=== PATIENT | female | born 1985 | race Caucasian/White ===

== ENCOUNTER 2022-01-04 08:47 | Emergency (ER) | payer BC, SELFPAY ==
[2022-01-04] VITALS (22 sets, daily range): BP systolic 90–141; BP diastolic 63–97; PULSE 88–112; O2SAT 96–100; BMI 21.5
[2022-01-04 09:23] LABS: HCG Qualitative* Negative (Negative)
--- NOTE | 2022-01-04 09:26 | CRLHL7_ITS ---
For Patients: As a result of the Century Cures Act, medical imaging exams and procedure reports are released immediately into your electronic medical record. You may view this report before your referring provider. If you have questions, please contact your health care provider. INDICATION: Lower abdominal pain and flank pain. COMPARISON: May 21, 2021 TECHNIQUE: CT examination of the abdomen and pelvis was performed following the uneventful intravenous administration of 62 cc of Isovue 370. Thin section axial images were obtained from the lung bases through the pubic symphysis. Oral contrast was not administered. Please note that all CT scans at this facility use dose modulation, iterative reconstruction, and/or weight-based dosing when appropriate to reduce radiation dose to as low as reasonably achievable. FINDINGS: LUNG BASES: The lung bases as visualized appear normal.The heart size is normal at the lung bases. LIVER/BILIARY SYSTEM:The liver is normal in size and configuration. There is no focal mass and there is no intra- or extra hepatic biliary ductal dilatation.The gallbladder is surgically absent ADRENALS: Normal KIDNEYS, URETERS and BLADDER:Kidneys normal in size. 3 millimeter right midpole calculus. No evidence obstructive uropathy. The bladder appears normal. SPLEEN:Normal appearance. PANCREAS: Appears normal. RETROPERITONEUM and MESENTERY: There is no mass, adenopathy or aortic aneurysm. GASTROINTESTINAL SYSTEM: There is no evidence of diverticulitis, colitis, mechanical obstruction, or appendicitis. The small bowel as visualized appears normal. PELVIS: There is a small amount of free fluid in the pelvis. This is slightly above that generally seen physiologically and was not present on the prior study. However, the uterus and adnexa appear normal.. OSSEOUS STRUCTURES and ABDOMINAL WALL: There is an age-appropriate appearance of the osseous structures.No significant abdominal wall defect. OTHER: No free fluid or free air. IMPRESSION: There is a small amount of free fluid in the pelvis. This is slightly above that generally seen physiologically and was not present on the prior study. However, the uterus and adnexa appear normal by CT. Absent gallbladder. Right renal stone without evidence of obstructive uropathy. Please note that all CT scans at this facility use dose modulation, iterative reconstruction, and/or weight-based dosing when appropriate to reduce radiation dose to as low as reasonably achievable. Dictated by Deyvi Martinez MD @ 01/04/2022 10:36:15 AM ----- ADDENDUM ----- Addendum: The uterus is absent. Possible collapsing right ovarian cysts may be associated with the moderate pelvic free fluid. Pelvic ultrasound recommended. Discussed with Dr. Garcia 12:10 p.m. 01/12/2022. Dictated by Delta Bang MD @ Jan 12 2022 12:10PM Signed by:?Deyvi Martinez MD @01/04/2022 10:36:15 AM (Electronic Signature)
--- NOTE | 2022-01-04 09:28 | ED_ITS ---
HPI - Abdominal Pain General Chief Complaint: Abdominal Pain Stated Complaint: Abdominal pain Time Seen by Provider: 01/04/22 09:02 History of Present Illness HPI narrative: This 36-year-old female comes in reporting lower abdominal pain and bilateral flank pain. She states that she has had some flank pain over the past few months but in the past several days as her abdominal pain and flank pain is worsened significantly. She does report some increased urinary frequency and decreased output recently. She has not had any fevers. She does report nausea and some vomiting. She has lost some weight because of loss of appetite. She has had a hysterectomy and denies of course any chance for . She states that her pain is worse when standing up straight. Her abdominal pain is rather constant. She states that she did not sleep so well at night over these past few nights because of pain. Related Data Previous Rx's Medication Instructions Recorded dextroamphetamine-amphetamine ER 20 mg PO QDAY #30 caps 12/15/21 20 mg 24hr capsule,extend release ketorolac 10 mg tablet 10 mg PO Q8H 5 days #15 tabs 01/04/22 methylprednisolone 4 mg tablets in See Rx Instructions PO .COMPLEX 01/04/22 a dose pack (Medrol (Reji)) #21 ea ondansetron HCl 4 mg tablet 4 mg PO Q6H #20 tabs 01/04/22 Allergies Allergy/AdvReac Type Severity Reaction Status Date / Time banana Allergy Unknown Verified 01/04/22 09:53 cat dander Allergy Unknown Verified 01/04/22 09:53 latex Allergy Unknown Verified 01/04/22 09:53 Penicillins Allergy Unknown Verified 01/04/22 09:53 Review of Systems Status of ROS Reports: 10 or more systems reviewed and unremarkable except as noted in History and below Narrative Constitutional: No fevers, no weight gain or loss. Eyes: No discharge. No vision changes. HENT: No congestion, no sore throat, no ear pain. Cardiovascular: No chest pain, no palpitations. Respiratory: No shortness of breath, no wheezes, no cough. Gastrointestinal: Lower abdominal pain with bilateral flank pain as described above. No diarrhea. She has nausea with some vomiting. Genitourinary: No hematuria. Increased urinary frequency. Musculoskeletal: Normal range of motion. Skin: No rashes, no pruritis. Neurological: No dizziness, weakness, sensory change, speech change. Endo/Heme/Allergies: No bruising or bleeding. No polydipsia. Pysch: no suicidality, no anxiety, no insomnia. All other systems reviewed and are negative. PFSH PFSH Social History Smoking Status: Former smoker Do you use any of these nicotine containing products: None Second hand tobacco smoke exposure: No How often do you have a drink containing alcohol: 2-3 times a week How many standard drinks containing alcohol do you have on a typical day: 1 or 2 How often do you have six or more drinks on one occasion: Never AUDIT-C Alcohol total score: 3 Non-prescribed substance use: marijuana (any form) Exam Narrative: Exam Narrative: Constitutional: Well-developed, well-nourished, no acute distress. HEENT: Normocephalic, atraumatic. Neck: Normal range of motion. Nontender. Supple. Heart: Regular. No murmurs. Borderline tachycardia. Intact distal pulses. Lungs: Clear to auscultation. No chest discomfort. No wheezes, rhonchi, or rales. Abdomen: Decreased bowel sounds. Tenderness across the lower abdomen. Mild rebound tenderness. Genitalia: Deferred. Back: No midline tenderness. Normal range of motion. Extremities: Normal range of motion. No injury. Skin: Intact. No rash. Warm. No erythema or pallor. Neurologic: No altered sensation. No weakness. Alert and oriented. Psychiatric: No suicidality. No anxiety or depression. No insomnia. Nursing notes and vitals signs are reviewed. Const: Vital Signs, click to edit/add: Vital Signs - 24 hr 01/04/22 08:51 01/04/22 10:01 01/04/22 10:02 Pulse Rate 96 106 H Pulse Rate [Left P ulse Oximeter] 103 H Blood Pressure 94/63 Blood Pressure [Ri ght Upper Arm] 141/97 H Pulse Oximetry 100 100 100 Oxygen Delivery Me thod Room Air 01/04/22 10:31 01/04/22 10:33 01/04/22 11:02 Pulse Rate 94 90 99 Pulse Rate [Left P ulse Oximeter] Blood Pressure 90/65 Blood Pressure [Ri ght Upper Arm] Pulse Oximetry 100 100 100 Oxygen Delivery Me thod 01/04/22 11:03 01/04/22 11:33 01/04/22 11:34 Pulse Rate 97 95 98 Pulse Rate [Left P ulse Oximeter] Blood Pressure Blood Pressure [Ri ght Upper Arm] Pulse Oximetry 100 100 100 Oxygen Delivery Me thod 01/04/22 12:00 01/04/22 12:14 01/04/22 12:15 Pulse Rate 112 H 100 105 H Pulse Rate [Left P ulse Oximeter] Blood Pressure 116/79 Blood Pressure [Ri ght Upper Arm] Pulse Oximetry 98 97 98 Oxygen Delivery Me thod 01/04/22 12:30 01/04/22 12:31 01/04/22 12:32 Pulse Rate 88 94 98 Pulse Rate [Left P ulse Oximeter] Blood Pressure 125/94 H Blood Pressure [Ri ght Upper Arm] Pulse Oximetry 98 98 99 Oxygen Delivery Me thod 01/04/22 13:00 01/04/22 13:01 Pulse Rate 88 88 Pulse Rate [Left P ulse Oximeter] Blood Pressure 120/82 Blood Pressure [Ri ght Upper Arm] Pulse Oximetry 96 96 Oxygen Delivery Me thod Course Vital Signs Vital signs: Initial Vital Signs Temperature Source Temporal Artery Scan 01/04/22 08:51 Pulse Rate 103 H 01/04/22 08:51 Blood Pressure 141/97 H 01/04/22 08:51 Blood Pressure Mean 111 01/04/22 08:51 Blood Pressure Position Supine 01/04/22 08:51 Pulse Oximetry 100 01/04/22 08:51 Oxygen Delivery Method 01/04/22 08:51 Vital Signs Pulse Rate 103 H 01/04/22 08:51 Blood Pressure 141/97 H 01/04/22 08:51 Pulse Oximetry 100 01/04/22 08:51 Oxygen Delivery Method 01/04/22 08:51 Pulse Rate 88 01/04/22 13:01 Blood Pressure 120/82 01/04/22 13:01 Pulse Oximetry 96 01/04/22 13:01 Oxygen Delivery Method 01/04/22 08:51 MDM - Abdominal Pain MDM Narrative Medical decision making narrative: This patient comes in with flank and abdominal pain as described above. This pain is been present for the most part of the past 6 months or so but more intense recently. She has had blood work done in the past but has not had any imaging. CT scan of the abdomen and pelvis was performed today which shows reassuring findings and no obvious cause for her pain. There is a nonobstructive 3 mm stone in the right kidney and there is some physiologic free fluid in the pelvis which may be a bit more than what is expected. The patient has had her gallbladder removed and has had a hysterectomy. Lab results returned with all normal findings. This includes sed rate, lipase, white count, and TSH among others. She did receive an IV dose of Toradol which brought some temporary relief. Later a dose of Dilaudid 0.5 mg brought better pain relief. She also received 2 doses of Zofran intravenously. Before discharge she also received Solu-Medrol 125 mg intravenously. She is okay to be discharged home. I advised her to follow-up with her primary physician and did also discuss some possibilities for referral to a specialist for further evaluation and treatment. She did received prescriptions for Toradol, Medrol Dosepak, and Zofran. Lab Data Labs: Lab Results 01/04/22 01/04/22 01/04/22 Range/Units 09:15 09:26 09:26 WBC 3.93 L (4.50-11.00) K/uL RBC 4.25 (4.00-5.20) m/uL Hgb 13.6 (12.0-16.0) gm/dL Hct 39.3 (33.0-51.0) % MCV 93 (80-100) fL MCH 32 (26-34) pg MCHC 35 (32-36) gm/dL RDW Coeff of Guillermina 11.7 (11.5-15.5) % Plt Count 238 (140-440) K/uL Neut % (Auto) 56.7 (42.0-72.0) % Lymph % (Auto) 35.9 (20-44) % [place] % (Auto) 6.6 (0.0-11.0) % Eos % (Auto) 0.3 (0.0-7.0) % Baso % (Auto) 0.5 (0.0-3.0) % Neut # (Auto) 2.20 (1.7-7.0) K/uL Lymph # (Auto) 1.40 (0.90-2.90) K/uL [place] # (Auto) 0.30 (0.00-0.90) K/UL Eos # (Auto) 0.00 (0.00-0.50) K/uL Baso # (Auto) 0.00 (0.00-0.30) K/uL Abs Immat Gran (auto) 0.00 (0.00-0.30) K/uL ESR (2-20) mm/hr Sodium 141 (135-149) mmol/L Potassium 3.7 (3.6-5.1) mmol/L Chloride 106 (96-114) mmol/L Carbon Dioxide 24 (20-32) mmol/L BUN 8 (5-24) mg/dL Creatinine 0.6 (0.5-1.5) mg/dL Estimated Creat Clear 114.09 Estimated GFR 121 ml/min Glucose 86 (60-115) mg/dL Calcium 9.1 (8.4-10.6) mg/dL Lipase (23-300) U/L TSH (0.270-4.20) uIU/mL HCG, Qual Negative (Negative) Urine Color Yellow (Yellow) Urine Appearance Clear (Clear) Urine pH 7.0 (5.0-8.5) Ur Specific [place] 1.025 (1.000-1.030) Urine Protein Negative (Negative) Urine Glucose (UA) Negative (Negative) Urine Ketones Negative (Negative) Urine Blood Negative (Negative) Urine Nitrite Negative (Negative) Urine Bilirubin Negative (Negative) Urine Urobilinogen 0.2 (0.2-1.0) Ur Leukocyte Esterase Negative (Negative) 01/04/22 01/04/22 01/04/22 Range/Units 12:01 12:01 12:01 WBC (4.50-11.00) K/uL RBC (4.00-5.20) m/uL Hgb (12.0-16.0) gm/dL Hct (33.0-51.0) % MCV (80-100) fL MCH (26-34) pg MCHC (32-36) gm/dL RDW Coeff of Guillermina (11.5-15.5) % Plt Count (140-440) K/uL Neut % (Auto) (42.0-72.0) % Lymph % (Auto) (20-44) % [place] % (Auto) (0.0-11.0) % Eos % (Auto) (0.0-7.0) % Baso % (Auto) (0.0-3.0) % Neut # (Auto) (1.7-7.0) K/uL Lymph # (Auto) (0.90-2.90) K/uL [place] # (Auto) (0.00-0.90) K/UL Eos # (Auto) (0.00-0.50) K/uL Baso # (Auto) (0.00-0.30) K/uL Abs Immat Gran (auto) (0.00-0.30) K/uL ESR 5 (2-20) mm/hr Sodium (135-149) mmol/L Potassium (3.6-5.1) mmol/L Chloride (96-114) mmol/L Carbon Dioxide (20-32) mmol/L BUN (5-24) mg/dL Creatinine (0.5-1.5) mg/dL Estimated Creat Clear Estimated GFR ml/min Glucose (60-115) mg/dL Calcium (8.4-10.6) mg/dL Lipase 56 (23-300) U/L TSH 1.150 (0.270-4.20) uIU/mL HCG, Qual (Negative) Urine Color (Yellow) Urine Appearance (Clear) Urine pH (5.0-8.5) Ur Specific [place] (1.000-1.030) Urine Protein (Negative) Urine Glucose (UA) (Negative) Urine Ketones (Negative) Urine Blood (Negative) Urine Nitrite (Negative) Urine Bilirubin (Negative) Urine Urobilinogen (0.2-1.0) Ur Leukocyte Esterase (Negative) Discharge Plan Discharge Clinical Impression: Abdominal pain Patient Disposition: Home, Self-Care Condition: Stable Additional Instructions: Take medication as needed and indicated. Follow up with MD and or consider consulting a specialist for further evaluation and treatment. Return if worsening. Prescriptions: New ondansetron HCl 4 mg tablet 4 mg PO Q6H Qty: 20 0RF ketorolac 10 mg tablet 10 mg PO Q8H 5 Days Qty: 15 0RF methylprednisolone [Medrol (Reji)] 4 mg tablets,dose pack See Rx Instructions .ROUTE .COMPLEX Qty: 21 0RF Rx Instructions: orally per package directions No Action dextroamphetamine-amphetamine 20 mg capsule,extended release 24hr 20 mg PO QDAY Qty: 30 0RF Follow Up/Referrals: Tono Mccoy MD [Primary Care Provider] - Stand Alone Forms: [employer] Info Instructions
--- OUTSIDE RECORDS SUMMARY | 2022-01-04 09:42 | XMS_ITS | Encounter Summary ---
:1985 Author Organization [facility] Address [address] [place] [address] Care Team Providers Name Role Phone Elsewhere, Pcp Primary Care Provider Unavailable Reason for Referral Outpatient (Routine) - Closed Specialty Diagnoses / Procedures Referred By Contact Refer red To Contact Diagnoses Pain Breast Marilyn Acosta APRN, [place] [place] [facility] Procedures BI Breast Diagnostic Bilateral with Tomosynthesis BI Breast Diagnostic Right with Tomosynthesis [facility] [address] [place] [address] Referral ID Status Reason Start Date Expiration Date Visits Requ ested Visits Authorized [id number] Closed 11/25/2021 11/25/2022 1 1 Reason for Visit Outpatient (Routine) - Closed Specialty Diagnoses / Procedures Referred By Contact Refer red To Contact Diagnoses Pain Breast Marilyn Acosta APRN, [facility] [place] [facility] Procedures BI Breast Diagnostic Bilateral with Tomosynthesis BI Breast Diagnostic Right with Tomosynthesis [facility] [address] [place] [address] Referral ID Status Reason Start Date Expiration Date Visits Requ ested Visits Authorized [id number] Closed 11/25/2021 11/25/2022 1 1 Encounter Details Date Type Department Care Team Description 12/16/2021 Hospital Encounter Department of Radiology Marilyn Acosta APRN, [facility] [place] [facility] [address] [place] [id number] [address] [place] [phone] (Wo rk) Social History Tobacco Use Types Packs/Day Years Used Date Smoking Tobacco: Never Smokeless Tobacco: Never Alcohol Habits Answer Date Recorded How often do you have a drink containing alcohol? 2-4 times a month 11/23/2021 How many drinks containing alcohol do you have on a 1 or 2 11/23/2021 typical day when you are drinking? How often do you have six or more drinks on one Never 11/23/2021 occasion? Comment: Not asked Social Isolation Answer Date Recorded In a typical week, how many times do you More than three evens es a week 11/23/2021 talk on the phone with family, friends, or neighbors? How often do you get together with friends Twice a week 11/23/2021 or relatives? How often do you attend latter-day or More than 4 times per year 11/23/2021 religion services? Do you belong to any clubs or Not asked organizations such as latter-day groups, unions, fraternal or athletic groups, or school groups? How often do you attend meetings of the More than 4 times pe r year 11/23/2021 clubs or organizations you belong to? Are you now , , , 11/23/2021 , never or living with a partner? Physical Activity Answer Date Recorded On average, how many days per week do you engage in moderate to 2 days 11/23/2021 strenuous exercise (like walking fast, running, jogging, dancing, swimming, biking, or other activities that cause a light or heavy sweat)? On average, how many minutes do you engage in exercise at th is 20 min 11/23/2021 level? Stress Answer Date Recorded Do you feel stress - tense, restless, nervous, or anxious, R ather much 11/23/2021 or unable to sleep at night because your mind is troubled all the time - these days? Financial Resource Strain Answer Date Recorded How hard is it for you to pay for the very basics like Not h gilberto at all 11/23/2021 food, housing, medical care, and heating? Intimate Partner Violence Answer Date Recorded Within the last year, have you been afraid of your partner o r No 11/23/2021 ex-partner? Within the last year, have you been humiliated or emotionall y No 11/23/2021 abused in other ways by your partner or ex-partner? Within the last year, have you been kicked, hit, slapped, or No 11/23/2021 otherwise physically hurt by your partner or ex-partner? Within the last year, have you been raped or forced to have any No 11/23/2021 kind of sexual activity by your partner or ex-partner? Food Insecurity Answer Date Recorded Within the past 12 months, you worried that your food would Never true 11/23/2021 run out before you got money to buy more. Within the past 12 months, the food you bought just didn't N ever true 11/23/2021 last and you didn't have money to get more. Transportation Needs Answer Date Recorded In the past 12 months, has lack of transportation kept you f rom No 11/23/2021 medical appointments or from getting medications? In the past 12 months, has lack of transportation kept you f rom No 11/23/2021 meetings, work, or getting things needed for daily living? Housing Stability Answer Date Recorded In the last 12 months, was there a time when you were not ab le Yes 11/23/2021 to pay the mortgage or rent on time? In the last 12 months, how many places have you lived? 1 11/23/2021 In the last 12 months, was there a time when you did not hav e a No 11/23/[address] sleep or slept in a usp (including now)? Education Answer Date Recorded What is the highest level of school Bachelor's degree (e.g., BA, AB, 11/23/2021 you have completed or the highest BS) degree you have received? Sex Assigned at Date Recorded Female 11/21/2021 11:33 PM CDT documented as of this encounter Medications at Time of Discharge Medication Sig Dispensed Refills Start Date End Date amphetamine-dextroamphetam Take by mouth daily. 0 11/15/2021 ine (ADDERALL XR) 20 mg 24 hr capsule diazePAM (VALIUM) 10 mg Take 10 mg by mouth 0 tablet every 6 (six) hours as needed for anxiety. documented as of this encounter Plan of Treatment Not on filedocumented as of this encounter Procedures Procedure Name Priority Date/Time Associated Comments Diagnosis BI BREAST DIAGNOSTIC RAD - Routine 12/16/2021 9:59 Pain Breast Res ults for BILATERAL WITH (most inpatients AM CDT this proc edure TOMOSYNTHESIS and all are in the outpatients) results section. documented in this encounter Results BI Breast Diagnostic Bilateral with Tomosynthesis (12/16/2021 9:59 AM CDT) Anatomical Region Laterality Modality Breast, Breast Imaging RST LOS, Breast Imaging ARZ LOS, [facility] [facility] Bilateral Mammography Imaging FLA LOS Specimen (Source) Anatomical Collection Method Collection Time Re ceived Time Location / / Volume Laterality 12/16/2021 10:23 AM CDT Impressions 12/16/2021 10:36 AM CDT 1. ??No mammographic or sonographic findings of malignancy. 2. ??Right periareolar breast pain corre sponds with benign dense fibroglandular tissue. RECOMMENDATION: ??Individualized Recomme ndation Recommend management be based on clinica l grounds. ASSESSMENT: ??BI-RADS: 2: Benign. Narrative 12/16/2021 10:36 AM CDT EXAM: ??BI BREAST DIAGNOSTIC BILATERAL WITH TOMOSYNTHESIS, BI ULTRASOUND BREAST FOCUSED RIGHT INDICATION: ??Right Breast pain COMPARISON: ??None. This is baseline. DENSITY: ??c. The breast(s) are heteroge neously dense, which may obscure small masses. FINDINGS: ??Bilateral mammograms are neg ative. Right breast ultrasound at site of pain in the periareolar regions is negative for seymour d or cystic suspicious mass. There is benign abundant dense fibroglandular tissue in the right peria reolar regions that corresponds with the pain. Negative for malignancy. No suspicious right axillary lymph nodes. I discussed findings with patient. We talked about strategies to address the breast p ain. She was satisfied. Procedure Note Delta Keyes M.D. - 12/16/2021 EXAM: BI BREAST DIAGNOSTIC BILATERAL WIT H TOMOSYNTHESIS, BI ULTRASOUND BREAST FOCUSED RIGHT INDICATION: Right Breast pain COMPARISON: None. This is baseline. DENSITY: c. The breast(s) are heterogene ously dense, which may obscure small masses. FINDINGS: Bilateral mammograms are negat vladimir. Right breast ultrasound at site of pain in the periareolar regions is negative for seymour d or cystic suspicious mass. There is benign abundant dense fibroglandular tissue in the right peria reolar regions that corresponds with the pain. Negative for malignancy. No suspicious right axillary lymph nodes. I discussed findings with patient. We talked about strategies to address the breast p ain. She was satisfied. IMPRESSION: 1. No mammographic or sonographic findin gs of malignancy. 2. Right periareolar breast pain corresp onds with benign dense fibroglandular tissue. RECOMMENDATION: Individualized Recommend ation Recommend management be based on clinica l grounds. ASSESSMENT: BI-RADS: 2: Benign. Efraín Pichardo APRNNPasquale IMG BI PROCEDURES documented in this encounter Visit Diagnoses Diagnosis Pain Breast documented in this encounter Care Teams Multiple Sclerosis Nurse Relationship Specialty Start Date End Date Elsewhere, Pcp PCP - General Internal Medicine 11/25/21 documented as of this encounter
--- OUTSIDE RECORDS SUMMARY | 2022-01-04 09:42 | XMS_ITS | Encounter Summary ---
:1985 Author Organization [facility] Address [address] [place] [address] Care Team Providers Name Role Phone Elsewhere, Pcp Primary Care Provider Unavailable Reason for Referral Outpatient (Routine) - Closed Specialty Diagnoses / Procedures Referred By Contact Refer red To Contact Diagnoses Pain Breast Marilyn Acosta APRN, [facility] [place] [facility] Procedures BI Breast Diagnostic Bilateral with Tomosynthesis BI Breast Diagnostic Right with Tomosynthesis C.N.P. [address] [place] [address] Referral ID Status Reason Start Date Expiration Date Visits Requ ested Visits Authorized [id number] Closed 11/25/2021 11/25/2022 1 1 Outpatient (Routine) - Closed Specialty Diagnoses / Procedures Referred By Contact Refer red To Contact Diagnoses Pain Breast Marilyn Acosta APRN, [facility]. [facility] [place] [facility] Procedures BI Ultrasound Breast Focused Right [address] [place] [address] Referral ID Status Reason Start Date Expiration Date Visits Requ ested Visits Authorized [id number] Closed 11/25/2021 11/25/2022 1 1 Reason for Visit Reason Comments Other Lump in breast with pain. [facility] in May 2021. Painful when children try to hug her. Has pain more in the evenings and mornings. Appointment Request (Routine) - Closed Specialty Diagnoses / Procedures Referred By Contact Refer red To Contact Family Medicine Referral ID Status Reason Start Date Expiration Date Visits Requ ested Visits Authorized [id number] Closed 11/18/2021 11/18/2022 1 1 Encounter Details Date Type Department Care Team Description 11/25/2021 Office Visit Department of Family Marilyn Acosta Pain B reast (Primary Medicine, [place] [facility], C.N.P. Dx) Clinic, in [address] [address] [place], [place] [phone] [id number] (Work) [phone] Social History Tobacco Use Types Packs/Day Years Used Date Smoking Tobacco: Never Smokeless Tobacco: Never Tobacco Cessation: Counseling Given: Not Answered Alcohol Habits Answer Date Recorded How often [...] or relatives? How often do you attend bahai or More than 4 times per year 11/23/2021 buddhism services? Do you belong to any clubs or Not asked organizations such as bahai groups, unions, fraternal or athletic groups, or [...] minutes do you engage in exercise at is 20 min 11/23/2021 level? Stress Answer [...] place to sleep or slept in a fpc (including now)? Education Answer Date Recorded What is the highest level of school Bachelor's degree (e.g., BA, AB, 11/23/2021 you have completed or the highest BS) degree you have received? Sex Assigned at Date Recorded Female 11/21/2021 11:33 PM CDT documented as of this encounter Last Filed Vital Signs Vital Sign Reading Time Taken Comments Blood Pressure 115/76 11/25/2021 7:55 AM Average of 3 CDT Pulse 80 11/25/2021 7:55 AM CDT Temperature 35.8 ??C (96.4 ??F) 11/25/2021 7:55 AM CDT Respiratory Rate 16 11/25/2021 7:55 AM CDT Oxygen Saturation - - Inhaled Oxygen Concentration - - Weight 58 kg (127 lb 15.6 oz) 11/25/2021 7:55 AM CDT Height 165.5 cm (5' 5.16) 11/25/2021 7:55 AM CDT Body Mass Index 21.19 11/25/2021 7:55 AM CDT documented in this encounter Patient Instructions Patient InstructionsMarilyn Acosta APRN, C.N.P. - 11/25/2021 8:00 AM CDT Supportive therapy may include: Elimination of potential triggers (eg, caffeine, nicotine, excess salt) Supportive bra (with bra fitting to ensure correct size; avoid underwire bras; consider wearing a soft bra at night) Cool or warm compresses NSAIDs documented in this encounter Progress Notes Marilyn Acosta APRN, C.N.P. - 11/25/2021 8:00 AM CDT SUBJECTIVE CHIEF COMPLAINT/REASON FOR VISIT Chief Complaint Patient presents with Other Lump in breast with pain. Started in May 2021. Painful when children try to hug her. Has pain more in the evenings and mornings. HISTORY OF PRESENT ILLNESS Arlen Valladares is a 36 y.o. female who presents to the clinic today for evaluation of breast pain and breast lump. Patient states she first noticed a subareolar mass seven months ago. She describesthe pain under the right nipple and reports it feels like a pressure. The pain is worst with any pressure to the chest. The patient denies a personal or family history of breast or gynecologic cancer. Arlen receives her primary care at [facility]. In talking with her, she states she had a mammogram at the onset of symptoms showing fibroglandular tissue, no other significant finding. She continues to have pain and is seeking a second opinion today. Patient denies nipple discharge, skin changes on the breast, fever, unintentional weight loss, lymphadenopathy. Patient states she had a partial hysterectomy and thus is unable to tell if the pain worsens with hormone fluctuations. The patient states she has requested medical records but has not received these yet. Past medical history significant for anxiety, depression, ADHD, IBS with diarrhea, and anal fissure s/p Botox. CURRENT MEDICATIONS I have reviewed the current medications list. ALLERGIES/CONTRAINDICATIONS Allergies Allergen Reactions Latex Rash Meperidine Other (see comments) Family history Oxycodone-Acetaminophen Itching Penicillins Hives REVIEW OF SYSTEMS Skin: Positive for breast lump. The following systems were negative: Constitutional, Cardiovascular OBJECTIVE VITAL SIGNS BP 115/76 (BP Location: Left arm, Patient Position: Sitting, Cuff Size: Regular) Comment: Average of3 Pulse 80 Temp (!) 35.8 ??C (Temporal) Resp 16 Ht 165.5 cm Wt 58 kg BMI 21.19 kg/m?? PHYSICAL EXAMINATION General: Alert 36-year-old female in no acute distress, nontoxic in appearance, well dressed, normalhygiene. HEENT: Head normocephalic, atraumatic, pupils equal round react to light, EOM intact. Neck: Supple. No lymphadenopathy. Cardiovascular: Regular rate, rhythm, S1, S2. No murmur. No edema. Respiratory: Lungs clear to auscultation in the anterior and posterior chest, easy Respirations. Nonlabored breathing. Breast: Breasts appear symmetric. No overlying skin changes. There are areas of fibroglandular tissue located throughout both breasts. 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 GI: Abdomen is rounded and soft. Active bowel sounds in all four quadrants. No pain to light or deeppalpation. No organomegaly. Neurologic: Alert, oriented, steady gait. Extremities: Warm, pink, dry. DIAGNOSTICS: No results found for this or any previous visit (from the past 24 hour(s)). ASSESSMENT / PLAN #1 Pain Breast Patient presents to the clinic today for evaluation of seven months of subareolar right breast pain.We will proceed with a diagnostic mammogram and ultrasound given the patient does not have her medical records and her symptoms persist. She is agreeable to this. We will follow-up on the results accordingly. Symptomatic care reviewed with the patient. - BI Ultrasound Breast Focused Right; Future; Expected date: 11/25/2021 - BI Breast Diagnostic Right with Tomosynthesis; Future; Expected date: 11/25/2021 Patient states she would like to establish primary care at [facility]. Recommend patient gather hermedical records and return to the clinic for an annual physical and to discuss other health concerns. All questions were answered. Patient verbalizing understanding and is in agreement with the above outlined plan. documented in this encounter Plan of Treatment Not on filedocumented as of this encounter Results BI Ultrasound Breast Focused Right (12/16/2021 10:38 AM CDT) Anatomical Region Laterality Modality Breast, Breast Imaging RST LOS, Breast Imaging [facility], [address] Right Ultrasound Imaging [facility] Specimen (Source) Anatomical Collection Method Collection Time [...] clinica l grounds. ASSESSMENT: BI-RADS: 2: Benign. Marilyn Acosta APRN, C.N.P. IMG BI PROCEDURES BI Breast Diagnostic Bilateral with Tomosynthesis (12/16/2021 9:59 AM CDT) Anatomical Region Laterality Modality Breast, Breast Imaging RST LOS, Breast Imaging [facility] LOS, [address] Bilateral Mammography Imaging [facility] LOS Specimen [...] clinica l grounds. ASSESSMENT: BI-RADS: 2: Benign. Marilyn Acosta APRN, C.N.P. IMG BI PROCEDURES documented in this encounter Visit Diagnoses Diagnosis Pain Breast - Primary Pain Breast Pain Breast documented in this encounter Care Teams Lead Rider Relationship Specialty Start Date End Date Elsewhere, Pcp PCP - General Internal Medicine 11/25/21 documented as of this encounter
--- OUTSIDE RECORDS SUMMARY | 2022-01-04 09:42 | XMS_ITS | Clinical Summary ---
:1985 Author Organization [facility] Address [address] [place] [address] Care Team Providers Name Role Phone Elsewhere, Pcp Primary Care Provider Unavailable Source Comments Patient records contain information from all sites at [facility]. For routine questions regarding patient records, call [phone] during business hours, M-F 8:00 AM - 5:00 PM Central Time. Record requests for emergency care only can be directed to [phone] at any time.[facility] Allergies Active Allergy Reactions Severity Noted Date Comments Latex Rash 03/09/2006 Meperidine Other (see comments) 12/17/2015 Family history Oxycodone-Acetaminophen Itching 12/17/2015 Penicillins Hives 03/24/2014 Medications Medication Sig Dispensed Refills Start Date End Date Status amphetamine-dextroamph Take by mouth 0 11/15/2021 Active etamine (ADDERALL XR) daily. 20 mg 24 hr capsule diazePAM (VALIUM) 10 Take 10 mg by 0 Active mg tablet mouth every 6 (six) hours as needed for anxiety. Active Problems No known active problems Encounters Date Type Specialty Care Team Description 12/16/2021 Hospital Encounter Radiology Marilyn Acosta, Pain Sumi ast MACHINIST HELPER, C.N.P. 12/16/2021 Hospital Encounter Radiology Mairlyn Acosta Pain Sumi ast MACHINIST HELPER, C.N.P. 11/25/2021 Office Visit Family Medicine Marilyn Acosta, Pain Breast (Primary MACHINIST HELPER, C.N.P. Dx) from Last 3 Months Immunizations Name Administration Dates Next Due Influenza (IM) Preservative Free 02/05/2014, 01/30/2013, 02/2012 Influenza, Injectable, Quadrivalent 04/07/2019 Influenza, Seasonal, Injectable 01/29/2010 Tdap 02/03/2016, 02/05/2014, 01/30/2013 influenza vaccine quad 01/17/2018, 01/28/2017, 01/20/2016, (FLUZONE/FLUARIX) (6 months and 01/21/2015 older)(PF) Social History Tobacco Use Types Packs/Day Years [...] or relatives? How often do you attend pentecostal or More than 4 times per year 11/23/2021 latter day services? Do you belong to any clubs or Not asked organizations such as pentecostal groups, unions, fraternal or athletic groups, or [...] place to sleep or slept in a skilled nursing (including now)? Education Answer Date Recorded What is the highest level of school Bachelor's degree (e.g., BA, AB, 11/23/2021 you have completed or the highest BS) degree you have received? Sex Assigned at Date Recorded Female 11/21/2021 11:33 PM CDT Last Filed Vital Signs Vital Sign Reading [...] Mass Index 21.19 11/25/2021 7:55 AM CDT Plan of Treatment Health Maintenance Due Date Last Done Comments HIV Screening 1985 Hepatitis B Vaccines (1 of 1985 3 - 3-dose series) Hepatitis C Screening 1985 COVID-19 Vaccine (2 - 01/14/2021 12/24/2020 Pfizer series) Influenza Vaccine (#1) 2022 04/07/2019, 01/17/2018, 01/28/2017, Additional history exists DTaP,Tdap,and Td Vaccines 02/02/2026 02/03/2016, 02/05/2014 , (4 - Td or Tdap) 01/30/2013 Depression Screening Completed 11/25/2021 (Annual PHQ-2) Pneumococcal vaccine (0-64 Aged Out No lo nger eligible years) based on patient 's age to complete this topic Procedures Procedure Name Priority Date/Time Associated Comments Diagnosis BI ULTRASOUND BREAST RAD - Routine 12/16/2021 10:38 Pain Breast Re sults for FOCUSED RIGHT (most inpatients AM CDT this proce dure and all are in the outpatients) results section. BI BREAST DIAGNOSTIC RAD - Routine 12/16/2021 9:59 Pain Breast Res ults for BILATERAL WITH (most inpatients AM CDT this proc edure TOMOSYNTHESIS and all are in the outpatients) results section. from Last 3 Months Results BI Ultrasound Breast Focused Right (12/16/2021 10:38 AM CDT) Anatomical Region Laterality Modality Breast, Breast Imaging RST LOS, Breast Imaging [facility] LOS, [address] Right Ultrasound Imaging [facility] LOS Specimen (Source) Anatomical Collection [...] grounds. ASSESSMENT: BI-RADS: 2: Benign. Efraín Pichardo APRNNKenP. IMG BI PROCEDURES from Last 3 Months Insurance Payer Benefit Plan / Subscriber ID Effective Dates Phone Addre ss Type Group [employer] [place] [id number] 2021-Presen [phone] [address] [facility] [address] [place] [id number] Care Teams [employer] Electrical Systems Designer Relationship Specialty Start Date End Date Elsewhere, Pcp PCP - General Internal Medicine 11/25/21
--- OUTSIDE RECORDS SUMMARY | 2022-01-04 09:42 | XMS_ITS | Encounter Summary ---
:1985 Author Organization [facility] Address [address] [place] [address] Care Team Providers Name Role Phone Unavailable Primary Care Provider Unavailable Encounter Details Date Type Department Care Team Description 03/24/2014 Hospital Encounter HX [facility] Floyd Chaudhry [facility], M.D. Social History Tobacco Use Types Packs/Day Years Used Date Smoking Tobacco: Never Assessed Alcohol Habits Answer Date Recorded How often [...] or relatives? How often do you attend congregation or More than 4 times per year 11/23/2021 nondenominational services? Do you belong to any clubs or Not asked organizations such as congregation groups, unions, fraternal or athletic groups, or [...] place to sleep or slept in a snf (including now)? Sex Assigned at Date Recorded Female 11/21/2021 11:33 PM CDT documented as of this encounter Last Filed Vital Signs Vital Sign Reading Time Taken Comments Blood Pressure 125/87 03/24/2014 6:33 PM HAND CANDY DIPPER Pulse 103 03/24/2014 2:55 PM HAND CANDY DIPPER Temperature - - Respiratory Rate 18 03/24/2014 5:47 PM HAND CANDY DIPPER Oxygen Saturation - - Inhaled Oxygen Concentration - - Weight - - Height - - Body Mass Index - - documented in this encounter Discharge Summaries Conversion, Historical Provider Ser - 03/24/2014 6:52 PM CST ED Discharge Instructions [address] [address] Name: ARLEN VALLADARES Date of : 1985 12:00 AM Visit Date: 03/24/2014 2:52 PM [facility] Number: [id number] Address: [address] [place] [phone] Primary Care Provider: PCP, ELSEWHERE IMPORTANT: [facility] in [place] would like to thank you for allowing us to assist you with your healthcare needs. The following includes patient education materials and information regarding your injury/illness. Diagnosis: Hemorrhage (Pp) Delayed Follow-Up Instructions: With: Address: When: Follow up with primary care provider Within As Needed Comments: You are having post bleeding. take the medication as prescribed. you might have more bleedingas your body empties your uterus. rest and take it easy, follow up with your OB doctor tomorrow. if you have any concerns, return for a recheck. With: Address: When: ELSEWHERE PCP Within As Needed Comments: Your Upcoming Appointments: Date Time Location Provider No Appointments found Patient Education Materials: ED Tests and Procedures: Order Status Automated Diff-5 Part Completed Blood Bank Hold Completed CBC (includes Auto Differential) Completed Comprehensive Metabolic Panel Completed US Pelvic And Endovaginal Completed Discharge Prescriptions & Home Medications: Medication/Strength Dose Route Frequency Indications/Special Instructions/Comments/Notes methylergonovine (Methergine 0.2 mg oral tablet) 0.2 mg Oral every 8 hours Comment: Attention: If you have any medications at home not on this list, DO NOT take them until you contact your provider for clarification. Give a copy of your medication list to your primary care provider. Update your medication list any time medications or doses are changed and carry your medication list at all times in case of emergency. Medication Reconciliation: Reconciliation is a process of identifying the most accurate list of all medications a patient is taking - including name, dosage, frequency, and route - and using this list to provide to the patient information about how to take those medications. ARLEN VALLADARES or piper has reviewed the home med ications you have listed with us. Review the following instructions: You have NOT received any prescriptions and you have told us you are not currently taking any home medications You have NOT received any prescriptions. You have been provided a discharge medications list and you may CONTINUE taking your medications as previously prescribed by your regular providers. You have received the listed prescriptions and BEGIN all listed prescriptions as directed. Since you have listed no home medications, please check with your family doctor if you are taking any other medications. You have received the listed prescriptions and BEGIN all listed prescriptions as directed. Youhave been provided a discharge medications list and you may CONTINUE all home medications as previously prescribed by your regular providers. You have received the listed prescriptions and BEGIN all listed prescriptions as directed. Youhave been provided a discharge medications list. The following CHANGES have been made to your medication list; Otherwise, CONTINUE all home medications as previously prescribed by your regular provider. IMPORTANT: We examined and treated you today on an emergency basis only. This was not a substitute for, or an effort to provide, complete medical care. In most cases, you must let your doctor check youagain. Tell your doctor about any new or lasting problems. We cannot recognize and treat all injuries or illnesses in one Emergency Department visit. If you had special tests, such as EKG's or X- rays, we will review them again within 24 hours. We will call you if there are any new suggestions. Please follow the instructions above carefully. If you are being transferred to another facility your followup plan of care will be determined by the receiving facility. If you are a patient that is being discharged from the Emergency Department after receiving narcotics or other medications that may impair your judgment you may be a risk to yourself or others if you operate a motor vehicle. We recommend that you arrange a ride home with a responsible green party. I, ARLEN VALLADARES , or responsible green party have received this information and my questions have been answered. I have discussed any challenges I see with this plan with the nurse or physician. Patient Signature or Responsible Constitution Party/Relationship Date Time Provider Signature Date Time Medication Reconciliation: Reconciliation is a process of identifying the most accurate list of all medications a patient is taking - including name, dosage, frequency, and route - and using this list to provide to the patient information about how to take those medications. ARLEN VALLADARES or designee has reviewed the home med ications you have listed with us. Review the following instructions: You have NOT received any prescriptions and you have told us you are not currently taking any home medications You have NOT received any prescriptions. You have been provided a discharge medications list and you may CONTINUE taking your medications as previously prescribed by your regular providers. You have received the listed prescriptions and BEGIN all listed prescriptions as directed. Since you have listed no home medications, please check with your family doctor if you are taking any other medications. You have received the listed prescriptions and BEGIN all listed prescriptions as directed. Youhave been provided a discharge medications list and you may CONTINUE all home medications as previously prescribed by your regular providers. You have received the listed prescriptions and BEGIN all listed prescriptions as directed. Youhave been provided a discharge medications list. The following CHANGES have been made to your medication list; Otherwise, CONTINUE all home medications as previously prescribed by your regular provider. IMPORTANT: We examined and treated you today on an emergency basis only. This was not a substitute for, or an effort to provide, complete medical care. In most cases, you must let your doctor check youagain. Tell your doctor about any new or lasting problems. We cannot recognize and treat all injuries or illnesses in one Emergency Department visit. If you had special tests, such as EKG's or X- rays, we will review them again within 24 hours. We will call you if there are any new suggestions. Please follow the instructions above carefully. If you are being transferred to another facility your followup plan of care will be determined by the receiving facility. If you are a patient that is being discharged from the Emergency Department after receiving narcotics or other medications that may impair your judgment you may be a risk to yourself or others if you operate a motor vehicle. We recommend that you arrange a ride home with a responsible green party. I, ARLEN VALLADARES , or responsible green party have received this information and my questions have been answered. I have discussed any challenges I see with this plan with the nurse or physician. Patient Signature or Responsible Constitution Party/Relationship Date Time Provider Signature Date Time Source: [facility] POWERCHART Document Id: [id number] CANDY DIPPER Conversion, Historical Provider Ser - 03/24/2014 6:52 PM CST ED Depart Summary [facility] Emergency Department Clinical Discharge Summary PERSON INFORMATION Name ARLEN VALLADARES Age 29 Years 1985 12:00 AM Sex Female Language Citizen Of [place] PCP PCP, ELSEWHERE Marital Status Visit Id Visit Reason Vaginal bleeding; Vaginal Bleeding Specialty Enc Type Emergency Med Service Emergency Medicine Referred by [facility] ED Discharge 03/24/2014 6:52 PM Tracking Id [id number] Checkout 03/24/2014 6:52 PM Checkin 03/24/2014 2:52 PM Acuity 2 -Emergent Dispo Type * Discharged to Home or Self Care Arrival 03/24/2014 2:52 PM Reg Status Complete LOS 000 04:00 Address: [address] [place] [phone] Comment: PROVIDER INFORMATION Provider Role Provider Contact Time LISSETT BETANCOURT DISK RECORDIST Nurse 03/24/14 15:02 CRISTEL BRASHER DISK RECORDIST Nurse 03/24/14 15:13 FLOYD REYES MD ED Provider 03/24/14 15:14 ANDREWS TUCKER ED Honing Machine Set Up Operator Tool 03/24/14 15:26 DIAGNOSIS Hemorrhage (Pp) Delayed Comment: PATIENT EDUCATION INFORMATION Instructions: Follow up: With: Address: When: Follow up with primary care provider Within As Needed Comments: You are having post bleeding. take the medication as prescribed. you might have more bleedingas your body empties your uterus. rest and take it easy, follow up with your OB doctor tomorrow. if you have any concerns, return for a recheck. With: Address: When: ELSEWHERE PCP Within As Needed Comments: Source: [facility] Document Id: [id number] documented in this encounter ED Notes Conversion, Historical Provider Ser - 03/24/2014 6:51 PM CST ED Education ED Education Entered On: 03/24/2014 18:51 HAND CANDY DIPPER Performed On: 03/24/2014 18:51 HAND CANDY DIPPER by CRISTEL BRASHER RN Education ED Education Grid Topics : Other: dc instructions Individuals Taught : Patient Barriers to Learning : None evident Teaching Method : Explanation, Printed materials Teaching Evaluation : Verbalizes understanding CRISTEL BRASHER RN - 03/24/2014 18:51 HAND CANDY DIPPER [facility] Id: [id number] HAND CANDY DIPPER!9 Conversion, Historical Provider Ser - 03/24/2014 6:51 PM CST ED Pain Assessment ED Pain Assessment Entered On: 03/24/2014 18:51 HAND CANDY DIPPER Performed On: 03/24/2014 18:51 HAND CANDY DIPPER by CRISTEL BRASHER RN Pain Assessment Pain Symptoms : No CRISTEL BRASHER RN - 03/24/2014 18:51 HAND CANDY DIPPER Source: [facility] [employer] Document Id: [id number] HAND CANDY DIPPER!3 Conversion, Historical Provider Ser - 03/24/2014 6:50 PM CST ED Nurse Reassess ED Nurse Reassess Entered On: 03/24/2014 18:50 HAND CANDY DIPPER Performed On: 03/24/2014 18:50 HAND CANDY DIPPER by CRISTEL BRASHER RN Pain Assessment Pain Symptoms : No CRISTEL BRASHER RN - 03/24/2014 18:50 HAND CANDY DIPPER /OB Reassess /OB Note : Pt ready for discharge. Pt to follow up with her OB Dr Reza in [place] tomorrow. Release of information filled out by patient so records can be faxed to her provider. CRISTEL BRASHER RN - 03/24/2014 18:50 HAND CANDY DIPPER Source: [facility] [employer] Document Id: [id number] HAND CANDY DIPPER!5 Conversion, Historical Provider Ser - 03/24/2014 6:50 PM CST ED Disposition Summary ED Disposition Summary Entered On: 03/24/2014 18:51 HAND CANDY DIPPER Performed On: 03/24/2014 18:50 HAND CANDY DIPPER by CRISTEL BRASHER RN ED Disposition Summary Accompanied By : Spouse Mode of Discharge : Ambulatory Transportation : Private vehicle Discharge From ED With : Home Med List Printed Discharge Instructions Given to Patient : Yes Patient Status at Discharge from ED : Improved CRISTEL BRASHER RN - 03/24/2014 18:50 HAND CANDY DIPPER Source: [facility] [employer] Document Id: [id number] HAND CANDY DIPPER!8 Conversion, Historical Provider Ser - 03/24/2014 5:44 PM CST ED Nurse Reassess ED Nurse Reassess Entered On: 03/24/2014 17:47 HAND CANDY DIPPER Performed On: 03/24/2014 17:44 HAND CANDY DIPPER by CRISTEL BRASHER RN Pain Assessment Pain Symptoms : No CRISTEL BRASHER RN - 03/24/2014 17:44 HAND CANDY DIPPER /OB Reassess /OB Note : Pt given first dose of methergine here. Pt to d/c home and follow up with OB in [place] tomorrow. Pt updated on plan of care. Pt getting ready for discharge. CRISTEL BRASHER RN - 03/24/2014 17:44 HAND CANDY DIPPER Source: [facility] Document Id: [id number] HAND CANDY DIPPER!5 Marcella Soria RCésar - 03/24/2014 4:31 PM CST ED Nurse Reassess ED Nurse Reassess Entered On: 03/24/2014 16:33 HAND CANDY DIPPER Performed On: 03/24/2014 16:31 HAND CANDY DIPPER by MARCELLA MARIE RN Pain Assessment Pain Symptoms : No MARCELLA MARIE RN - 03/24/2014 16:31 HAND CANDY DIPPER Resp Reassess Respiratory Patient Stated Symptoms : None Distress : None Airway : Patent Respiratory Pattern : Regular Respirations : Unlabored MARCELLA MARIE RN - 03/24/2014 16:31 HAND CANDY DIPPER CV Reassess CV Patient Stated Symptoms : None Skin Color : Normal for ethnicity Skin Description : Dry Skin Temperature : Warm Nail Bed Color : Loda Capillary Refill : Less than 2 seconds Heart Rhythm : Regular MARCELLA MARIE RN - 03/24/2014 16:31 HAND CANDY DIPPER Neuro Reassess Last Well Time Known : Not applicable Orientation : Oriented x 3 Characteristics of Speech : Appropriate for age Level of Consciousness : Alert MARCELLA MARIE RN - 03/24/2014 16:31 HAND CANDY DIPPER [place] Coma Eye Opening Response [place] : Spontaneously Best Verbal Response Albin : Oriented Best Motor Response Albin : Obeys simple commands Albin Coma Score : 15 MARCELLA MARIE RN - 03/24/2014 16:31 HAND CANDY DIPPER GI Reassess GI Patient Stated Symptoms : None CYRUSMICHAEL MARCELLA Flaherty RN - 03/24/2014 16:31 HAND CANDY DIPPER /OB Reassess /OB Note : no acute changes. Ultrasound at bedside. JOSRSIRENA MARCELLA Flaherty RN - 03/24/2014 16:31 HAND CANDY DIPPER Source: [facility] POWERCHART Document Id: [id number] HAND CANDY DIPPER!31 CANDY DIPPER Conversion, Historical Provider Ser - 03/24/2014 3:22 PM CST ED Primary Assessment Document Has Been Updated ED Primary Assessment Entered On: 03/24/2014 15:28 HAND CANDY DIPPER Performed On: 03/24/2014 15:22 HAND CANDY DIPPER by CRISTEL BRASHER RN Reason For Visit (As Of: 03/24/2014 15:42:33 HAND CANDY DIPPER) Diagnoses(Active) Vaginal bleeding Date: 03/24/2014 ; Diagnosis Type: Reason For Visit ; Confirmation: Complaint of ; Clinical Dx: Vaginal bleeding ; Classification: Medical ; Clinical Service: Emergency medicine ; Code: PNED ; Probability: 0 ; Diagnosis Code: [id number] Triage Mode of Arrival ED : Private vehicle Track : Medical Languages : Citizen Of [place] Treatments Prior to Arrival : None Are you ? : Yes Is Patient Female and 13-50 no hysterectomy : Yes Status : Patient denies CRISTEL BRASHER RN - 03/24/2014 15:22 HAND CANDY DIPPER Pain Assessment Pain Symptoms : No CRISTEL BRASHER RN - 03/24/2014 15:22 HAND CANDY DIPPER ID Screen Drug Resistant Organism : No Travel Within Last 21 Days : No CRISTEL BRASHER RN - 03/24/2014 15:22 HAND CANDY DIPPER Respiratory Airway : Patent Respirations : Unlabored Respiratory Pattern : Regular Oxygen Therapy : Room air CRISTEL BRASHER RN - 03/24/2014 15:22 HAND CANDY DIPPER Cardiovascular Heart Rhythm : Regular Skin Color : Normal for ethnicity Skin Description : Dry Skin Temperature : Warm CRISTEL BRASHER RN - 03/24/2014 15:22 HAND CANDY DIPPER Neurological Last Well Time Known : Not applicable Level of Consciousness : Alert Orientation : Oriented x 3 Characteristics of Speech : Appropriate for age CRISTEL BRASHER RN - 03/24/2014 15:22 HAND CANDY DIPPER ED Psychosocial Affect/Behavior : Calm, Cooperative Domestic Abuse Concerns : None CRISTEL BRASHER RN - 03/24/2014 15:22 HAND CANDY DIPPER Gastrointestinal Nutrition ED : Adequate CRISTEL BRASHER RN - 03/24/2014 15:22 HAND CANDY DIPPER /OB Assessment Para : 3 CRISTEL BRASHER RN - 03/24/2014 15:22 HAND CANDY DIPPER Note : Pt delivered 3rd baby 2 weeks ago. Pt bleeding was minimal until yesterday. Pt states she has passed several quarter size blood clots yesterday which has been abnormal for her since delivery. Today while out shopping she passed an egg size clot (Comment: followed by continous bright red vaginal bleeding. Pt has saturated 2 XL pads since 1414. Pt passed another egg size clot while being roomed and changing into a gown. Pt c/o feeling dizzy andhaving slight lower abdominal cramping. Pt currenlty breast feeding. Pt had a vaginal delivery. Delivered a 10lb baby. Pt broke her tailbone during delivery. [CRISTEL BRASHER RN - 03/24/2014 15:41CST] ) CRISTEL BRASHER RN - 03/24/2014 15:41 HAND CANDY DIPPER Musculoskeletal Fall Prevention Education Provided : Yes CRISTEL BRASHER RN - 03/24/2014 15:22 HAND CANDY DIPPER Social Habits Tobacco Use/Currently Using : No Smoking Status : Never smoker CRISTEL BRASHER RN - 03/24/2014 15:22 HAND CANDY DIPPER Source: [facility] POWERCHART Document Id: [id number] HAND CANDY DIPPER!3 Floyd Reyes M.D. - 03/24/2014 3:19 PM CST Vaginal bleeding Patient: ARLEN VALLADARES Age: 29 years Sex: Female : 1985 Author: FLOYD REYES MD Attachments: None Associated Diagnosis: Hemorrhage (Pp) Delayed Basic Information Time seen: Date & time 03/24/2014 15:20:00. History source: Patient. Arrival mode: Private vehicle. History limitation: None. Additional information: Chief Complaint from Nursing Triage Note : Chief Complaint Description 03/24/2014 14:55 HAND CANDY DIPPER Chief Complaint Description Pt. had normal vaginal delivery 2 weeks ago, pt. with vaginal bleeding at 1410, passing big clot. Pt. feeling dizzy in ED. Denies trauma. . History of Present Illness The patient presents with vaginal bleeding. The onset was 2 weeks ago and gradual. The course/duration of symptoms is episodic: with multiple episodes. Radiating pain: abdomen. The degree of symptoms is moderate, heavy bleeding, passing clots. Prior episodes: rare. Associated symptoms: nausea, abdominal pain, dizziness, denies fever and denies vomiting. Additional history: pt is a 29 year old female presenting to ED with vaginal bleeding 2 weeks after giving to 3rd child. pt states yesterdayshe was passing quarter sized clots and soaking through pads into her clothes. pt notes at 1400 [address] pt had egg sized clots pass with active bleeding. . There was Location: negative. Review of Systems Constitutional symptoms: No fever, no chills or no sweats. Skin symptoms: No rash. Eye symptoms: Vision unchanged. ENMT symptoms: No sore throat or no nasal congestion. Respiratory symptoms: No shortness of breath or no cough. Cardiovascular symptoms: No chest pain. Gastrointestinal symptoms: Abdominal pain, cramping and nausea, but no vomiting, no diarrhea or no constipation. Genitourinary symptoms: Vaginal bleeding, but no dysuria or no hematuria. Musculoskeletal symptoms: No back pain. Neurologic symptoms: Dizziness, but no headache. Additional review of systems information: All other systems reviewed and otherwise negative. Health Status Allergies: Allergic Reactions (All) Severity Not Documented Demerol HCl- No reactions were documented. Latex- No reactions were documented. Penicillins- No reactions were documented. Percocet 7.5/325- No reactions were documented.. Past Medical/ Family/ Social History Medical history: Reviewed as documented in chart. Surgical history: Reviewed as documented in chart. Family history: Reviewed as documented in chart. Physical Examination Vital Signs: Vital Signs 03/24/2014 14:55 HAND CANDY DIPPER Temperature Core 37.0 DegC Peripheral Pulse Rate 103 /min HI Respiratory Rate 20 /min SpO2 97 % Systolic Blood Pressure 137 mmHg Diastolic Blood Pressure 92 mmHg >HHI Mean Arterial Pressure 107 mmHg BP Location Left upper . General: Alert, appropriate for age and no acute distress. Skin: Warm, dry, intact and no rash. Head: Normocephalic and atraumatic. Neck: Supple and no tenderness. Eye: Pupils are equal, round and reactive to light, extraocular movements are intact and normal conjunctiva. Ears, nose, mouth and throat: Oral mucosa moist and normal external ears. Cardiovascular: Regular rate and rhythm, No murmur and Normal peripheral perfusion. Respiratory: Lungs are clear to auscultation, respirations are non-labored and breath sounds are equal. Gastrointestinal: Soft, Nontender, Non distended and Normal bowel sounds. Genitourinary: External genitalia: Normal and Speculum exam: small amount of blood in vault. no lacerations. no active bleeding.. Musculoskeletal: Normal ROM. no tenderness. Neurological: Alert and oriented to person, place, time, and situation, No focal neurological deficit observed and CN II-XII intact. Psychiatric: Cooperative and appropriate mood & affect. Medical Decision Making Differential Diagnosis:Vaginal bleeding, uterine prolapse, anemia, bleeding, retain products. Rationale:29 year old female presents with bleeding. appears well. abd benign. s/p vaginal delivery 2 weeks ago. vitally acceptable. no hypotension, not tachycardia. pelvic exam shows blood but no active bleeding and no exsanguination. no anemia. u/s reviewed and shows some clots in uterus. discussed with Dr Gonzalez from [employer] [facility]. reviewed u/s at length with him. does appear well. will give methergine and discharge with follow up tomorrow. return if any other concerns.. Documents reviewed:Emergency department nurses' notes. Results review:Lab results : Lab View 03/24/2014 15:34 HAND CANDY DIPPER Hgb 13.5 g/dL Hct 39.8 % WBC 5.1 x10(9)/L RBC 4.25 x10(12)/L MCV 93.6 fL RDW 12.3 % Platelet 293 x10(9)/L Neutro Absolute 2.76 10(9)/L Lymph Absolute 1.85 x10(9)/L [facility] Absolute 0.40 x10(9)/L Eos Absolute 0.02 x10(9)/L LOW Baso Absolute 0.03 x10(9)/L Sodium Lvl 141 mmol/L Potassium Lvl 4.3 mmol/L Chloride 104 mmol/L CO2 25 mmol/L AGAP 12 mmol/L Alkaline Phosphatase 144 U/L HI Glucose Lvl 112 mg/dL Creatinine 0.7 mg/dL EGFR (MDRD) >60 mL/min/SA EGFR (MDRD) >60 mL/min/SA BUN 15 mg/dL Calcium Lvl 9.2 mg/dL Protein Total 6.8 g/dL Albumin Lvl 4.2 g/dL AST 21 U/L ALT 21 U/L Bili Total 0.3 mg/dL . Radiology results:Radiologist's interpretation: : Radiology 03/24/2014 16:50 HAND CANDY DIPPER US Pelvic And Endovaginal RADUSPELVICTV , IMPRESSION: 1. Thickened heterogeneous hypervascular endometrium with some associated blood or clot most consistent with retained products of conception in this clinical setting. 2. Enlarged uterus consistent with status. Signature Line Final . Impression and Plan Diagnosis Hemorrhage (Pp) Delayed (Discharge, Medical) Plan Condition: Improved, Stable. Disposition: Medically cleared, Discharged. Follow up with: ELSEWHERE PCP Within As Needed; Follow up with primary care provider Within As Needed You are having post bleeding. take the medication as prescribed. you might have more bleeding as your body empties your uterus. rest and take it easy, follow up with your OB doctor tomorrow. ifyou have any concerns, return for a recheck.. Counseled: Patient, Regarding diagnosis, Regarding diagnostic results, Regarding treatment plan, Regarding prescription, Patient indicated understanding of instructions. Orders: Launch Orders Patient Care: Discharge ED Patient (Order Processing): 03/24/2014 18:36 HAND CANDY DIPPER, Once. Notes: Charted by Yvonne Mercado for Dr Reyes. Electronically Signed By: FLOYD REYES MD On: 03/24/2014 06:52 PM Modified by and Electronically Signed by: YVONNE MERCADO On: 03/24/2014 03:39 PM Source: [facility] POWERCHART Document Id: {[id number]} CANDY DIPPER Deb Blanco R.N. - 03/24/2014 2:55 PM CST ED Triage Assessment Document Has Been Updated ED Triage Assessment Entered On: 03/24/2014 15:01 HAND CANDY DIPPER Performed On: 03/24/2014 14:55 HAND CANDY DIPPER by DEB BLANCO RN Reason For Visit (As Of: 03/24/2014 15:01:54 HAND CANDY DIPPER) Diagnoses(Active) Vaginal bleeding Date: 03/24/2014 ; Diagnosis Type: Reason For Visit ; Confirmation: Complaint of ; Clinical Dx: Vaginal bleeding ; Classification: Medical ; Clinical Service: Emergency medicine ; Code: PNED ; Probability: 0 ; Diagnosis Code: [id number] Triage Chief Complaint Description : Pt. had normal vaginal delivery 2 weeks ago, pt. with vaginal bleedingat 1410, passing big clot. Pt. feeling dizzy in ED. Denies trauma. Information Given By : Patient Accompanied By : Spouse Mode of Arrival ED : Private vehicle Track : Medical Languages : Citizen Of [place] Vital Signs Assessed : Yes GCS Assessed : Yes Treatments Prior to Arrival : None Are you ? : Yes Is Patient Female and 13-50 no hysterectomy : Yes Status : Patient denies DEB BLANCO RN - 03/24/2014 14:55 HAND CANDY DIPPER Vital Signs Temperature Core : 37.0 DegC(Converted to: 98.6 DegF) Peripheral Pulse Rate : 103 /min (HI) Respiratory Rate : 20 /min Systolic Blood Pressure : 137 mmHg Diastolic Blood Pressure : 92 mmHg (>HHI) NIBP Mean : 107 mmHg BP Location : Left upper extremity SpO2 : 97 % Oxygen Therapy : Room air DEB BLANCO RN - 03/24/2014 14:55 HAND CANDY DIPPER [place]bin Coma Eye Opening Response [place] : Spontaneously Best Verbal Response [place] : Oriented Best Motor Response Albin : Obeys simple commands [place] Coma Score : 15 DEB BLANCO RN - 03/24/2014 14:55 HAND CANDY DIPPER Pain Assessment Pain Symptoms : No DEB BLANCO RN - 03/24/2014 14:55 HAND CANDY DIPPER Comfort Measures Comfort Measures Grid Positive Self-Talk : Yes DEB BLANCO RN - 03/24/2014 14:55 HAND CANDY DIPPER JAYLEN JAYLEN Level 1 : No JAYLEN Level 2 : No JAYLEN Level 3 : Many DEB BLANCO RN - 03/24/2014 14:55 HAND CANDY DIPPER DCP GENERIC CODE Tracking Acuity : 2 -Emergent Tracking Group : DUSTY DEB JAMA RN - 03/24/2014 14:55 HAND CANDY DIPPER Allergy (As Of: 03/24/2014 15:01:55 HAND CANDY DIPPER) Allergies (Active) Demerol HCl Estimated Onset Date: Unspecified ; Created By: DEB BLANCO RN; Reaction Status: Active ; Category: Drug ; Substance: Demerol HCl ; Type: Allergy ; Updated By: DEB BLANCO RN; Reviewed Date: 03/24/2014 15:00 HAND CANDY DIPPER Latex Estimated Onset Date: Unspecified ; Created By: DEB BLANCO RN; Reaction Status: Active ; Category: Other ; Substance: Latex ; Type: Allergy ; Updated By: DEB BLANCO RN; Reviewed Date: 03/24/2014 15:00 HAND CANDY DIPPER penicillins Estimated Onset Date: Unspecified ; Created By: DEB BLANCO RN; Reaction Status: Active ; Category: Drug ; Substance: penicillins ; Type: Allergy ; Updated By: DEB BLANCO RN; Reviewed Date: 03/24/2014 15:00 HAND CANDY DIPPER Percocet 7.5/325 Estimated Onset Date: Unspecified ; Created By: DEB BLANCO RN; Reaction Status: Active ; Category: Drug ; Substance: Percocet 7.5/325 ; Type: Allergy ; Updated By: DEB BLANCO RN; Reviewed Date: 03/24/2014 15:00 HAND CANDY DIPPER ID Screen Drug Resistant Organism : No Travel Within Last 21 Days : No DEB BLANCO RN - 03/24/2014 14:55 HAND CANDY DIPPER [facility] Document Id: [id number] HAND CANDY DIPPER!44 CANDY DIPPER documented in this encounter Miscellaneous Notes Miscellaneous - Conversion, Historical Provider Ser - 03/24/2014 6:51 PM HAND CANDY DIPPER Valuables/Belongings Valuables/Belongings Entered On: 03/24/2014 18:52 HAND CANDY DIPPER Performed On: 03/24/2014 18:51 HAND CANDY DIPPER by CRISTEL BRASHER RN Valuables/Belongings Comment : All belongings sent with Pt at discharge. CRISTEL BRASHER RN - 03/24/2014 18:51 HAND CANDY DIPPER Source: [facility] POWERCHART Document Id: [id number] HAND CANDY DIPPER!3 Miscellaneous - Conversion, Historical Provider Ser - 03/24/2014 2:52 PM HAND CANDY DIPPER Facility Charge Ticket 2.0 11.0 DX Facility Charge Ticket 2.0 11.0 DX Entered On: 03/24/2014 18:52 HAND CANDY DIPPER Performed On: 03/24/2014 14:52 HAND CANDY DIPPER by CRISTEL BRASHER RN Facility Charge Ticket 2.0 11.0 DX ED Other Charges : Standard ED Encounter TVL Level Translated RTF : Vaginal bleeding TVL:4 TVL Level for Facility Charge Ticket : Level 4 Arrival Mode Calc : 1 Mode of Arrival ED : Private vehicle [facility] Mode of Arrival Interpreted : Standard [facility] Process Management : None Order Management RTF : Laboratory CBC (includes Auto Differential),03/24/14 15:32,FLOYD REYES MD Completed Comprehensive Metabolic Panel,03/24/14 15:32,FLOYD REYES MD Completed Automated Diff-5 Part,03/24/14 15:44,FLOYD REYES MD Completed Blood Bank Hold,03/24/14 18:28,FLOYD REYES MD Completed CT / MRI / Ultrasound US Pelvic And Endovaginal,03/24/14 15:58,FLOYD REYES MD Completed [facility] Order Management : CT/MRI/Ultrasound, Lab tests 30 Minutes Critical Care : No Nursing Notes RTF : Triage Forms ED Triage Assessment,03/24/14 14:55,DEB BLANCO RN Nursing Notes ED Primary Assessment,03/24/14 15:22,CRISTEL BRASHER DISK RECORDIST Nurse Reassess,03/24/14 18:50,CRISTEL BRASHER DISK RECORDIST Nurse Reassess,03/24/14 17:44,CRISTEL BRASHER DISK RECORDIST Nurse Reassess,03/24/14 16:31,MARCELLA MARIE RN ED Pain Assessment,03/24/14 18:51,CRISTEL BRASHER RN [facility] Nursing Assessment : Triage and 3-5 nursing assessments [facility] Disposition : Discharge Disposition RTF : discharge [facility] Total Points with Diagnosis Control : 11 [facility] Visit Level : 66900 Level 4 Treatments Prior to Arrival : None CRISTEL BRASHER RN - 03/24/2014 18:52 HAND CANDY DIPPER Source: [facility] POWERCHART Document Id: [id number] HAND CANDY DIPPER!19 documented in this encounter Plan of Treatment Not on filedocumented as of this encounter Procedures Procedure Name Priority Date/Time Associated Comments Diagnosis US PELVIS TRANSVAGINAL Routine 03/24/2014 3:58 PM Results for this AND TRANSABDOMINAL HAND CANDY DIPPER procedure are in the results section. AUTOMATED DIFFERENTIAL, Routine 03/24/2014 3:34 PM Results for this B HAND CANDY DIPPER procedure are i n the results section. CBC WITH DIFFERENTIAL, Routine 03/24/2014 3:34 PM Results for this B HAND CANDY DIPPER procedure are i n the results section. COMPREHENSIVE METABOLIC Routine 03/24/2014 3:34 PM Results for this PANEL, S/P HAND CANDY DIPPER procedure are i n the results section. documented in this encounter Results US Pelvis Transvaginal and Transabdominal (03/24/2014 3:58 PM HAND CANDY DIPPER) Anatomical Region Laterality Modality Pelvis N/A Ultrasound Specimen (Source) Anatomical Collection Method Collection Time Re ceived Time Location / / Volume Laterality 03/24/2014 3:58 PM HAND CANDY DIPPER Impressions 03/24/2014 5:21 PM HAND CANDY DIPPER 1. Thickened heterogeneous hypervascular endometrium with some associated blood or clot most consistent with retained products of conception in this clinical setting. 2. Enlarged uterus consistent with postp artum status. Narrative 03/24/2014 5:21 PM HAND CANDY DIPPER EXAM: US Pelvic And Endovaginal INDICATION: Vaginal bleeding in postpart um patient. COMPARISON: None. FINDINGS: Both transabdominal and transv aginal exams are performed. The uterus is large measuring 10.7 x 7.4 x 7.3 cm consistent with status. The endometrium is ma rkedly thickened and heterogeneous and hypervascular with amanda e apparent blood or clot consistent with retained products of con ception within the uterine cavity. The ovaries are visualized bilat erally and appear to be normal in size and appearance. No suspic ious adnexal mass or free fluid in the pelvic cul-de-sac is identi fied. Procedure Note Simon Andrews Jr., M.D. / Kavon Gamboa M.D. - 08/28/2016 EXAM: US Pelvic And Endovaginal INDICATION: Vaginal bleeding in postpart um patient. COMPARISON: None. FINDINGS: Both transabdominal and transv aginal exams are performed. The uterus is large measuring 10.7 x 7.4 x 7.3 cm consistent with status. The endometrium is ma rkedly thickened and heterogeneous and hypervascular with amanda e apparent blood or clot consistent with retained products of con ception within the uterine cavity. The ovaries are visualized bilat erally and appear to be normal in size and appearance. No suspic ious adnexal mass or free fluid in the pelvic cul-de-sac is identi fied. IMPRESSION: 1. Thickened heterogeneous hypervascular endometrium with some associated blood or clot most consistent with retained products of conception in this clinical setting. 2. Enlarged uterus consistent with postp artum status. Historical Provider IMG US PROCEDURES (ABNORMAL) Automated Differential (03/24/2014 3:34 PM HAND CANDY DIPPER[facility] Signature Absolute 2.76 1.70 - POWERCHART Neutrophils 7.00 109L Lymphocytes 1.85 0.90 - POWERCHART 2.90 X109L Monocytes 0.40 0.30 - POWERCHART 0.90 X109L Eosinophils 0.02 (L) 0.05 - POWERCHART 0.50 X109L Absolute 0.03 0.00 - POWERCHART Basophil 0.30 X109L Specimen Anatomical Collection Method Collection Time Receive d Time (Source) Location / / Volume Laterality Blood 03/24/2014 3:34 PM 4 3:34 HAND CANDY DIPPER PM HAND CANDY DIPPER Floyd Reyes M.D. LAB BLOOD ADD-ON Performing Organization Address City/State/ZIP Code Phon e Number POWERCHART CBC with Differential (03/24/2014 3:34 PM HAND CANDY DIPPER) athologist Signature Leukocytes 5.1 3.5 - 10.5 POWERCHART X109L Erythrocytes 4.25 3.90 - 5.03 POWERCHART N7195P Hemoglobin 13.5 12.0 - 15.5 POWERCHART GDL Hematocrit 39.8 34.9 - 44.5 POWERCHART MCV 93.6 81.6 - 98.3 POWERCHART FL HX RDW 12.3 11.9 - 15.5 POWERCHART Platelet Count 293 150 - 450 POWERCHART X109L Specimen (Source) Anatomical Collection Method Collection Time Re ceived Time Location / / Volume Laterality Blood 03/24/2014 3:34 PM HAND CANDY DIPPER Floyd Reyes M.D. LAB BLOOD ADD-ON Performing Organization Address City/State/ZIP Code Phon e Number POWERCHART (ABNORMAL) CMP (Comprehensive Metabolic Panel) (03/24/2014 3:34 PM HAND CANDY DIPPER) [facility] gist Method Time Signature Total Protein, S 6.8 6.3 - 7.9 POWERCHART GDL Albumin, S 4.2 3.5 - 5.2 POWERCHART GDL Sodium, S 141 135 - 145 POWERCHART MMOLL Potassium, S 4.3 3.5 - 5.1 POWERCHART MMOLL Chloride, S 104 98 - 107 POWERCHART MMOLL CO2 Total 25 22 - 29 POWERCHART MMOLL Glucose 112 70 - 140 POWERCHART MGDL BUN (Blood Urea 15 6 - 24 POWERCHART Nitrogen), S MGDL Creatinine 0.7 0.6 - 1.1 POWERCHART MGDL Calcium, Total, S 9.2 8.6 - 10.3 POWERCHART MGDL Alkaline 144 (H) 35 - 105 POWERCHART Phosphatase, S UL Aspartate 21 8 - 43 UL POWERCHART Aminotransferase (AST), S Alanine 21 7 - 45 UL POWERCHART Amniotransferase, LD Bilirubin, Total, S 0.3 <=1.2 MGDL POWERCHAR T Anion Gap 12 7 - 15 POWERCHART MMOLL HXeGFR (MDRD) >60 >=60 POWERCHART MLMINSA Comment: Results are in mL/min/1.73m squared CKD Stage I: ? GFR > 90 CKD Stage II: ?GFR 60 to 89 CKD Stage III: ? GFR 30 to 59 CKD Stage IV: ? GFR 15 to 29 CKD Stage V: ?GFR < 15 or Dialysi s eGFR Black/ >60 >=60 MLMINSA POWERCHART Specimen (Source) Anatomical Collection Method Collection Time Re ceived Time Location / / Volume Laterality Blood 03/24/2014 3:34 PM HAND CANDY DIPPER Floyd Reyes M.D. LAB BLOOD ADD-ON Performing Organization Address City/State/ZIP Code Phon e Number POWERCHART documented in this encounter Visit Diagnoses Not on filedocumented in this encounter
--- OUTSIDE RECORDS SUMMARY | 2022-01-04 09:42 | XMS_ITS | Encounter Summary ---
:1985 Author Organization [facility] Address [address] [place] [address] Care Team Providers Name Role Phone Elsewhere, Pcp Primary Care Provider Unavailable Reason for Referral Outpatient (Routine) - Closed Specialty Diagnoses / Procedures Referred By Contact Refer red To Contact Diagnoses Pain Breast Marilyn Acosta APRN, [facility] [place] [facility] Procedures BI Ultrasound Breast Focused Right [address] [place] [address] Referral ID Status Reason Start Date Expiration Date Visits Requ ested Visits Authorized [id number] Closed 11/25/2021 11/25/2022 1 1 Reason for Visit Outpatient (Routine) - Closed Specialty Diagnoses / Procedures Referred By Contact Refer red To Contact Diagnoses Pain Breast Marilyn Acosta APRN, [facility]P. [facility] [place] [facility] Procedures BI Ultrasound Breast Focused Right [address] [place] [address] Referral ID Status Reason Start Date Expiration Date Visits Requ ested Visits Authorized [id number] Closed 11/25/2021 11/25/2022 1 1 Encounter Details Date Type Department Care Team Description 12/16/2021 Hospital Encounter Department of Radiology Marilyn Acosta APRN, Pain Breast in [facility] C.N.P. [address] [facility] [address] [facility] COURTNEY ORDONEZ [phone] (Wo rk) Social History Tobacco Use Types [...] or relatives? How often do you attend hoahaoism or More than 4 times per year 11/23/2021 mu-ism services? Do you belong to any clubs or Not asked organizations such as hoahaoism groups, unions, fraternal or athletic groups, or [...] place to sleep or slept in a residential (including now)? Education Answer Date Recorded What [...] Priority Date/Time Associated Comments Diagnosis BI ULTRASOUND RAD - Routine 12/16/2021 10:38 Pain Breast Results f or this BREAST FOCUSED (most inpatients AM CDT procedure are in RIGHT and all the results outpatients) section. documented in this encounter Results BI Ultrasound Breast Focused Right (12/16/2021 10:38 AM CDT) Anatomical Region Laterality Modality Breast, Breast Imaging RST LOS, Breast Imaging ARZ LOS, [place] st Right Ultrasound Imaging FLA LOS Specimen [...] Breast documented in this encounter Care Teams Airplane Rental Clerk Relationship Specialty Start Date End Date Elsewhere, Pcp PCP - General Internal Medicine 11/25/21 documented as of this encounter
--- OUTSIDE RECORDS SUMMARY | 2022-01-04 09:43 | XMS_ITS | Clinical Summary ---
:1985 Author Organization [facility] [place] [address] Care Team Providers Name Role Phone Jet Garcia MD Primary Care Provider Jet Garcia MD Unavailable Allergies Active Allergy Reactions Severity Noted Date Comments Meperidine *Unknown 12/17/2015 Family history Latex Rash 03/09/2006 Penicillins Hives 12/17/2015 Oxycodone-Acetaminophen Itching 12/17/2015 Medications Medication Sig Dispensed Refills Start Date End Date Status sertraline (ZOLOFT) Take 1 Tablet (100 0 07/16/2020 Active 100 mg tablet mg) by mouth once daily. Active Problems Not on file Social History Tobacco Use Types Packs/Day Years Used Date Former Smoker Cigarettes Smokeless Tobacco: Never Used Tobacco Cessation: Counseling Given: Yes Alcohol Use Standard Drinks/Week Comments No 0 (1 standard drink = 0.6 oz pure alcoho l) Sex Assigned at Date Recorded Not on file Obstetrics History Last Filed Vital Signs Vital Sign Reading Time Taken Comments Blood Pressure 133/80 07/16/2020 4:13 PM CDT Pulse 84 07/16/2020 4:13 PM CDT Temperature 37 ??C (98.6 ??F) 12/17/2015 4:16 PM CDT Respiratory Rate 16 03/24/2006 9:08 PM MANAGER IMPLEMENTATION Oxygen Saturation 98% 07/16/2020 4:13 PM CDT Inhaled Oxygen Concentration - - Weight 67 kg (147 lb 12.8 oz) 07/16/2020 4:13 PM CDT Height 162.6 cm (5' 4) 03/20/2006 5:12 PM MANAGER IMPLEMENTATION Body Mass Index - - Plan of Treatment Health Maintenance Due Date Last Done Comments COVID-19 vaccine series (#1) 1987 Tdap 1998 BMI (ht and wt on same day) for 2005 age 18+ Hepatitis C screening for age 1103/15/2005 18-79 Tetanus booster 2007 Depression screening for age 12+ 08/29/2020 08/30/2019 Pap test for age 21-65 12/14/2021 12/14/2018, 12/14/2018, 06/05/2015, Additional history exists Influenza for age 9-49 12/17/2021 Results Not on filefrom Last 3 Months Insurance Payer Benefit Plan / Subscriber ID Effective Dates Phone Addre ss Type Group BLUE CROSS BLUE CROSS OF [id number] 2019-Present [address] [address] [place] [address] Care Teams Patron Attendant Relationship Specialty Start Date End Date Jet Garcia MD PCP - General Family Practice 12/16/15 Jet Garcia MD Family Practice 12/16/15
[2022-01-04] MEDS: KETOROLAC 30 MG/ML inj IVP (09:48)
[2022-01-04 09:49] LABS: Basophils Percent Auto 0.5 % (0.0-3.0); Eosinophils Percent Auto 0.3 % (0.0-7.0); Hematocrit 39.3 % (33.0-51.0); Hemoglobin* 13.6 gm/dL (12.0-16.0); Lymphocytes Percent Auto 35.9 % (20-44); Mean Corpuscular HGB Conc 35 gm/dL (32-36); Mean Corpuscular Hemoglobin 32 pg (26-34); Mean Corpuscular Volume 93 fL (80-100); Monocytes Percent Auto 6.6 % (0.0-11.0); Neutrophils Percent Auto 56.7 % (42.0-72.0); Platelet Count* 238 K/uL (140-440); RDW Coefficient of Variation % 11.7 % (11.5-15.5); Red Blood Count 4.25 m/uL (4.00-5.20); White Blood Count* 3.93 K/uL (4.50-11.00)
[2022-01-04] MEDS: ONDANSETRON 2 MG/ML inj 4 MG IVP (09:49)
[2022-01-04 10:11] LABS: Chloride* 106 mmol/L (96-114); Potassium* 3.7 mmol/L (3.6-5.1); Sodium* 141 mmol/L (135-149)
[2022-01-04 10:12] LABS: Slide Review Reflex No
[2022-01-04 10:14] LABS: Blood Urea Nitrogen* 8 mg/dL (5-24); Calcium* 9.1 mg/dL (8.4-10.6); Carbon Dioxide* 24 mmol/L (20-32); Creatinine* 0.6 mg/dL (0.5-1.5); Est. Creatinine Clearance* 114.09; Estimated Glomerular Filt Rate 121 ml/min; Glucose* 86 mg/dL (60-115)
[2022-01-04 10:50] LABS: Appearance Urine Clear (Clear); Bilirubin Urine Negative (Negative); Blood Urine Negative (Negative); Color Urine Yellow (Yellow); Glucose Urine Negative (Negative); Ketones Urine Negative (Negative); Nitrite Urine Negative (Negative); Protein Urine Negative (Negative); Specific Gravity Urine 1.025 (1.000-1.030); Urobilinogen Urine 0.2 (0.2-1.0)
[2022-01-04 10:51] LABS: Leukocyte Esterase Urine Negative (Negative)
--- NOTE | 2022-01-04 11:11 | ED.NURSE ---
Pt reporting worsening pain, no improvement after toradol administration. MD notified, MD in RM to speak with pt.
[2022-01-04] MEDS: HYDROmorphone 0.5 mg/0.5 ml inj IVP (12:00)
[2022-01-04] MEDS: METHYLPREDNISOLONE SOD SUCC 62.5 MG/ML (125) 125 MG IVP (12:07)
[2022-01-04 12:30] LABS: Lipase* 56 U/L (23-300)
[2022-01-04 12:44] LABS: Erythrocyte SedimentationRate* 5 mm/hr (2-20)
== END 2022-01-04 14:12 | disposition home or self-care (01) ==
PROVIDERS: Emergency Provider Emergency Medicine Emergency Medical Services; PCP Family Medicine
DX: R10.9 Unspecified abdominal pain (principal)
CPT/HCPCS: 36415; 74177; 80048; 81003; 83690; 84443; 84703; 85025; 85651; 96374; 96375; 99284; J1170; J1885; J2405; J2930; Q9967

== ENCOUNTER 2022-01-13 12:55 | Outpatient (CLI) | payer BC, SELFPAY ==
--- OUTSIDE RECORDS SUMMARY | 2022-01-13 12:57 | XMS_ITS | Encounter Summary ---
:1985 Author Organization [facility] Address [address] [place] [address] Care Team Providers Name Role Phone Elsewhere, Pcp Primary Care Provider Unavailable Reason for Referral Outpatient (Routine) - Closed Specialty Diagnoses / Procedures Referred By Contact Refer red To Contact Diagnoses Pain Breast Marilyn Acosta APRN, [facility] [place] [facility] Procedures BI Breast Diagnostic Bilateral with Tomosynthesis BI Breast Diagnostic Right with Tomosynthesis C.N.P. [address] [place] [address] Referral ID Status Reason Start Date Expiration Date Visits Requ ested Visits Authorized [id number] Closed 11/25/2021 11/25/2022 1 1 Reason for Visit Outpatient (Routine) - Closed Specialty Diagnoses / Procedures Referred By Contact Refer red To Contact Diagnoses Pain Breast Marilyn Acosta APRN, [facility] [place] [facility] Procedures BI Breast Diagnostic Bilateral with Tomosynthesis BI Breast Diagnostic Right with Tomosynthesis C.N.P. [address] [place] [address] Referral ID Status Reason Start Date Expiration Date Visits Requ ested Visits Authorized [id number] Closed 11/25/2021 11/25/2022 1 1 Encounter Details Date Type Department Care Team Description 12/16/2021 Hospital Encounter Department of Radiology Marilyn Acosta APRN, Pain Breast in [facility] C.N.P. [address] [place] [address] [address] ORDONEZ [phone] (Wo rk) Social History Tobacco Use [...] or relatives? How often do you attend christianity or More than 4 times per year 11/23/2021 pentecostal services? Do you belong to any clubs or Not asked organizations such as christianity groups, unions, fraternal or athletic groups, or [...] Imaging RST LOS, Breast Imaging ARZ LOS, [place] st Bilateral Mammography Imaging FLA LOS Specimen [...] Breast documented in this encounter Care Teams Gin Operator Relationship Specialty Start Date End Date Elsewhere, Pcp PCP - General Internal Medicine 11/25/21 documented as of this encounter
--- OUTSIDE RECORDS SUMMARY | 2022-01-13 12:57 | XMS_ITS | Encounter Summary ---
:1985 Author Organization [facility] Address [address] [place] [address] Care Team Providers Name Role Phone Elsewhere, Pcp Primary Care Provider Unavailable Reason for Referral Outpatient (Routine) - Closed Specialty Diagnoses / Procedures Referred By Contact Refer red To Contact Diagnoses Pain Breast Marilyn Acosta APRN, [facility] [place] [facility] Procedures BI Ultrasound Breast Focused Right [address] [place] [address] Referral ID Status Reason Start Date Expiration Date Visits Requ ested Visits Authorized [id number] Closed 11/25/2021 11/25/2022 1 1 Reason for Visit Outpatient (Routine) - Closed Specialty Diagnoses / Procedures Referred By Contact Refer red To Contact Diagnoses Pain Breast Marilyn Acosta APRN, [facility]P. [facility] [place] [facility] Procedures BI Ultrasound Breast Focused Right [address] [place] [address] Referral ID Status Reason Start Date Expiration Date Visits Requ ested Visits Authorized [id number] Closed 11/25/2021 11/25/2022 1 1 Encounter Details Date Type Department Care Team Description 12/16/2021 Hospital Encounter Department of Radiology Marilyn Acosta APRN, Pain Breast in [facility] C.N.P. [address] [facility] [address] [facility] COURTNEY ORDONEZ [phone] (Wo rk) Social History Tobacco Use Types [...] or relatives? How often do you attend yazdanism or More than 4 times per year 11/23/2021 adventism services? Do you belong to any clubs or Not asked organizations such as yazdanism groups, unions, fraternal or athletic groups, or [...] Imaging RST LOS, Breast Imaging ARZ LOS, [place] st Right Ultrasound Imaging FLA LOS Specimen [...] Breast documented in this encounter Care Teams Sausage Linker Relationship Specialty Start Date End Date Elsewhere, Pcp PCP - General Internal Medicine 11/25/21 documented as of this encounter
--- OUTSIDE RECORDS SUMMARY | 2022-01-13 12:57 | XMS_ITS | Clinical Summary ---
:1985 Author Organization [facility] Address [address] [place] [address] Care Team Providers Name Role Phone Elsewhere, Pcp Primary Care Provider Unavailable Source Comments Patient records contain information from all sites at [facility]. For routine questions regarding patient records, call [phone] during business hours, M-F 8:00 AM - 5:00 PM Central Time. Record requests for emergency care only can be directed to [phone] at any time.[facility] Allergies Active Allergy Reactions Severity Noted Date [...] Encounter Radiology Marilyn Acosta, Pain Sumi ast PATIENT AMBASSADOR, C.N.P. 12/16/2021 Hospital Encounter Radiology Marilyn Acosta Pain Sumi ast PATIENT AMBASSADOR, C.N.P. 11/25/2021 Office Visit Family Medicine Marilyn Acosta, Pain Breast (Primary PATIENT AMBASSADOR, C.N.P. Dx) from Last 3 Months Immunizations [...] or relatives? How often do you attend adventist or More than 4 times per year 11/23/2021 buddhism services? Do you belong to any clubs or Not asked organizations such as adventist groups, unions, fraternal or athletic groups, or [...] or slept in a snf (including now)? Education Answer Date Recorded What [...] ain. She was satisfied. Procedure Note Delta Keyse M.D. - 12/16/2021 EXAM: BI BREAST DIAGNOSTIC [...] Addre ss Type Group [place] [id number] 2021-Presen [phone] [address] O [facility]UE [facility] [address] [place] [address] Care Teams Credit Reference Clerk Relationship Specialty Start Date End Date Elsewhere, Pcp PCP - General Internal Medicine 11/25/21
--- OUTSIDE RECORDS SUMMARY | 2022-01-13 12:57 | XMS_ITS | Encounter Summary ---
:1985 Author Organization [facility] Address [address] [place] [address] Care Team Providers Name Role Phone Unavailable [...] or relatives? How often do you attend baptism or More than 4 times per year 11/23/2021 yazidi services? Do you belong to any clubs or Not asked organizations such as baptism groups, unions, fraternal or athletic groups, or [...] slept in a skilled nursing (including now)? Sex Assigned at Date Recorded Female 11/21/2021 11:33 PM CDT documented as of this encounter Last Filed Vital Signs Vital Sign Reading Time Taken Comments Blood Pressure 125/87 03/24/2014 6:33 PM SHANK PAPERER Pulse 103 03/24/2014 2:55 PM SHANK PAPERER Temperature - - Respiratory Rate 18 03/24/2014 5:47 PM SHANK PAPERER Oxygen Saturation - - Inhaled Oxygen Concentration - - Weight - - Height - - Body Mass Index - - documented in this encounter Discharge Summaries Conversion, Historical Provider Ser - 03/24/2014 6:52 PM CST ED Discharge Instructions [address] [address] Name: ARLEN VALLADARES Date of : 1985 12:00 AM Visit Date: 03/24/2014 2:52 PM [facility] Number: [id number] Address: [address] [place] [phone] Primary Care Provider: PCP, ELSEWHERE IMPORTANT: [facility] in [place] would like to thank you for allowing [...] arrange a ride home with a responsible alliance party. I, ARLEN VALLADARES , or responsible alliance party have received this information and my [...] arrange a ride home with a responsible alliance party. I, ARLEN VALLADARES , or responsible alliance party have received this information and my questions have been answered. I have discussed any challenges I see with this plan with the nurse or physician. Patient Signature or Responsible Constitution Party/Relationship Date Time Provider Signature Date Time Source: [facility] POWERCHART Document Id: [id number] K PAPERER Conversion, Historical Provider Ser - 03/24/2014 6:52 PM CST ED Depart Summary [facility] Emergency Department Clinical Discharge Summary PERSON INFORMATION Name ARLEN VALLADARES Age 29 Years 1985 12:00 AM Sex Female Language Emirati PCP PCP, ELSEWHERE Marital Status Visit Id Visit Reason Vaginal bleeding; Vaginal Bleeding Specialty Enc Type Emergency Med Service Emergency Medicine Referred by [facility] ED Discharge 03/24/2014 6:52 PM Tracking Id [id number] Checkout 03/24/2014 6:52 PM Checkin 03/24/2014 2:52 PM Acuity 2 -Emergent Dispo Type * Discharged to Home or Self Care Arrival 03/24/2014 2:52 PM Reg Status Complete LOS 000 04:00 Address: [address] [place] [phone] Comment: PROVIDER INFORMATION Provider Role Provider Contact Time LISSETT BETANCOURT PHP WORDPRESS DEVELOPER Nurse 03/24/14 15:02 CRISTEL BRASHER PHP WORDPRESS DEVELOPER Nurse 03/24/14 15:13 FLOYD REYES MD ED Provider 03/24/14 15:14 ANDREWS TUCKER ED Micro Computer Specialist 03/24/14 15:26 DIAGNOSIS Hemorrhage (Pp) Delayed Comment: [...] ELSEWHERE PCP Within As Needed Comments: Source: [employer] Document Id: [id number] documented in this encounter ED Notes Conversion, Historical Provider Ser - 03/24/2014 6:51 PM CST ED Education ED Education Entered On: 03/24/2014 18:51 SHANK PAPERER Performed On: 03/24/2014 18:51 SHANK PAPERER by CRISTEL BRASHER RN Education ED Education Grid Topics : Other: dc instructions Individuals Taught : Patient Barriers to Learning : None evident Teaching Method : Explanation, Printed materials Teaching Evaluation : Verbalizes understanding CRISTEL BRASHER RN - 03/24/2014 18:51 SHANK PAPERER [facility]: [id number] SHANK PAPERER!9 Conversion, Historical Provider Ser - 03/24/2014 6:51 PM CST ED Pain Assessment ED Pain Assessment Entered On: 03/24/2014 18:51 SHANK PAPERER Performed On: 03/24/2014 18:51 SHANK PAPERER by CRISTEL BRASHER RN Pain Assessment Pain Symptoms : No CRISTEL BRASHER RN - 03/24/2014 18:51 SHANK PAPERER Source: [employer] Document Id: [id number] SHANK PAPERER!3 Conversion, Historical Provider Ser - 03/24/2014 6:50 PM CST ED Nurse Reassess ED Nurse Reassess Entered On: 03/24/2014 18:50 SHANK PAPERER Performed On: 03/24/2014 18:50 SHANK PAPERER by CRISTEL BRASHER RN Pain Assessment Pain Symptoms : No CRISTEL BRASHER RN - 03/24/2014 18:50 SHANK PAPERER /OB Reassess /OB Note : Pt ready for discharge. Pt to follow up with her OB Dr Reza in [place] tomorrow. Release of information filled out by patient so records can be faxed to her provider. CRISTEL BRASHER RN - 03/24/2014 18:50 SHANK PAPERER Source: [employer] Document Id: [id number] SHANK PAPERER!5 Conversion, Historical Provider Ser - 03/24/2014 6:50 PM CST ED Disposition Summary ED Disposition Summary Entered On: 03/24/2014 18:51 SHANK PAPERER Performed On: 03/24/2014 18:50 SHANK PAPERER by CRISTEL BRASHER RN ED Disposition Summary Accompanied By : Spouse Mode of Discharge : Ambulatory Transportation : Private vehicle Discharge From ED With : Home Med List Printed Discharge Instructions Given to Patient : Yes Patient Status at Discharge from ED : Improved CRISTEL BRASHER RN - 03/24/2014 18:50 SHANK PAPERER Source: [employer] Document Id: [id number] SHANK PAPERER!8 Conversion, Historical Provider Ser - 03/24/2014 5:44 PM CST ED Nurse Reassess ED Nurse Reassess Entered On: 03/24/2014 17:47 SHANK PAPERER Performed On: 03/24/2014 17:44 SHANK PAPERER by CRISTEL BRASHER RN Pain Assessment Pain Symptoms : No CRISTEL BRASHER RN - 03/24/2014 17:44 SHANK PAPERER /OB Reassess /OB Note : Pt given first dose of methergine here. Pt to d/c home and follow up with OB in [place] tomorrow. Pt updated on plan of care. Pt getting ready for discharge. CRISTEL BRASHER RN - 03/24/2014 17:44 SHANK PAPERER Source: [employer] Document Id: [id number] SHANK PAPERER!5 Marcella Soria RCésar - 03/24/2014 4:31 PM CST ED Nurse Reassess ED Nurse Reassess Entered On: 03/24/2014 16:33 SHANK PAPERER Performed On: 03/24/2014 16:31 SHANK PAPERER by MARCELLA MARIE RN Pain Assessment Pain Symptoms : No MARCELLA MARIE RN - 03/24/2014 16:31 SHANK PAPERER Resp Reassess Respiratory Patient Stated Symptoms : None Distress : None Airway : Patent Respiratory Pattern : Regular Respirations : Unlabored MARCELLA MARIE RN - 03/24/2014 16:31 SHANK PAPERER CV Reassess CV Patient Stated Symptoms : None Skin Color : Normal for ethnicity Skin Description : Dry Skin Temperature : Warm Nail Bed Color : Ringsted Capillary Refill : Less than 2 seconds Heart Rhythm : Regular MARCELLA MARIE RN - 03/24/2014 16:31 SHANK PAPERER Neuro Reassess Last Well Time Known : Not applicable Orientation : Oriented x 3 Characteristics of Speech : Appropriate for age Level of Consciousness : Alert MARCELLA MARIE RN - 03/24/2014 16:31 SHANK PAPERER [place] Coma Eye Opening Response [place] : Spontaneously Best Verbal Response Albin : Oriented Best Motor Response Albin : Obeys simple commands Albin Coma Score : 15 MARCELLA MARIE RN - 03/24/2014 16:31 SHANK PAPERER GI Reassess GI Patient Stated Symptoms : None CYRUSMICHAEL MARCELLA Flaherty RN - 03/24/2014 16:31 SHANK PAPERER /OB Reassess /OB Note : no acute changes. Ultrasound at bedside. JOSRSIRENA MARCELLA Flaherty RN - 03/24/2014 16:31 SHANK PAPERER Source: [facility] POWERCHART Document Id: [id number] SHANK PAPERER!31 K PAPERER Conversion, Historical Provider Ser - 03/24/2014 3:22 PM CST ED Primary Assessment Document Has Been Updated ED Primary Assessment Entered On: 03/24/2014 15:28 SHANK PAPERER Performed On: 03/24/2014 15:22 SHANK PAPERER by CRISTEL BRASHER RN Reason For Visit (As Of: 03/24/2014 15:42:33 SHANK PAPERER) Diagnoses(Active) Vaginal bleeding Date: 03/24/2014 ; Diagnosis Type: Reason For Visit ; Confirmation: Complaint of ; Clinical Dx: Vaginal bleeding ; Classification: Medical ; Clinical Service: Emergency medicine ; Code: PNED ; Probability: 0 ; Diagnosis Code: [id number] Triage Mode of Arrival ED : Private vehicle Track : Medical Languages : Emirati Treatments Prior to Arrival : None Are you ? : Yes Is Patient Female and 13-50 no hysterectomy : Yes Status : Patient denies CRISTEL BRASHER RN - 03/24/2014 15:22 SHANK PAPERER Pain Assessment Pain Symptoms : No CRISTEL BRASHER RN - 03/24/2014 15:22 SHANK PAPERER ID Screen Drug Resistant Organism : No Travel Within Last 21 Days : No CRISTEL BRASHER RN - 03/24/2014 15:22 SHANK PAPERER Respiratory Airway : Patent Respirations : Unlabored Respiratory Pattern : Regular Oxygen Therapy : Room air CRISTEL BRASHER RN - 03/24/2014 15:22 SHANK PAPERER Cardiovascular Heart Rhythm : Regular Skin Color : Normal for ethnicity Skin Description : Dry Skin Temperature : Warm CRISTEL BRASHER RN - 03/24/2014 15:22 SHANK PAPERER Neurological Last Well Time Known : Not applicable Level of Consciousness : Alert Orientation : Oriented x 3 Characteristics of Speech : Appropriate for age CRISTEL BRASHER RN - 03/24/2014 15:22 SHANK PAPERER ED Psychosocial Affect/Behavior : Calm, Cooperative Domestic Abuse Concerns : None CRISTEL BRASHER RN - 03/24/2014 15:22 SHANK PAPERER Gastrointestinal Nutrition ED : Adequate CRISTEL BRASHER RN - 03/24/2014 15:22 SHANK PAPERER /OB Assessment Para : 3 CRISTEL BRASHER RN - 03/24/2014 15:22 SHANK PAPERER Note : Pt delivered 3rd baby 2 [...] ) CRISTEL BRASHER RN - 03/24/2014 15:41 SHANK PAPERER Musculoskeletal Fall Prevention Education Provided : Yes CRISTEL BRASHER RN - 03/24/2014 15:22 SHANK PAPERER Social Habits Tobacco Use/Currently Using : No Smoking Status : Never smoker CRISTEL BRASHER RN - 03/24/2014 15:22 SHANK PAPERER Source: [facility] POWERCHART Document Id: [id number] SHANK PAPERER!3 Floyd Reyes M.D. - 03/24/2014 3:19 PM [...] Note : Chief Complaint Description 03/24/2014 14:55 SHANK PAPERER Chief Complaint Description Pt. had normal vaginal [...] Examination Vital Signs: Vital Signs 03/24/2014 14:55 SHANK PAPERER Temperature Core 37.0 DegC Peripheral Pulse Rate [...] in uterus. discussed with Dr Gonzalez from [employer]. reviewed u/s at length with him. does appear well. will give methergine and discharge with follow up tomorrow. return if any other concerns.. Documents reviewed:Emergency department nurses' notes. Results review:Lab results : Lab View 03/24/2014 15:34 SHANK PAPERER Hgb 13.5 g/dL Hct 39.8 % WBC 5.1 x10(9)/L RBC 4.25 x10(12)/L MCV 93.6 fL RDW 12.3 % Platelet 293 x10(9)/L Neutro Absolute 2.76 10(9)/L Lymph Absolute 1.85 x10(9)/L Heard Absolute 0.40 x10(9)/L Eos Absolute 0.02 x10(9)/L [...] Radiology results:Radiologist's interpretation: : Radiology 03/24/2014 16:50 SHANK PAPERER US Pelvic And Endovaginal RADUSPELVICTV , IMPRESSION: [...] Discharge ED Patient (Order Processing): 03/24/2014 18:36 SHANK PAPERER, Once. Notes: Charted by Yvonne Mercado for Dr Reyes. Electronically Signed By: FLOYD REYES MD On: 03/24/2014 06:52 PM Modified by and Electronically Signed by: YVONNE MERCADO On: 03/24/2014 03:39 PM Source: [facility] POWERCHART Document Id: [id number]} K PAPERER Deb Blanco R.N. - 03/24/2014 2:55 PM CST ED Triage Assessment Document Has Been Updated ED Triage Assessment Entered On: 03/24/2014 15:01 SHANK PAPERER Performed On: 03/24/2014 14:55 SHANK PAPERER by DEB BLANCO RN Reason For Visit (As Of: 03/24/2014 15:01:54 SHANK PAPERER) Diagnoses(Active) Vaginal bleeding Date: 03/24/2014 ; Diagnosis Type: Reason For Visit ; Confirmation: Complaint of ; Clinical Dx: Vaginal bleeding ; Classification: Medical ; Clinical Service: Emergency medicine ; Code: PNED ; Probability: 0 ; Diagnosis Code: [id number] Triage Chief Complaint Description : Pt. had normal vaginal delivery 2 weeks ago, pt. with vaginal bleedingat 1410, passing big clot. Pt. feeling dizzy in ED. Denies trauma. Information Given By : Patient Accompanied By : Spouse Mode of Arrival ED : Private vehicle Track : Medical Languages : Emirati Vital Signs Assessed : Yes GCS Assessed : Yes Treatments Prior to Arrival : None Are you ? : Yes Is Patient Female and 13-50 no hysterectomy : Yes Status : Patient denies DEB BLANCO RN - 03/24/2014 14:55 SHANK PAPERER Vital Signs Temperature Core : 37.0 DegC(Converted to: 98.6 DegF) Peripheral Pulse Rate : 103 /min (HI) Respiratory Rate : 20 /min Systolic Blood Pressure : 137 mmHg Diastolic Blood Pressure : 92 mmHg (>HHI) NIBP Mean : 107 mmHg BP Location : Left upper extremity SpO2 : 97 % Oxygen Therapy : Room air DEB BLANCO RN - 03/24/2014 14:55 SHANK PAPERER Albin Coma Eye Opening Response [place] : Spontaneously Best Verbal Response [place] : Oriented Best Motor Response Albin : Obeys simple commands [place] Coma Score : 15 DEB BLANCO RN - 03/24/2014 14:55 SHANK PAPERER Pain Assessment Pain Symptoms : No DEB BLANCO RN - 03/24/2014 14:55 SHANK PAPERER Comfort Measures Comfort Measures Grid Positive Self-Talk : Yes DEB BLANCO RN - 03/24/2014 14:55 SHANK PAPERER JAYLEN JAYLEN Level 1 : No JAYLEN Level 2 : No JAYLEN Level 3 : Many DEB BLANCO RN - 03/24/2014 14:55 SHANK PAPERER DCP GENERIC CODE Tracking Acuity : 2 -Emergent Tracking Group : [facility] DEB JAMA RN - 03/24/2014 14:55 SHANK PAPERER Allergy (As Of: 03/24/2014 15:01:55 SHANK PAPERER) Allergies (Active) Demerol HCl Estimated Onset Date: Unspecified ; Created By: DEB BLANCO RN; Reaction Status: Active ; Category: Drug ; Substance: Demerol HCl ; Type: Allergy ; Updated By: DEB BLANCO RN; Reviewed Date: 03/24/2014 15:00 SHANK PAPERER Latex Estimated Onset Date: Unspecified ; Created By: DEB BLANCO RN; Reaction Status: Active ; Category: Other ; Substance: Latex ; Type: Allergy ; Updated By: DEB BLANCO RN; Reviewed Date: 03/24/2014 15:00 SHANK PAPERER penicillins Estimated Onset Date: Unspecified ; Created By: DEB BLANCO RN; Reaction Status: Active ; Category: Drug ; Substance: penicillins ; Type: Allergy ; Updated By: DEB BLANCO RN; Reviewed Date: 03/24/2014 15:00 SHANK PAPERER Percocet 7.5/325 Estimated Onset Date: Unspecified ; Created By: DEB BLANCO RN; Reaction Status: Active ; Category: Drug ; Substance: Percocet 7.5/325 ; Type: Allergy ; Updated By: DEB BLANCO RN; Reviewed Date: 03/24/2014 15:00 SHANK PAPERER ID Screen Drug Resistant Organism : No Travel Within Last 21 Days : No DEB BLANCO RN - 03/24/2014 14:55 SHANK PAPERER [facility] Document Id: [id number] SHANK PAPERER!44 K PAPERER documented in this encounter Miscellaneous Notes Miscellaneous - Conversion, Historical Provider Ser - 03/24/2014 6:51 PM SHANK PAPERER Valuables/Belongings Valuables/Belongings Entered On: 03/24/2014 18:52 SHANK PAPERER Performed On: 03/24/2014 18:51 SHANK PAPERER by CRITSEL BRASHER RN Valuables/Belongings Comment : All belongings sent with Pt at discharge. CRISTEL BRASHER RN - 03/24/2014 18:51 SHANK PAPERER Source: [facility] POWERCHART Document Id: [id number] SHANK PAPERER!3 Miscellaneous - Conversion, Historical Provider Ser - 03/24/2014 2:52 PM SHANK PAPERER Facility Charge Ticket 2.0 11.0 DX Facility Charge Ticket 2.0 11.0 DX Entered On: 03/24/2014 18:52 SHANK PAPERER Performed On: 03/24/2014 14:52 SHANK PAPERER by CRISTEL BRASHER RN Facility Charge Ticket [...] Nursing Notes ED Primary Assessment,03/24/14 15:22,CRISTEL BRASHER PHP WORDPRESS DEVELOPER Nurse Reassess,03/24/14 18:50,CRISTEL BRASHER PHP WORDPRESS DEVELOPER Nurse Reassess,03/24/14 17:44,CRISTEL BRASHER PHP WORDPRESS DEVELOPER Nurse Reassess,03/24/14 16:31,MARCELLA MARIE RN ED Pain Assessment,03/24/14 18:51,CRISTEL BRASHER RN Lynx Nursing Assessment : Triage and 3-5 nursing assessments Lynx Disposition : Discharge Disposition RTF : discharge Lynx Total Points with Diagnosis Control : 11 Lynx Visit Level : 29493 Level 4 Treatments Prior to Arrival : None CRISTEL BRASHER RN - 03/24/2014 18:52 SHANK PAPERER Source: [facility] POWERCHART Document Id: [id number] SHANK PAPERER!19 documented in this encounter Plan of Treatment Not on filedocumented as of this encounter Procedures Procedure Name Priority Date/Time Associated Comments Diagnosis US PELVIS TRANSVAGINAL Routine 03/24/2014 3:58 PM Results for this AND TRANSABDOMINAL SHANK PAPERER procedure are in the results section. AUTOMATED DIFFERENTIAL, Routine 03/24/2014 3:34 PM Results for this B SHANK PAPERER procedure are i n the results section. CBC WITH DIFFERENTIAL, Routine 03/24/2014 3:34 PM Results for this B SHANK PAPERER procedure are i n the results section. COMPREHENSIVE METABOLIC Routine 03/24/2014 3:34 PM Results for this PANEL, S/P SHANK PAPERER procedure are i n the results section. documented in this encounter Results US Pelvis Transvaginal and Transabdominal (03/24/2014 3:58 PM SHANK PAPERER) Anatomical Region Laterality Modality Pelvis N/A Ultrasound Specimen (Source) Anatomical Collection Method Collection Time Re ceived Time Location / / Volume Laterality 03/24/2014 3:58 PM SHANK PAPERER Impressions 03/24/2014 5:21 PM SHANK PAPERER 1. Thickened heterogeneous hypervascular endometrium with some associated blood or clot most consistent with retained products of conception in this clinical setting. 2. Enlarged uterus consistent with postp artum status. Narrative 03/24/2014 5:21 PM SHANK PAPERER EXAM: US Pelvic And Endovaginal INDICATION: Vaginal [...] PROCEDURES (ABNORMAL) Automated Differential (03/24/2014 3:34 PM SHANK PAPERER) [facility] Method Time Signature Absolute 2.76 1.70 - POWERCHART Neutrophils 7.00 109L Lymphocytes 1.85 0.90 - POWERCHART 2.90 X109L Monocytes 0.40 0.30 - POWERCHART 0.90 X109L Eosinophils 0.02 (L) 0.05 - POWERCHART 0.50 X109L Absolute 0.03 0.00 - POWERCHART Basophil 0.30 X109L Specimen Anatomical Collection Method Collection Time Receive d Time (Source) Location / / Volume Laterality Blood 03/24/2014 3:34 PM 4 3:34 SHANK PAPERER PM SHANK PAPERER Floyd Reyes M.D. LAB BLOOD ADD-ON Performing Organization Address City/State/ZIP Code Phon e Number POWERCHART CBC with Differential (03/24/2014 3:34 PM SHANK PAPERER) athologist Signature Leukocytes 5.1 3.5 - 10.5 POWERCHART X109L Erythrocytes 4.25 3.90 - 5.03 POWERCHART G7706P Hemoglobin 13.5 12.0 - 15.5 POWERCHART GDL Hematocrit 39.8 34.9 - 44.5 POWERCHART MCV 93.6 81.6 - 98.3 POWERCHART FL HX RDW 12.3 11.9 - 15.5 POWERCHART Platelet Count 293 150 - 450 POWERCHART X109L Specimen (Source) Anatomical Collection Method Collection Time Re ceived Time Location / / Volume Laterality Blood 03/24/2014 3:34 PM SHANK PAPERER Floyd Reyes M.D. LAB BLOOD ADD-ON Performing Organization Address City/State/ZIP Code Phon e Number POWERCHART (ABNORMAL) CMP (Comprehensive Metabolic Panel) (03/24/2014 3:34 PM SHANK PAPERER) [facility] gist Method Time Signature Total Protein, S [...] / Volume Laterality Blood 03/24/2014 3:34 PM SHANK PAPERER Floyd Reyes M.D. LAB BLOOD ADD-ON Performing Organization Address City/State/ZIP Code Phon e Number POWERCHART documented in this encounter Visit Diagnoses Not on filedocumented in this encounter
--- OUTSIDE RECORDS SUMMARY | 2022-01-13 12:57 | XMS_ITS | Encounter Summary ---
:1985 Author Organization [facility] Address [address] [place] [address] Care Team Providers Name Role Phone Elsewhere, Pcp Primary Care Provider Unavailable Reason for Referral Outpatient (Routine) - Closed Specialty Diagnoses / Procedures Referred By Contact Refer red To Contact Diagnoses Pain Breast Marilyn Acosta APRN, [facility] [place] [facility] Procedures BI Breast Diagnostic Bilateral with Tomosynthesis BI Breast Diagnostic Right with Tomosynthesis C.N.P. [address] [place] [address] Referral ID Status Reason Start Date Expiration Date Visits Requ ested Visits Authorized [id number] Closed 11/25/2021 11/25/2022 1 1 Outpatient (Routine) - Closed Specialty Diagnoses / Procedures Referred By Contact Refer red To Contact Diagnoses Pain Breast Marilyn Acosta APRN, [facility] [place] [facility] Procedures BI Ultrasound Breast Focused Right [address] [place] [address] Referral ID Status Reason Start Date Expiration Date Visits Requ ested Visits Authorized [id number] Closed 11/25/2021 11/25/2022 1 1 Reason for [...] Expiration Date Visits Requ ested Visits Authorized [id number] Closed 11/18/2021 11/18/2022 1 1 Encounter Details Date Type Department Care Team Description 11/25/2021 Office Visit Department of Family Marilyn Acosta Pain B reast (Primary Medicine, [facility] [facility] Dx) Clinic, in [address] [address] [place], [place] [phone] (Work) [phone] Social History Tobacco Use Types Packs/Day Years [...] or relatives? How often do you attend [employer] or More than 4 times per year 11/23/2021 gnosticism services? Do you belong to any clubs or Not asked organizations such as presybeterian groups, unions, fraternal or athletic groups, or [...] place to sleep or slept in a prison (including now)? Education Answer Date Recorded What [...] cancer. Arlen receives her primary care at [facility]. In talking with her, she [...] fibroglandular tissue located throughout both breasts. Deana, case managers, served as the dental treatment coordinator. GI: Abdomen is rounded and soft. Active [...] would like to establish primary care at [facility]. Recommend patient gather hermedical records and return [...] Breast Imaging RST LOS, Breast Imaging [facility], [address] Right Ultrasound Imaging [facility] Specimen (Source) Anatomical Collection Method Collection [...] p ain. She was satisfied. Procedure Note Detla Keyes M.D. - 12/16/2021 EXAM: BI BREAST [...] Breast documented in this encounter Care Teams Jewel Waxer Relationship Specialty Start Date End Date Elsewhere, Pcp PCP - General Internal Medicine 11/25/21 documented as of this encounter
--- OUTSIDE RECORDS SUMMARY | 2022-01-13 12:58 | XMS_ITS | Clinical Summary ---
:1985 Author Organization [facility] [place] [address] Care Team Providers Name Role Phone Jet [...] CDT Respiratory Rate 16 03/24/2006 9:08 PM OIL DISPATCHER Oxygen Saturation 98% 07/16/2020 4:13 PM CDT Inhaled Oxygen Concentration - - Weight 67 kg (147 lb 12.8 oz) 07/16/2020 4:13 PM CDT Height 162.6 cm (5' 4) 03/20/2006 5:12 PM OIL DISPATCHER Body Mass Index - - Plan of [...] Type Group BLUE CROSS BLUE CROSS OF [id number] 2019-Present [address] [address] [place] [address] Care Teams Motor Overhauler Relationship Specialty Start Date End Date Jet Garcia MD PCP - General Family Practice 12/16/15 Jet Garcia MD Family Practice 12/16/15
--- NOTE | 2022-01-13 13:00 | CRLHL7_ITS ---
For Patients: As a result of the Century Cures Act, medical imaging exams and procedure reports are released immediately into your electronic medical record. You may view this report before your referring provider. If you have questions, please contact your health care provider. INDICATION: Pelvic pain, free fluid COMPARISON: CT 01/04/2022 TECHNIQUE: 2D martinez scale and color Doppler images were acquired of the pelvis using a transabdominal and transvaginal approach. Power Doppler evaluation of both ovaries also performed. FINDINGS: Uterus surgically absent. The right ovary measures 3.2 x 1.6 x 2.0 cm in size and the left ovary measures 3.1 x 2.2 x 2.1 cm. The ovaries demonstrate normal arterial and venous blood flow on color Doppler analysis. Normal spectral Doppler evaluation of both ovaries without torsion. There are no suspicious fluid collections within the cul-de-sac. IMPRESSION: Resolution of previously noted fluid in the pelvis. Normal ovaries. The findings on the recent CT are likely related to ruptured right ovarian cysts. No evidence of ovarian mass. Dictated by Delta Bang MD @ 01/13/2022 1:36:35 PM (Electronically Signed)
== END 2022-01-13 12:56 | disposition home or self-care (01) ==
PROVIDERS: PCP Family Medicine; Visit Provider Family Medicine
DX: R10.2 Pelvic and perineal pain (principal)
CPT/HCPCS: 76830; 76856; 93976

== ENCOUNTER 2022-01-15 13:55 | Outpatient (CLI) | payer BC, SELFPAY ==
--- OUTSIDE RECORDS SUMMARY | 2022-01-15 10:16 | XMS_ITS | Encounter Summary ---
:1985 Author Organization [facility] Address [address] [place] [address] Care Team Providers Name Role Phone Elsewhere, Pcp Primary Care Provider Unavailable Reason for Referral Outpatient (Routine) - Closed Specialty Diagnoses / Procedures Referred By Contact Refer red To Contact Diagnoses Pain Breast Marilyn Acosta APRN, C.N.P. [facility] [place] [facility] Procedures BI Ultrasound Breast Focused Right Referral ID Status Reason Start Date Expiration Date Visits Requ ested Visits Authorized [id number] Closed 11/25/2021 11/25/2022 1 1 Reason for Visit Outpatient (Routine) - Closed Specialty Diagnoses / Procedures Referred By Contact Refer red To Contact Diagnoses Pain Breast Marilyn Acosta APRN, C.N.P. [facility] [place] [facility] Procedures BI Ultrasound Breast Focused Right Referral ID Status Reason Start Date Expiration Date Visits Requ ested Visits Authorized [id number] Closed 11/25/2021 11/25/2022 1 1 Encounter Details Date Type Department Care Team Description 12/16/2021 Hospital Encounter Department of Radiology Marilyn Acosta, Pain Breast in [facility], C.N.P. [address] [place] [address] [facility] [phone] Social History Tobacco Use Types Packs/Day Years [...] or relatives? How often do you attend jew or More than 4 times per year 11/23/2021 evangelical services? Do you belong to any clubs or Not asked organizations such as jew groups, unions, [employer] or athletic groups, or school groups? How [...] place to sleep or slept in a senior living (including now)? Education Answer Date Recorded What [...] Breast documented in this encounter Care Teams Dermatology Teacher Relationship Specialty Start Date End Date Elsewhere, Pcp PCP - General Internal Medicine 11/25/21 documented as of this encounter
--- OUTSIDE RECORDS SUMMARY | 2022-01-15 10:16 | XMS_ITS | Clinical Summary ---
:1985 Author Organization [facility] Address [place] [address] Care Team Providers Name Role Phone Jet [...] CDT Respiratory Rate 16 03/24/2006 9:08 PM SEPTIC TANK CLEANER Oxygen Saturation 98% 07/16/2020 4:13 PM CDT Inhaled Oxygen Concentration - - Weight 67 kg (147 lb 12.8 oz) 07/16/2020 4:13 PM CDT Height 162.6 cm (5' 4) 03/20/2006 5:12 PM SEPTIC TANK CLEANER Body Mass Index - - Plan of [...] Type Group BLUE CROSS BLUE CROSS OF [id number] 2019-Present [address] [address] [place] [address] Care Teams Hide And Skin Fleshing Machine Operator Relationship Specialty Start Date End Date Jet Garcia MD PCP - General Family Practice 12/16/15 Jet Garcia MD Family Practice 12/16/15
--- OUTSIDE RECORDS SUMMARY | 2022-01-15 10:16 | XMS_ITS | Encounter Summary ---
:1985 Author Organization [facility] Address [address] [place] [address] Care Team Providers Name Role Phone Elsewhere, Pcp Primary Care Provider Unavailable Reason for Referral Outpatient (Routine) - Closed Specialty Diagnoses / Procedures Referred By Contact Refer red To Contact Diagnoses Pain Breast Marilyn Acosta APRN, [facility] [place] [facility] Procedures BI Breast Diagnostic Bilateral with Tomosynthesis BI Breast Diagnostic Right with Tomosynthesis C.N.P. Referral ID Status Reason Start Date Expiration Date Visits Requ ested Visits Authorized [id number] Closed 11/25/2021 11/25/2022 1 1 Outpatient (Routine) - Closed Specialty Diagnoses / Procedures Referred By Contact Refer red To Contact Diagnoses Pain Breast Marilyn Acosta APRN, C.N.P. [facility] [place] [facility] Procedures BI Ultrasound Breast Focused Right Referral ID Status Reason Start Date Expiration Date Visits Requ ested Visits Authorized [id number] Closed 11/25/2021 11/25/2022 1 1 Reason for Visit Reason Comments Other Lump in breast with pain. St arted in May 2021. Painful when children try to hug her. Has pain more in the evenings and mornings. Appointment Request (Routine) - Closed Specialty Diagnoses / Procedures Referred By Contact Refer red To Contact Family Medicine Referral ID Status Reason Start Date Expiration Date Visits Requ ested Visits Authorized [id number] Closed 11/18/2021 11/18/2022 1 1 Encounter Details Date Type Department Care Team Description 11/25/2021 Office Visit Department of Family Marilyn Acosta Pain B reast (Primary Medicine, [facility] C.[facility], in [place], [place] [address] [place] [address] Social History Tobacco Use Types Packs/Day Years [...] or relatives? How often do you attend yazidism or More than 4 times per year 11/23/2021 holiness services? Do you belong to any clubs or Not asked organizations such as yazidism groups, unions, fraternal or athletic groups, or [...] cancer. Arlen receives her primary care at [facility]. In talking with her, she [...] of fibroglandular tissue located throughout both breasts. Deana rip and groove machine operator, served as the physician ophthalmologist. GI: Abdomen is rounded and soft. Active [...] would like to establish primary care at [facility]. Recommend patient gather hermedical records and [...] Imaging RST LOS, Breast Imaging ARZ LOS, [address] Right Ultrasound Imaging FLA LOS Specimen [...] Imaging RST LOS, Breast Imaging ARZ LOS, [address] Bilateral Mammography Imaging FLA [facility] Specimen (Source) Anatomical Collection Method Collection Time [...] Breast documented in this encounter Care Teams Auto Battery Builder Relationship Specialty Start Date End Date Elsewhere, Pcp PCP - General Internal Medicine 11/25/21 documented as of this encounter
--- OUTSIDE RECORDS SUMMARY | 2022-01-15 10:16 | XMS_ITS | Encounter Summary ---
:1985 Author Organization [facility] Address [address] [place] [address] Care Team Providers Name Role Phone Elsewhere, [...] Expiration Date Visits Requ ested Visits Authorized [id number] Closed 11/25/2021 11/25/2022 1 1 Reason for Visit Outpatient (Routine) - Closed Specialty Diagnoses / Procedures Referred By Contact Refer red To Contact Diagnoses Pain Breast Marilyn Acosta APRN, [facility] [place] [facility] Procedures BI Breast Diagnostic Bilateral with Tomosynthesis BI Breast Diagnostic Right with Tomosynthesis C.N.P. Referral ID Status Reason Start Date Expiration Date Visits Requ ested Visits Authorized [id number] Closed 11/25/2021 11/25/2022 1 1 Encounter Details Date Type Department Care Team Description 12/16/2021 Hospital Encounter Department of Radiology Marilyn Acosta, Pain Breast in [facility], C.N.P. [address] [place] [address] Social History Tobacco Use Types Packs/Day Years [...] or relatives? How often do you attend mandaeism or More than 4 times per year 11/23/2021 rastafarian services? Do you belong to any clubs or Not asked organizations such as mandaeism groups, unions, [email or web address] or athletic groups, or school groups? How [...] place to sleep or slept in a group home (including now)? Education Answer Date Recorded What [...] Imaging RST LOS, Breast Imaging AR[facility] LOS, [address] [address] Bilateral Mammography Imaging FLA LOS Specimen [...] grounds. ASSESSMENT: BI-RADS: 2: Benign. Marilyn Acosta APRN C.N.P. IMG BI PROCEDURES documented in this encounter Visit Diagnoses Diagnosis Pain Breast documented in this encounter Care Teams Rental Manager Relationship Specialty Start Date End Date Elsewhere, Pcp PCP - General Internal Medicine 11/25/21 documented as of this encounter
--- OUTSIDE RECORDS SUMMARY | 2022-01-15 10:16 | XMS_ITS | Clinical Summary ---
:1985 Author Organization [facility] Address [address] [place] [address] Care Team Providers Name Role Phone Elsewhere, Pcp Primary Care Provider Unavailable Source Comments Patient records contain information from all sites at [facility]. For routine questions regarding patient records, call [phone] during business hours, M-F 8:00 AM - 5:00 PM Central Time. Record requests for emergency care only can be directed to [phone] at any time.[facility] Allergies Active Allergy Reactions Severity Noted Date [...] Encounter Radiology Marilyn Acosta, Pain Sumi ast MANAGER OF CASE MANAGEMENT, C.N.P. 12/16/2021 Hospital Encounter Radiology Marilyn Acosta Pain Sumi ast MANAGER OF CASE MANAGEMENT, C.N.P. 11/25/2021 Office Visit Family Medicine Marilyn Acosta, Pain Breast (Primary MANAGER OF CASE MANAGEMENT, C.N.P. Dx) from Last 3 Months Immunizations [...] More than 4 times per year 11/23/2021 jainism services? Do you belong to any clubs [...] place to sleep or slept in a half-way (including now)? Education Answer Date Recorded What [...] Addre ss Type Group [employer] [place] [id number] 2021-Presen [phone] [address] [facility] [address] [place] [address] Care Teams Manager Fleet Relationship Specialty Start Date End Date Elsewhere, Pcp PCP - General Internal Medicine 11/25/21
--- OUTSIDE RECORDS SUMMARY | 2022-01-15 10:16 | XMS_ITS | Encounter Summary ---
:1985 Author Organization [facility] Address [address] [place] [address] Care Team Providers Name Role Phone Unavailable [...] or relatives? How often do you attend denominational or More than 4 times per year 11/23/2021 faith services? Do you belong to any clubs or Not asked organizations such as denominational groups, unions, fraternal or athletic groups, or [...] place to sleep or slept in a chcf (including now)? Sex Assigned at Date Recorded Female 11/21/2021 11:33 PM CDT documented as of this encounter Last Filed Vital Signs Vital Sign Reading Time Taken Comments Blood Pressure 125/87 03/24/2014 6:33 PM CARPENTER MOLD Pulse 103 03/24/2014 2:55 PM CARPENTER MOLD Temperature - - Respiratory Rate 18 03/24/2014 5:47 PM CARPENTER MOLD Oxygen Saturation - - Inhaled Oxygen Concentration - - Weight - - Height - - Body Mass Index - - documented in this encounter Discharge Summaries Conversion, Historical Provider Ser - 03/24/2014 6:52 PM CST ED Discharge Instructions [address] [address] Name: ARLEN VALLADARES Date of : 1985 12:00 AM Visit Date: 03/24/2014 2:52 PM [facility] Number: [id number] Address: [address] [place] [phone] Primary Care Provider: PCP, ELSEWHERE IMPORTANT: [facility] in [place] would like to thank you for allowing [...] arrange a ride home with a responsible constitution party. I, ARLEN VALLADARES , or responsible constitution party have received this information and my questions have been answered. I have discussed any challenges I see with this plan with the nurse or physician. Patient Signature or Responsible Republican/Relationship Date Time Provider Signature Date Time Medication Reconciliation: Reconciliation is a process of identifying the most accurate list of all medications a patient is taking - including name, dosage, frequency, and route - and using this list to provide to the patient information about how to take those medications. ALREN VALLADARES or designee has reviewed the home [...] arrange a ride home with a responsible constitution party. I, ARLEN VALLADARES , or responsible constitution party have received this information and my questions have been answered. I have discussed any challenges I see with this plan with the nurse or physician. Patient Signature or Responsible Republican/Relationship Date Time Provider Signature Date Time Source: [facility] POWERCHART Document Id: [id number] ENTER MOLD Conversion, Historical Provider Ser - 03/24/2014 6:52 PM CST ED Depart Summary [facility] Emergency Department Clinical Discharge Summary PERSON INFORMATION Name ARLEN VALLADARES Age 29 Years 1985 12:00 AM Sex Female Language Puerto Rican PCP PCP, ELSEWHERE Marital Status Visit Id Visit Reason Vaginal bleeding; Vaginal Bleeding Specialty Enc Type Emergency Med Service Emergency Medicine Referred by [facility] ED Discharge 03/24/2014 6:52 PM Tracking Id [id number] Checkout 03/24/2014 6:52 PM Checkin 03/24/2014 2:52 PM Acuity 2 -Emergent Dispo Type * Discharged to Home or Self Care Arrival 03/24/2014 2:52 PM Reg Status Complete LOS 000 04:00 Address: [address] [place] [phone] Comment: PROVIDER INFORMATION Provider Role Provider Contact Time LISSETT BETANCOURT CHANGEOVER OPERATOR Nurse 03/24/14 15:02 CRISTEL BRASHER CHANGEOVER OPERATOR Nurse 03/24/14 15:13 FLOYD REYES MD ED Provider 03/24/14 15:14 ANDREWS TUCKER ED Computer Teacher 03/24/14 15:26 DIAGNOSIS Hemorrhage (Pp) Delayed Comment: [...] ELSEWHERE PCP Within As Needed Comments: Source: [facility] Document Id: [id number] documented in this encounter ED Notes Conversion, Historical Provider Ser - 03/24/2014 6:51 PM CST ED Education ED Education Entered On: 03/24/2014 18:51 CARPENTER MOLD Performed On: 03/24/2014 18:51 CARPENTER MOLD by CRISTEL BRASHER RN Education ED Education Grid Topics : Other: dc instructions Individuals Taught : Patient Barriers to Learning : None evident Teaching Method : Explanation, Printed materials Teaching Evaluation : Verbalizes understanding CRISTEL BRASHER RN - 03/24/2014 18:51 CARPENTER MOLD [facility] Document Id: [id number] CARPENTER MOLD!9 Conversion, Historical Provider Ser - 03/24/2014 6:51 PM CST ED Pain Assessment ED Pain Assessment Entered On: 03/24/2014 18:51 CARPENTER MOLD Performed On: 03/24/2014 18:51 CARPENTER MOLD by CRISTEL BRASHER RN Pain Assessment Pain Symptoms : No CRISTEL BRASHER RN - 03/24/2014 18:51 CARPENTER MOLD Source: [facility] Document Id: [id number] CARPENTER MOLD!3 Conversion, Historical Provider Ser - 03/24/2014 6:50 PM CST ED Nurse Reassess ED Nurse Reassess Entered On: 03/24/2014 18:50 CARPENTER MOLD Performed On: 03/24/2014 18:50 CARPENTER MOLD by CRISTEL BRASHER RN Pain Assessment Pain Symptoms : No CRISTEL BRASHER RN - 03/24/2014 18:50 CARPENTER MOLD /OB Reassess /OB Note : Pt ready for discharge. Pt to follow up with her OB Dr Reza in [place] tomorrow. Release of information filled out by patient so records can be faxed to her provider. CRISTEL BRASHER RN - 03/24/2014 18:50 CARPENTER MOLD Source: [facility] Document Id: [id number] CARPENTER MOLD!5 Conversion, Historical Provider Ser - 03/24/2014 6:50 PM CST ED Disposition Summary ED Disposition Summary Entered On: 03/24/2014 18:51 CARPENTER MOLD Performed On: 03/24/2014 18:50 CARPENTER MOLD by CRISTEL BRASHER RN ED Disposition Summary Accompanied By : Spouse Mode of Discharge : Ambulatory Transportation : Private vehicle Discharge From ED With : Home Med List Printed Discharge Instructions Given to Patient : Yes Patient Status at Discharge from ED : Improved CRISTEL BRASHER RN - 03/24/2014 18:50 CARPENTER MOLD Source: [facility] Document Id: [id number] CARPENTER MOLD!8 Conversion, Historical Provider Ser - 03/24/2014 5:44 PM CST ED Nurse Reassess ED Nurse Reassess Entered On: 03/24/2014 17:47 CARPENTER MOLD Performed On: 03/24/2014 17:44 CARPENTER MOLD by CRISTEL BRASHER RN Pain Assessment Pain Symptoms : No CRISTEL BRASHER RN - 03/24/2014 17:44 CARPENTER MOLD /OB Reassess /OB Note : Pt given first dose of methergine here. Pt to d/c home and follow up with OB in [place] tomorrow. Pt updated on plan of care. Pt getting ready for discharge. CRISTEL BRASHER RN - 03/24/2014 17:44 CARPENTER MOLD Source: [facility] Document Id: [id number] CARPENTER MOLD!5 Marcella Soria RCésar - 03/24/2014 4:31 PM CST ED Nurse Reassess ED Nurse Reassess Entered On: 03/24/2014 16:33 CARPENTER MOLD Performed On: 03/24/2014 16:31 CARPENTER MOLD by MARCELLA MARIE RN Pain Assessment Pain Symptoms : No MARCELLA MARIE RN - 03/24/2014 16:31 CARPENTER MOLD Resp Reassess Respiratory Patient Stated Symptoms : None Distress : None Airway : Patent Respiratory Pattern : Regular Respirations : Unlabored MARCELLA MARIE RN - 03/24/2014 16:31 CARPENTER MOLD CV Reassess CV Patient Stated Symptoms : None Skin Color : Normal for ethnicity Skin Description : Dry Skin Temperature : Warm Nail Bed Color : [place] Capillary Refill : Less than 2 seconds Heart Rhythm : Regular MARCELLA MARIE RN - 03/24/2014 16:31 CARPENTER MOLD Neuro Reassess Last Well Time Known : Not applicable Orientation : Oriented x 3 Characteristics of Speech : Appropriate for age Level of Consciousness : Alert MARCELLA MARIE RN - 03/24/2014 16:31 CARPENTER MOLD [place] Coma Eye Opening Response [place] : Spontaneously Best Verbal Response Albin : Oriented Best Motor Response Albin : Obeys simple commands Albin Coma Score : 15 MARCELLA MARIE RN - 03/24/2014 16:31 CARPENTER MOLD GI Reassess GI Patient Stated Symptoms : None CYRUSMICHAEL MARCELLA Flaherty RN - 03/24/2014 16:31 CARPENTER MOLD /OB Reassess /OB Note : no acute changes. Ultrasound at bedside. JOSRSIRENA MARCELLA Flaherty RN - 03/24/2014 16:31 CARPENTER MOLD Source: [facility] POWERCHART Document Id: [id number] CARPENTER MOLD!31 ENTER MOLD Conversion, Historical Provider Ser - 03/24/2014 3:22 PM CST ED Primary Assessment Document Has Been Updated ED Primary Assessment Entered On: 03/24/2014 15:28 CARPENTER MOLD Performed On: 03/24/2014 15:22 CARPENTER MOLD by CRISTEL BRASHER RN Reason For Visit (As Of: 03/24/2014 15:42:33 CARPENTER MOLD) Diagnoses(Active) Vaginal bleeding Date: 03/24/2014 ; Diagnosis Type: Reason For Visit ; Confirmation: Complaint of ; Clinical Dx: Vaginal bleeding ; Classification: Medical ; Clinical Service: Emergency medicine ; Code: PNED ; Probability: 0 ; Diagnosis Code: [id number] Triage Mode of Arrival ED : Private vehicle Track : Medical Languages : Puerto Rican Treatments Prior to Arrival : None Are you ? : Yes Is Patient Female and 13-50 no hysterectomy : Yes Status : Patient denies CRISTEL BRASHER RN - 03/24/2014 15:22 [facility] MOLD Pain Assessment Pain Symptoms : No CRISTEL BRASHER RN - 03/24/2014 15:22 CARPENTER MOLD ID Screen Drug Resistant Organism : No Travel Within Last 21 Days : No CRISTEL BRASHER RN - 03/24/2014 15:22 CARPENTER MOLD Respiratory Airway : Patent Respirations : Unlabored Respiratory Pattern : Regular Oxygen Therapy : Room air CRISTEL BRASHER RN - 03/24/2014 15:22 CARP[facility] MOLD Cardiovascular Heart Rhythm : Regular Skin Color : Normal for ethnicity Skin Description : Dry Skin Temperature : Warm CRISTEL BRASHER RN - 03/24/2014 15:22 CARP[facility] MOLD Neurological Last Well Time Known : Not applicable Level of Consciousness : Alert Orientation : Oriented x 3 Characteristics of Speech : Appropriate for age CRISTEL BRASHER RN - 03/24/2014 15:22 [facility] MOLD ED Psychosocial Affect/Behavior : Calm, Cooperative Domestic Abuse Concerns : None CRISTEL BRASHER RN - 03/24/2014 15:22 CARPENTER MOLD Gastrointestinal Nutrition ED : Adequate CRISTEL BRASHER RN - 03/24/2014 15:22 CARPENTER MOLD /OB Assessment Para : 3 CRISTEL BRASHER RN - 03/24/2014 15:22 CARPENTER MOLD Note : Pt delivered 3rd baby 2 [...] ) CRISTEL BRASHER RN - 03/24/2014 15:41 [facility] MOLD Musculoskeletal Fall Prevention Education Provided : Yes CRISTEL BRASHER RN - 03/24/2014 15:22 CARPENTER MOLD Social Habits Tobacco Use/Currently Using : No Smoking Status : Never smoker CRISTEL BRASEHR RN - 03/24/2014 15:22 CARPENTER MOLD Source: [facility] POWERCHART Document Id: [id number] CARPENTER MOLD!3 Floyd Reyes M.D. - 03/24/2014 3:19 PM [...] Note : Chief Complaint Description 03/24/2014 14:55 [facility]OLD Chief Complaint Description Pt. had normal vaginal [...] Examination Vital Signs: Vital Signs 03/24/2014 14:55 [facility]OLD Temperature Core 37.0 DegC Peripheral Pulse Rate [...] in uterus. discussed with Dr Gonzalez from [facility]. reviewed u/s at length with him. does appear well. will give methergine and discharge with follow up tomorrow. return if any other concerns.. Documents reviewed:Emergency department nurses' notes. Results review:Lab results : Lab View 03/24/2014 15:34 CARPENTER MOLD Hgb 13.5 g/dL Hct 39.8 % WBC 5.1 x10(9)/L RBC 4.25 x10(12)/L MCV 93.6 fL RDW 12.3 % Platelet 293 x10(9)/L Neutro Absolute 2.76 10(9)/L Lymph Absolute 1.85 x10(9)/L [place] Absolute 0.40 x10(9)/L Eos Absolute 0.02 x10(9)/L [...] Radiology results:Radiologist's interpretation: : Radiology 03/24/2014 16:50 CARPENTER MOLD US Pelvic And Endovaginal RADUSPELVICTV , IMPRESSION: [...] Discharge ED Patient (Order Processing): 03/24/2014 18:36 CARPENTER MOLD, Once. Notes: Charted by Yvonne Mercado for Dr Reyes. Electronically Signed By: FLOYD REYES MD On: 03/24/2014 06:52 PM Modified by and Electronically Signed by: YVONNE MERCADO On: 03/24/2014 03:39 PM Source: [facility] POWERCHART Document Id: [id number]} ENTER MOLD Deb Blanco R.N. - 03/24/2014 2:55 PM CST ED Triage Assessment Document Has Been Updated ED Triage Assessment Entered On: 03/24/2014 15:01 CARPENTER MOLD Performed On: 03/24/2014 14:55 CARPENTER MOLD by DEB BLANCO RN Reason For Visit (As Of: 03/24/2014 15:01:54 CARPENTER MOLD) Diagnoses(Active) Vaginal bleeding Date: 03/24/2014 ; Diagnosis Type: Reason For Visit ; Confirmation: Complaint of ; Clinical Dx: Vaginal bleeding ; Classification: Medical ; Clinical Service: Emergency medicine ; Code: PNED ; Probability: 0 ; Diagnosis Code: [id number] Triage Chief Complaint Description : Pt. had normal vaginal delivery 2 weeks ago, pt. with vaginal bleedingat 1410, passing big clot. Pt. feeling dizzy in ED. Denies trauma. Information Given By : Patient Accompanied By : Spouse Mode of Arrival ED : Private vehicle Track : Medical Languages : [place]ican Vital Signs Assessed : Yes GCS Assessed : Yes Treatments Prior to Arrival : None Are you ? : Yes Is Patient Female and 13-50 no hysterectomy : Yes Status : Patient denies DEB BLANCO RN - 03/24/2014 14:55 [facility] MOLD Vital Signs Temperature Core : 37.0 DegC(Converted to: 98.6 DegF) Peripheral Pulse Rate : 103 /min (HI) Respiratory Rate : 20 /min Systolic Blood Pressure : 137 mmHg Diastolic Blood Pressure : 92 mmHg (>HHI) NIBP Mean : 107 mmHg BP Location : Left upper extremity SpO2 : 97 % Oxygen Therapy : Room air DEB BLANCO RN - 03/24/2014 14:55 CARPENTER MOLD Albin Coma Eye Opening Response [place] : Spontaneously Best Verbal Response [place] : Oriented Best Motor Response Albin : Obeys simple commands [place] Coma Score : 15 DEB BLANCO RN - 03/24/2014 14:55 CARP[facility] MOLD Pain Assessment Pain Symptoms : No DEB BLANCO RN - 03/24/2014 14:55 [facility] MOLD Comfort Measures Comfort Measures Grid Positive Self-Talk : Yes DEB BLANCO RN - 03/24/2014 14:55 [facility] MOLD JAYLEN JAYLEN Level 1 : No JAYLEN Level 2 : No JAYLEN Level 3 : Many DEB BLANCO RN - 03/24/2014 14:55 CARPENTER MOLD DCP GENERIC CODE Tracking Acuity : 2 -Emergent Tracking Group : [facility] DEB JAMA RN - 03/24/2014 14:55 CARP[facility] MOLD Allergy (As Of: 03/24/2014 15:01:55 CARPENTER MOLD) Allergies (Active) Demerol HCl Estimated Onset Date: Unspecified ; Created By: DEB BLANCO RN; Reaction Status: Active ; Category: Drug ; Substance: Demerol HCl ; Type: Allergy ; Updated By: DEB BLANCO RN; Reviewed Date: 03/24/2014 15:00 CARPENTER MOLD Latex Estimated Onset Date: Unspecified ; Created By: DEB BLANCO RN; Reaction Status: Active ; Category: Other ; Substance: Latex ; Type: Allergy ; Updated By: DEB BLANCO RN; Reviewed Date: 03/24/2014 15:00 [facility] MOLD penicillins Estimated Onset Date: Unspecified ; Created By: DEB BLANCO RN; Reaction Status: Active ; Category: Drug ; Substance: penicillins ; Type: Allergy ; Updated By: DEB BLANCO RN; Reviewed Date: 03/24/2014 15:00 CARPENTER MOLD Percocet 7.5/325 Estimated Onset Date: Unspecified ; Created By: DEB BLANCO RN; Reaction Status: Active ; Category: Drug ; Substance: Percocet 7.5/325 ; Type: Allergy ; Updated By: DEB BLANCO RN; Reviewed Date: 03/24/2014 15:00 CARPENTER MOLD ID Screen Drug Resistant Organism : No Travel Within Last 21 Days : No DEB BLANCO RN - 03/24/2014 14:55 CARPENTER MOLD [facility] Document Id: [id number] CARPENTER MOLD!44 ENTER MOLD documented in this encounter Miscellaneous Notes Miscellaneous - Conversion, Historical Provider Ser - 03/24/2014 6:51 PM CARP[facility] MOLD Valuables/Belongings Valuables/Belongings Entered On: 03/24/2014 18:52 CARPENTER MOLD Performed On: 03/24/2014 18:51 CARPENTER MOLD by CRISTEL BRASHER RN Valuables/Belongings Comment : All belongings sent with Pt at discharge. CRISTEL BRASHER RN - 03/24/2014 18:51 CARPENTER MOLD Source: [facility] POWERCHART Document Id: [id number] CARPENTER MOLD!3 Miscellaneous - Conversion, Historical Provider Ser - 03/24/2014 2:52 PM CARPENTER MOLD Facility Charge Ticket 2.0 11.0 DX Facility Charge Ticket 2.0 11.0 DX Entered On: 03/24/2014 18:52 CARPENTER MOLD Performed On: 03/24/2014 14:52 CARPENTER MOLD by CRISTEL BRASHER RN Facility Charge Ticket [...] Nursing Notes ED Primary Assessment,03/24/14 15:22,CRISTEL BRASHER CHANGEOVER OPERATOR Nurse Reassess,03/24/14 18:50,CRISTEL BRASHER CHANGEOVER OPERATOR Nurse Reassess,03/24/14 17:44,CRISTEL BRASHER CHANGEOVER OPERATOR Nurse Reassess,03/24/14 16:31,MARCELLA MARIE RN ED Pain Assessment,03/24/14 18:51,CRISTEL BRASHER RN [place] Nursing Assessment : Triage and 3-5 nursing assessments [place] Disposition : Discharge Disposition RTF : discharge [place] Total Points with Diagnosis Control : 11 [place]x Visit Level : 83777 Level 4 Treatments Prior to Arrival : None CRISTEL BRASHER RN - 03/24/2014 18:52 CARPENTER MOLD Source: [facility] POWERCHART Document Id: [id number] CARPENTER MOLD!19 documented in this encounter Plan of Treatment Not on filedocumented as of this encounter Procedures Procedure Name Priority Date/Time Associated Comments Diagnosis US PELVIS TRANSVAGINAL Routine 03/24/2014 3:58 PM Results for this AND TRANSABDOMINAL [facility]PENTER MOLD procedure are in the results section. AUTOMATED DIFFERENTIAL, Routine 03/24/2014 3:34 PM Results for this B [facility] MOLD procedure are i n the results section. CBC WITH DIFFERENTIAL, Routine 03/24/2014 3:34 PM Results for this B [facility] MOLD procedure are i n the results section. COMPREHENSIVE METABOLIC Routine 03/24/2014 3:34 PM Results for this PANEL, S/P [facility] MOLD procedure are i n the results section. documented in this encounter Results US Pelvis Transvaginal and Transabdominal (03/24/2014 3:58 PM CARPENTER MOLD) Anatomical Region Laterality Modality Pelvis N/A Ultrasound Specimen (Source) Anatomical Collection Method Collection Time Re ceived Time Location / / Volume Laterality 03/24/2014 3:58 PM CARPENTER MOLD Impressions 03/24/2014 5:21 PM CARP[facility] MOLD 1. Thickened heterogeneous hypervascular endometrium with some associated blood or clot most consistent with retained products of conception in this clinical setting. 2. Enlarged uterus consistent with postp artum status. Narrative 03/24/2014 5:21 PM CARPENTER MOLD EXAM: US Pelvic And Endovaginal INDICATION: Vaginal [...] PROCEDURES (ABNORMAL) Automated Differential (03/24/2014 3:34 PM [facility] MOLD) [facility] Method Time Signature Absolute 2.76 1.70 - POWERCHART Neutrophils 7.00 109L Lymphocytes 1.85 0.90 - POWERCHART 2.90 X109L Monocytes 0.40 0.30 - POWERCHART 0.90 X109L Eosinophils 0.02 (L) 0.05 - POWERCHART 0.50 X109L Absolute 0.03 0.00 - POWERCHART Basophil 0.30 X109L Specimen Anatomical Collection Method Collection Time Receive d Time (Source) Location / / Volume Laterality Blood 03/24/2014 3:34 PM 4 3:34 CARP[facility] MOLD PM [facility]OLD Floyd Reyes M.D. LAB BLOOD ADD-ON Performing Organization Address City/State/ZIP Code Phon e Number POWERCHART CBC with Differential (03/24/2014 3:34 PM CARPENTER MOLD) athologist Signature Leukocytes 5.1 3.5 - 10.5 POWERCHART X109L Erythrocytes 4.25 3.90 - 5.03 POWERCHART [id number] Hemoglobin 13.5 12.0 - 15.5 POWERCHART GDL Hematocrit 39.8 34.9 - 44.5 POWERCHART MCV 93.6 81.6 - 98.3 POWERCHART FL HX RDW 12.3 11.9 - 15.5 POWERCHART Platelet Count 293 150 - 450 POWERCHART X109L Specimen (Source) Anatomical Collection Method Collection Time Re ceived Time Location / / Volume Laterality Blood 03/24/2014 3:34 PM CARP[facility] MOLD Floyd Reyes M.D. LAB BLOOD ADD-ON Performing Organization Address City/State/ZIP Code Phon e Number POWERCHART (ABNORMAL) CMP (Comprehensive Metabolic Panel) (03/24/2014 3:34 PM CARPENTER MOLD) [facility] gist Method Time Signature Total Protein, [...] / Volume Laterality Blood 03/24/2014 3:34 PM CARPENTER MOLD Floyd Reyes M.D. LAB BLOOD ADD-ON Performing Organization Address City/State/ZIP Code Phon e Number POWERCHART documented in this encounter Visit Diagnoses Not on filedocumented in this encounter
[2022-01-15 15:57] LABS: C Reactive Protein* 1.5 mg/dL (0.5-1.0)
[2022-01-17 17:06] LABS: Cancer Antigen 125 7 U/mL (<=38)
[2022-01-18 00:28] LABS: Anti-Nuclear Ab(ANA)IgG ELISA None Detected (None Detected)
== END 2022-01-15 13:56 | disposition home or self-care (01) ==
PROVIDERS: PCP Family Medicine; Visit Provider Family Medicine
DX: R10.2 Pelvic and perineal pain (principal); R10.9 Unspecified abdominal pain
CPT/HCPCS: 36415; 86039; 86140; 86304

== ENCOUNTER 2022-01-28 15:53 | Emergency (ER) | payer BC, SELFPAY ==
[2022-01-28] VITALS (11 sets, daily range): BP systolic 112–146; BP diastolic 82–106; PULSE 86–129; TEMP 36.9; O2SAT 97–100; BMI 20.6
--- NOTE | 2022-01-28 16:17 | CRLHL7_ITS ---
For Patients: As a result of the Cures Act, medical imaging exams and procedure reports are released immediately into your electronic medical record. You may view this report before your referring provider. If you have questions, please contact your health care provider. HISTORY: Left facial numbness COMPARISON: Available TECHNIQUE: MR examination of the brain was performed without contrast enhancement using a standard protocol. FINDINGS: The brain is normal in appearance for the patient`s age on today`s study with no sign of mass effect, mass lesion, hemorrhage or edema. There is no sign of any white matter signal abnormality to suggest demyelination. There is no sign of any abnormality along the course of the left 7th nerve to suggest a cause for the patient`s facial numbness. The ventricles and sulci are normal in appearance for the patient`s age. There is no sign of diffusion abnormality to suggest an acute infarct. The pituitary gland is normal in appearance. The visualized portions of the orbits are normal in appearance. The visualized paranasal sinuses and mastoids are clear. IMPRESSION: Normal MR examination of the brain for the patient`s age. Nothing seen to correlate with the history of left facial numbness. No sign of demyelination. No sign of any abnormality along the course of the left facial nerve. Dictated by Montez Haines MD @ 01/28/2022 5:27:27 PM (Electronically Signed)
--- NOTE | 2022-01-28 16:19 | ED.GENADULT ---
HPI - General Adult General Time Seen by Provider: 16:20 Date Seen: 01/28/22 Chief complaint: Altered Mental Status Stated complaint: LEFT SIDE OF FACE NUMB Time Seen by Provider: 01/28/22 15:59 Source: patient, RN notes reviewed and other (Phone call received from [facility]) Mode of arrival: ambulatory Limitations: no limitations History of Present Illness HPI narrative: Patient is a 36-year-old female referred to us from [facility] with complaint of left facial numbness starting around 4:00 a.m. yesterday afternoon. She noticed it when she was just walking around [employer]. Today 10 opening other drawers, just doing things that did not make sense, she reported a difficult time signing her name at urgent care. She had a systolic blood pressure 149, pulse of 105 and was 99% on room air Urgent Care. She had recently been on some steroids for some ?inflammation?. She states her health has been somewhat poor recently. She has been having flank pain and has had workup for this. She has had urinary issues. I have reviewed her ED note where she had a CT abdomen and pelvis that did show a stone within the kidney but otherwise no acute pathology. She did follow up with her primary care provider in [place]. Reviewed his most recent note. No fevers chills, no visual changes. Arms and legs are working fine, no acute neurologic deficits there. Her speech is fine. She can swallow fine. No hearing changes. Related Data Home Medications Medication Instructions Recorded Confirmed multivitamin 1 tab PO QDAY 01/11/22 01/11/22 prednisone 50 mg tablet mg 01/28/22 Previous Rx's Medication Instructions Recorded amitriptyline 10 mg tablet 10 mg PO QDAY #30 tabs 01/11/22 ondansetron 4 mg disintegrating 4 mg PO Q8H PRN nausea and 01/11/22 tablet vomiting #20 tabs tolterodine 2 mg capsule,extended 2 mg PO Q24H #30 caps 01/11/22 release 24 hr dextroamphetamine-amphetamine ER 20 mg PO QDAY #30 caps 01/19/22 20 mg 24hr capsule,extend release Allergies Allergy/AdvReac Type Severity Reaction Status Date / Time banana Allergy Unknown Verified 01/11/22 11:08 cat dander Allergy Unknown Verified 01/11/22 11:08 latex Allergy Unknown Verified 01/11/22 11:08 Penicillins Allergy Unknown Verified 01/11/22 11:08 Review of Systems Status of ROS: Reports: 10 or more systems reviewed and unremarkable except as noted in History and below PFSH [facility] Surgical History S/P anal fissurectomy S/P hemorrhoidectomy S/P hysterectomy Social History Smoking Status: Never smoker Do you use any of these nicotine containing products: None Second hand tobacco smoke exposure: No How often do you have a drink containing alcohol: 2-3 times a week How many standard drinks containing alcohol do you have on a typical day: 1 or 2 How often do you have six or more drinks on one occasion: Never AUDIT-C Alcohol total score: 3 Non-prescribed substance use: marijuana (any form) Exam Const: Vital Signs, click to edit/add: Vital Signs - 24 hr 01/28/22 15:56 01/28/22 16:06 01/28/22 16:07 Temperature 98.4 F Pulse Rate 94 100 Pulse Rate [Left P ulse Oximeter] 120 H Blood Pressure 134/95 H Blood Pressure [Ri ght Upper Arm] 146/106 H Pulse Oximetry 100 99 99 Oxygen Delivery Me thod Room Air 01/28/22 16:30 01/28/22 16:35 01/28/22 17:25 Temperature Pulse Rate 113 H 88 Pulse Rate [Left P ulse Oximeter] Blood Pressure 128/93 H 120/86 Blood Pressure [Ri ght Upper Arm] Pulse Oximetry 100 98 Oxygen Delivery Me thod 01/28/22 17:26 Temperature Pulse Rate 86 Pulse Rate [Left P ulse Oximeter] Blood Pressure Blood Pressure [Ri ght Upper Arm] Pulse Oximetry 99 Oxygen Delivery Me thod Documenting provider has reviewed patient's vital signs: yes Common normals: no apparent distress (A little tearful near the end but overall is a very pleasant patient), average body habitus, oriented x3, no limitations, healthy appearing, alert and well nourished General appearance: cooperative, comfortable and well kempt HENMT: Common normals: normocephalic, head/scalp atraumatic, hearing grossly normal bilaterally, external ears normal, EAC's normal, TM's normal bilaterally, external nose normal, nasal mucous membranes and turbinates normal, moist oral mucous membranes, oropharynx normal, dentition normal and gingiva normal Head and scalp: normocephalic and atraumatic Nose: external nose normal and nasal mucous membranes and turbinates normal External ear: external ears normal External auditory canal: EAC's normal Tympanic membrane: TM's normal bilaterally Mouth: oral and palatal mucosa normal and tongue normal Throat: posterior oropharynx normal and uvula midline Other: Speech is normal. States she feels normal light touch sensation on her forehead on the left but below the eye level states it feels numb on the left face but normal on the right. Eye: Common normals: PERRL, EOMs intact bilaterally, conjunctivae normal and no scleral icterus Conjunctiva: conjunctiva(e) normal Pupil: PERRL Neck & C-Spine: Common normals: full ROM, no lymphadenopathy, supple, no meningeal signs, no JVD and thyroid normal Thyroid: thyroid normal Resp: Common normals: normal respiratory effort, no retractions, no use of accessory muscles and clear to auscultation bilaterally Auscultation: clear to auscultation bilaterally Cardio: Common normals: no JVD, regular rate, regular rhythm, S1 normal heart sound, S2 normal heart sound, no gallops, no clicks and no murmurs Rate: regular rate Rhythm: regular rhythm Heart sounds: S1 normal and S2 normal Neuro: Common normals: oriented x3, CN's II-XII intact bilaterally, moves all extremities, no focal motor deficits and gait normal Sensorium/orientation: alert Meningeal signs: no meningeal signs Speech: speech normal Psych: Appearance: well kempt Course Course Hospital Course: Will check baseline labs on this patient and proceed with an MRI brain. This is not likely to be cerebrovascular disease in this patient but certainly could be multiple sclerosis. If her MRI is normal, have reviewed with her that she can proceed with further outpatient evaluation to her primary care provider and possibly referral to Neurology if ongoing left facial numbness in the setting of a normal head MRI. Reevaluation(s) Reevaluation #1: Reviewed with patient and the gentleman I presume is her that her MRI is normal, did give them a copy of this. This is extremely reassuring and rules out some rather concerning disease processes like multiple sclerosis. Patient is reassured about this. She at this time is going to be discharged to home. Time: 17:55 Vital Signs Vital signs: Initial Vital Signs Temperature 98.4 F 01/28/22 15:56 Temperature Source Oral 01/28/22 15:56 Pulse Rate 120 H 01/28/22 15:56 Blood Pressure 146/106 H 01/28/22 15:56 Blood Pressure Mean 119 01/28/22 15:56 Blood Pressure Position Sitting 01/28/22 15:56 Pulse Oximetry 100 01/28/22 15:56 Oxygen Delivery Method 01/28/22 15:56 Vital Signs Temperature 98.4 F 01/28/22 15:56 Pulse Rate 120 H 01/28/22 15:56 Blood Pressure 146/106 H 01/28/22 15:56 Pulse Oximetry 100 01/28/22 15:56 Oxygen Delivery Method 01/28/22 15:56 Temperature 98.4 F 01/28/22 15:56 Pulse Rate 86 01/28/22 17:26 Blood Pressure 120/86 01/28/22 17:25 Pulse Oximetry 99 01/28/22 17:26 Oxygen Delivery Method 01/28/22 15:56 Medical Decision Making Lab Data Lab results reviewed: Yes I reviewed the patient's lab results Labs: Lab Results 01/28/22 Range/Units 16:30 Sodium 137 (135-149) mmol/L Potassium 4.4 (3.6-5.1) mmol/L Chloride 106 (96-114) mmol/L Carbon Dioxide 20 (20-32) mmol/L BUN 16 (5-24) mg/dL Creatinine 0.5 (0.5-1.5) mg/dL Estimated Creat Clear 136.23 Estimated GFR 126 ml/min Glucose 132 H (60-115) mg/dL Calcium 10.0 (8.4-10.6) mg/dL Total Bilirubin 0.6 (0.1-1.5) mg/dL AST 23 (12-35) U/L ALT 24 (4-35) U/L Alkaline Phosphatase 52 (40-150) U/L C-Reactive Protein < 0.5 L (0.5-1.0) mg/dL Total Protein 7.9 (6.0-8.3) g/dL Albumin 5.1 H (3.3-5.0) g/dL Imaging Data MRI - head: Attestation: I have reviewed the pertinent imaging results. Radiologist's impression: Patient: DOMINGO LOPEZ Facility:?[facility] Patient ID:?[id number] Site Patient ID:?[id number]. Site :?[id number] Study:?MRI Head W/O-01/28/2022 5:05:54 PM Ordering Physician:Celia Gill Final Report: HISTORY: Left facial numbness COMPARISON: Available TECHNIQUE: MR examination of the brain was performed without contrast enhancement using a standard protocol. FINDINGS: The brain is normal in appearance for the patient`s age on today`s study with no sign of mass effect, mass lesion, hemorrhage or edema. There is no sign of any white matter signal abnormality to suggest demyelination. There is no sign of any abnormality along the course of the left 7th nerve to suggest a cause for the patient`s facial numbness. The ventricles and sulci are normal in appearance for the patient`s age. There is no sign of diffusion abnormality to suggest an acute infarct. The pituitary gland is normal in appearance. The visualized portions of the orbits are normal in appearance. The visualized paranasal sinuses and mastoids are clear. IMPRESSION: Normal MR examination of the brain for the patient`s age. Nothing seen to correlate with the history of left facial numbness. No sign of demyelination. No sign of any abnormality along the course of the left facial nerve. Dictated by Montez Haines MD @ 01/28/2022 5:27:27 PM (Electronic Signature) Discharge Plan Discharge Clinical Impression: Left facial numbness Patient Disposition: Home, Self-Care Condition: Stable Additional Instructions: The brain MRI in the course of the facial nerve are thankfully normal. This certainly rules out some concerning pathology like multiple sclerosis. You should follow up in clinic with your primary care provider within the next week. Other blood work for paresthesias could be considered if it has not been done recently. Activity Level: No Restrictions Discharge Diet: Regular Prescriptions: No Action multivitamin Tablet 1 tab PO QDAY amitriptyline 10 mg tablet 10 mg PO QDAY Qty: 30 3RF ondansetron 4 mg tablet,disintegrating 4 mg PO Q8H PRN (Reason: nausea and vomiting) Qty: 20 3RF tolterodine 2 mg capsule,extended release 24hr 2 mg PO Q24H Qty: 30 11RF prednisone 50 mg tablet dextroamphetamine-amphetamine 20 mg capsule,extended release 24hr 20 mg PO QDAY Qty: 30 0RF Follow Up/Referrals: Tono Mccoy MD [Staff Physician] - Stand Alone Forms: [employer] Info Instructions
[2022-01-28 17:10] LABS: Albumin* 5.1 g/dL (3.3-5.0); Chloride* 106 mmol/L (96-114); Sodium* 137 mmol/L (135-149)
[2022-01-28 17:11] LABS: Potassium* 4.4 mmol/L (3.6-5.1)
[2022-01-28 17:13] LABS: Carbon Dioxide* 20 mmol/L (20-32); Creatinine* 0.5 mg/dL (0.5-1.5); Est. Creatinine Clearance* 136.23; Estimated Glomerular Filt Rate 126 ml/min
--- OUTSIDE RECORDS SUMMARY | 2022-01-28 17:13 | XMS_ITS | Encounter Summary ---
:1985 Author Organization [facility] Address [address] [place] [address] Care Team Providers Name Role Phone None Reported, Pcp Primary Care Provider Unavailable Reason for Visit Reason Comments Abdominal Pain Encounter Details Date Type Department Care Team Description 01/24/2022 - Emergency [employer] [place], Abdomin al Pain (Primary Dx); 01/25/2022 Emergency Department Leonel Guaman M.D. Post COVID-19 Condition [address] [facility] [address] [place] [id number] [phone] (Wo rk) Social History Tobacco Use Types [...] or relatives? How often do you attend pentecostalism or More than 4 times per year 11/23/2021 scientologist services? Do you belong to any clubs or Not asked organizations such as pentecostalism groups, unions, fraternal or athletic groups, or [...] or slept in a chcf (including now)? Education Answer Date Recorded What is the highest level of school Bachelor's degree (e.g., BA, AB, 11/23/2021 you have completed or the highest BS) degree you have received? Sex Assigned at Date Recorded Female 11/21/2021 11:33 PM CDT documented as of this encounter Last Filed Vital Signs Vital Sign Reading Time Taken Comments Blood Pressure 135/98 01/25/2022 12:00 AM CDT Pulse 77 01/25/2022 1:00 AM CDT Temperature 36.9 ??C (98.4 ??F) 01/24/2022 6:13 PM CDT Respiratory Rate 18 01/24/2022 10:18 PM CDT Oxygen Saturation 97% 01/25/2022 1:00 AM CDT Inhaled Oxygen Concentration - - Weight 56.5 kg (124 lb 9 oz) 01/24/2022 6:08 PM CDT Height - - Body Mass Index 20.63 11/25/2021 7:55 AM CDT documented in this encounter Discharge Instructions AttachmentsThe following attachments cannot be sent through Care Everywhere. Abdominal Pain Adult ([place] Citizen)Weakness [id number] ([place] Citizen)documented in this encounter Medications at Time of Discharge Medication Sig Dispensed Refills Start Date End Date amitriptyline (ELAVIL) 10 Take 10 mg by mouth 0 0 01/11/2022 mg tablet daily. amphetamine-dextroamphetam Take by mouth 0 2021 ine (ADDERALL XR) 20 mg 24 daily. hr capsule tolterodine (DETROL LA) 2 TAKE 1 CAPSULE BY 0 mg 24 hr capsule MOUTH EVERY 24 HOURS diazePAM (VALIUM) 10 mg Take 10 mg by mouth 0 tablet every 6 (six) hours as needed for anxiety. predniSONE (DELTASONE) 50 Take 1 tablet (50 5 tablet 0 01/202201/30/2022 mg tablet mg total) by mouth daily for 5 days. documented as of this encounter ED Notes Leonel Felipe M.D. - 01/25/2022 1:35 AM CDT I have personally seen and examined this patient. I have fully participated in the care of this patient. I have reviewed all clinical information including history, physical exam, orders, and plan. I agree with the note of the resident. 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 It is very debilitating to her. She would had some difficulty attending to her family engagements and needs asresult of this. We talked about how thankfully there is no emergency condition that we can treat right now but that [facility] would partner with her to try and help find an answer. We can not promisethat we will find 1 but we have access to more than essentially any other healthcare facility in [facility] and would do our best. If we can not find a solution or find a condition we will be honest an upfront about that with her. Even though I can not figure out what I am treating, we are going to do a trial of steroids to see if that improves her symptoms. Leonel Felipe M.D. 01/25/22135 Shanel Wynne M.D. - 01/24/2022 11:48 PM CDT SUBJECTIVE CHIEF COMPLAINT/REASON FOR VISIT Abdominal Pain HISTORY OF PRESENT ILLNESS This is a 36-year-old female with a medical history significant for chronic abdominal pain since about April after having COVID-19. She has had large outpatient workup done that has been unrevealing and is presenting to the emergency department today for 2nd opinion. She reports that the abdominal pain is located suprapubically and spans from iliac crest iliac crest with radiation down her bilateral thighs. She is also struggled with constipation and difficulties with urination during this time. She reports the pain feels like a knife is slicing her open. She reports that it is sometimes in her flank region as well. She is also been noting increasing abdominal distention. She has also had a lackof energy with all this. She is worried that she may have an autoimmune disorder. She has had a hysterectomy and a cholecystectomy in the past. She denies any fevers, chills, shortness breath, chest pain. She denies any possibility of sexually transmitted infection. No history of sexually transmitted infections. REVIEW OF SYSTEMS Constitutional: Negative for chills and fever. HENT: Negative for congestion and rhinorrhea. Eyes: Negative for discharge and itching. Respiratory: Negative for cough and shortness of breath. Cardiovascular: Negative for chest pain and palpitations. Gastrointestinal: Positive for abdominal pain and constipation. Negative for nausea and vomiting. Endocrine: Negative for cold intolerance and heat intolerance. Genitourinary: Positive for pelvic pain. Negative for dysuria, frequency and urgency. Musculoskeletal: Negative for neck pain and neck stiffness. Skin: Negative for pallor, rash and wound. Allergic/Immunologic: Negative for environmental allergies and food allergies. Neurological: Negative for dizziness and headaches. Psychiatric/Behavioral: Negative for agitation and behavioral problems. OBJECTIVE Initial Vitals [01/24/221812] Temperature Pulse Rate Heart Rate Resp Rate Blood Pressure SpO2 36.9 ??C 108 -- 15 (!) 120/94 100 % Pain Score 5 - Moderate pain PHYSICAL EXAMINATION Constitutional: Nursing note and vitals reviewed. She appears not lethargic. No distress. HENT: Head: Atraumatic. No signs of injury. Nose: Nose normal. No nasal discharge. Mouth/Throat: Oropharynx is clear and moist. Mucous membranes are moist. Eyes: Conjunctivae are normal. Right eye exhibits no discharge. Left eye exhibits no discharge. Neck: No JVD present. No tracheal deviation present. Cardiovascular: Normal rate and regular rhythm. Exam reveals no gallop and no friction rub. No murmur heard.Capillary refill: takes less than 3 seconds Pulmonary/Chest: Effort normal and breath sounds normal. No tachypnea. No respiratory distress. She has no wheezes. She has no rhonchi. She has no rales. Abdominal: Soft. exhibits no distension. There is no abdominal tenderness. There is no guarding. Musculoskeletal: General: No tenderness, deformity or edema. Normal range of motion. Cervical back: Normal range of motion. Neurological: Alert and oriented to person, place, and time. She exhibits normal muscle tone. Skin: Skin is warm. No rash noted. She is not diaphoretic. No jaundice. Psychiatric: She has a normal mood and affect. Behavior is normal. Judgment and thought content normal. ASSESSMENT/PLAN In summary this is a 36-year-old female who has had chronic abdominal pain for a series of months coming to the emergency department today for similar pain. Differential diagnosis includes but is not limited to endometriosis, cystitis, urinary tract infection, pyelonephritis, gastroenteritis, colitis. On exam, the patient appears to be well. Her vital signs are within normal limits. She has no increasing pain with palpation but the pain just remains there at all times. She has no flank pain that is tender to palpation. CT scan of the abdomen and pelvis is within normal limits. She states that her prior CT did have signs of free fluid in her abdomen however this is not present at this time. Her laboratory findings areall within normal limits as well. Urine shows no signs for infection. I am concerned that she could have endometriosis versus other broad causes that she needs to follow-up in the outpatient setting for this. We gave the patient the phone number to call to set up appointments outpatient with [facility]. We gave her Toradol for pain however this did not significantly improve her pain. I instructed her to continue using NSAIDs and heat as needed for her pain as long as it works. Ultimately lab work and imaging have been reassuring however because this pain consistently interferes with her daily life for the past several months it is very important that she seeks an outpatient workup. She remained hemodynamically stable in the emergency department today and she was discharged home with proper return precautions and follow-up instructions. 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 Resident 01/25/221644 Jennifer Martino RCésar - 01/24/2022 6:14 PM CDT Pt is a 36 yo female who presents to the ED with abdominal pain. Pt states on 12/28 she was unable tosleep due to increasing abdominal pain. Pt took miralax for 3 days to alleviate what she thought maybe constipation. Pt had a CT scan on 01/04 which she reports is showing fluid in the abdomen. Pt alsosaw PCP who did blood work. Pt states they reported no abnormalities. Pt reports increased urinary frequency during the night and states her bowels have fluctuated from constipation to diarrhea. Pt is essentially here fr a second opinion, due to not getting answers for her symptoms. Jennifer Martino, R.N. 01/24/221816 Jennifer Martino R.N. 01/24/221817 documented in this encounter Plan of Treatment Upcoming Encounters Date Type Specialty Care Team Description 02/01/2022 Office Visit Family Medicine Suri Bedolla, P.A.-[facility] [address], [place] [phone] (Wo rk) documented as of this encounter Procedures Procedure Name Priority Date/Time Associated Comments Diagnosis HC URINALYSIS AUTO Routine 01/25/2022 12:36 Resul ts for this WO MICRO AM CDT procedure are i n the results section. DIPSTICK, U STAT 01/25/2022 12:34 Results for this AM CDT procedure are i n the results section. MICROSCOPIC STAT 01/25/2022 12:34 Results for this AUTOMATED AM CDT procedure are i n the results section. BACTERIAL CULTURE, STAT 01/25/2022 12:34 Resul ts for this AEROBIC + SUSC, AM CDT procedure ar e in URINE the results section. PH, U STAT 01/25/2022 12:34 Results for this AM CDT procedure are i n the results section. OSMOLALITY, U STAT 01/25/2022 12:34 Results fo r this AM CDT procedure are i n the results section. URINALYSIS WITH STAT 01/25/2022 12:34 Results for this MICROSCOPIC AM CDT procedure are i n the results section. CT ABDOMEN PELVIS RAD - Semiurgent 01/24/2022 7:44 Res ults for this WITH IV CONTRAST (Fast; most ED PM CDT procedure are in patients; some the results inpatients) section. HEPATIC FUNCTION STAT 01/24/2022 6:35 Results for this PANEL, S PM CDT procedure are i n the results section. CBC WITH STAT 01/24/2022 6:35 Results for this DIFFERENTIAL, B PM CDT procedure ar e in the results section. HUMAN CHORIONIC STAT 01/24/2022 6:35 Results f or this GONADOTROPIN (HCG), PM CDT procedur e are in TEA, the results section. LIPASE, S/P STAT 01/24/2022 6:35 Results for this PM CDT procedure are i n the results section. LACTATE, B/P STAT 01/24/2022 6:35 Results for this PM CDT procedure are i n the results section. BASIC METABOLIC STAT 01/24/2022 6:35 Results f or this PANEL, S/P PM CDT procedure are i n the results section. documented in this encounter Results Dipstick, POCT, Urine (01/25/2022 12:36 AM CDT) [facility] gist Method Time Signature Glucose, POCT, Negative Negative 01/25/2022 [facility] U mg/dL 12:37 AM CDT Ketone, POCT, Negative Negative 01/25/2022 [facility] U mg/dL 12:37 AM CDT Specific 1.010 1.005 - 01/25/2022 [facility] [place], POCT, 1.030 12:37 AM CDT U Blood, POCT, U Negative Negative 01/25/2022 [facility] 12:37 AM CDT pH, POCT, 5.5 5.0 - 8.0 01/25/2022 [facility] Urine 12:37 AM CDT Protein, POCT, Negative Negative 01/25/2022 [facility] U mg/dL 12:37 AM CDT Nitrites, Negative Negative 01/25/2022 [facility] POCT, U 12:37 AM CDT Leukocytes, Negative Negative 01/25/2022 [facility] POCT, U 12:37 AM CDT Specimen Anatomical Collection Method Collection Time Receive d Time (Source) Location / / Volume Laterality Urine 01/25/2022 12:36 01/25/2022 AM CDT 12:37 AM CDT Unknown Provider LAB POCT ORDERABLES - DEVICE Performing Organization Address City/State/ZIP Code Phon e Number POC RST [facility] [address] [place] [address] [place] [address] [facility] [address] Dipstick, Urine (01/25/2022 12:34 AM CDT) Patholo gist Method Time Signature Hemoglobin, Negative Negative 01/25/2022 DTL QL, U 1:34 AM CDT Leukocyte Negative Negative 01/25/2022 DTL Esterase, U 1:34 AM CDT Nitrite, U Negative Negative 01/25/2022 DTL 1:34 AM CDT Ketone, U Negative Negative 01/25/2022 DTL mg/dL 1:34 AM CDT Glucose, U Negative Negative 01/25/2022 DTL mg/dL 1:34 AM CDT Specimen Anatomical Collection Method Collection Time Receive d Time (Source) Location / / Volume Laterality Urine 01/25/2022 12:34 01/25/2022 1:12 AM CDT AM CDT Antonio Medina M.D. LAB URINE ORDERABLES Performing Organization Address City/State/ZIP Code Phon e Number [facility] - [address] [place], [place] [address] [facility] [place] [address] [facility] [address] Osmolality, Urine (01/25/2022 12:34 AM CDT) P athologist Signature Osmolality, U 823 150 - 1150 01/25/2022 DTL mOsm/kg 1:34 AM CDT Specimen Anatomical Collection Method Collection Time Receive d Time (Source) Location / / Volume Laterality Urine 01/25/2022 12:34 01/25/2022 1:12 AM CDT AM CDT Antonio Medina M.D. LAB URINE ORDERABLES Performing Organization Address City/State/ZIP Code Phon e Number [facility] - [address] [place], [place] [address] [facility] [place] [address] [facility] [address] pH, Urine (01/25/2022 12:34 AM CDT) athologist Signature pH, U 5.1 4.5 - 8.0 01/25/2022 1:34 DTL AM CDT Specimen Anatomical Collection Method Collection Time Receive d Time (Source) Location / / Volume Laterality Urine 01/25/2022 12:34 01/25/2022 1:12 AM CDT AM CDT Antonio Medina M.D. LAB URINE ORDERABLES Performing Organization Address City/[facility]/ZIP [facility] Phon e Number [facility] - [address] [place], [place] [address] [place] [address] Microscopic Automated (01/25/2022 12:34 AM CDT) athologist Signature Microscopy Normal 01/25/2022 DTL 1:34 AM CDT Squamous 1-3 /hpf 01/25/2022 DTL Epithelial 1:34 AM CDT Cells, U Specimen Anatomical Collection Method Collection Time Receive d Time (Source) Location / / Volume Laterality Urine 01/25/2022 12:34 01/25/2022 1:12 AM CDT AM CDT Antonio Medina M.D. LAB URINE ORDERABLES Performing Organization Address City/[facility] Code Phon e Number [facility] - [address] [place], [place] [address] [place] [id number] [place] [address] Bacterial Culture, Aerobic + Susc, Urine (01/25/2022 12:34 AM CDT) Component Value Ref Test Analysis Performed At [facility] gist Range Method Time Signature Urine Urogenital microbiota, susceptibilities not 01/26/2022 DT Culture performed per laboratory criteria. 8:15 AM CDT Specimen Anatomical Collection Method Collection Time Receive d Time (Source) Location / / Volume Laterality Urine (Urine, 01/25/2022 12:34 01/25/2022 5:28 Midstream) AM CDT AM CDT Comment: Specimen Source Site: Urine Leonel Felipe M.D. LAB MICROBIOLOGY - GENERA L ORDERABLES Performing Organization Address City/[facility]/ZIP Code Phon e Number [facility] - [address] [place], [place] [address] [facility] [place] [address] Laboratories-[address] Urinalysis with Microscopic: Urine, Midstream (01/25/2022 12:34 AM CDT) [facility] gist Method Time Signature Source Urine, Urine, 01/25/2022 DTL Midstream 1:11 AM CDT Color, U Yellow 01/25/2022 DTL 1:12 AM CDT Clarity, U Clear 01/25/2022 DTL 1:12 AM CDT Protein, U 6 <26 mg/dL 01/25/2022 DTL 1:42 AM CDT Protein/Osmol 0.07 <0.42 01/25/2022 DTL ality ratio 1:42 AM CDT Predicted 24 62 mg/24 h 01/25/2022 DTL Hr Protein 1:42 AM CDT Predicted 15-251 mg/24 h 01/25/2022 DTL Range 1:42 AM CDT Specimen Anatomical Collection Method Collection Time Receive d Time (Source) Location / / Volume Laterality Urine (Urine, 01/25/2022 12:34 01/25/2022 1:11 Midstream) AM CDT AM CDT Leonel Felipe M.D. LAB URINE ORDERABLES Performing Organization Address City/State/ZIP Code Phon e Number [facility] - [address] [place], [place] [address] [facility] [place] [address] Laboratories[address] Abdomen Pelvis with IV Contrast (01/24/2022 7:44 PM CDT) Anatomical Region Laterality Modality Abdomen, Pelvis, Abdominal RST LOS, N/A Comp uted Tomography, Computed Abdominal ARZ LOS, Abdominal FLA LOS Joseph ography Specimen (Source) Anatomical Collection Method Collection Time Re ceived Time Location / / Volume Laterality 01/24/2022 7:43 PM CDT Impressions 01/24/2022 7:47 PM CDT No acute findings in the abdomen or pelvis to correlate with the patient's abdominal pain. Narrative 01/24/2022 7:47 PM CDT EXAM: ??CT ABDOMEN PELVIS WITH IV CONTRAST COMPARISON: ??None FINDINGS: ??Cholecystectomy. Normal live r, spleen, pancreas, kidneys and adrenal glands. No urinary calculi. Nonobstructed small and large b owel. Appendectomy. Hysterectomy. Corpus luteum right ovary. Remainder of the abdomen pelvis are with in normal limits. Procedure Note Deyvi Dick M.D. - 01/24/2022Format ting of this note might be different from the original. EXAM: CT ABDOMEN PELVIS WITH IV CONTRAST COMPARISON: None FINDINGS: Cholecystectomy. Normal liver, spleen, pancreas, kidneys and adrenal glands. No urinary calculi. Nonobstructed small and large b owel. Appendectomy. Hysterectomy. Corpus luteum right ovary. Remainder of the abdomen pelvis are with in normal limits. IMPRESSION: No acute findings in the abdomen or pelv is to correlate with the patient's abdominal pain. Alexia Guy M.D. IMG CT PROCEDURES hCG (Human Chorionic Gonadotropin), Quantitative, (01/24/2022 6:35 PM CDT) athologist Signature HCG, 0.5 <5 IU/L 01/24/2022 ST[facility] Quantitative, 7:11 PM CDT , P Specimen Anatomical Collection Method Collection Time Receive d Time (Source) Location / / Volume Laterality Blood (Blood, 01/24/2022 6:35 PM 01/25/20 6:41 Venous) CDT PM CDT Leonel Felipe M.D. LAB BLOOD ADD-ON Performing Organization Address City/State/ZIP Code Phon e Number [facility] - [address] [place] [address] [facility] [place] [address] Laboratories-[facility] [address] Lactate (01/24/2022 6:35 PM CDT) athologist Signature Lactate, P 0.9 0.5 - 2.2 01/24/2022 ST[facility] mmol/L 6:55 PM CDT Specimen Anatomical Collection Method Collection Time Receive d Time (Source) Location / / Volume Laterality Blood (Blood, 01/24/2022 6:35 PM 01/25/20 22 6:41 Venous) CDT PM CDT Leonel Felipe M.D. LAB BLOOD NON ADD-ON Performing Organization Address City/State/ZIP Code Phon e Number [facility] - [address] [place], [place] [address] [facility] [place] [address] Laboratories-[facility] [address] [facility] (ABNORMAL) CBC with Differential, Blood (01/24/2022 6:35 PM CDT) [facility] Method Time Signature Hemoglobin 12.6 11.6 - 01/24/2022 [facility] 15.0 g/dL 6:46 PM CDT Hematocrit 36.7 35.5 - 01/24/2022 [facility] 44.9 % 6:46 PM CDT Erythrocytes 3.95 3.92 - 01/24/2022 [facility] 5.13 6:46 PM CDT x10(12)/L MCV 92.9 78.2 - 01/24/2022 [facility] 97.9 fL 6:46 PM CDT RBC Distrib Width 11.2 (L) 12.2 - 01/24/2022 [facility] 16.1 % 6:46 PM CDT Platelet Count 256 157 - 371 01/24/2022 [facility] x10(9)/L 6:46 PM CDT Leukocytes 4.6 3.4 - 9.6 01/24/2022 [facility] x10(9)/L 6:46 PM CDT Neutrophils 2.11 1.56 - 01/24/2022 [facility] 6.45 8:16 PM CDT x10(9)/L Comment: Rechecked Lymphocytes 1.98 0.95 - 3.07 x10(9)/L 01/24/2022 8:16 P M CDT DHPM Monocytes 0.33 0.26 - 0.81 x10(9)/L 01/24/2022 8:16 PM CDT DHPM Eosinophils <0.03 0.03 - 0.48 x10(9)/L 01/24/2022 8:16 P M CDT DHPM Basophils <0.03 0.01 - 0.08 x10(9)/L 01/24/2022 8:16 PM CDT DHPM Specimen Anatomical Collection Method Collection Time Receive d Time (Source) Location / / Volume Laterality Blood (Blood, 01/24/2022 6:35 PM 01/25/20 6:41 Venous) CDT PM CDT Leonel Felipe M.D. LAB BLOOD ADD-ON Performing Organization Address City/[facility] Phon e Number [facility] - [address] [place], [place] [address] [facility] [place] [address] [place] [address] Laboratories-[address] Lipase (01/24/2022 6:35 PM CDT) P athologist Signature Lipase, S 31 13 - 60 U/L 01/24/2022 7:25 DTL PM CDT Specimen Anatomical Collection Method Collection Time Receive d Time (Source) Location / / Volume Laterality Blood (Blood, 01/24/2022 6:35 PM 01/25/20 7:01 Venous) CDT PM CDT Leonel Felipe M.D. LAB BLOOD ADD-ON Performing Organization Address City/State/ZIP Code Phon e Number [facility] - [address] [place], [place] [address] [place] [address] Hepatic Function Panel (01/24/2022 6:35 PM CDT) Patholo gist Method Time Signature Bilirubin, Total, S 0.3 <=1.2 01/24/2022 DTL mg/dL 7:25 PM CDT Bilirubin, Direct, S <0.2 0.0 - 0.3 01/24/2022 DTL mg/dL 7:25 PM CDT Aspartate 16 8 - 43 01/24/2022 DTL Aminotransferase U/L 7:25 PM CDT (AST), S Alanine 16 7 - 45 01/24/2022 DTL Aminotransferase U/L 7:25 PM CDT (ALT), S Alkaline 53 35 - 104 01/24/2022 DTL Phosphatase, S U/L 7:25 PM CDT Albumin, S 4.5 3.5 - 5.0 01/24/2022 DTL g/dL 7:25 PM CDT Protein, Total, S 6.6 6.3 - 7.9 01/24/2022 DTL g/dL 7:25 PM CDT Specimen Anatomical Collection Method Collection Time Receive d Time (Source) Location / / Volume Laterality Blood (Blood, 01/24/2022 6:35 PM 01/25/20 7:01 Venous) CDT PM CDT Leonel Felipe M.D. LAB BLOOD ADD-ON Performing Organization Address City/State/[facility] Code Phon e Number [facility] - [address] [place] [address] [facility] [place] [address] Laboratories-[facility] [address] [facility] Basic Metabolic Panel (01/24/2022 6:35 PM CDT) P athologist Signature Potassium, P 4.0 3.6 - 5.2 01/24/2022 [facility] mmol/L 6:59 PM CDT Sodium, P 140 135 - 145 01/24/2022 [facility] mmol/L 6:59 PM CDT Chloride, P 104 98 - 107 01/24/2022 [facility] mmol/L 6:59 PM CDT Bicarbonate, P 26 22 - 29 01/24/2022 [facility] mmol/L 6:59 PM CDT Anion Gap, P 10 7 - 15 01/24/2022 [facility] 6:59 PM CDT BUN (Blood Urea 15 6 - 21 01/24/2022 [facility] Nitrogen), P mg/dL 6:59 PM CDT Creatinine 0.84 0.59 - 01/24/2022 [facility] 1.04 mg/dL 6:59 PM CDT Estimated GFR >90 >=60 01/24/2022 [facility] (eGFR) mL/min/BSA 6:59 PM CDT Comment: Estimated GFR calculated using the 2020 CKD_EPI creatinine equation. Calcium, Total, P 9.1 8.6 - 10.0 mg/dL 01/24/2022 6:59 PM CDT STMA Glucose, P 100 70 - 140 mg/dL 01/24/2022 6:59 PM CDT S TMA Specimen Anatomical Collection Method Collection Time Receive d Time (Source) Location / / Volume Laterality Blood (Blood, 01/24/2022 6:35 PM 01/25/20 6:41 Venous) CDT PM CDT Leonel Felipe M.D. LAB BLOOD ADD-ON Performing Organization Address City/State/ZIP Code Phon e Number [facility] - [address] [place], [place] [address] [facility] [place] [address] Laboratories-[facility] [address] documented in this encounter Visit Diagnoses Diagnosis Abdominal Pain - Primary Post COVID-19 Condition documented in this encounter Administered Medications Inactive Administered Medications - up to 3 most recent administrations Medication Order MAR Action Action Date Dose Rate Site iohexoL 350 mg iodine/mL solution Given 01/24/2022 7:40 PM CDT 1 00 mL 1-200 mL (OMNIPAQUE) 1-200 mL, intravenous, Once in imaging, contrast, Starting on 01/24/22 at 1937, For 1 dose, Imaging Protocol Orders, Dose per Radiant Medication Guidelines ketorolac injection 15 mg (TORADOL) Given 01/25/2022 12:14 AM CDT 15 mg 15 mg, intravenous, Once, On 01/25/22 at 0005, For 1 dose, Adult IV push rate: Over 15 seconds. Peds IV push rate: Over 1 minute. 60 mg dose only for IM, not recommended for IV. sodium chloride (PF) 0.9 % injection 1-1 00 mL Given 01/24/2022 7:40 PM CDT 50 mL 1-100 mL, intravenous, Once, On 01/24/22 at 1938, For 1 dose, Imaging Protocol Orders sodium chloride 0.9 % injection 10 mL 10 mL, intravenous, As needed, line care, Starting on 01/24/22 at 1819, Peripheral Intravenous Catheter and Rapid Infusion Cat heter, prior to blood sampling, post blood transfusion or post blood samplin g sodium chloride 0.9 % injection 3 mL 3 mL, intravenous, As needed, line care, Starting on 01/24/22 at 1819, Prior to and following infusion and between multi ple consecutive infusions: sodium chloride 0.9 % injection sodium chloride 0.9 % injection 3 mL Given 01/25/2022 12:26 AM CDT 3 mL 3 mL, intravenous, Every 12 hours scheduled, First dose on 01/24/22 at 2100, Peripheral Intravenous Catheter and Rapid Infusion Catheter, when no infusion to maintain patency documented in this encounter Active and Recently Administered Medications Times are shown in CDT. Scheduled Medication Order 01/23/2022 01/24/2022 01/25/2022 ketorolac injection 15 mg (TORADOL) (COMPLETED) 0014 (Given - Provider: Herve Foote R.N., [facility]) 15 mg, intravenous, Once, On Tue 2 at 0005, For 1 dose, Adult IV push rate: Over 15 seconds. Peds IV push rate: Over 1 minute. 60 mg dose only for IM, not recommended for IV. sodium chloride (PF) 0.9 % injection 1-100 mL (COMPLETED) 1939 (Given - Provider: Jimmie Villafuerte R.N.) 1-100 mL, intravenous, Once, On Sun 01/24 at 1938, For 1 dose, Imaging Protocol Orders sodium chloride 0.9 % injection 3 mL 25 (Given - Provider: Herve Foote R.N., [facility]) 3 mL, intravenous, Every 12 hours schedu led, First dose on 01/24/22 at 2100, Peripheral Intravenous Catheter and Rapid Infusion Catheter, when no infusion to maintain patency PRN Medication Order 01/23/2022 01/24/2022 01/25/2022 iohexoL 350 mg iodine/mL solution 1-200 mL (OMNIPAQUE) (COMP LETED) 1939 (Given - Provider: Jimmie Villafuerte R.N. - Comment: [id number]) 1-200 mL, intravenous, Once in imaging, contrast, Starting on 01/24/22 at 1937, For 1 dose, Imaging Protocol Orders, Dose per Radiant Medication Guidelines sodium chloride 0.9 % injection 10 mL 10 mL, intravenous, As needed, line care , Starting on 01/24/22 at 1819, Peripheral Intravenous Catheter and Rapid Infusion Catheter, prior to blood sampling, post blood transfusion or post blood sampling sodium chloride 0.9 % injection 3 mL 3 mL, intravenous, As needed, line care, Starting on 01/24/22 at 1819, Prior to and following infusion and between multiple consecutive infusions: sodium chloride 0.9 % injection documented in this encounter Care Teams Console Assembler Relationship Specialty Start Date End Date None Reported, Pcp PCP - General Family Medicine 01/25/22 documented as of this encounter
--- OUTSIDE RECORDS SUMMARY | 2022-01-28 17:13 | XMS_ITS | Clinical Summary ---
:1985 Author Organization [facility] Address [address] [place] [address] Care Team Providers Name Role Phone None Reported, Pcp Primary Care Provider Unavailable Source Comments Patient records contain information from all sites at [facility]. For routine questions regarding patient records, call [phone] during business hours, M-F 8:00 AM - 5:00 PM Central Time. Record requests for emergency care only can be directed to [phone] at any time.[facility] Allergies Active Allergy Reactions Severity Noted Date Comments Banana Hives 01/11/2022 Cat Dander Hives 01/11/2022 Latex Rash 03/09/2006 Meperidine Other (see comments) 12/17/2015 Family history Oxycodone-Acetaminophen Itching 12/17/2015 Penicillins Hives 03/24/2014 Medications Medication Sig Dispensed Refills Start Date End Date Status amphetamine-dextroamph Take by mouth 0 11/15/2021 Active etamine (ADDERALL XR) daily. 20 mg 24 hr capsule diazePAM (VALIUM) 10 Take 10 mg by 0 Active mg tablet mouth every 6 (six) hours as needed for anxiety. amitriptyline (ELAVIL) Take 10 mg by 0 01/11/2022 Active 10 mg tablet mouth daily. tolterodine (DETROL TAKE 1 CAPSULE 0 01/11/2022 Active LA) 2 mg 24 hr capsule BY MOUTH EVERY 24 HOURS predniSONE (DELTASONE) Take 1 tablet 5 tablet 0 01/25/2022 Active 50 mg tablet (50 mg total) by mouth daily for 5 days. Active Problems Problem Noted Date Abdominal Pain 01/24/2022 Anxiety 01/24/2022 Migraine Headache 01/24/2022 Other Specified Disorders Of Bladder 01/24/2022 Sickness Motion Initial 01/24/2022 Encounters Date Type Specialty Care Team Description 01/24/2022 - Emergency Emergency Medicine Courtneyamzulmanda, Abdominal Pain (Primary Dx); 01/25/2022 Leonel Guaman M.D. 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 12/16/2021 Hospital Encounter Radiology Marilyn Acosta, Pain Usmi ast JUDGE'S CLERK, C.N.P. 11/25/2021 Office Visit Family Medicine Marilyn Acosta, Pain Breast JUDGE'S CLERK, C.N.P. (Primary Dx) from Last 3 Months Immunizations Name [...] or relatives? How often do you attend roman catholic or More than 4 times per year 11/23/2021 cheondoism services? Do you belong to any clubs or Not asked organizations such as roman catholic groups, unions, fraternal or athletic groups, or [...] place to sleep or slept in a [place] [facility] [place] (including now)? Education Answer Date Recorded What [...] 9 oz) 01/24/2022 6:08 PM CDT Height 165.5 cm (5' 5.16) 11/25/2021 7:55 AM CDT Body Mass Index 20.63 11/25/2021 7:55 AM CDT Plan of Treatment Upcoming Encounters Date Type Specialty Care Team Description 02/01/2022 Office Visit Family Medicine Suri Bedolla, NabeelAClarissa [address], [place] [phone] (Wo rk) Health Maintenance Due Date Last Done Comments [...] AUTO Routine 01/25/2022 12:36 Resul ts for WO MICRO AM CDT this procedure are in the results section. DIPSTICK, U STAT 01/25/2022 12:34 Results for AM CDT this procedure are in the results section. OSMOLALITY, U STAT 01/25/2022 12:34 Results fo r AM CDT this procedure are in the results section. PH, U STAT 01/25/2022 12:34 Results for AM CDT this procedure are in the results section. MICROSCOPIC STAT 01/25/2022 12:34 Results for AUTOMATED AM CDT this procedure are in the results section. URINALYSIS WITH STAT 01/25/2022 12:34 Results for MICROSCOPIC AM CDT this procedure are in the results section. BACTERIAL CULTURE, STAT 01/25/2022 12:34 Resul ts for AEROBIC + SUSC, AM CDT this procedu re URINE are in the results section. CT ABDOMEN PELVIS RAD - Semiurgent 01/24/2022 7:44 Res ults for WITH IV CONTRAST (Fast; most ED PM CDT this proc edure patients; some are in the inpatients) results section. HUMAN CHORIONIC STAT 01/24/2022 6:35 Results f or GONADOTROPIN (HCG), PM CDT this pro cedure TEA, are in the results section. LACTATE, B/P STAT 01/24/2022 6:35 Results for PM CDT this procedure are in the results section. CBC WITH STAT 01/24/2022 6:35 Results for DIFFERENTIAL, B PM CDT this procedu re are in the results section. LIPASE, S/P STAT 01/24/2022 6:35 Results for PM CDT this procedure are in the results section. HEPATIC FUNCTION STAT 01/24/2022 6:35 Results for PANEL, S PM CDT this procedure are in the results section. BASIC METABOLIC STAT 01/24/2022 6:35 Results f or PANEL, S/P PM CDT this procedure are in the results section. BI ULTRASOUND BREAST RAD - Routine 12/16/2021 [...] results section. from Last 3 Months Results Dipstick, POCT, Urine (01/25/2022 12:36 AM CDT) [facility] gist Method Time Signature Glucose, POCT, Negative Negative 01/25/2022 PCED U mg/dL 12:37 AM CDT Ketone, POCT, Negative Negative 01/25/2022 PCED U mg/dL 12:37 AM CDT Specific 1.010 1.005 - 01/25/2022 PCED [place], POCT, 1.030 12:37 AM CDT U Blood, [...] City/State/ZIP Code Phon e Number POC RST [facility] [address] [place] [address] OUTPATIENT LABS PCED [facility] [place] [address] [facility] [address] Dipstick, Urine (01/25/2022 12:34 AM CDT) [facility] Method Time Signature Hemoglobin, Negative Negative 01/25/2022 [...] M.D. LAB URINE ORDERABLES Performing Organization Address City/[facility] [place] [address] Microscopic Automated (01/25/2022 12:34 AM CDT) P athologist Signature Microscopy Normal 01/25/2022 DTL 1:34 AM CDT Squamous 1-3 /hpf 01/25/2022 DTL Epithelial 1:34 AM CDT Cells, U Specimen Anatomical Collection Method Collection Time Receive d Time (Source) Location / / Volume Laterality Urine 01/25/2022 12:34 01/25/2022 1:12 AM CDT AM CDT Antonio Medina M.D. LAB URINE ORDERABLES Performing Organization Address City/[facility] Phon e Number [facility] [address] [place] [address] Bacterial Culture, Aerobic + Susc, Urine (01/25/2022 12:34 AM CDT) Component Value Ref Test Analysis Performed At [facility] Method Time Signature Urine Urogenital microbiota, susceptibilities not 01/26/2022 DTL Culture performed per laboratory criteria. 8:15 AM CDT Specimen Anatomical Collection Method Collection Time Receive d Time (Source) Location / / Volume Laterality Urine (Urine, 01/25/2022 12:34 01/25/2022 5:28 Midstream) AM CDT AM CDT Comment: Specimen Source Site: Urine Leonel Felipe M.D. LAB MICROBIOLOGY - GENERA L ORDERABLES Performing Organization Address City/[facility]/ZIP Code Phon e Number [facility] - [address] pH, Urine (01/25/2022 12:34 AM CDT) P athologist Signature pH, U 5.1 4.5 - 8.0 01/25/2022 1:34 DTL AM CDT Specimen Anatomical Collection Method Collection Time Receive d Time (Source) Location / / Volume Laterality Urine 01/25/2022 12:34 01/25/2022 1:12 AM CDT AM CDT Antonio Medina M.D. LAB URINE ORDERABLES Performing Organization Address City/[facility] Phon e Number [facility] - [address] Osmolality, Urine (01/25/2022 12:34 AM CDT) P athologist Signature Osmolality, U 823 150 - 1150 01/25/2022 DT mOsm/kg 1:34 AM CDT Specimen Anatomical Collection Method Collection Time Receive d Time (Source) Location / / Volume Laterality Urine 01/25/2022 12:34 01/25/2022 1:12 AM CDT AM CDT Antonio Medina M.D. LAB URINE ORDERABLES Performing Organization Address City/[facility] Phon e Number [facility] - [address] Urinalysis with Microscopic: Urine, Midstream (01/25/2022 12:34 AM CDT) Patholo gist Method Time Signature Source Urine, Urine, [...] Organization Address City/State/ZIP Code Phon e Number [facility] - [address] [place] [phone] [facility] [place] [address] [facility] [address] Abdomen Pelvis with IV Contrast [...] pain. Alexia Guy M.D. IMG CT PROCEDURES Hepatic Function Panel (01/24/2022 6:35 PM CDT) [facility] Method Time Signature Bilirubin, Total, S 0.3 [...] Blood (Blood, 01/24/2022 6:35 PM 01/25/20 22 7:01 Venous) CDT PM CDT Leonel Felipe M.D. LAB BLOOD ADD-ON Performing Organization Address City/State/ZIP Code Phon e Number [facility] - [address] [place], [place] [address] [facility] [place] [address] [facility] [address] (ABNORMAL) CBC with Differential, Blood (01/24/2022 6:35 PM CDT) [facility] Method Time Signature Hemoglobin 12.6 11.6 - [...] Organization Address City/State/ZIP Code Phon e Number [facility] - [address] [place], [place] [address] [facility] [place] [address] [facility] [address] [place] [address] [facility] [address] hCG (Human Chorionic Gonadotropin), Quantitative, (01/24/2022 6:35 [...] Organization Address City/State/ZIP Code Phon e Number [facility] - [address] [place], [place] [address] [place] [address] [facility] [address] [facility] Lipase (01/24/2022 6:35 PM CDT) athologist Signature Lipase, S 31 13 - 60 U/L 01/24/2022 7:25 DTL PM CDT Specimen Anatomical Collection Method Collection Time Receive d Time (Source) Location / / Volume Laterality Blood (Blood, 01/24/2022 6:35 PM 01/25/20 22 7:01 Venous) CDT PM CDT Leonel Felipe M.D. LAB BLOOD ADD-ON Performing Organization Address City/State/ZIP Code Phon e Number [facility] - [address] [place], [place] [address] [facility] [place] [address] [place] [address] [facility] Lactate (01/24/2022 6:35 PM CDT) athologist Signature Lactate, P 0.9 0.5 - 2.2 01/24/2022 STMA mmol/L 6:55 PM CDT Specimen Anatomical Collection Method Collection Time Receive d Time (Source) Location / / Volume Laterality Blood (Blood, 01/24/2022 6:35 PM 01/25/20 22 6:41 Venous) CDT PM CDT Leonel Felipe M.D. LAB BLOOD NON ADD-ON Performing Organization Address City/State/ZIP Code Phon e Number [facility] - [address] [place], [place] [address] [facility] [address] Basic Metabolic Panel (01/24/2022 6:35 PM CDT) [...] Organization Address City/State/ZIP Code Phon e Number [facility] - [address] [place] [phone] [place] [address] BI Ultrasound Breast Focused Right (12/16/2021 10:38 [...] clinica l grounds. ASSESSMENT: BI-RADS: 2: Benign. Sean Pichardo APRN BI PROCEDURES BI Breast Diagnostic Bilateral with Tomosynthesis (12/16/2021 9:59 AM CDT) Anatomical Region Laterality Modality Breast, Breast Imaging RST LOS, Breast Imaging ARZ LOS, [address] Bilateral Mammography Imaging FLA LOS Specimen [...] Marilyn Acosta APRN, C.N.P. IMG BI PROCEDURES from Last 3 Months Insurance Payer Benefit Plan / Subscriber ID Effective Dates Phone Addre ss Type Group [employer] [place] [id number] 2021-Presen [phone] [address] PPO BLUE [facility] [address] [place] [address] Care Teams Electric Relay Tester Relationship Specialty Start Date End Date None Reported, Pcp PCP - General Family Medicine 01/25/22
[2022-01-28 17:14] LABS: Alanine Aminotransferase* 24 U/L (4-35); Alkaline Phosphatase* 52 U/L (40-150); Aspartate Amino Transferase* 23 U/L (12-35); Bilirubin Total* 0.6 mg/dL (0.1-1.5); Blood Urea Nitrogen* 16 mg/dL (5-24); Glucose* 132 mg/dL (60-115); Total Protein* 7.9 g/dL (6.0-8.3)
--- OUTSIDE RECORDS SUMMARY | 2022-01-28 17:14 | XMS_ITS | Encounter Summary ---
:1985 Author Organization [facility] Address [address] [place] [address] Care Team Providers Name Role Phone Unavailable [...] or relatives? How often do you attend yarsanism or More than 4 times per year 11/23/2021 buddhist services? Do you belong to any clubs or Not asked organizations such as yarsanism groups, unions, fraternal or athletic groups, or [...] place to sleep or slept in a penitentiary (including now)? Sex Assigned at Date Recorded Female 11/21/2021 11:33 PM CDT documented as of this encounter Last Filed Vital Signs Vital Sign Reading Time Taken Comments Blood Pressure 125/87 03/24/2014 6:33 PM [employer]IE[employer] Pulse 103 03/24/2014 2:55 PM [employer] CHIEF Temperature - - Respiratory Rate 18 03/24/2014 5:47 PM [employer] CHIEF Oxygen Saturation - - Inhaled Oxygen Concentration - - Weight - - Height - - Body Mass Index - - documented in this encounter Discharge Summaries Conversion, Historical Provider Ser - 03/24/2014 6:52 PM CST ED Discharge Instructions [address] [address] Name: ARLEN VALLADARES Date of : 1985 12:00 AM Visit Date: 03/24/2014 2:52 PM [facility] Number: [id number] Address: [address] [place] [phone] Primary Care Provider: PCP, ELSEWHERE IMPORTANT: [facility] in [place] would like to thank you for allowing [...] nurse or physician. Patient Signature or Responsible Alliance Party/Relationship Date Time Provider Signature Date Time [...] nurse or physician. Patient Signature or Responsible Alliance Party/Relationship Date Time Provider Signature Date Time Source: [facility] POWERCHART Document Id: [id number] [employer]IEF Conversion, Historical Provider Ser - 03/24/2014 6:52 PM CST ED Depart Summary [facility] Emergency Department Clinical Discharge Summary PERSON INFORMATION Name ARLEN VALLADARES Age 29 Years 1985 12:00 AM Sex Female Language Spanish PCP PCP, ELSEWHERE Marital Status Visit Id Visit Reason Vaginal bleeding; Vaginal Bleeding Specialty Enc Type Emergency Med Service Emergency Medicine Referred by [facility] ED Discharge 03/24/2014 6:52 PM Tracking Id [id number] Checkout 03/24/2014 6:52 PM Checkin 03/24/2014 2:52 PM Acuity 2 -Emergent Dispo Type * Discharged to Home or Self Care Arrival 03/24/2014 2:52 PM Reg Status Complete LOS 000 04:00 Address: [address] [place] [phone] Comment: PROVIDER INFORMATION Provider Role Provider Contact Time LISSETT BETANCOURT PHYSICAL SECURITY MANAGER Nurse 03/24/14 15:02 CRISTEL BRASHER PHYSICAL SECURITY MANAGER Nurse 03/24/14 15:13 FLOYD REYES MD ED Provider 03/24/14 15:14 ANDREWS TUCKER ED Hat Braider 03/24/14 15:26 DIAGNOSIS Hemorrhage (Pp) Delayed Comment: [...] ELSEWHERE PCP Within As Needed Comments: Source: [facility] Document Id: [id number] documented in this encounter ED Notes Conversion, Historical Provider Ser - 03/24/2014 6:51 PM CST ED Education ED Education Entered On: 03/24/2014 18:51 [employer]IEF Performed On: 03/24/2014 18:51 [employer] CHIEF by CRISTEL BRASHER RN Education ED Education Grid Topics : Other: dc instructions Individuals Taught : Patient Barriers to Learning : None evident Teaching Method : Explanation, Printed materials Teaching Evaluation : Verbalizes understanding CRISTEL BRASHER RN - 03/24/2014 18:51 [employer] CHIEF [facility] Document Id: [id number] [employer] CHIEF!9 Conversion, Historical Provider Ser - 03/24/2014 6:51 PM CST ED Pain Assessment ED Pain Assessment Entered On: 03/24/2014 18:51 [employer] CHIEF Performed On: 03/24/2014 18:51 [employer] CHIEF by CRISTEL BRASHER RN Pain Assessment Pain Symptoms : No CRISTEL BRASHER RN - 03/24/2014 18:51 [employer] CHIEF Source: [facility] Document Id: [id number] [employer] W[employer] CHIEF!3 Conversion, Historical Provider Ser - 03/24/2014 6:50 PM CST ED Nurse Reassess ED Nurse Reassess Entered On: 03/24/2014 18:50 [employer] CHIEF Performed On: 03/24/2014 18:50 [employer] WIRE CHIEF by CRISTEL BRASHER RN Pain Assessment Pain Symptoms : No CRISTEL BRASHER RN - 03/24/2014 18:50 [employer]ISION [employer]LL WIRE CHIEF /OB Reassess /OB Note : Pt ready for discharge. Pt to follow up with her OB Dr Reza in [place] tomorrow. Release of information filled out by patient so records can be faxed to her provider. CRISTEL BRASHER RN - 03/24/2014 18:50 [employer] CHIEF Source: [employer] Document Id: [id number] DIV[employer]LL W[employer] CHIEF!5 Conversion, Historical Provider Ser - 03/24/2014 6:50 PM CST ED Disposition Summary ED Disposition Summary Entered On: 03/24/2014 18:51 [employer] CHIEF Performed On: 03/24/2014 18:50 [employer] CHIEF by CRISTEL BRASHER RN ED Disposition Summary Accompanied By : Spouse Mode of Discharge : Ambulatory Transportation : Private vehicle Discharge From ED With : Home Med List Printed Discharge Instructions Given to Patient : Yes Patient Status at Discharge from ED : Improved CRISTEL BRASHER RN - 03/24/2014 18:50 [employer] CHIEF Source: [employer] Document Id: [id number] DIV[employer]LL WIRE CHIEF!8 Conversion, Historical Provider Ser - 03/24/2014 5:44 PM CST ED Nurse Reassess ED Nurse Reassess Entered On: 03/24/2014 17:47 [employer] CHIEF Performed On: 03/24/2014 17:44 [employer] WIRE CHIEF by CRISTEL BRASHER RN Pain Assessment Pain Symptoms : No CRISTEL BRASHER RN - 03/24/2014 17:44 DIVISION TOLL WIRE CHIEF /OB Reassess /OB Note : Pt given first dose of methergine here. Pt to d/c home and follow up with OB in [place] tomorrow. Pt updated on plan of care. Pt getting ready for discharge. CRISTEL BRASHER RN - 03/24/2014 17:44 [employer] W[employer] CHIEF Source: [employer] Document Id: [id number] DIV[employer] CHIEF!5 Marcella Soria RCésar - 03/24/2014 4:31 PM CST ED Nurse Reassess ED Nurse Reassess Entered On: 03/24/2014 16:33 [employer] WIRE CHIEF Performed On: 03/24/2014 16:31 DIVISION [employer] WIRE CHIEF by MARCELLA MARIE RN Pain Assessment Pain Symptoms : No MARCELLA MARIE RN - 03/24/2014 16:31 [employer] CHIEF Resp Reassess Respiratory Patient Stated Symptoms : None Distress : None Airway : Patent Respiratory Pattern : Regular Respirations : Unlabored MARCELLA MARIE RN - 03/24/2014 16:31 [employer] W[employer] CHIEF CV Reassess CV Patient Stated Symptoms : None Skin Color : Normal for ethnicity Skin Description : Dry Skin Temperature : Warm Nail Bed Color : Parkline Capillary Refill : Less than 2 seconds Heart Rhythm : Regular MARCELLA MARIE RN - 03/24/2014 16:31 [employer] CHIEF Neuro Reassess Last Well Time Known : Not applicable Orientation : Oriented x 3 Characteristics of Speech : Appropriate for age Level of Consciousness : Alert MARCELLA MARIE RN - 03/24/2014 16:31 [employer] W[employer] CHIEF Trezevant Coma Eye Opening Response Trezevant : Spontaneously Best Verbal Response Albin : Oriented Best Motor Response Albin : Obeys simple commands Albin Coma Score : 15 MARCELLA MARIE RN - 03/24/2014 16:31 [employer] CHIEF GI Reassess GI Patient Stated Symptoms : None CYRUSMICHAEL MARCELLA Flaherty RN - 03/24/2014 16:31 [employer] CHIEF /OB Reassess /OB Note : no acute changes. Ultrasound at bedside. JOSRSIRENA MARCELLA Flaherty RN - 03/24/2014 16:31 [employer] WIRE CHIEF Source: [facility] POWERCHART Document Id: [id number] DIV[employer]LL WIRE CHIEF!31 [employer] CHIEF Conversion, Historical Provider Ser - 03/24/2014 3:22 PM CST ED Primary Assessment Document Has Been Updated ED Primary Assessment Entered On: 03/24/2014 15:28 [employer] CHIEF Performed On: 03/24/2014 15:22 [employer] CHIEF by CRISTEL BRASHER RN Reason For Visit (As Of: 03/24/2014 15:42:33 [employer] CHIEF) Diagnoses(Active) Vaginal bleeding Date: 03/24/2014 ; Diagnosis Type: Reason For Visit ; Confirmation: Complaint of ; Clinical Dx: Vaginal bleeding ; Classification: Medical ; Clinical Service: Emergency medicine ; Code: PNED ; Probability: 0 ; Diagnosis Code: [id number] Triage Mode of Arrival ED : Private vehicle Track : Medical Languages : Spanish Treatments Prior to Arrival : None Are you ? : Yes Is Patient Female and 13-50 no hysterectomy : Yes Status : Patient denies CRISTEL BRASHER RN - 03/24/2014 15:22 [employer] CHIEF Pain Assessment Pain Symptoms : No CRISTEL BRASHER RN - 03/24/2014 15:22 [employer] W[employer] CHIEF ID Screen Drug Resistant Organism : No Travel Within Last 21 Days : No CRISTEL BRASHER RN - 03/24/2014 15:22 [employer] W[employer] CHIEF Respiratory Airway : Patent Respirations : Unlabored Respiratory Pattern : Regular Oxygen Therapy : Room air CRISTEL BRASHER RN - 03/24/2014 15:22 [employer] WIRE CHIEF Cardiovascular Heart Rhythm : Regular Skin Color : Normal for ethnicity Skin Description : Dry Skin Temperature : Warm CRISTEL BRASHER RN - 03/24/2014 15:22 DIVISION [employer]LL WIRE CHIEF Neurological Last Well Time Known : Not applicable Level of Consciousness : Alert Orientation : Oriented x 3 Characteristics of Speech : Appropriate for age CRISTEL BRASHER RN - 03/24/2014 15:22 [employer] W[employer] CHIEF ED Psychosocial Affect/Behavior : Calm, Cooperative Domestic Abuse Concerns : None CRISTEL BRASHER RN - 03/24/2014 15:22 [employer] CHIEF Gastrointestinal Nutrition ED : Adequate CRISTEL BRASHER RN - 03/24/2014 15:22 DIVISION [employer]LL WIRE CHIEF /OB Assessment Para : 3 CRISTEL BRASHER RN - 03/24/2014 15:22 DIVISION TOLL WIRE CHIEF Note : Pt delivered 3rd baby 2 [...] ) CRISTEL BRASHER RN - 03/24/2014 15:41 [employer] W[employer] CHIEF Musculoskeletal Fall Prevention Education Provided : Yes CRISTEL BRASHER RN - 03/24/2014 15:22 DIV[employer] W[employer] CHIEF Social Habits Tobacco Use/Currently Using : No Smoking Status : Never smoker CRISTEL BRASHER RN - 03/24/2014 15:22 DIVISION [employer]LL WIRE CHIEF Source: [facility] POWERCHART Document Id: [id number] [employer] WIRE CHIEF!3 Floyd Reyes M.D. - 03/24/2014 3:19 PM [...] Note : Chief Complaint Description 03/24/2014 14:55 [employer] CHIEF Chief Complaint Description Pt. had normal vaginal [...] Examination Vital Signs: Vital Signs 03/24/2014 14:55 [employer] W[employer] CHIEF Temperature Core 37.0 DegC Peripheral Pulse Rate [...] in uterus. discussed with Dr Gonzalez from [facility]. reviewed u/s at length with him. does appear well. will give methergine and discharge with follow up tomorrow. return if any other concerns.. Documents reviewed:Emergency department nurses' notes. Results review:Lab results : Lab View 03/24/2014 15:34 [employer] WIRE CHIEF Hgb 13.5 g/dL Hct 39.8 % WBC 5.1 x10(9)/L RBC 4.25 x10(12)/L MCV 93.6 fL RDW 12.3 % Platelet 293 x10(9)/L Neutro Absolute 2.76 10(9)/L Lymph Absolute 1.85 x10(9)/L [place] Absolute 0.40 x10(9)/L Eos Absolute 0.02 x10(9)/L [...] Radiology results:Radiologist's interpretation: : Radiology 03/24/2014 16:50 [employer] CHIEF US Pelvic And Endovaginal RADUSPELVICTV , IMPRESSION: [...] Discharge ED Patient (Order Processing): 03/24/2014 18:36 DIVISION [employer]LL WIRE CHIEF, Once. Notes: Charted by Yvonne Mercado for Dr Reyes. Electronically Signed By: FLOYD REYES MD On: 03/24/2014 06:52 PM Modified by and Electronically Signed by: YVONNE MERCADO On: 03/24/2014 03:39 PM Source: [facility] POWERCHART Document Id: [id number] [employer] CHIEF Deb Blanco R.N. - 03/24/2014 2:55 PM CST ED Triage Assessment Document Has Been Updated ED Triage Assessment Entered On: 03/24/2014 15:01 DIV[employer] WIRE CHIEF Performed On: 03/24/2014 14:55 DIVISION [employer]LL WIRE CHIEF by DEB BLANCO RN Reason For Visit (As Of: 03/24/2014 15:01:54 DIVISION [employer]LL WIRE CHIEF) Diagnoses(Active) Vaginal bleeding Date: 03/24/2014 ; Diagnosis Type: Reason For Visit ; Confirmation: Complaint of ; Clinical Dx: Vaginal bleeding ; Classification: Medical ; Clinical Service: Emergency medicine ; Code: PNED ; Probability: 0 ; Diagnosis Code: [id number] Triage Chief Complaint Description : Pt. had normal vaginal delivery 2 weeks ago, pt. with vaginal bleedingat 1410, passing big clot. Pt. feeling dizzy in ED. Denies trauma. Information Given By : Patient Accompanied By : Spouse Mode of Arrival ED : Private vehicle Track : Medical Languages : Spanish Vital Signs Assessed : Yes GCS Assessed : Yes Treatments Prior to Arrival : None Are you ? : Yes Is Patient Female and 13-50 no hysterectomy : Yes Status : Patient denies DEB BLANCO RN - 03/24/2014 14:55 [employer] WIRE CHIEF Vital Signs Temperature Core : 37.0 DegC(Converted to: 98.6 DegF) Peripheral Pulse Rate : 103 /min (HI) Respiratory Rate : 20 /min Systolic Blood Pressure : 137 mmHg Diastolic Blood Pressure : 92 mmHg (>HHI) NIBP Mean : 107 mmHg BP Location : Left upper extremity SpO2 : 97 % Oxygen Therapy : Room air DEB BLANCO RN - 03/24/2014 14:55 DIVISION TOLL WIRE CHIEF Albin Coma Eye Opening Response Trezevant : Spontaneously Best Verbal Response Trezevant : Oriented Best Motor Response Albin : Obeys simple commands Trezevant Coma Score : 15 DEB BLANCO RN - 03/24/2014 14:55 DIVISION [employer]LL WIRE CHIEF Pain Assessment Pain Symptoms : No DEB BLANCO RN - 03/24/2014 14:55 DIVISION [employer]LL WIRE CHIEF Comfort Measures Comfort Measures Grid Positive Self-Talk : Yes DEB BLANCO RN - 03/24/2014 14:55 DIV[employer]LL WIRE CHIEF JAYLEN JAYLEN Level 1 : No JAYLEN Level 2 : No JAYLEN Level 3 : Many DEB BLANCO RN - 03/24/2014 14:55 DIVISION TOLL WIRE CHIEF DCP GENERIC CODE Tracking Acuity : 2 -Emergent Tracking Group : [facility] DEB JAMA RN - 03/24/2014 14:55 DIVISION [employer] WIRE CHIEF Allergy (As Of: 03/24/2014 15:01:55 DIVISION TOLL WIRE CHIEF) Allergies (Active) Demerol HCl Estimated Onset Date: Unspecified ; Created By: DEB BLANCO RN; Reaction Status: Active ; Category: Drug ; Substance: Demerol HCl ; Type: Allergy ; Updated By: DEB BLANCO RN; Reviewed Date: 03/24/2014 15:00 [employer] CHIEF Latex Estimated Onset Date: Unspecified ; Created By: DEB BLANCO RN; Reaction Status: Active ; Category: Other ; Substance: Latex ; Type: Allergy ; Updated By: DEB BLANCO RN; Reviewed Date: 03/24/2014 15:00 DIV[employer] WIRE CHIEF penicillins Estimated Onset Date: Unspecified ; Created By: DEB BLANCO RN; Reaction Status: Active ; Category: Drug ; Substance: penicillins ; Type: Allergy ; Updated By: DEB BLANCO RN; Reviewed Date: 03/24/2014 15:00 DIVISION TOLL WIRE CHIEF Percocet 7.5/325 Estimated Onset Date: Unspecified ; Created By: DEB BLANCO RN; Reaction Status: Active ; Category: Drug ; Substance: Percocet 7.5/325 ; Type: Allergy ; Updated By: DEB BLANCO RN; Reviewed Date: 03/24/2014 15:00 DIVISION TOLL WIRE CHIEF ID Screen Drug Resistant Organism : No Travel Within Last 21 Days : No DEB BLANCO RN - 03/24/2014 14:55 [employer]ISION TOLL WIRE CHIEF [facility] Document Id: [id number] DIVISION TOLL WIRE CHIEF!44 [employer] CHIEF documented in this encounter Miscellaneous Notes Miscellaneous - Conversion, Historical Provider Ser - 03/24/2014 6:51 PM DIVISION TOLL WIRE CHIEF Valuables/Belongings Valuables/Belongings Entered On: 03/24/2014 18:52 DIVISION TOLL WIRE CHIEF Performed On: 03/24/2014 18:51 DIVISION TOLL WIRE CHIEF by CRISTEL BRASHER RN Valuables/Belongings Comment : All belongings sent with Pt at discharge. CRISTEL BRASHER RN - 03/24/2014 18:51 DIVISION TOLL WIRE CHIEF Source: [facility] POWERCHART Document Id: [id number] DIVISION TOLL WIRE CHIEF!3 Miscellaneous - Conversion, Historical Provider Ser - 03/24/2014 2:52 PM DIVISION TOLL WIRE CHIEF Facility Charge Ticket 2.0 11.0 DX Facility Charge Ticket 2.0 11.0 DX Entered On: 03/24/2014 18:52 DIVISION TOLL WIRE CHIEF Performed On: 03/24/2014 14:52 DIVISION TOLL WIRE CHIEF by CRISTEL BRASHER RN Facility Charge Ticket [...] Nursing Notes ED Primary Assessment,03/24/14 15:22,CRISTEL BRASHER PHYSICAL SECURITY MANAGER Nurse Reassess,03/24/14 18:50,CRISTEL BRASHER PHYSICAL SECURITY MANAGER Nurse Reassess,03/24/14 17:44,CRISTEL BRASHER PHYSICAL SECURITY MANAGER Nurse Reassess,03/24/14 16:31,MARCELLA MARIE RN ED Pain Assessment,03/24/14 18:51,CRISTEL BRASHER RN Lynx Nursing Assessment : Triage and 3-5 nursing assessments Lynx Disposition : Discharge Disposition RTF : discharge Lynx Total Points with Diagnosis Control : 11 Lynx Visit Level : 07325 Level 4 Treatments Prior to Arrival : None CRISTEL BRASHER RN - 03/24/2014 18:52 DIVISION TOLL WIRE CHIEF Source: [facility] POWERCHART Document Id: [id number] DIVISION TOLL WIRE CHIEF!19 documented in this encounter Plan of Treatment Upcoming Encounters Date Type Specialty Care Team Description 02/01/2022 Office Visit Family Medicine Suri Bedolla P.A.-C. [address] [place], [place] [phone] (Wo rk) documented as of this encounter Procedures Procedure Name Priority Date/Time Associated Comments Diagnosis US PELVIS TRANSVAGINAL Routine 03/24/2014 3:58 PM Results for this AND TRANSABDOMINAL [employer] CHIEF procedure are in the results section. AUTOMATED DIFFERENTIAL, Routine 03/24/2014 3:34 PM Results for this B [employer] CHIEF procedure are i n the results section. CBC WITH DIFFERENTIAL, Routine 03/24/2014 3:34 PM Results for this B [employer]IRE CHIEF procedure are i n the results section. COMPREHENSIVE METABOLIC Routine 03/24/2014 3:34 PM Results for this PANEL, S/P [employer] CHIEF procedure are i n the results section. documented in this encounter Results US Pelvis Transvaginal and Transabdominal (03/24/2014 3:58 PM DIVISION TOLL WIRE CHIEF) Anatomical Region Laterality Modality Pelvis N/A Ultrasound Specimen (Source) Anatomical Collection Method Collection Time Re ceived Time Location / / Volume Laterality 03/24/2014 3:58 PM DIV[employer]LL [employer]IRE CHIEF Impressions 03/24/2014 5:21 PM DIVISION [employer]LL WIRE CHIEF 1. Thickened heterogeneous hypervascular endometrium with some associated blood or clot most consistent with retained products of conception in this clinical setting. 2. Enlarged uterus consistent with postp artum status. Narrative 03/24/2014 5:21 PM DIVISION TOLL WIRE CHIEF EXAM: US Pelvic And Endovaginal INDICATION: Vaginal [...] PROCEDURES (ABNORMAL) Automated Differential (03/24/2014 3:34 PM DIVISION TOLL WIRE CHIEF) [facility] Method Time Signature Absolute 2.76 1.70 - POWERCHART Neutrophils 7.00 109L Lymphocytes 1.85 0.90 - POWERCHART 2.90 X109L Monocytes 0.40 0.30 - POWERCHART 0.90 X109L Eosinophils 0.02 (L) 0.05 - POWERCHART 0.50 X109L Absolute 0.03 0.00 - POWERCHART Basophil 0.30 X109L Specimen Anatomical Collection Method Collection Time Receive d Time (Source) Location / / Volume Laterality Blood 03/24/2014 3:34 PM 4 3:34 DIVISION [employer]LL WIRE CHIEF PM [employer] CHIEF Floyd Reyes M.D. LAB BLOOD ADD-ON Performing Organization Address City/State/ZIP Code Phon e Number POWERCHART CBC with Differential (03/24/2014 3:34 PM DIVISION TOLL WIRE CHIEF) P athologist Signature Leukocytes 5.1 3.5 - 10.5 POWERCHART X109L Erythrocytes 4.25 3.90 - 5.03 POWERCHART H2400N Hemoglobin 13.5 12.0 - 15.5 POWERCHART GDL Hematocrit 39.8 34.9 - 44.5 POWERCHART MCV 93.6 81.6 - 98.3 POWERCHART FL HX RDW 12.3 11.9 - 15.5 POWERCHART Platelet Count 293 150 - 450 POWERCHART X109L Specimen (Source) Anatomical Collection Method Collection Time Re ceived Time Location / / Volume Laterality Blood 03/24/2014 3:34 PM DIVISION TOLL WIRE CHIEF Floyd Reyes M.D. LAB BLOOD ADD-ON Performing Organization Address City/State/ZIP Code Phon e Number POWERCHART (ABNORMAL) CMP (Comprehensive Metabolic Panel) (03/24/2014 3:34 PM DIVISION TOLL WIRE CHIEF) Patholo gist Method Time Signature Total Protein, S [...] / Volume Laterality Blood 03/24/2014 3:34 PM DIV[employer] TOLL WIRE CHIEF Floyd Reyes M.D. LAB BLOOD ADD-ON Performing Organization Address City/State/ZIP Code Phon e Number POWERCHART documented in this encounter Visit Diagnoses Not on filedocumented in this encounter
--- OUTSIDE RECORDS SUMMARY | 2022-01-28 17:14 | XMS_ITS | Encounter Summary ---
:1985 Author Organization [facility] Address [address] [place] [address] Care Team Providers Name Role Phone Elsewhere, Pcp Primary Care Provider Unavailable Reason for Referral Outpatient (Routine) - Closed Specialty Diagnoses / Procedures Referred By Contact Refer red To Contact Diagnoses Pain Breast Marilyn Acosta APRN[facility] [place] [facility] Procedures BI Ultrasound Breast Focused Right Referral ID Status Reason Start Date Expiration Date Visits Requ ested Visits Authorized [id number] Closed 11/25/2021 11/25/2022 1 1 Reason for Visit Outpatient (Routine) - Closed Specialty Diagnoses / Procedures Referred By Contact Refer red To Contact Diagnoses Pain Breast Marilyn Acosta APRN, C.N.P. [facility] [place] Procedures BI Ultrasound Breast Focused Right Referral ID Status Reason Start Date Expiration Date Visits Requ ested Visits Authorized [id number] Closed 11/25/2021 11/25/2022 1 1 Encounter Details Date Type Department Care Team Description 12/16/2021 Hospital Encounter Department of Radiology Marilyn Acosta, Pain Breast in [facility], C.N.P. [address] [place] [address] [facility] [phone] Social History Tobacco Use Types Packs/Day Years [...] or relatives? How often do you attend uatsdin or More than 4 times per year 11/23/2021 spiritism services? Do you belong to any clubs or Not asked organizations such as uatsdin groups, unions, fraPrêt d'Union or athletic groups, or school groups? How [...] as of this encounter Plan of Treatment Upcoming Encounters Date Type Specialty Care Team Description 02/01/2022 Office Visit Family Medicine Suri Bedolla, PKenATachoC. [address], [place] [phone] (Wo rk) documented as [...] Imaging RST LOS, Breast Imaging ARZ LOS, [place] [address] Right Ultrasound Imaging FLA LOS Specimen [...] Breast documented in this encounter Care Teams Gourmet Coffee Attendant Relationship Specialty Start Date End Date Elsewhere, Pcp PCP - General Internal Medicine 11/25/21 01/24/22 documented as of this encounter
--- OUTSIDE RECORDS SUMMARY | 2022-01-28 17:14 | XMS_ITS | Clinical Summary ---
:1985 Author Organization [facility] [place] [address] Care Team Providers Name Role Phone Jet [...] Respiratory Rate 16 03/24/2006 9:08 PM MANAGER EMPLOYMENT Oxygen Saturation 98% 07/16/2020 4:13 PM CDT Inhaled Oxygen Concentration - - Weight 67 kg (147 lb 12.8 oz) 07/16/2020 4:13 PM CDT Height 162.6 cm (5' 4) 03/20/2006 5:12 PM MANAGER EMPLOYMENT Body Mass Index - - Plan of [...] Type Group BLUE CROSS BLUE [employer] OF [id number] 2019-Present [address] [address] [place] [address] Care Teams Port Surveyor Relationship Specialty Start Date End Date Jet Garcia MD PCP - General Family Practice 12/16/15 Jet Garcia MD Family Practice 12/16/15
--- OUTSIDE RECORDS SUMMARY | 2022-01-28 17:14 | XMS_ITS | Encounter Summary ---
:1985 Author Organization [facility] Address [address] [place] [address] Care Team Providers Name Role Phone Elsewhere, Pcp Primary Care Provider Unavailable Reason for Referral Outpatient (Routine) - Closed Specialty Diagnoses / Procedures Referred By Contact Refer red To Contact Diagnoses Pain Breast Marilyn Acosta APRN, [facility] [place] [facility] Procedures BI Breast Diagnostic Bilateral with Tomosynthesis BI Breast Diagnostic Right with Tomosynthesis C.N.P. Referral ID Status Reason Start Date Expiration Date Visits Requ ested Visits Authorized [id number] Closed 11/25/2021 11/25/2022 1 1 Outpatient (Routine) - Closed Specialty Diagnoses / Procedures Referred By Contact Refer red To Contact Diagnoses Pain Breast Marilyn Acosta APRN, [facility]. [facility] [place] [facility] Procedures BI Ultrasound Breast Focused Right Referral ID Status Reason Start Date Expiration Date Visits Requ ested Visits Authorized [id number] Closed 11/25/2021 11/25/2022 1 1 Reason for [...] Expiration Date Visits Requ ested Visits Authorized [id number] Closed 11/18/2021 11/18/2022 1 1 Encounter Details Date Type Department Care Team Description 11/25/2021 Office Visit Department of Family Marilyn Acosta Pain B reast (Primary Medicine, [facility], in [place], [place] [address] [place] [address] Social History Tobacco Use Types Packs/Day Years [...] or relatives? How often do you attend moravian or More than 4 times per year 11/23/2021 moravian services? Do you belong to any clubs or Not asked organizations such as moravian groups, unions, fraternal or athletic groups, or [...] cancer. Arlen receives her primary care at [facility]. In talking with her, she [...] fibroglandular tissue located throughout both breasts. 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 GI: Abdomen is rounded and soft. Active [...] to establish primary care at [facility]. Recommend patient gather hermedical records and return to the clinic for an annual physical and to discuss other health concerns. All questions were answered. Patient verbalizing understanding and is in agreement with the above outlined plan. documented in this encounter Plan of Treatment Upcoming Encounters Date Type Specialty Care Team Description 02/01/2022 Office Visit Family Medicine Suri Bedolla P.A.-C. [address] [phone] (Wo rk) documented as of this encounter Results BI Ultrasound Breast Focused Right (12/16/2021 10:38 AM CDT) Anatomical Region Laterality Modality Breast, Breast Imaging RST LOS, Breast Imaging ARZ LOS, [address] Right Ultrasound Imaging FLA LOS Specimen [...] Imaging RST LOS, Breast Imaging ARZ LOS, [address] Bilateral Mammography Imaging FLA [facility] Specimen (Source) Anatomical Collection Method Collection [...] Breast documented in this encounter Care Teams Technology Consultant Relationship Specialty Start Date End Date Elsewhere, Pcp PCP - General Internal Medicine 11/25/21 01/24/22 documented as of this encounter
--- OUTSIDE RECORDS SUMMARY | 2022-01-28 17:14 | XMS_ITS | Encounter Summary ---
:1985 Author Organization [facility] Address [address] [place] [address] Care Team Providers Name Role Phone Elsewhere, [...] Expiration Date Visits Requ ested Visits Authorized [id number] Closed 11/25/2021 11/25/2022 1 1 Reason for Visit Outpatient (Routine) - Closed Specialty Diagnoses / Procedures Referred By Contact Refer red To Contact Diagnoses Pain Breast Marilyn Acosta APRN, [facility] [place] Procedures BI Breast Diagnostic Bilateral with Tomosynthesis BI Breast Diagnostic Right with Tomosynthesis C.N.P. Referral ID Status Reason Start Date Expiration Date Visits Requ ested Visits Authorized [id number] Closed 11/25/2021 11/25/2022 1 1 Encounter Details Date Type Department Care Team Description 12/16/2021 Hospital Encounter Department of Radiology Marilyn Acosta, Pain Breast in [facility], C.N.P. [address] [place] [address] Social History Tobacco Use Types Packs/Day [...] or relatives? How often do you attend lutheran or More than 4 times per year 11/23/2021 taoism services? Do you belong to any clubs or Not asked organizations such as lutheran groups, unions, fraiJukebox or athletic groups, or school groups? How [...] place to sleep or slept in a fdc (including now)? Education Answer Date Recorded What [...] 02/01/2022 Office Visit Family Medicine Suri Bedolla P.AClarissa [address] [place] [phone] (Wo rk) documented as of [...] Imaging RST LOS, Breast Imaging ARZ LOS, [place] [address] Bilateral Mammography Imaging FLA LOS Specimen [...] Breast documented in this encounter Care Teams Playground Equipment Erector Relationship Specialty Start Date End Date Elsewhere, Pcp PCP - General Internal Medicine 11/25/21 01/24/22 documented as of this encounter
[2022-01-28 17:20] LABS: C Reactive Protein* < 0.5 mg/dL (0.5-1.0)
[2022-01-28 17:55] LABS: Hematocrit 38.7 % (33.0-51.0); Hemoglobin* 13.4 gm/dL (12.0-16.0); Lymphocytes Percent Auto 13.9 % (20-44); Mean Corpuscular HGB Conc 35 gm/dL (32-36); Mean Corpuscular Hemoglobin 32 pg (26-34); Mean Corpuscular Volume 92 fL (80-100); Monocytes Percent Auto 1.7 % (0.0-11.0); Neutrophils Percent Auto 84.4 % (42.0-72.0); Platelet Count* 318 K/uL (140-440); RDW Coefficient of Variation % 11.8 % (11.5-15.5); Red Blood Count 4.19 m/uL (4.00-5.20); White Blood Count* 4.04 K/uL (4.50-11.00)
[2022-01-28 17:58] LABS: Slide Review Reflex No
[2022-01-28 18:35] LABS: Erythrocyte SedimentationRate* 5 mm/hr (2-20)
== END 2022-01-28 18:05 | disposition home or self-care (01) ==
PROVIDERS: Emergency Provider Family Medicine; PCP Family Medicine
DX: R20.0 Anesthesia of skin (principal)
CPT/HCPCS: 36415; 70551; 80053; 85025; 85651; 86140; 99284

== ENCOUNTER 2022-05-31 12:58 | Outpatient (CLI) | payer OTHER, SELFPAY ==
--- NOTE | 2022-05-31 13:00 | MR_ITS ---
[facility] [address] [facility] [address] Phone:?[phone] Fax:?[phone] Referring Physician Information: Tono Mccoy M.D. [address] [facility] [address] Phone:?[phone] Fax:?[phone] Patient:?Arlen Valladares D.O.B:?1985 Sex:?Female Phone:?[phone] [facility] MRN:?[id number] Exam Date:?05/31/2022 ? EXAM:?MR LUMBAR SPINE WITHOUT CONTRAST CLINICAL INFORMATION: Low back and right leg pain for one year. COMPARISON: None.?SEDATION:?None. TECHNICAL INFORMATION: Imaging was performed at [facility]. Sagittal and axial T1/ FSE T2, sagittal STIR and coronal T1 images were obtained through the lumbar spine. INTERPRETATION: L5-S1:?Moderate degeneration, a large 12 mm AP right sided disc extrusion markedly compresses the right S1 root. This also flattens the dural sac with mild central canal narrowing. Foramina appear patent and facet joints are unremarkable. L4-5: Mild degeneration, a central broad-based disc extrusion measures 3 mm AP and extrudes caudally for 3 mm. This indents the dural sac without L5 root compression or displacement. No central or foraminal stenosis, and unremarkable facet joints. B41-R3-D7-6: No bulge, herniation or spinal stenosis and unremarkable facet joints. Osseous Structures: Fat suppressed images are negative for acute or subacute fractures. Paraspinous Soft Tissues: No mass lesions. Conus, Cord and Cauda Equina: Normal position conus and no evidence of intradural mass or arachnoiditis. CONCLUSION: 1. A large 12 mm AP extruded right posterolateral L5-S1 disc herniation markedly compresses the right S1 root. 2. Central broad-based L4-5 disc extrusion abuts dural sac without stenosis. Electronically signed on 06/01/2022 10:27:00 AM by Blaine Hinton M.D.
== END 2022-05-31 12:59 | disposition home or self-care (01) ==
PROVIDERS: PCP Family Medicine; Visit Provider Family Medicine
DX: M54.50 Low back pain, unspecified (principal)
CPT/HCPCS: 72148

== ENCOUNTER 2022-06-15 09:00 | Outpatient (RCR) | payer OTHER, SELFPAY | END 2022-09-30 09:47 | disposition home or self-care (01) | PROVIDERS: PCP Family Medicine; Visit Provider Family Medicine | DX: M54.50 Low back pain, unspecified (principal); Z51.89 Encounter for other specified aftercare | CPT/HCPCS: 97110; 97162 ==

== ENCOUNTER 2022-07-08 22:05 | Emergency (ER) | payer OTHER, SELFPAY ==
[2022-07-08 22:15] VITALS: BP 111/71; PULSE 82; RESP 18; TEMP 36.3; O2SAT 99
--- NOTE | 2022-07-08 22:23 | ED_ITS ---
HPI - Female Genitourinary General Time Seen by Provider: 22:23 Date Seen: 07/08/22 Chief complaint: Urogenital Problems, Female Stated complaint: Cannot urinate, surgery done today. Time Seen by Provider: 07/08/22 22:23 Source: patient and RN notes reviewed Mode of arrival: ambulatory Limitations: no limitations History of Present Illness HPI Narrative: Patient had lumbar microdiskectomy done at [place] [facility] earlier today. After surgery, she could not urinate despite really having the urge. They did an in and out catheter. This was I believe around 2:00 a.m.. She then went home. She has not been able to urinate since then. She really has to go now. She just had the surgery today. Her back is sore. She did take a [place] a little earlier but urinary symptoms started before then. She states she was having problems with nausea and she got a lot of medicines for that. Related Data Home Medications Medication Instructions Recorded Confirmed multivitamin 1 tab PO QDAY 01/11/22 06/28/22 lorazepam 1 mg tablet 1 mg PO BID PRN 04/28/22 06/28/22 gabapentin 300 mg capsule 300 mg PO TID 06/28/22 06/28/22 Previous Rx's Medication Instructions Recorded ondansetron 4 mg disintegrating 4 mg PO Q8H PRN nausea and 01/11/22 tablet vomiting #20 tabs dextroamphetamine-amphetamine 10 10 mg PO BID PRN concentration #60 06/28/22 mg tablet tabs tramadol 50 mg tablet 50 mg PO TID PRN pain #20 tabs 06/28/22 Allergies Allergy/AdvReac Type Severity Reaction Status Date / Time oxycodone Allergy Intermediate Blurry Verified 06/28/22 09:19 Vision penicillin V Allergy Mild Hives Verified 06/28/22 09:19 banana Allergy Unknown Verified 06/28/22 09:19 cat dander Allergy Unknown Verified 06/28/22 09:19 latex Allergy Unknown Verified 06/28/22 09:19 meperidine Allergy Unknown Unknown Verified 06/28/22 09:19 Penicillins Allergy Unknown Verified 06/28/22 09:19 Review of Systems Narrative: As per HPI PFSH PFS Medical History (Updated 07/08/22 @ 22:35 by Bridget Luque MD) Cervical radiculopathy ?M54.12 - Radiculopathy, cervical region (ICD-10) Chronic constipation ?K59.09 - Other constipation (ICD-10) Chronic diarrhea ?K52.9 - Noninfective gastroenteritis and colitis, unspecified (ICD-10) Constipation ?K59.00 - Constipation, unspecified (ICD-10) Dehydration ?E86.0 - Dehydration (ICD-10) Dizziness ?R42 - Dizziness and giddiness (ICD-10) Encounter for care of lactating mother ?Z39.1 - Encounter for care and examination of lactating mother (ICD-10) Encounter for surveillance of contraceptives ?Z30.40 - Encounter for surveillance of contraceptives, unspecified (ICD-10) Hemorrhoids ?K64.9 - Unspecified hemorrhoids (ICD-10) Left flank pain ?R10.9 - Unspecified abdominal pain (ICD-10) care following vaginal delivery ?Z39.2 - Encounter for routine follow-up (ICD-10) Recurrent headache ?R51.9 - Headache, unspecified (ICD-10) Surgical History (Updated 06/25/22 @ 12:02 by Ariella Jeong ~ PSR) History of cholecystectomy (04/07/10) ?Z90.49 - Acquired absence of other specified parts of digestive tract (ICD- 10) S/P anal fissurectomy ?Z98.890 - Other specified postprocedural states (ICD-10) ?Z87.19 - Personal history of other diseases of the digestive system (ICD-10) S/P hemorrhoidectomy ?Z98.890 - Other specified postprocedural states (ICD-10) ?Z87.19 - Personal history of other diseases of the digestive system (ICD-10) S/P hysterectomy ?Z90.710 - Acquired absence of both cervix and uterus (ICD-10) Family History (Updated 06/25/22 @ 12:04 by Ariella Jeong ~ PSR) Mother Depression Maternal Grandfather Depression Brother Depression Social History Smoking Status: Never smoker Do you use any of these nicotine containing products: None Second hand tobacco smoke exposure: No How often do you have a drink containing alcohol: 2-3 times a week How many standard drinks containing alcohol do you have on a typical day: 1 or 2 How often do you have six or more drinks on one occasion: Never AUDIT-C Alcohol total score: 3 Non-prescribed substance use: marijuana (any form) Exam Const: Vital Signs, click to edit/add: Vital Signs - 24 hr 07/08/22 22:15 Temperature 97.3 F L Pulse Rate [Right Pulse Oximeter] 82 Respiratory Rate 18 Blood Pressure [Ri ght Upper Arm] 111/71 Pulse Oximetry 99 Oxygen Delivery Me thod Room Air 37-year-old female slowly ambulatory int o the ED of her own accord. Her dressing on her back shows 1 little dry blood spot that had been there from earlier and has not changed. She is alert interactive very pleasant. CV regular rate and rhythm no murmur. Abdomen has some lower suprapubic distension and she is quite uncomfortable with any palpation. She is requesting that we moved to put a Moreno catheter in quickly as she really feels like she has to pee. Documenting provider has reviewed patient's vital signs: yes Course Course Hospital Course: Nursing staff came in immediately after ours done and are going to place Moreno catheter. Patient stands that she is going to need to leave it in. Will need to do a follow-up in clinic next week with a can do a trial of voiding. Today is late night, I do not think realistically attempting to follow up in clinic tomorrow which is Tuesday will be enough time to help this resolve. Vital Signs Vital signs: Initial Vital Signs Temperature 97.3 F L 07/08/22 22:15 Temperature Source Temporal Artery Scan 07/08/22 22:15 Pulse Rate 82 07/08/22 22:15 Pulse Rhythm Regular 07/08/22 22:15 Respiratory Rate 18 07/08/22 22:15 Blood Pressure 111/71 07/08/22 22:15 Blood Pressure Mean 84 07/08/22 22:15 Pulse Oximetry 99 07/08/22 22:15 Oxygen Delivery Method Room Air 07/08/22 22:15 Vital Signs Temperature 97.3 F L 07/08/22 22:15 Pulse Rate 82 07/08/22 22:15 Respiratory Rate 18 07/08/22 22:15 Blood Pressure 111/71 07/08/22 22:15 Pulse Oximetry 99 07/08/22 22:15 Oxygen Delivery Method Room Air 07/08/22 22:15 Temperature 97.3 F L 07/08/22 22:15 Pulse Rate 82 07/08/22 22:15 Respiratory Rate 18 07/08/22 22:15 Blood Pressure 111/71 07/08/22 22:15 Pulse Oximetry 99 07/08/22 22:15 Oxygen Delivery Method Room Air 07/08/22 22:15 MDM - Female Genitourinary Lab Data Attestation: I reviewed the patient's lab results. Labs: Lab Results 07/08/22 Range/Units 22:55 Urine Color Yellow (Yellow) Urine Appearance Clear (Clear) Urine pH 7.0 (5.0-8.5) Ur Specific Coleman 1.015 (1.000-1.030) Urine Protein Negative (Negative) Urine Glucose (UA) Negative (Negative) Urine Ketones Negative (Negative) Urine Blood Negative (Negative) Urine Nitrite Negative (Negative) Urine Bilirubin Negative (Negative) Urine Urobilinogen 0.2 (0.2-1.0) Ur Leukocyte Esterase Negative (Negative) Urine RBC 0-2 (0-2) Urine WBC 0-2 (0-5) Ur Squamous Epith Cells None (None-Few) Urine Bacteria None (None) Critical Care Time Critical Care Time Critical Care Time: No Discharge Plan Discharge Clinical Impression: Acute urinary retention Patient Disposition: Home, Self-Care Condition: Stable Instructions: Moreno Catheter Placement and Care (ED), Acute Urinary Retention in Women (ED) Additional Instructions: Need to schedule a clinic follow-up early next week, preferably Tuesday. They can attempt to remove the Moreno catheter and then see if you can void after removal. Review handout for routine care. Prescriptions: No Action multivitamin Tablet 1 tab PO QDAY ondansetron 4 mg tablet,disintegrating 4 mg PO Q8H PRN (Reason: nausea and vomiting) Qty: 20 3RF lorazepam 1 mg tablet 1 mg PO BID PRN Patient Comments: TAKE 1/2 TO 1 TABLET BY MOUTH TWICE DAILY NEEDED FOR SEVERE ANXIETY gabapentin 300 mg capsule 300 mg PO TID dextroamphetamine-amphetamine 10 mg tablet 10 mg PO BID PRN (Reason: concentration) Qty: 60 0RF Rx Instructions: administer doses at least 4-6 hours apart tramadol 50 mg tablet 50 mg PO TID PRN (Reason: pain) Qty: 20 0RF Follow Up/Referrals: Tono Mccoy MD [Primary Care Provider] - Stand Alone Forms: [employer] Info Instructions
--- NOTE | 2022-07-08 22:48 | ED.NURSE ---
16Fr perrin catheter placed with immediate draining of 900ml clear, alejandra urine.
[2022-07-08 23:08] LABS: Appearance Urine Clear (Clear); Bilirubin Urine Negative (Negative); Blood Urine Negative (Negative); Color Urine Yellow (Yellow); Glucose Urine Negative (Negative); Ketones Urine Negative (Negative); Leukocyte Esterase Urine Negative (Negative); Nitrite Urine Negative (Negative); Protein Urine Negative (Negative); Specific Gravity Urine 1.015 (1.000-1.030); Urobilinogen Urine 0.2 (0.2-1.0)
[2022-07-08 23:14] LABS: RBC Urine 0-2 (0-2); WBC Urine 0-2 (0-5)
== END 2022-07-08 23:36 | disposition home or self-care (01) ==
LOC: ED 22:57
PROVIDERS: Emergency Provider Family Medicine; PCP Family Medicine
DX: R33.9 Retention of urine, unspecified (principal)
CPT/HCPCS: 51702; 81001; 99283

== ENCOUNTER 2022-08-06 09:40 | Outpatient (CLI) | payer OTHER, SELFPAY ==
[2022-08-06 15:21] LABS: Basophils Percent Auto 0.3 % (0.0-3.0); Hematocrit 41.8 % (33.0-51.0); Hemoglobin* 14.3 gm/dL (12.0-16.0); Lymphocytes Percent Auto 43.8 % (20-44); Mean Corpuscular HGB Conc 34 gm/dL (32-36); Mean Corpuscular Hemoglobin 32 pg (26-34); Mean Corpuscular Volume 94 fL (80-100); Monocytes Percent Auto 6.9 % (0.0-11.0); Platelet Count* 265 K/uL (140-440); RDW Coefficient of Variation % 11.5 % (11.5-15.5); Red Blood Count 4.44 m/uL (4.00-5.20)
[2022-08-06 15:30] LABS: Chloride* 103 mmol/L (96-114)
[2022-08-06 15:31] LABS: Potassium* 4.2 mmol/L (3.6-5.1); Sodium* 138 mmol/L (135-149)
[2022-08-06 15:33] LABS: Creatinine* 0.6 mg/dL (0.5-1.5); Estimated Glomerular Filt Rate 120 ml/min
[2022-08-06 15:34] LABS: Blood Urea Nitrogen* 13 mg/dL (5-24); Calcium* 9.8 mg/dL (8.4-10.6); Carbon Dioxide* 27 mmol/L (20-32); Glucose* 97 mg/dL (60-115)
[2022-08-06 15:37] LABS: C Reactive Protein* 0.5 mg/dL (0.5-1.0); Slide Review Reflex No
[2022-08-06 16:22] LABS: Vitamin B12* 943 pg/mL (243-894)
[2022-08-06 16:42] LABS: Erythrocyte SedimentationRate* 4 mm/hr (2-20)
[2022-08-08 10:40] LABS: Rheumatoid Factor <10 IU/mL (0-14)
[2022-08-08 16:52] LABS: Immunoglobulin A 148 mg/dL (68-408)
[2022-08-09 11:09] LABS: Tissue Transglutaminase IgA <2 U/mL (0-3)
[2022-08-09 11:14] LABS: Anti-Nuclear Ab(ANA)IgG ELISA None Detected (None Detected)
[2022-08-09 11:24] LABS: Vitamin B1, Whole Blood 137 nmol/L (70-180)
== END 2022-08-06 09:41 | disposition home or self-care (01) ==
PROVIDERS: PCP Family Medicine; Visit Provider Nurse Practitioner Family
DX: R20.2 Paresthesia of skin (principal); R14.0 Abdominal distension (gaseous); M89.8X9 Other specified disorders of bone, unspecified site
CPT/HCPCS: 80048; 82607; 82784; 84425; 84443; 85025; 85651; 86039; 86140; 86364; 86431; 86664

== ENCOUNTER 2022-08-10 12:42 | Outpatient (CLI) | payer OTHER, SELFPAY | END 2022-08-10 12:43 | disposition home or self-care (01) | PROVIDERS: PCP Family Medicine; Visit Provider Nurse Practitioner Family | DX: M89.8X9 Other specified disorders of bone, unspecified site (principal); R20.2 Paresthesia of skin | CPT/HCPCS: 36415 ==

== ENCOUNTER 2022-08-12 10:16 | Outpatient (CLI) | payer OTHER, SELFPAY ==
[2022-08-12 14:16] LABS: Basophils Percent Auto 0.5 % (0.0-3.0); Hematocrit 39.9 % (33.0-51.0); Hemoglobin* 13.6 gm/dL (12.0-16.0); Immature Reticulocyte Fraction 4.5 % (3.0-15.9); Lymphocytes Percent Auto 34.2 % (20-44); Mean Corpuscular HGB Conc 34 gm/dL (32-36); Mean Corpuscular Hemoglobin 32 pg (26-34); Mean Corpuscular Volume 94 fL (80-100); Monocytes Percent Auto 6.7 % (0.0-11.0); Neutrophils Percent Auto 58.6 % (42.0-72.0); Platelet Count* 242 K/uL (140-440); RDW Coefficient of Variation % 11.6 % (11.5-15.5); Red Blood Count 4.23 m/uL (4.00-5.20); Reticulocyte Hemoglobin Equivi 32.9 pg (29.0-35.0); Reticulocyte Percent 1.3 % (0.5-2.0); Reticulocytes Absolute 0.06 # (0.03-0.08); White Blood Count* 4.33 K/uL (4.50-11.00)
[2022-08-12 14:17] LABS: Slide Review Reflex No
== END 2022-08-12 10:17 | disposition home or self-care (01) ==
PROVIDERS: PCP Family Medicine; Visit Provider Nurse Practitioner Family
DX: D72.819 Decreased white blood cell count, unspecified (principal)
CPT/HCPCS: 85025; 85045

== ENCOUNTER 2023-01-21 07:51 | Outpatient (CLI) | payer OTHER, SELFPAY ==
--- NOTE | 2023-01-21 08:00 | CRLHL7_ITS ---
For Patients: As a result of the Century Cures Act, medical imaging exams and procedure reports are released immediately into your electronic medical record. You may view this report before your referring provider. If you have questions, please contact your health care provider. Indication: CHRONIC SINUSITIS, HEADACHES Technique: Performed without IV contrast Comparison: 07/27/19 Findings: Frontal sinuses: Clear. Ethmoid sinuses: Clear. Maxillary sinuses: Clear. The maxillary sinus drainage pathways are patent on both sides. Sphenoid sinuses: Clear, including both sphenoethmoidal recesses. Nasal Cavity: Leftward curvature of the nasal septum with a left-sided nasal septal spur. No TMJ abnormalities identified. The visualized portions of the orbits, intracranial contents and upper soft tissue neck are grossly negative. Impression: 1. Clear sinuses. 2. Leftward curvature nasal septum. Please note that all CT scans at this facility use dose modulation, iterative reconstruction, and/or weight-based dosing when appropriate to reduce radiation dose to as low as reasonably achievable. Dictated by Delta Bang MD @ 01/21/2023 11:39:22 AM (Electronically Signed)
== END 2023-01-21 07:52 | disposition home or self-care (01) ==
LOC: CT 07:52
PROVIDERS: PCP Family Medicine; Visit Provider Otolaryngology
DX: J32.9 Chronic sinusitis, unspecified (principal); J34.2 Deviated nasal septum; R51.9 Headache, unspecified
CPT/HCPCS: 70486

== ENCOUNTER 2023-02-22 19:29 | Outpatient (CLI) | payer OTHER, SELFPAY ==
--- NOTE | 2023-03-01 13:05 | W.PM.SLEEP ---
Sleep Study Details Details Interpreting Provider: Ana Paula Date of Sleep Study: 02/22/23 Sleep Study Details: STUDY TYPE:? Home unattended ? BMI:? 24.4 ORDERING PROVIDER:Shane Goss INDICATION:? Concerns about sleep apnea ? SLEEP SUMMARY:? 494 minutes monitored RESPIRATORY SUMMARY:? AHI 0.2, low oxygen 90, snoring 0 PERIODIC LIMB MOVEMENTS OF SLEEP:? Not CARDIAC:? recorded during home study range 56-113, mean 76.8 IMPRESSION:? This study does not demonstrate clinically significant obstructive sleep apnea. If sleep disorder is strongly suspected recommend an in-lab study with MSLT to follow RECOMMENDATION: See impression
== END 2023-02-22 19:30 | disposition home or self-care (01) ==
LOC: SLEEP 19:30
PROVIDERS: PCP Family Medicine; Visit Provider Otolaryngology
DX: G47.19 Other hypersomnia (principal); G25.81 Restless legs syndrome
CPT/HCPCS: 95806

== ENCOUNTER 2023-04-20 17:19 | Outpatient (REF) | payer OTHER, SELFPAY ==
[2023-04-20 18:06] LABS: C Reactive Protein* < 0.5 mg/dL (0.5-1.0)
== END 2023-04-20 17:20 | disposition home or self-care (01) ==
LOC: NPINS 17:19
PROVIDERS: PCP Family Medicine; Visit Provider Physician Assistant
DX: M51.36 Other intervertebral disc degeneration, lumbar region (principal); M54.50 Low back pain, unspecified
CPT/HCPCS: 86140

== ENCOUNTER 2023-04-26 15:06 | Outpatient (CLI) | payer OTHER, SELFPAY ==
--- OUTSIDE RECORDS SUMMARY | 2023-04-26 15:20 | XMS_ITS | Clinical Summary ---
Author Name Unknown Organization [facility] Address [place], [place] [address] Care Team Providers Care Management Intern Name Role Phone Jet Garcia MD Unavailable [phone] Tono Mccoy MD Primary Care Provider [phone] Allergies Active Allergy Reactions Criticality Noted Date Comments Banana Hives 01/11/2022 Cat Dander Hives 01/11/2022 Meperidine *Unknown 12/17/2015 Family history Latex Rash 03/09/2006 Penicillins Hives 12/17/2015 Oxycodone-Acetaminophen Itching,Other - Describe In Comment Field 12/17/2015 Blurry vision Medications Medication Sig Dispensed Refills Start Date End Date Status HYDROcodone-acetamin ophen (NORCO) 5-325 mg per tabletIndications:He rniated nucleus pulposus, L5-S1 Take 1-2 Tablets by mouth every 4 hours if needed for Pain. Max acetaminophen dose: 4000 mg in 24 hrs. 15 Tablet 0 07/08/2022 Active dextroamphetamine-am phetamine (ADDERALL) 10 mg tablet TAKE 1 TABLET BY MOUTH TWICE DAILY AT LEAST 4 TO 6 HOURS APART NEEDED FOR CONCENTRATION 0 04/28/2022 Active traMADoL (ULTRAM) 50 mg tablet TAKE 1 TABLET BY MOUTH THREE TIMES DAILY NEEDED FOR PAIN 0 05/20/2022 Active ondansetron (ZOFRAN ODT) 4 mg disintegrating tablet DISSOLVE 1 TABLET ON THE TONGUE EVERY 8 HOURS NEEDED FOR NAUSEA OR VOMITING 0 05/20/2022 Active gabapentin (NEURONTIN) 300 mg capsule Take 300 mg by mouth three times daily. 0 Active LORazepam (ATIVAN) 1 mg tablet Take 1 mg by mouth 2 times daily if needed. 0 Active MULTIVITAMIN ORAL Take 1 tablet. by mouth once daily. 0 Active acetaminophen (TYLENOL) 325 mg tabletIndications:He rniated nucleus pulposus, L5-S1 Take 1-2 Tablets (325-650 mg) by mouth every 6 hours if needed for Pain (For mild pain.). Max acetaminophen dose: 4000mg in 24 hrs. 30 Tablet 0 07/08/2022 Active polyethylene glycol-electrolyte (GOLYTELY) 236-22.74-6.74 -5.86 gram suspensionIndication s:Encounter for screening colonoscopy Drink 2 liters the day before the procedure and 2 liters 6 hours prior to procedure. 4000 mL 0 11/30/2022 Active Active Problems No known active problems Encounters Date Type Department Care Team Description 04/19/2023 Transcribe Orders [facility] [place] [address] [facility] [address] [place] [address] Tono Lanier PA 04/19/2023 Orders Only [facility] [address] [place] [address] Tono Lanier PA <No scans attached> from Last 3 Months Social History Tobacco Use Types Packs/Day Years Used Date Smoking Tobacco: Never Smokeless Tobacco: Never Tobacco Cessation:Counseling Given: No Alcohol Use Standard Drinks/Week Comments Not Currently 0 (1 standard drink = 0.6 oz pur e alcohol) rare PHQ-2 Answer Date Recorded PHQ-2 TOTAL SCORE 1 08/31/2019 Social Connections Answer Date Recorded Frequency of Communication with Friends and Fami ly Not on file 11/17/2022 Financial Resource Strain Answer Date R ecorded Difficulty of Paying Living Expenses Not on file 04/18/2021 Difficulty of Paying Living Expenses Not on file 04/18/2021 Sex and Gender Information Value Date Recorded Sex Assigned at Not on file Gender Identity Not on file Sexual Orientation Not on file Obstetrics History Last Filed Vital Signs Vital Sign Reading Time Taken Comments Blood Pressure 118/78 11/17/2022 3:34 PM CDT Pulse 94 11/17/2022 3:34 PM CDT Temperature 36.4 ??C (97.6 ??F) 07/08/2022 2:10 PM CD T Respiratory Rate 14 07/08/2022 2:29 PM CDT Oxygen Saturation 98% 11/17/2022 3:34 PM CDT Inhaled Oxygen Concentration - - Weight 64.3 kg (141 lb 12.8 oz) 11/17/2022 3:34 PM CDT Height 162.6 cm (5' 4) 07/08/2022 10:0 6 AM CDT Body Mass Index 24.34 07/08/2022 10:06 AM CDT Plan of Treatment Upcoming Encounters Date Type Department Care Team (Late st Contact Info) Description 05/02/2023 9:15 AM LINK TRAINER 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 Procedure Only [facility] [address] [place] [address] Eric Higgins MD [address] [place] [address] 05/05/2023 7:00 AM LINK TRAINER MAINTENANCE WORKER Appointment [facility] [address] [place] [address] Grace Calderón, PT [address] [place] [address] Health Maintenance Due Date Last Done Comments Tdap 1998 HIV for age 15-65 2002 BMI (ht and wt on same day) for age 18+ 2005 Hepatitis C screening for age 18-79 2005 Tetanus booster 2007 Depression screening for age 12+ 08/29/2020 08/30/2019 Pap test for age 21-65 12/14/2021 9, 12/14/2018, 06/05/2015, Additional history exists COVID-19 vaccine series ( season) 2022 12/24/2020 Influenza for age 9-49 12/17/2022 Pneumococcal series for age 6-64 Aged Out No longer eligible based on patient's age to complete this topic Advance Directives Latest Code Status on File Code Status Date Activated Date Inactivated Comments Full Code 07/08/2022 12:24 PM 07/08/2022 5:48 PM Question Answer Comments Code Status Discussion: Per Existing Order Care Teams Management Intern Relationship Specialty Start Date End Date Tono Mccoy MD [address] [place] [address] PCP - General Family Practice 06/29/22 Jet Garcia MD Family Practice 12/16/15
--- OUTSIDE RECORDS SUMMARY | 2023-04-26 15:21 | XMS_ITS | Clinical Summary ---
Author Name Unknown Organization [facility] Address [address] [place] [address] Care Team Providers Care Cable Puller Name Role Phone None Reported, Pcp Primary Care Provider Unavail able Source Comments Patient records contain information from all sites at [facility]. For routine questions regarding patient records, call [phone] during business hours, M-F 8:00 AM - 5:00 PM Central Time. Record requests for emergency care only can be directed to [phone] at any time.[facility] Allergies Active Allergy Reactions Criticality Noted Date Comments Banana Hives (Reselect Reaction) 01/11/2022 Cat Dander Hives (Reselect Reaction) 01/11/2022 Latex Rash 03/09/2006 Meperidine Other (see comments) 12/17/2015 Family history Oxycodone-Acetaminophen Itching 12/17/2015 Penicillins Hives (Reselect Reaction) 03/24/2014 Medications Medication Sig Dispensed Refills Start Date End Date Status amphetamine-dextroamph etamine (ADDERALL XR) 20 mg 24 hr capsule Take by mouth daily. 0 11/15/2021 Active diazePAM (VALIUM) 10 mg tablet Take 10 mg by mouth every 6 (six) hours as needed for anxiety. 0 Active Active Problems Problem Noted Date Diagnosed Date Abdominal Pain 01/24/2022 Anxiety 01/24/2022 Migraine Headache 01/24/2022 Other Specified Disorders Of Bladder 01/24/2022 Sickness Motion Initial 01/24/2022 Immunizations Name Administration Dates Next Due Influenza (IM) Preservative Free 02/05/2014,01/16,12/28/2011 Influenza, Injectable, Quadrivalent 04/07/2019 Influenza, Seasonal, Injectable 01/29/2010 Tdap 02/03/2016,02/05/2014,01/30/2013 influenza vaccine quad (FLUZONE/FLUARIX) (6 months and older)(PF) 01/17/2018,01/28/2017,01/20/2016,2014 Family History Medical History Relation Name Comments Alcohol abuse Mother Alanna Felix Anxiety disorder Mother Alanna Felix Asthma Mother Alanna Felix Colon polyps Mother Alanna Felix Depression Mother Alanna Felix Relation Name Status Comments Mother Alanna Felix Social History Tobacco Use Types Packs/Day Years Used Date Smoking Tobacco: Never Smokeless Tobacco: Never Tobacco Cessation:Counseling Given: Not Answered Comments:Smoked in high school Alcohol Use Standard Drinks/Week Comments Yes 1 (1 standard drink = 0.6 oz pur e alcohol) Humiliation, Afraid, Rape, and Kick questionnair e Answer Date Recorded Within the last year, have y ou been afraid of your partner or ex-partner? No 11/23/2021 Within the last year, have y ou been humiliated or emotionally abused in other ways by your partner or ex-partner? No Within the last year, have y ou been kicked, hit, slapped, or otherwise physically hurt by your partner or ex-partner? No 11/23/2021 Within the last year, have y ou been raped or forced to have any kind of sexual activity by your partner or ex-partner? No 11/23/2021 Social Connection and Isolat ion Panel [NHANES] Answer Date Recorded In a typical week, how many times do you talk on the phone with family, friends, or neighbors? More than three times a week 11/23/2021 How often do you get togethe r with friends or relatives? Twice a week 11/23/2021 How often do you attend chur ch or mu-ism services? More than 4 times per year 11/23/2021 Active Member of Clubs or Organizations Not on f ile 11/23/2021 How often do you attend meet ings of the clubs or organizations you belong to? More than 4 times per year 11/23/2021 Are you , , di vorced, , never , or living with a partner? 11/23/2021 AUDIT-C Answer Date Recorded Q1: How often do you have a drink containing alc ohol? 2-4 times a month 11/23/2021 Q2: How many drinks containi ng alcohol do you have on a typical day when you are drinking? 1 or 2 11/23/2021 Q3: How often do you have si x or more drinks on one occasion? Never 11/23/2021 Overall Financial Resource Strain (CARDIA) Answe r Date Recorded How hard is it for you to pa y for the very basics like food, housing, medical care, and heating? Not hard at all 11/23/2021 PHQ-2 Answer Date Recorded PHQ-2 Score 1 11/25/2021 [facility] - Occupational Stress Questionnaire Answer Date Recorded Do you feel stress - tense, restless, nervous, or anxious, or unable to sleep at night because your mind is troubled all the time - these days? Rather much 11/23/2021 Exercise Vital Sign Answer Date Recorde d On average, how many days pe r week do you engage in moderate to strenuous exercise (like a brisk walk)? 2 days 11/23/2021 On average, how many minutes do you engage in exercise at this level? 20 min 11/23/2021 Hunger Vital Sign Answer Date Recorded Within the past 12 months, y ou worried that your food would run out before you got the money to buy more. Never true 11/24/19 22 Within the past 12 months, t he food you bought just didn't last and you didn't have money to get more. Never true 11/23/2021 PRAPARE - Transportation Answer Date Re corded In the past 12 months, has l ack of transportation kept you from medical appointments or from getting medications? No 11/2021 In the past 12 months, has l ack of transportation kept you from meetings, work, or from getting things needed for daily living? No 11/23/2021 Housing Stability Vital Sign Answer Aj e Recorded In the last 12 months, was t here a time when you were not able to pay the mortgage or rent on time? Yes 11/23/2021 In the last 12 months, how many places have you lived? 1 11/23/2021 In the last 12 months, was t here a time when you did not have a steady place to sleep or slept in a skilled nursing (including now)? No 11/23/2021 Nutrition Answer Date Recorded Nutrition: EVOO Fat Source No 11/23 On average, how many serving s of fruits and vegetables do you eat per day (serving size is equal to 1 cup or approximately the size of a tennis ball)? 2-3 11/23/2021 Dental Answer Date Recorded Dental: Regular Dentist Yes 11/25/19 Employment Answer Date Recorded Employment status Employed and actively working without restrictions 11/23/2021 Education Answer Date Recorded What is the highest level of school you have completed or the highest degree you have received? Bachelor's degree (e.g., BA, AB, BS) 11/23/2021 Sex and Gender Information Value Date Recorded Sex Assigned at Female 11/21/2021 11:33 PM CDT Gender Identity Female 11/21/2021 11:33 PM CDT Sexual Orientation Straight 11/21/2021 11 :33 PM CDT Last Filed Vital Signs Vital Sign Reading Time Taken Comments Blood Pressure 136/96 02/01/2022 7:23 AM CDT Pulse 94 02/01/2022 7:23 AM CDT Temperature 36 ??C (96.8 ??F) 02/01/2022 7:21 AM CDT Respiratory Rate 18 01/24/2022 10:18 PM CDT Oxygen Saturation 97% 01/25/2022 1:00 AM CDT Inhaled Oxygen Concentration - - Weight 56.3 kg (124 lb 1.9 oz) 02/01/2022 7:21 A M CDT Height 165.5 cm (5' 5.16) 11/25/2021 7:55 AM CD T Body Mass Index 20.56 11/25/2021 7:55 AM CDT Plan of Treatment Health Maintenance Due Date Last Done Comments HIV Screening 1987 Hepatitis B Vaccines (1 of 3 - 3-dose series) 1987 Hepatitis C Screening 1987 Lipid (Cholesterol) Screening 1987 Depression Screening (Annual PHQ-2) 04/18/2022 COVID-19 Vaccine ( season) 2022 12/24/2020 Influenza Vaccine (#1) 2023 9, 01/17/2018, 01/28/2017, Additional history exists DTaP,Tdap,and Td Vaccines (4 - Td or Tdap) 02/02/2026 02/03/2016, 02/05/2014, 01/30/2013 HPV Vaccines Aged Out No longer eligi ble based on patient's age to complete this topic Pneumococcal vaccine (0-64 years) Aged Out No longer eligible based on patient's age to complete this topic Care Teams Cable Puller Relationship Specialty Start Date End Date None Reported, Pcp PCP - General Family Medicine 01/25/22
--- OUTSIDE RECORDS SUMMARY | 2023-04-26 15:21 | XMS_ITS ---
Author Name Unknown Organization [facility] Address [address] [place] [address] Care Team Providers Care Solar System Designer Name Role Phone Unavailable Unavailable Unavailable Surgery Details Not on file Complications Check Surgery Details section. Procedure Estimated Blood Loss Check Surgery Details section. Procedure Findings Check Surgery Details section. Procedure Specimens Taken Check Surgery Details section.
--- OUTSIDE RECORDS SUMMARY | 2023-04-26 15:21 | XMS_ITS | Referral Summary ---
Author Name Unknown Organization [facility] Address [address] [place] [address] Care Team Providers Care Client Onboarding Analyst Name Role Phone None Reported, Pcp Primary Care Provider Unavail able Source Comments Patient records contain information from all sites at [facility]. For routine questions regarding patient records, call [phone] during business hours, M-F 8:00 AM - 5:00 PM Central Time. Record requests for emergency care only can be directed to [phone] at any time.[facility] Allergies Active Allergy Reactions Criticality Noted Date [...] quad (FLUZONE/FLUARIX) (6 months and older)(PF) 01/17/2018,01/28/2017,01/20/2016,2014 Social History Tobacco Use Types Packs/Day Years [...] often do you attend chur ch or cheondoism services? More than 4 times per year [...] Answer Date Recorded PHQ-2 Score 1 11/25/2021 [facility] - Occupational [...] or slept in a chcf (including now)? No 11/23/2021 Nutrition Answer Date [...] 11/25/2021 7:55 AM CDT Plan of Treatment Not on file Care Teams Client Onboarding Analyst Relationship Specialty Start Date End Date None Reported, Pcp PCP - General Family Medicine 01/25/22
--- OUTSIDE RECORDS SUMMARY | 2023-04-26 15:21 | XMS_ITS | Encounter Summary ---
Author Name Unknown Organization [facility] Address [address] [place] [address] Care Team Providers Care Boxing Machine Operator Name Role Phone None Reported, Pcp Primary Care Provider Unavail able Encounter Details Date Type Department Care Team (Late st Contact Info) Description 08/19/2022 [facility] [address] [place] [address] Tali Gannon, C.N.P. [address] [place] [address] Paresthesia (Primary Dx); Fatigue Social History Tobacco Use Types Packs/Day Years Used Date Smoking Tobacco: Never Smokeless Tobacco: Never Comments:Smoked in high scho ol Alcohol Use Standard Drinks/Week Comments Yes 1 [...] Answer Date Recorded PHQ-2 Score 1 11/25/2021 [facility] Questionnaire Answer [...] place to sleep or slept in a jail (including now)? No 11/23/2021 Nutrition Answer Date [...] Orientation Straight 11/21/2021 11 :33 PM CDT documented as of this encounter Plan of Treatment Not on file documented as of this encounter Visit Diagnoses Diagnosis Paresthesia- Primary Fatigue documented in this encounter Care Teams Boxing Machine Operator Relationship Specialty Start Date End Date None Reported, Pcp PCP - General Family Medicine 01/25/22 documented as of this encounter
== END 2023-04-26 15:07 | disposition home or self-care (01) ==
LOC: NFLDREF 15:10
PROVIDERS: PCP Family Medicine; Visit Provider Family Medicine
DX: R20.0 Anesthesia of skin (principal); Z01.818 Encounter for other preprocedural examination
CPT/HCPCS: 82728

== ENCOUNTER 2023-05-02 09:12 | Outpatient (CLI) | payer OTHER, SELFPAY ==
--- OUTSIDE RECORDS SUMMARY | 2023-05-02 09:16 | XMS_ITS | Clinical Summary ---
Author Name Unknown Organization [facility] Address [address] [place] [address] Care Team Providers Care Driver Supervisor Name Role Phone None Reported, Pcp Primary Care Provider Unavail able Source Comments Patient records contain information from all sites at [facility]. For routine questions regarding patient records, call [phone] during business hours, M-F 8:00 AM - 5:00 PM Central Time. Record requests for emergency care only can be directed to [phone] at any time.[facility] Allergies Active Allergy Reactions Criticality Noted Date [...] often do you attend chur ch or jewish services? More than 4 times per year [...] Answer Date Recorded PHQ-2 Score 1 11/25/2021 [facility] - Occupational Stress [...] a [place] [facility] [place] facility (including now)? No 11/23/2021 Nutrition Answer Date [...] C Screening 1987 Lipid (Cholesterol) Screening 1987 COVID-19 Vaccine ( season) 2022 12/24/2020 Influenza Vaccine (#1) 2023 9, 01/17/2018, 01/28/2017, Additional history exists Depression Screening (Annual PHQ-2) 04/18/2023 DTaP,Tdap,and Td Vaccines (4 - Td or Tdap) 02/02/2026 02/03/2016, 02/05/2014, 01/30/2013 HPV Vaccines Aged Out No longer eligi ble based on patient's age to complete this topic Pneumococcal vaccine (0-64 years) Aged Out No longer eligible based on patient's age to complete this topic Care Teams Driver Supervisor Relationship Specialty Start Date End Date None Reported, Pcp PCP - General Family Medicine 01/25/22
--- OUTSIDE RECORDS SUMMARY | 2023-05-02 09:16 | XMS_ITS | Referral Summary ---
Author Name Unknown Organization [facility] Address [address] [place] [address] Care Team Providers Care Route Sales Representative Name Role Phone None Reported, Pcp Primary Care Provider Unavail able Source Comments Patient records contain information from all sites at [facility]. For routine questions regarding patient records, call [phone] during business hours, M-F 8:00 AM - 5:00 PM Central Time. Record requests for emergency care only can be directed to [phone] at any time.[facility] Allergies Active Allergy Reactions Criticality Noted [...] often do you attend chur ch or oriental orthodox services? More than 4 times per year [...] Answer Date Recorded PHQ-2 Score 1 11/25/2021 [facility] - Occupational [...] to sleep or slept in a senior care (including now)? No 11/23/2021 Nutrition Answer Date [...] of Treatment Not on file Care Teams Route Sales Representative Relationship Specialty Start Date End Date None Reported, Pcp PCP - General Family Medicine 01/25/22
--- OUTSIDE RECORDS SUMMARY | 2023-05-02 09:16 | XMS_ITS | Encounter Summary ---
Author Name Unknown Organization [facility] Address [address] [place] [address] Care Team Providers Care Ironer Or Presser Name Role Phone None Reported, Pcp Primary Care Provider Unavail able Encounter Details Date Type Department Care Team (Late st Contact Info) Description 08/19/2022 [facility] [address] [place] [address] Tali Gannon, C.N.P. [address] [place] [address] Paresthesia (Primary Dx); Fatigue Social History Tobacco [...] often do you attend chur ch or adventist services? More than 4 times per year [...] Answer Date Recorded PHQ-2 Score 1 11/25/2021 [facility] Occupational Stress Questionnaire [...] Fatigue documented in this encounter Care Teams Ironer Or Presser Relationship Specialty Start Date End Date None Reported, Pcp PCP - General Family Medicine 01/25/22 documented as of this encounter
--- OUTSIDE RECORDS SUMMARY | 2023-05-02 09:16 | XMS_ITS ---
Author Name Unknown Organization [facility] Address [address] [place] [address] Care Team Providers Care Hand Ornament Maker Name Role Phone Unavailable Unavailable Unavailable Surgery Details Not on file Complications Check Surgery Details section. Procedure Estimated Blood Loss Check Surgery Details section. Procedure Findings Check Surgery Details section. Procedure Specimens Taken Check Surgery Details section.
--- OUTSIDE RECORDS SUMMARY | 2023-05-02 09:16 | XMS_ITS | Clinical Summary ---
Author Name Unknown Organization [facility] Address [place], [place] [address] Care Team Providers Care Supervisor Aircraft Maintenance Name Role Phone Jet Garcia MD Unavailable [phone] Tono Mccoy MD Primary Care Provider [phone] Allergies Active Allergy Reactions Criticality Noted Date [...] [facility] [place] [address] [facility] [address] [place] [address] Tono Lanier PA 04/19/2023 Orders Only [facility] [address] [place] [address] Tono Lanier PA <No scans attached> from [...] Care Team (Late st Contact Info) Description 05/05/2023 7:00 AM BRAND RECORDER Appointment [facility] [address] [facility] [place] [address] Grace Calderón, PT [address] [place] [address] Health Maintenance Due Date Last Done Comments Tdap 1998 HIV for age 15-65 2002 BMI (ht and wt on same day) for age 18+ 2005 Hepatitis C screening for age 18-79 2005 Tetanus booster 2007 Depression screening for age 12+ 08/29/2020 08/30/2019 Pap test for age 21-65 12/14/2021 9, 12/14/2018, 06/05/2015, Additional history exists COVID-19 vaccine series (2022- season) 2022 12/24/2020 Influenza for age 9-49 12/17/2022 Pneumococcal series for age 6-64 Aged Out No longer eligible based on patient's age to complete this topic Advance Directives Latest Code Status on File Code Status Date Activated Date Inactivated Comments Full Code 07/08/2022 12:24 PM 07/08/2022 5:48 PM Question Answer Comments Code Status Discussion: Per Existing Order Care Teams Supervisor Aircraft Maintenance Relationship Specialty Start Date End Date Tono Mccoy MD [address] [place] [phone] PCP - General Family Practice 06/29/22 Jet Garcia MD Family Practice 12/16/15
--- NOTE | 2023-05-02 10:37 | W.ANESCHARGE ---
Anesthesia Charges Start Date/Time Anesthesia Start Date: 05/02/23 Anesthesia Start Time: 10:13 Stop Date/Time Anesthesia Stop Date: 05/02/23 Anesthesia Stop Time: 10:33
--- NOTE | 2023-05-02 11:01 | W.ANESCHARGE ---
Anesthesia Charges Start Date/Time Anesthesia Start Date: 05/02/23 Anesthesia Start Time: 10:13 Stop Date/Time Anesthesia Stop Date: 05/02/23 Anesthesia Stop Time: 10:33
== END 2023-05-02 09:13 | disposition home or self-care (01) ==
LOC: OP CLINIC 09:13
PROVIDERS: PCP Family Medicine; Visit Provider Internal Medicine Gastroenterology
DX: R10.11 Right upper quadrant pain (principal); K31.89 Other diseases of stomach and duodenum; R19.7 Diarrhea, unspecified; R19.8 Other specified symptoms and signs involving the digestive system and abdomen; R10.13 Epigastric pain
CPT/HCPCS: 00731; 43239; 88305; 88342; J2704; J3490

== ENCOUNTER 2023-09-28 03:53 | Emergency (ER) | payer OTHER, SELFPAY ==
[2023-09-28 04:03] VITALS: BP 140/91; PULSE 96; RESP 16; TEMP 36.6; O2SAT 97; BMI 27.4
--- NOTE | 2023-09-28 04:23 | PC.NURSE ---
Pt states she has had a lot of weird health things since having Covid in 2019, just diagnosed with Fibromyalgia. Has appt at [place] this month. Pt. c/o body aches and pains, extreme fatigue.
--- NOTE | 2023-09-28 04:25 | ED_ITS ---
HPI - General Adult General Chief complaint: Chest Pain Stated complaint: chest pain Time Seen by Provider: 09/28/23 04:09 Source: patient Mode of arrival: ambulatory History of Present Illness HPI narrative: 38-year-old female presents the emergency department for evaluation of chest pain that started around 7:00 p.m. which is about 8 hours prior to arrival. Achy initially epigastric radiating up into the right chest area. No prior h istory of cardiac disease. It is accompanied by a little bit of dizziness and headache but she has had a migraine for the past 3 days. She denies any vomiting but is feeling a little nauseated. She is status post cholecystectomy. Appetite has been decreased. No diarrhea, no fever, no injury or trauma. She has no personal history of DVT or PE. No personal history of arrhythmia or coronary artery disease. She does have a recent diagnosis of fibromyalgia. She tried taking some Toradol 16 hours ago which did mildly help her headache. No prior history of similar symptoms. Does have a family history of coronary artery disease in AFib but not premature ages. Past medical history notable for fibromyalgia per her report. Surgical history notable for prior hysterectomy for prolonged bleeding and also cholecystectomy as described above. Allergies reviewed, ROS notable for headache, GI symptoms and chest pain as described above, otherwise denies times 12 systems. Related Data Home Medications ?Medication ?Instructions ?Recorded ?Confirmed meloxicam 15 mg tablet 15 mg PO DAILY 04/26/23 04/26/23 peg 3350 240 gram-electrolytes 4,000 ml PO DIRECTED 04/26/23 04/26/23 22.72 gram-6.72 g-5.84 g powdr for soln (Gavilyte-C) tizanidine 4 mg tablet 4 mg PO QHS 04/26/23 04/26/23 Previous Rx's ?Medication ?Instructions ?Recorded dextroamphetamine-amphetamine 10 10 mg PO BID PRN concentration #60 04/26/23 mg tablet tabs Allergies Allergy/AdvReac Type Severity Reaction Status Date / Time oxycodone Allergy Intermediate Blurry Verified 04/26/23 14:25 Vision penicillin V Allergy Mild Hives Verified 04/26/23 14:25 banana Allergy Unknown Verified 04/26/23 14:25 cat dander Allergy Unknown Verified 04/26/23 14:25 latex Allergy Unknown Verified 04/26/23 14:25 meperidine Allergy Unknown Unknown Verified 04/26/23 14:25 Penicillins Allergy Unknown Verified 04/26/23 14:25 [facility] Medical History Back pain ?M54.9 - Dorsalgia, unspecified (ICD-10) Recurrent headache ?R51.9 - Headache, unspecified (ICD-10) care following vaginal delivery ?Z39.2 - Encounter for routine follow-up (ICD-10) Left flank pain ?R10.9 - Unspecified abdominal pain (ICD-10) Hemorrhoids ?K64.9 - Unspecified hemorrhoids (ICD-10) Encounter for surveillance of contraceptives ?Z30.40 - Encounter for surveillance of contraceptives, unspecified (ICD-10) Encounter for care of lactating mother ?Z39.1 - Encounter for care and examination of lactating mother (ICD-10) Dizziness ?R42 - Dizziness and giddiness (ICD-10) Dehydration ?E86.0 - Dehydration (ICD-10) Constipation ?K59.00 - Constipation, unspecified (ICD-10) Chronic diarrhea ?K52.9 - Noninfective gastroenteritis and colitis, unspecified (ICD-10) Chronic constipation ?K59.09 - Other constipation (ICD-10) Cervical radiculopathy ?M54.12 - Radiculopathy, cervical region (ICD-10) Surgical History History of cholecystectomy (04/07/10) ?Z90.49 - Acquired absence of other specified parts of digestive tract (ICD- 10) S/P hemorrhoidectomy ?Z98.890 - Other specified postprocedural states (ICD-10) ?Z87.19 - Personal history of other diseases of the digestive system (ICD-10) S/P anal fissurectomy ?Z98.890 - Other specified postprocedural states (ICD-10) ?Z87.19 - Personal history of other diseases of the digestive system (ICD-10) S/P hysterectomy ?Z90.710 - Acquired absence of both cervix and uterus (ICD-10) Family History Mother Depression Maternal Grandfather Depression Brother Depression Social History Narrative: . 4 children. Not working. No alcohol. Non-smoker. No illicit drugs. Smoking Status: Never smoker Do you use any of these nicotine containing products: None Second hand tobacco smoke exposure: No How often do you have a drink containing alcohol: 2-3 times a week How many standard drinks containing alcohol do you have on a typical day: 1 or 2 How often do you have six or more drinks on one occasion: Never AUDIT-C Alcohol total score: 3 Non-prescribed substance use: marijuana (any form) Little interest or pleasure in doing things: several days Feeling down, depressed, or hopeless: not at all service: No Exam Const: Vital Signs, click to edit/add: Vital Signs - 24 hr 09/28/23 04:03 Temperature 97.8 F Pulse Rate [Pulse Oximeter] 96 Respiratory Rate 16 Blood Pressure [Le ft Upper Arm] 140/91 H Pulse Oximetry 97 Oxygen Delivery Me thod Room Air Documenting provider has reviewed patient's vital signs: yes Common normals: no apparent distress and alert General appearance: well kempt HENMT: Common normals: normocephalic Head and scalp: normocephalic Face and sinus: normal facial exam Mouth: oral and palatal mucosa normal Throat: posterior oropharynx normal Eye: Common normals: conjunctivae normal General eye: normal appearance of both eyes Conjunctiva: conjunctiva(e) normal Neck & C-Spine: Common normals: no lymphadenopathy General: normal visual inspection Resp: Common normals: normal respiratory effort, no use of accessory muscles and clear to auscultation bilaterally Effort & inspection: able to speak in complete sentences Auscultation: clear to auscultation bilaterally Cardio: Common normals: regular rate, regular rhythm, S1 normal heart sound, S2 normal heart sound and no murmurs Rate: regular rate Rhythm: regular rhythm Heart sounds: S1 normal and S2 normal GI: Common normals: Normal to inspection, nondistended, normoactive bowel sounds present, soft to palpation, non-tender, no hepatosplenomegaly and no masses Palpation: soft and no hepatosplenomegaly Extremity: Common normals: normal to inspection and normal capillary refill Neuro: Sensorium/orientation: alert Speech: speech normal Motor exam: no movement abnormalities noted Psych: Common normals: speech normal Appearance: well kempt Attitude: engaged Speech: normal speech Mood and affect: euthymic mood Insight: insight good Judgement: judgment good Skin: Common normals: no rashes or lesions noted General skin exam: no ra shes or lesions noted Course Course ED Course: 8 hours of nonexertional chest pain, no cardiac risk factors, stable vitals. Low suspicion for coronary artery disease. Recommend EKG, basic labs including D-dimer, troponin. I do not see any indication for chest x-ray unless labs come back abnormal. Suspect she probably has some sort of viral illness as she is also having headache, nausea and generalized symptoms. Would recommend while we wait for labs to come back, 1 L of normal saline, Toradol, Zofran, omeprazole. Counseled patient that I would just like to be sure that there was not something more serious going on even if I cannot make her pain completely go away. She was in agreement with this and just wants reassurance that there is nothing serious going on. Await findings. Reevaluation(s) Time of Reevaluation #1: 05:22 Reevaluation #1: Patient not really feeling much better after fluids, Toradol and Zofran and omeprazole. But certainly no worse. Cardiac monitors do not show any signs of arrhythmia. All labs are back and look completely normal. I do not think there are any major threats to her help tonight. Counseled patient that this could be a musculoskeletal etiology, esophageal spasm, reflux or a viral illness. All of which are seeming to pose no immediate threat to her health. I recommended she continue with Tylenol, rest in follow-up with her primary care provider if symptoms fail to improve within the next few days. She verbalizes understanding and agreement will be discharged home with conservative management. Vital Signs Vital signs: Initial Vital Signs Temperature 97.8 F 09/28/23 04:03 Temperature Source Temporal Artery Scan 09/28/23 04:03 Pulse Rate 96 09/28/23 04:03 Pulse Rhythm Regular 09/28/23 04:03 Respiratory Rate 16 09/28/23 04:03 Blood Pressure 140/91 H 09/28/23 04:03 Blood Pressure Mean 107 H 09/28/23 04:03 Blood Pressure Position Supine 09/28/23 04:03 Pulse Oximetry 97 09/28/23 04:03 Oxygen Delivery Method Room Air 09/28/23 04:03 Vital Signs Temperature 97.8 F 09/28/23 04:03 Pulse Rate 96 09/28/23 04:03 Respiratory Rate 16 09/28/23 04:03 Blood Pressure 140/91 H 09/28/23 04:03 Pulse Oximetry 97 09/28/23 04:03 Oxygen Delivery Method Room Air 09/28/23 04:03 Temperature 97.8 F 09/28/23 04:03 Pulse Rate 96 09/28/23 04:03 Respiratory Rate 16 09/28/23 04:03 Blood Pressure 140/91 H 09/28/23 04:03 Pulse Oximetry 97 09/28/23 04:03 Oxygen Delivery Method Room Air 09/28/23 04:03 Medications Administered Medications: Generic Name Dose Route Start Last Admin Trade Name Freq PRN Reason Stop Dose Admin Sodium Chloride 1,000 mls @ 1,000 mls/hr 09/28/23 04:23 09/28/23 04:40 0.9 % Sodium Chloride 1000 Ml IV 09/28/23 05:22 1,000 mls/hr .Q1H LINDEN Administration Ketorolac Tromethamine 15 mg 09/28/23 04:22 09/28/23 04:45 Ketorolac 15 Mg/Ml Inj IVP 09/28/23 04:23 15 mg ONCE ONE Administration Omeprazole 20 mg 09/28/23 04:22 09/28/23 04:42 Omeprazole [address] PO 09/28/23 04:23 20 mg ONCE ONE Administration Ondansetron HCl 4 mg 09/28/23 04:22 09/28/23 04:41 Ondansetron 2 Mg/Ml Inj IVP 09/28/23 04:23 4 mg ONCE ONE Administration Medical Decision Making Lab Data Lab results reviewed: Yes I reviewed the patient's lab results Lab results narrative: All labs reassuring. Labs: Lab Results 09/28/23 09/28/23 Range/Units 04:10 04:22 WBC 7.20 (4.50-11.00) K/uL RBC 4.05 (4.00-5.20) m/uL Hgb 13.0 (12.0-16.0) gm/dL Hct 38.0 (33.0-51.0) % MCV 94 (80-100) fL MCH 32 (26-34) pg MCHC 34 (32-36) gm/dL RDW Coeff of Guillermina 12.4 (11.5-15.5) % Plt Count 216 (140-440) K/uL Neut % (Auto) 73.2 H (42.0-72.0) % Lymph % (Auto) 16.8 L (20-44) % [place] % (Auto) 9.9 (0.0-11.0) % Eos % (Auto) 0.0 (0.0-7.0) % Baso % (Auto) 0.1 (0.0-3.0) % Neut # (Auto) 5.30 (1.7-7.0) K/uL Lymph # (Auto) 1.20 (0.90-2.90) K/uL [place] # (Auto) 0.70 (0.00-0.90) K/UL Eos # (Auto) 0.00 (0.00-0.50) K/uL Baso # (Auto) 0.01 (0.00-0.30) K/uL Abs Immat Gran (auto) 0.00 (0.00-0.30) K/uL Imm/Tot Granulo (auto) 0.0 % D-Dimer Quant (PE/DVT) 0.12 (0.00-0.50) ug/ml Sodium 138 (135-149) mmol/L Potassium 3.6 (3.6-5.1) mmol/L Chloride 108 (96-114) mmol/L Carbon Dioxide 24 (20-32) mmol/L Anion Gap 6 L (7-15) mEq/L BUN 14 (5-24) mg/dL Creatinine 0.8 (0.5-1.5) mg/dL Estimated Creat Clear 76.89 Estimated GFR 98 ml/min Glucose 108 (60-115) mg/dL Calcium 9.2 (8.4-10.6) mg/dL Troponin I < 0.01 L (0.01-0.04) ng/mL C-Reactive Protein < 0.5 L (0.5-1.0) mg/dL POC Troponin I 0.01 (0.01-0.04) ng/ml ECG Data Attestation: I personally reviewed and interpreted this ECG as follows: Prior ECG tracings: not available for review Interpretation: Normal sinus rhythm, rate 74. Normal axis and intervals. No significant ST or T-wave abnormalities. Normal EKG. Discharge Plan Discharge Clinical Impression: Chest pain, non-cardiac Patient Disposition: Home, Self-Care Condition: Stable Instructions: Noncardiac Chest Pain (ED) Additional Instructions: As we discussed, your labs and EKG look excellent. There are no signs of abnormal heart rhythm, heart attack, inflammatory condition, electrolyte abnormality, infection, kidney dysfunction or other significant abnormality. The pain could be caused by some acid reflux, musculoskeletal problem, fibromyalgia, or a viral infection. I am thankful that there are no signs of any dangerous to your health tonight. I had hoped that the medications would make you feel better but this is not a sign that anything went wrong. Continue taking Tylenol 1000 mg every 6 hours, drink lots of fluids and continue to eat a balanced diet. If you have any severe worsening of symptoms, especially if you have exertional type chest pain or severe shortness of breath, you should be re- evaluated. Activity Level: No Restrictions Discharge Diet: Regular Prescriptions: No Action meloxicam 15 mg tablet 15 mg PO DAILY GaviLyte-C 240-22.72-6.72 -5.84 gram recon soln 4,000 ml PO DIRECTED tizanidine 4 mg tablet 4 mg PO QHS dextroamphetamine-amphetamine 10 mg tablet 10 mg PO BID PRN (Reason: concentration) Qty: 60 0RF Follow Up/Referrals: Tono Mccoy MD [Primary Care Provider] - Stand Alone Forms: [employer] Info Instructions
--- OUTSIDE RECORDS SUMMARY | 2023-09-28 04:27 | XMS_ITS | Clinical Summary ---
Author Organization [facility] Address [address] [place] [id number] Care Team Providers Care Roll Operator Name Role Phone None Reported, Pcp Primary Care Provider Unavail able Source Comments Patient records contain information from all sites at [facility]. For routine questions regarding patient records, call [phone] during business hours, M-F 8:00 AM - 5:00 PM Central Time. Record requests for emergency care only can be directed to [phone] at any time.[facility] Allergies Active Allergy Reactions Criticality Noted Date Comments Banana Hives (Reselect Reaction) Medium 01/11/2022 Cat Dander Hives (Reselect Reaction) Medium 01/11/2022 Latex Rash Low 03/09/2006 Meperidine Other (see comments) Low 12/17/2015 Family history Oxycodone-Acetaminophen Itching Low 12/17/2015 Penicillins Hives (Reselect Reaction) Low 03/24/2014 Medications Medication Sig Dispensed Refills Start Date End Date Status meloxicam (MOBIC) 15 mg tablet Take 15 mg by mouth as needed for pain (back). 08/20/2023 Active tiZANidine (ZANAFLEX) 4 mg tablet Take 4 mg by mouth at bedtime as needed for muscle spasms. 04/19/2023 Active ascorbic acid/collagen hydr (COLLAGEN SKIN RENEWAL ORAL) Take 2 Scoops by mouth daily. Active ferrous sulfate (IRON ORAL) Take 27 mg by mouth daily. Active methylPREDNISolone (MEDROL DOSEPAK) 4 mg tablet Take 4 mg by mouth See Admin Instructions. follow package directions 08/22/2023 Active diclofenac sodium (VOLTAREN) 75 mg EC tablet Take 75 mg by mouth 2 (two) times a day. with food or milk 08/22/2023 Active cyclobenzaprine (FLEXERIL) 5 mg tablet Take by mouth 3 (three) times a day as needed for muscle spasms. Active Active Problems Problem Noted Date Diagnosed Date Pain Breast 09/02/2023 Last Assessment & Plan: Unilateral breast pain is a bit unusual for fibromyalgia. I recommend being seen in the breast Clinic for a full evaluation. Due to time, I was unable to perform a breast exam today. Fibromyalgia 09/02/2023 Last Assessment & Plan: I believe she will meet criteria for fibromyalgia. There is a family history of fibromyalgia, trauma history, and she had a viral illness that made most of her symptoms worse and caused new symptoms. She would benefit from the non medication treatment as well as potentially some medications. She is set up to see the fibromyalgia/chronic fatigue Clinic. Dizziness 09/01/2023 Fatigue 09/01/2023 Hemorrhoids 09/01/2023 Leukopenia 09/01/2023 Paresthesia 09/01/2023 Radiculopathy Cervical 09/01/2023 Radiculopathy Lumbar 09/01/2023 Sinusitis 09/01/2023 Anesthesia Of Skin 09/01/2023 Attention Deficit Hyperactive Disorder Bloating Abdominal 09/01/2023 Other Constipation 09/01/2023 Nephrolithiasis 09/01/2023 Lumbar Disc Disorder 06/16/2022 Abdominal Pain 01/24/2022 Anxiety 01/24/2022 Overactive Bladder 01/24/2022 Last Assessment & Plan: During her paresthesia flares, she feels she has more urinary urgency and frequency however she is also drinking a lot less fluids on those days which can also cause these symptoms. I would recommend more water on these days. Given her history of nephrolithiasis, she should be drinking more water in general. We discussed good bladder and drinking habits. Sickness Motion Initial 01/24/2022 Resolved Problems Problem Noted Date Diagnosed Date Resolved Date Headache Unspecified 09/01/2023 024 Noninfective Gastroenteritis And Colitis Unspecified 09/01/2023 09/01/2023 Other Specified Disorders Of Bone Unspecified Site 09/01/2023 09/01/2023 Migraine Headache 01/24/2022 09/01/2023 Encounters Date Type Department Care Team Description 09/05/2023 Clinical Communication Breast Diagnostic Clinic in [place], [place] [address] [place] [phone] Deana Javed, TANK CAR CLEANER, VENEER JOINTER OFFBEARER Pre-visit Testing Orders 09/01/2023 4:30 PM CDT Diagnostic Division of Pulmonary Medicine in [place], [place] [address] [place] [phone] Keith Robles M.D. Fibromyalgia 09/01/2023 9:53 AM CDT - 09/01/2023 11:59 PM CDT Hospital Encounter Department of Laboratory Medicine and Pathology, [facility] in [address] [phone] Suri Bedolla P.A.-C. Fatigue; Fibromyalgia Discharge Disposition: Home or Self Care 09/01/2023 8:00 AM CDT Comprehensive Visit Division of General Internal Medicine in [place], [place] [address] [place] [phone] Keith Robles M.D. Fibromyalgia (Primary Dx); Paresthesia; Pain Breast; Overactive Bladder; Nephrolithiasis 08/25/2023 8:00 AM CDT Clinical Communication Virtual Review in [address] [phone] Pre-visit Intake 07/29/2023 Clinical Communication Division of General Internal Medicine in [address] [phone] Prescheduling, Provider Triage from Last 3 Months Immunizations Name Administration Dates Next Due HepB, Unspecified 09/01/2023(Deferred: Patient decision - Pt. will receive later locally.) Influenza (IM) Preservative Free 02/05/2014,01/16,12/28/2011 Influenza, Injectable, Mdck, Preservative Free, Quadrivalent 09/01/2023(Deferred: Patient Refused - pt. will receive next season.) Influenza, Injectable, Quadrivalent 04/07/2019 Influenza, Seasonal, Injectable 01/29/2010 SARS-COV-2 (COVID-19) - PFIZ ER [id number] (12 YEARS OR OLDER) 09/01/2023(Deferred: Patient Refused - Pt. will receive later locally.) Tdap 02/03/2016,02/05/2014,01/30/2013 influenza vaccine quad (FLUZONE/FLUARIX) (6 months and older)(PF) 01/17/2018,01/28/2017,01/20/2016,2014 Family History Medical History Relation Name Comments No Known Problems Daughter 1 Conchita No Known Problems Daughter 2 Sandi Anxiety depression Half-Brother x2 maternal half Fibromyalgia Half-Brother x2 maternal half No Known Problems Half-Sister x3 Alcohol abuse Mother Alanna Elvira Anxiety disorder Mother Alanna Elvira Asthma Mother Alanna Elvira Colon polyps Mother Alanna Elvira Depression Mother Alanna Elvira Fibromyalgia Mother Alanna Elvira ADD / ADHD Son 1 [place] Anxiety disorder Son 1 Lavelle Asthma Son 1 [place] Asthma - currently dormant Son 2 [place] Relation Name Status Comments Daughter 1 Conchita Alive Daughter 2 Sandi Alive Father Alive Half-Brother x2 Alive Half-Sister x3 Alive Maternal Grandfather Eloina Barron Mother Alanna Rodriguezjoyce Alive Son 1 [place] Alive Son 2 Santhosh Alive Social History Tobacco Use Types Packs/Day Years Used Date Smoking Tobacco: Never Passive Smoke Exposure: Past Smokeless Tobacco: Never Comments:Smoked in high scho ol Alcohol Use Standard Drinks/Week Comments Yes 1 (1 standard drink = 0.6 oz pure alcohol) Rarely consume alcohol, may have 1 or 2 drink occasionally [facility] Vistronixities Answer Date Recorded In the past [address] [facility] Qlika, oil, or water [facility] threatened to shut off services in your home? No 08/25/2023 Humiliation, Afraid, Rape, and Kick questionnair e [...] often do you attend chur ch or jainism services? More than 4 times per year [...] 11/23/2021 PHQ-2 Answer Date Recorded PHQ-2 Score 0 08/31/2023 [facility] - [...] exercise (like a brisk walk)? 2 days 08/25/2023 On average, how many minutes do you engage in exercise at this level? 20 min 08/25/2023 Hunger Vital Sign Answer Date Recorded Within the past 12 months, y ou worried that your food would run out before you got the money to buy more. Never true 08/25/19 24 Within the past 12 months, t he food you bought just didn't last and you didn't have money to get more. Never true 08/25/2023 PRAPARE - Transportation Answer Date Re corded In the past 12 months, has l ack of transportation kept you from medical appointments or from getting medications? No 12/2023 In the past 12 months, has l ack of transportation kept you from meetings, work, or from getting things needed for daily living? No 08/25/2023 Nutrition Answer Date Recorded On average, how many serving s of fruits and vegetables do you eat per day (serving size is equal to 1 cup or approximately the size of a tennis ball)? 3-5 08/25/2023 Dental Answer Date Recorded Dental: Regular Dentist Yes 11/25/19 Employment Answer Date Recorded Employment status Employed and actively working without restrictions 08/25/2023 Housing Stability Answer Date Recorded What is your living situation today? I have a [facility] place to live 08/25/2023 Education Answer Date Recorded What is the [...] Sign Reading Time Taken Comments Blood Pressure 136/78 09/01/2023 7:42 AM CDT Pulse 78 09/01/2023 7:42 AM CDT Temperature 36 ??C (96.8 ??F) 02/01/2022 7:21 AM CDT Respiratory Rate 18 01/24/2022 10:18 PM CDT Oxygen Saturation 97% 01/25/2022 1:00 AM CDT Inhaled Oxygen Concentration - - Weight 69.9 kg (154 lb 1.6 oz) 09/01/2023 7:42 A M CDT Height 163 cm (5' 4.17) 09/01/2023 7:42 AM CDT Body Mass Index 26.31 09/01/2023 7:42 AM CDT Plan of Treatment Upcoming Encounters Date Type Department Care Team (Latest Contact Info) Description 10/04/2023 2:30 PM CDT Clinical Communication Virtual Review in [place], [place] 200 [place] [phone] 10/06/2023 9:45 AM CDT Comprehensive Visit Breast Diagnostic Clinic in [place], [place] [address] [place] [phone] Deana Javed APRN, VENEER JOINTER OFFBEARER [address] [place] [phone] 10/06/2023 11:50 AM CDT Appointment Department of Radiology in [place], [place] [address] [place] [phone] Deana Javed APRN, VENEER JOINTER OFFBEARER [address] [place] [phone] Discharge Disposition: Home or Self Care 10/07/2023 7:30 AM CDT Nurse Only [facility] in [address] [phone] Keith Robles M.D. [address] [place] [phone] 10/07/2023 8:30 AM CDT Comprehensive Visit [facility] in [address] [phone] Segundo Fox M.B.B.S., Konrad [address] [place] [phone] 10/07/2023 10:00 AM CDT Education [facility] in [address] [phone] Keith Robles M.D. [address] [place] [address], [place] [phone] 10/07/2023 2:00 PM CDT Office Visit Division of General Internal Medicine in [place], [place] [address] [place] [address] Keith Robles M.D. [address] [place] [phone] Health Maintenance Due Date Last Done Comments HIV Screening 1987 Hepatitis C Screening 1987 Lipid (Cholesterol) Screening 1987 Hepatitis B Vaccines (1 of 3 - 19+ 3-dose series) 2006 COVID-19 Vaccine ( - season) 2022 12/24/2020 Influenza Vaccine (#1) 2023 9, 01/17/2018, 01/28/2017, Additional history exists DTaP,Tdap,and Td Vaccines (4 - Td or Tdap) 02/02/2026 02/03/2016, 02/05/2014, 01/30/2013 Cervical Cancer Screening Discontinued 12/14/2018 Depression Screening (Annual PHQ-2) Completed 09/01/2023, 08/31/2023 HPV Vaccines Aged Out No longer eligi ble based on patient's age to complete this topic Pneumococcal vaccine (0-64 years) Aged Out No longer eligible based on patient's age to complete this topic Procedures Procedure Name Priority Date/Time Associated Diagnosis Comments TISSUE TRANSGLUTAMINASE (TTG ) AB, IGA, S Routine 09/01/2023 10:06 AM CDT QUANTITATIVE M-PROTEIN STUDY , S Routine 09/01/2023 10:06 AM CDT Fibromyalgia 25-HYDROXYVITAMIN D2 AND D3, S Routine 09/01/2023 10:06 AM CDT Fibromyalgia CELIAC DISEASE SEROLOGY CASCADE, S Routine 09/01/2023 10:06 AM CDT Fibromyalgia CORTISOL, S Routine 09/01/2023 10:06 AM CDT Fibromyalgia RHEUMATOID FACTOR, S/P Routine 10:06 AM CDT Fibromyalgia CREATINE KINASE (CK), S Routine 09/01/19 24 10:06 AM CDT Fibromyalgia THYROID FUNCTION CASCADE, S Routine 08/16 10:06 AM CDT Fibromyalgia C-REACTIVE PROTEIN (CRP), S/P Routine 10:06 AM CDT Fibromyalgia SEDIMENTATION RATE, B Routine 09/01/2023 10:06 AM CDT Fibromyalgia DEHYDROEPIANDROSTERONE SULFATE (DHEA-S) LEVEL, S Routine 09/01/2023 10:06 AM CDT Fibromyalgia FERRITIN, S Routine 09/01/2023 10:06 AM CDT Fibromyalgia CONNECTIVE TISSUE DISEASE CASCADE, TEE, S Routine 09/01/2023 10:06 AM CDT Fibromyalgia COMPREHENSIVE METABOLIC PANEL, S/P Routine 09/01/2023 10:06 AM CDT Fibromyalgia CBC WITH DIFFERENTIAL, B Routine 024 10:06 AM CDT Fibromyalgia FOLATE, S Routine 09/01/2023 10:06 AM CDT Fatigue VITAMIN B12 ASSAY, S Routine 09/01/2023 10:06 AM CDT Fatigue PUL HOME OVERNIGHT OXIMETRY Routine 09/01/2023 Fibromyalgia from Last 3 Months Results * Quantitative M-protein Study (09/01/2023 10:06 AM CDT) Immunoglobulin A (IgA), S 133 61 - 356 mg/dL 09/01/2023 3:11 PM CDT [facility] Immunoglobulin M (IgM), S 82 37 - 286 mg/dL 09/01/2023 3:12 PM CDT [facility] Immunoglobulin G (IgG), S 989 767 - 1590 mg/dL 09/01/2023 3:10 PM CDT [facility] Therapeutic Antibody Administered? Unspecified 09/01/2023 1:54 PM CDT [facility] Flag, M-protein Isotype Negative Negative 09/02/2023 12:27 PM CDT [facility] QMPTS Interpretation No monoclonal protein detected. 09/02/2023 12:27 PM CDT [facility] Comment: ----ADDITIONAL INFORMATION---- The submitted sample was assayed by five separate immunopurifications for IgG, IgA, IgM, kappa and lambda. ??The result reflects the findings of either no monoclonal protein detected or those monoclonal immunoglobulins that were detected. This test was developed and its performance characteristics determined by [facility] in a manner consistent with CLIA requirements. This test has not been cleared or approved by the U.S. Food and Drug Administration. Blood (Blood, Venous) 09/01/2023 10:06 AM CDT 09/01/2023 2:09 PM CDT Narrative [facility] - 09/02/2023 12:27 PM CDT Specimen Information: Specimen ID: [id number] Specimen Type: Blood Specimen Collection Start Date: 09/01/2023 10:06 AM Specimen Received Date: 09/01/2023 ??2:09 PM Specimen ID: [id number] Specimen Type: Blood Specimen Collection Start Date: 09/01/2023 10:06 AM Specimen Received Date: 09/01/2023 ??1:54 PM Keith Robles M.D. LAB BLOOD ADD- ON [facility] [address] [place] [address] [facility] [address] [place] [address] [facility] [address] [place] [address] [place] [address] * Thyroid Function [place] (09/01/2023 10:06 AM CDT) TSH, Sensitive 1.1 0.3 - 4.2 mIU/L 09/01/2023 11:07 AM CDT DT Blood (Blood, Venous) 09/01/2023 10:06 AM CDT 09/01/2023 10:41 AM CDT Keith Robles M.D. LAB BLOOD ADD- ON Performing Organization Address City/[facility]/ZIP Co de Phone Number [facility] [address] [place] [address], [facility] [address] [place] [address] * Celiac Disease Serology [place] (09/01/2023 10:06 AM CDT) Pathologist [facility] Immunoglobulin A (IgA), S 133 61 - 356 mg/dL 09/01/2023 3:11 PM CDT [facility] Celiac Disease Interpretation See Comment: Negative serology. Celiac disease unlikely. However, approximately 10% of patients with celiac disease are seronegative. Also, patients who are already adhering to a gluten-free diet may be seronegative. If celiac disease is highly clinically suspected, consider HLA-DQ typing. 09/01/2023 10:22 PM CDT [facility] Blood (Blood, Venous) 09/01/2023 10:06 AM CDT 09/01/2023 2:09 PM CDT Narrative [facility] - 09/01/2023 10:22 PM CDT Specimen Information: Specimen ID: [id number] Specimen Type: Blood Specimen Collection Start Date: 09/01/2023 10:06 AM Specimen Received Date: 09/01/2023 ??2:09 PM Specimen ID: [id number] Specimen Type: Blood Specimen Collection Start Date: 09/01/2023 10:06 AM Specimen Received Date: 09/01/2023 ??2:00 PM Keith Robles M.D. LAB BLOOD ADD- ON [facility] [address] [place] [address] [facility] [address] [place] [address] [place] [phone] [place] [facility] [place] [address] * tTG (Tissue Transglutaminase), Antibody, IgA (09/01/2023 10:06 AM CDT) Tissue Transglutaminase Ab, IgA, S <1.2 <4.0 (Negative ) U/mL 09/01/2023 9:10 PM CDT [facility] Blood 09/01/2023 10:0 6 AM CDT 09/01/2023 3:14 PM CDT Keith Robles M.D. LAB BLOOD ADD- ON [facility] [address] [place] [address] [facility] [address] [place] [address] * Connective Tissue Diseases [place] (09/01/2023 10:06 AM CDT) Antinuclear Ab, S 0.4 <=1.0 (Negative ) U 09/01/2023 7:27 PM CDT [facility] Comment: ----ADDITIONAL INFORMATION---- Method: Enzyme-linked immunoassay using HEp-2 nuclear extract supplemented with purified antigens. Cyclic Citrullinated Peptide Ab, S <15.6 <20.0 (Negative ) U 09/01/2023 6:47 PM CDT [facility] Interpretation SEE COMMENT 7:27 PM CDT [facility] Comment: Tests for antibodies to dsDNA and YONI antigens are not performed automatically unless the ABILIO result is > or = 3.0 U. ??Studies performed at [facility] indicate that positive ABILIO results <3.0 U are rarely accompanied by positive second order tests. Blood (Blood, Venous) 09/01/2023 10:06 AM CDT 09/01/2023 2:00 PM CDT Keith Robles M.D. LAB BLOOD ADD- ON Performing Organization Address [facility] Co de Phone Number [facility] [address] [place] [address] [facility] [address] [place] [address] * 25-Hydroxyvitamin D2 and D3 (09/01/2023 10:06 AM CDT) 25-Hydroxy D2 <4.0 ng/mL 09/02/2023 3:23 PM CDT SDS 25-Hydroxy D3 39 ng/mL 09/02/2023 3:23 PM CDT SDS 25-Hydroxy D Total 39 ng/mL 2023 3:23 PM CDT [facility] Comment: ----REFERENCE VALUE---- 25-HYDROXY D TOTAL (D2+D3) Optimum levels in the healthy population are 20-50. ----ADDITIONAL INFORMATION---- This test was developed and its performance characteristics determined by [facility] in a manner consistent with CLIA requirements. This test has not been cleared or approved by the U.S. Food and Drug Administration. Blood (Blood, Venous) 09/01/2023 10:06 AM CDT 09/01/2023 1:51 PM CDT Keith Robles M.D. LAB BLOOD ADD- ON Performing Organization Address [facility] Co de Phone Number [facility] [address] [place] [address] [facility] [address] [place] [address] [place] [address] * Dehydroepiandrosterone Sulfate (DHEA-S) (09/01/2023 10:06 AM CDT) Dehydroepiandrosterone Sulfate, S 181 45 - 295 mcg/dL 09/01/2023 3:49 PM CDT [facility] Blood (Blood, Venous) 09/01/2023 10:06 AM CDT 09/01/2023 2:26 PM CDT Keith Robles M.D. LAB BLOOD ADD- ON [facility] [address] [place] [address] [facility] [address] [place] [address] * Sedimentation Rate (09/01/2023 10:06 AM CDT) Pathologist [facility] Sedimentation Rate, B 7 2 - 20 mm/h 09/01/2023 11:31 AM CDT [facility] Blood (Blood, Venous) 09/01/2023 10:06 AM CDT 09/01/2023 10:27 AM CDT Keith Robles M.D. LAB BLOOD ADD- ON [facility] [address] [place] [address], [facility] [address] [place] [address] * (ABNORMAL) CBC with Differential, Blood (09/01/2023 10:06 AM CDT) [facility] Hemoglobin 13.4 11.6 - 15.0 g/dL 09/01/2023 10:53 AM CDT DTL Hematocrit 39.8 35.5 - 44.9 % 09/01/2023 10:53 AM CDT DTL Erythrocytes 4.29 3.92 - 5.13 x10(12)/L 09/01/2023 10:53 AM CDT DTL MCV 92.8 78.2 - 97.9 fL 09/01/2023 10:53 AM CDT [facility]TL RBC Distrib Width 11.9(L) 12.2 - 16.1 % 09/01/2023 10:53 AM CDT [facility]TL Platelet Count 270 157 - 371 x10(9)/L 09/01/2023 10:53 AM CDT [facility]TL Leukocytes 4.1 3.4 - 9.6 x10(9)/L 09/01/2023 10:53 AM CDT DTL Neutrophils 2.48 1.56 - 6.45 x10(9)/L 09/01/2023 10:53 AM CDT [facility] Lymphocytes 1.34 0.95 - 3.07 x10(9)/L 09/01/2023 10:53 AM CDT DTL Monocytes 0.28 0.26 - 0.81 x10(9)/L 09/01/2023 10:53 AM CDT DTL Eosinophils <0.03 0.03 - 0.48 x10(9)/L 09/01/2023 10:53 AM CDT DTL Basophils 0.03 0.01 - 0.08 x10(9)/L 09/01/2023 10:53 AM CDT [facility] Blood (Blood, Venous) 09/01/2023 10:06 AM CDT 09/01/2023 10:27 AM CDT Keith Robles M.D. LAB BLOOD ADD- ON Performing Organization Address City/[facility]/ZIP Co de Phone Number [facility] [address] [place] [address], [facility] DTL [facility] [address] [place] [address] [facility] [address] [place] [address] * Rheumatoid Factor (09/01/2023 10:06 AM CDT) Pathologist [facility] Rheumatoid Factor, S <15 <15 IU/mL 09/01/2023 3:10 PM CDT [facility] Blood (Blood, Venous) 09/01/2023 10:06 AM CDT 09/01/2023 2:28 PM CDT Keith Robles M.D. LAB BLOOD ADD- ON [facility] [address] [place] [address] [facility] [address] [place] [address] * CRP (C-Reactive Protein) (09/01/2023 10:06 AM CDT) C-Reactive Protein (CRP), S <3.0 <5.0 mg/L 09/01/2023 11:07 AM CDT [facility]TL Blood (Blood, Venous) 09/01/2023 10:06 AM CDT 09/01/2023 10:41 AM CDT Keith Robles M.D. LAB BLOOD ADD- ON [facility] [address] [place], [place] [phone] [place] [address] 200 [place] [address] * Folate (09/01/2023 10:06 AM CDT) Pathologist [facility] Folate, S 18.8 >=4.0 mcg/L 09/02/2023 9: 57 AM CDT DTL Blood (Blood, Venous) 09/01/2023 10:06 AM CDT 09/01/2023 10:41 AM CDT Suri Bedolla P.A.-C. LAB BLOOD ADD-ON [facility] [address] [place], [place] [phone] [place] [address] 200 [place] [address] * Ferritin (09/01/2023 10:06 AM CDT) Pathologist [facility] Ferritin, S 116 6 - 175 mcg/L 09/01/2023 11:07 AM CDT DTL Blood (Blood, Venous) 09/01/2023 10:06 AM CDT 09/01/2023 10:41 AM CDT Keith Robles M.D. LAB BLOOD ADD- ON [facility] [address] [place], [place] [phone] [place] [address] [address] [place] [address] * Vitamin B12 Assay (09/01/2023 10:06 AM CDT) [facility] Vitamin B12 Assay, S 651 180 - 914 ng/L 09/02/2023 10:00 AM CDT [facility] Comment: ----ADDITIONAL INFORMATION---- In patients being evaluated for vitamin B12 deficiency who have intrinsic factor blocking antibodies (IFBA), false elevations of B12 may occur due to IFBA interference thus potentially obscuring a physiological deficiency of B12. If observed B12 concentrations are discordant with clinical presentation, measurement of methylmalonic acid (MMA) should be considered. Blood (Blood, Venous) 09/01/2023 10:06 AM CDT 09/01/2023 10:41 AM CDT Suri Bedolla P.A.-C. LAB BLOOD ADD-ON Performing Organization Address City/[facility]/[place] [address] * CK (Creatine Kinase) (09/01/2023 10:06 AM CDT) [facility] Creatine Kinase (CK), S 39 26 - 192 U/L 09/01/2023 11:07 AM CDT [facility] Blood (Blood, Venous) 09/01/2023 10:06 AM CDT 09/01/2023 10:41 AM CDT Keith Robles M.D. LAB BLOOD ADD- ON [facility] 200 [place] [address] * Cortisol (09/01/2023 10:06 AM CDT) [facility] Cortisol, Random, S 7.7 mcg/dL 09/01/2023 11:07 AM CDT [facility] Comment: ----REFERENCE VALUE---- AM ([id number]): 4.8-20 PM ([phone]): 2.5-12 Blood (Blood, Venous) 09/01/2023 10:06 AM CDT 09/01/2023 10:41 AM CDT Keith Robles M.D. LAB BLOOD ADD- ON [facility] [address] [place] [address], [facility] DTL [facility] [address] [place] [address] * Comprehensive Metabolic Panel (09/01/2023 10:06 AM CDT) Pathologist [facility] [place] Potassium, S 4.1 3.6 - 5.2 mmol/L 09/01/2023 11:07 AM CDT DTL Sodium, S 141 135 - 145 mmol/L 09/01/2023 11:07 AM CDT DTL Chloride, S 104 98 - 107 mmol/L 09/01/2023 11:07 AM CDT DTL Bicarbonate, S 28 22 - 29 mmol/L 09/01/2023 11:07 AM CDT DTL Anion Gap 9 7 - 15 09/01/2023 11:07 AM CDT DTL BUN (Blood Urea Nitrogen), S 13 6 - 21 mg/dL 09/01/2023 11:07 AM CDT DTL Creatinine 0.67 0.59 - 1.04 mg/dL 09/01/2023 11:07 AM CDT DTL Estimated GFR (eGFR) >90 >=60 mL/min/BS A 09/01/2023 11:07 AM CDT DTL Comment: Estimated GFR calculated using the 2020 CKD_EPI creatinine equation. Calcium, Total, S 9.3 8.6 - 10.0 mg/dL 09/01/2023 11:07 AM CDT DTL Glucose, S 90 70 - 140 mg/dL 09/01/2023 11:07 AM CDT DTL Protein, Total, S 7.0 6.3 - 7.9 g/dL 09/01/2023 11:07 AM CDT DTL Albumin, S 4.9 3.5 - 5.0 g/dL 09/01/2023 11:07 AM CDT DTL Aspartate Aminotransferase (AST), S 21 8 - 43 U/L 09/01/2023 11:07 AM CDT DTL Alkaline Phosphatase, S 79 35 - 104 U/L 09/01/2023 11:07 AM CDT DTL Alanine Aminotransferase (ALT), S 22 7 - 45 U/L 09/01/2023 11:07 AM CDT DTL Bilirubin, Total, S 0.4 0.0 - 1.2 mg/dL 09/01/2023 11:07 AM CDT DTL Blood (Blood, Venous) 09/01/2023 10:06 AM CDT 09/01/2023 10:41 AM CDT Keith Robles M.D. LAB BLOOD ADD- ON Performing Organization Address [facility] Co de Phone Number [facility] [address] [place] [address], [facility] DTL [facility] [address] [place] [address] * PUL Home Overnight Oximetry (09/01/2023) 09/01/2023 Impressions NATIVIDAD JOHNSON - 09/02/2023 3:23 PM CDT Although there is variability in the baseline oximetry readings, the nocturnal overnight study is still within normal limits. Physician: Srinivasan Bowman M.D. [id number] Narrative Procedure Note Srinivasan Bowman M.D. - 09/02/2023 IMPRESSION: Although there is variability in the baseline oximetry readings, thenocturnal overnight study is still within normal limits. Physician: Srinivasan Bowman M.D. [id number] Keith Robles M.D. PFT ORDERABLES Performing Organization Address City/[facility]/ZIP Co de Phone Number [place] SAADIA ALEX from Last 3 Months Care Teams Roll Operator Relationship Specialty Start Date End Date None Reported, Pcp PCP - General Family Medicine 01/25/22
--- OUTSIDE RECORDS SUMMARY | 2023-09-28 04:27 | XMS_ITS | Continuity of Care Document ---
Author Organization [facility] Address [address] [place] [address] Phone Care Team Providers Care Coat Examiner Name Role Phone Tono Foley Unavailable Unavailable Allergies, Adverse Reactions, Alerts Substance Reaction Status Criticality PENICILLIN Unknown Active No Information latex Unknown Active No Information Medications Medication Instructions Dosage Effective Dates (start - stop) Status Comments MELOXICAM 15MG TABLETS TAKE 1 TABLET BY MOUTH EVERY DAY - Active tizanidine 4 mg tablet take 1 tablet by oral route 2 times every day as needed not to exceed 3 doses in 24 hours 4 MG - Active prednisone 20 mg tablet take 2 tablets PO QAM x 5 days, then 1 tab PO QAM x 5 days - Active meloxicam 15 mg tablet take 1 tablet by oral route every day 15 MG - No Longer Active Procedures Procedure Date Office/Outpatient Visit,Est, Mod 2023 Office/Outpatient Visit,Est, Mod 2023 Postop Followup Visit Lami/Discectomy, Lumbar HNP - [place] 2022 Lami/Discectomy, Lumbar HNP Office/Outpatient Visit,New, Mod 2022 Advance Directives Directive Yes / No Effective Date File Name No Information Encounters Encounter Description Practice Location Reason(s) For Visit Diagnoses Date Provider Providers Copied on Encounter [facility], [address], [place], [id number], [place] tel:[phone] [facility] No Information 4 Lanier Tono. [facility] [place], [address], [place], [id number] , [place]. tel:[phone] Office/Outpat ient Visit,Est, Mod [facility], [address], [place], [id number], [place] tel:[phone] [facility] Low back pain 0 4 Luigi Silva. [facility] [place], [address], [place], [address], [place]. tel:[phone] Referring Provider: Tono Osborn, [facility] [address] [place], [address]. tel:[phone] Office/Outpat ient Visit,Est, Mod [facility], [address], [place], [id number], [place] tel:[phone] [facility] Other intervertebral disc degeneration, lumbar region 4 Yannick Tono. [facility] [place], [address], [facility] [place], [place], [id number] , [place]. tel:[phone] Referring Provider: Tono Osborn, [facility] [address] [place], [address]. tel:[phone] [facility], [address], [place], [id number], [place] tel:[phone] [facility] No Information 3 Luigi Silva. [facility] [place], [address], [place], [address], [place]. tel:[phone] [facility], [address], [place], [id number], [place] tel:[phone] [facility] Encounter for other specified surgical aftercare 3 Yannick Power. [facility], [address] [place] [address] [address], [place], [place], [id number] , [place]. tel:[phone] Referring Provider: Tono Osborn, [facility] [address] [place], [address]. tel:[phone] [facility], [address], [facility] [place] [id number], [place] tel:[phone] [facility] No Information Jun- 3 Agnieszka Jacobs. [facility] [place], [address] [place] [address], [address], [facility] [place], [address], [place]. tel:[phone] Referring Provider: Tono Osborn, [facility] [address] [place], [address]. tel:[phone] [facility], [address], [facility] [place], [id number], [place] tel:[phone] [facility] No Information 3 Luigi Silva. [facility] [place], [address] [place] [address] [address], [place], [address], [place]. tel:[phone] Referring Provider: Tono Osborn, [facility] [address] [place], [address]. tel:[phone] Office/Outpat ient Visit,New, Mod [facility], [address], [facility] [place], [id number], [place] tel:[phone] [facility] Other intervertebral disc displacement, lumbosacral regionRadiculop athy, lumbosacral region Jun-0 3 Antoni Higginbotham. [facility] [place], [address] [place] [address] [address], [place], [place], [id number] , [place]. tel:[phone] Referring Provider: Tono Osborn, [facility] [address] [place], [address]. tel:[phone] Family History Family Member Type Diagnosis Age At Onset No Information Payers Payer name Insurance type Covered republican ID Ren fiore(s) [facility] CI [id number] Social History Type Description Quantity Date Captured Comments Sex Female Smoking Status No Information Chief Complaint And Reason For Visit No Information Reason For Referral Reason For Referral No Information History Of Present Illness Encounter Date Complaint History Of Prese nt Illness No Information Functional Status Date Functional Assessmen t No Information Instructions Date Instruction Additional Infor mation No Information Assessments Type Assessment Date No Information Patient Care Teams Name Effective Dates (start - stop) Status Members No Information
--- OUTSIDE RECORDS SUMMARY | 2023-09-28 04:27 | XMS_ITS | Clinical Summary ---
Author Organization [employer] [facility] Address [place], [place] [address] Care Team Providers Care Sock Drier Name Role Phone Jet Garcia MD Unavailable [phone] Tono Mccoy MD Primary Care Provider [phone] Allergies Active Allergy Reactions Criticality Noted Date [...] 4000 mg in 24 hrs. 15 Tablet 07/08/2022 Active dextroamphetamine-am phetamine (ADDERALL) 10 mg tablet TAKE 1 TABLET BY MOUTH TWICE DAILY AT LEAST 4 TO 6 HOURS APART NEEDED FOR CONCENTRATION 04/28/2022 Active traMADoL (ULTRAM) 50 mg tablet TAKE 1 TABLET BY MOUTH THREE TIMES DAILY NEEDED FOR PAIN 05/20/2022 Active ondansetron (ZOFRAN ODT) 4 mg disintegrating tablet DISSOLVE 1 TABLET ON THE TONGUE EVERY 8 HOURS NEEDED FOR NAUSEA OR VOMITING 05/20/2022 Active gabapentin (NEURONTIN) 300 mg capsule Take 300 mg by mouth three times daily. Active LORazepam (ATIVAN) 1 mg tablet Take 1 mg by mouth 2 times daily if needed. Active MULTIVITAMIN ORAL Take 1 tablet. by mouth once daily. Active acetaminophen (TYLENOL) 325 mg tabletIndications:He rniated nucleus pulposus, L5-S1 Take 1-2 Tablets (325-650 mg) by mouth every 6 hours if needed for Pain (For mild pain.). Max acetaminophen dose: 4000mg in 24 hrs. 30 Tablet 07/08/2022 Active polyethylene glycol-electrolyte (GOLYTELY) 236-22.74-6.74 -5.86 gram suspensionIndication s:Encounter for screening colonoscopy Drink 2 liters the day before the procedure and 2 liters 6 hours prior to procedure. 4000 mL 11/30/2022 Active Active Problems No known active problems Encounters Date Type Department Care Team Description 07/27/2023 7:00 AM CDT - 07/27/2023 11:59 PM [facility] Hospital Encounter [address] [address] Tono Lanier, Grace Lemon, PT 07/27/2023 Travel 07/20/2023 8:00 AM CDT - 07/20/2023 11:59 PM T Hospital Encounter [address] [address] Tono Lanier, Arianna De Oliveira, PHP CONSULTANT 07/20/2023 Travel 07/07/2023 8:45 AM CDT - 07/07/2023 11:59 PM T Hospital Encounter [address] [address] Tono Lanier, Arianna De Oliveira, PHP CONSULTANT 07/07/2023 Travel from Last 3 Months Social History Tobacco [...] 07/08/2022 10:06 AM CDT Plan of Treatment Health Maintenance [...] season) 2022 12/24/2020 Influenza for age 9-49 12/18/2023 Pneumococcal series for age 6-64 Aged Out No longer eligible based on patient's age to complete this topic Procedures Procedure Name Priority Date/Time Associated Diagnosis Comments SUPERVISOR WHEEL SHOP THIN PREP PAP SCREEN IMAGED Routine 12/14/2018 12:00 PM CDT from Last 3 Months or Most Recently Relevant to Health Maintenance Results * SUPERVISOR WHEEL SHOP THIN PREP PAP SCREEN IMAGED (12/14/2018 12:00 PM CDT) Case Report Gynecologic Cytology Report ? Case: [id number] ? Authorizing Provider: ??Alexandra Perez MD ?? Collected: ? 12/14/2018 1200 ? Ordering Location: ? [facility] ?Received: ?12/19/2018 0916 ? First Screen: ?Renzo Arrington ? Specimen: ?SUPERVISOR WHEEL SHOP ThinPrep Vial Screening, Cervical/Vaginal ? 12/26/2018 1:00 PM CDT [facility] INTERPRETATION/ RESULT NEGATIVE FOR INTRAEPITHELIAL LESION OR MALIGNANCY (NIL) (none) 12/26/2018 1:00 PM CDT [facility] IMEN ADEQUACY Satisfactory for evaluation Endocervical component present 12/26/2018 1:00 PM CDT [facility] HPV REQUEST HPV and PAP 12/26/2018 1:00 PM CDT [facility] Automated Review Successful 12/26/2018 1:00 PM CDT [facility] Comment:Specimen processed s uccessfully by automated watershed tender device, ThinPrep Imaging System, [employer] ANCILLARY TESTING SUPERVISOR WHEEL SHOP HPV Ordered, Please see separate report 12/26/2018 1:00 PM CDT [facility] Note The pap test is a screening technique, not a diagnostic procedure. ??It is used primarily to screen for squamous cancers and precursor lesions. ??Published studies have shown that it is subject to both false negative and false positive results. ??The pap test should not be used as the sole means to diagnose or exclude pre-malignant and malignant lesions. Cytology is screened and interpreted at [facility] Laboratory - [address], [place] [address] and [facility] - [address]; [place] [address] and [facility] - [address]; [place] [address] and [facility] [address]; [place] [address] 12/26/2018 1:00 PM CDT [facility]AT[facility] Other (Cervical/Vagina l) 12/14/2018 12:00 PM CDT 12/19/2018 9:16 AM CDT Alexandra Perez MD PATHOLOGY/CYTOLOG Y Performing Organization Address City/State/[facility] Co de Phone Number [facility] [address] [place] [address], from Last 3 Months or Most Recently Relevant to Health Maintenance Advance Directives * Full Code (Latest Code Status on File) Date Activated Date Inactivated Comments 07/08/2022 12:24 PM 07/08/2022 5:48 PM Question Answer Comments Code Status Discussion: Per Existing Order Care Teams Sock Drier Relationship Specialty Start Date End Date Tono Mccoy MD [address] [facility] [address] PCP - General Family Practice 06/29/22 Jet Garcia MD Family Practice 12/16/15
--- OUTSIDE RECORDS SUMMARY | 2023-09-28 04:28 | XMS_ITS ---
Author Organization [facility] Address [address] [place] [address] Care Team Providers Care Distribution Associate Name Role Phone Unavailable Unavailable Unavailable Surgery Details Not on file Complications Check Surgery Details section. Procedure Estimated Blood Loss Check Surgery Details section. Procedure Findings Check Surgery Details section. Procedure Specimens Taken Check Surgery Details section.
--- OUTSIDE RECORDS SUMMARY | 2023-09-28 04:28 | XMS_ITS | Encounter Summary ---
Author Organization [facility] Address [address] [place] [address] Care Team Providers Care Feed And Farm Management Adviser Name Role Phone None Reported, Pcp Primary Care Provider Unavail able Encounter Details Date Type Department Care Team (Late st Contact Info) Description 09/01/2023 4:30 PM CDT Diagnostic Division of Pulmonary Medicine in [place], [place] [address] [place] [address] Keith Robles M.D. [address] [place] [address] Fibromyalgia Social History Tobacco Use Types Packs/Day Years Used Date Smoking Tobacco: Never Passive Smoke Exposure: Past Smokeless Tobacco: Never Comments:Smoked in high scho ol Alcohol Use Standard Drinks/Week Comments Yes 1 (1 standard drink = 0.6 oz pure alcohol) Rarely consume alcohol, may have 1 or 2 drink [address] [facility] Utilities Answer Date Recorded In the past 12 months has Thu[place], oil, or water [employer] threatened to shut off services in your [...] often do you attend chur ch or holiness services? More than 4 times per year [...] Answer Date Recorded PHQ-2 Score 0 08/31/2023 [facility] - [...] your living situation today? I have a [facility] place to live 08/25/2023 Education Answer [...] PM CDT Clinical Communication Virtual Review in [place], [place] [address] [place] [phone] 10/06/2023 9:45 AM CDT Comprehensive Visit Breast Diagnostic Clinic in [place], [place] [address] [place] [phone] Deana Javed, VALET MANAGER, TILTROTOR CREW CHIEF [address] [place] [phone] 10/06/2023 11:50 AM CDT Appointment Department of Radiology in [place], [place] [address] [place] [phone] Deana Javed APRN, [employer]ILTR[employer]OR [employer]IEF [address] [place] [phone] Discharge Disposition: Home or Self Care 10/07/2023 7:30 AM CDT Nurse Only [facility] in [place], [place] [address] [place] [phone] Keith Robles M.D. [address] [place] [phone] 10/07/2023 8:30 AM CDT Comprehensive Visit [facility] in [place], [place] [address] [place] [phone] Segundo Fox M.B.B.S., M.D. [address] [place] [phone] 10/07/2023 10:00 AM CDT Education [facility] in [place], [place] [address] [place] [phone] Keith Robles M.D. [address] [place] [phone] 10/07/2023 2:00 PM CDT Office Visit Division of General Internal Medicine in [place], [place] [address] [place] [phone] Keith Robles M.D. [address] [place] [phone] documented as of this encounter Procedures Procedure Name Priority Date/Time Associated Diagnosis Comments PUL HOME OVERNIGHT OXIMETRY Routine 09/01/2023 Fibromyalgia documented in this encounter Results * PUL Home Overnight Oximetry (09/01/2023) 09/01/2023 Impressions HENSON SAADIA WILKERSONP - 09/02/2023 3:23 PM CDT Although there is variability in the baseline oximetry readings, the nocturnal overnight study is still within normal limits. Physician: Srinivasan Bowman M.D. [id number] Narrative Procedure Note Srinivasan Bowman M.D. - 09/02/2023 IMPRESSION: Although there is variability in the baseline oximetry readings, thenocturnal overnight study is still within normal limits. Physician: Srinivasan Bowman M.D. [id number] Keith Robles M.D. PFT ORDERABLES NATIVIDAD ZEE ALEX documented in this encounter Visit Diagnoses Diagnosis Fibromyalgia documented in this encounter Care Teams Feed And Farm Management Adviser Relationship Specialty Start Date End Date None Reported, Pcp PCP - General Family Medicine 01/25/22 documented as of this encounter
--- OUTSIDE RECORDS SUMMARY | 2023-09-28 04:28 | XMS_ITS | Continuity of Care Document ---
Author Organization [facility] Address [address] [place] [address] Phone Care Team Providers Care Production Maintenance Mechanic Name Role Phone Tono Foley Unavailable Unavailable [...] C, [address], [place], [id number], [place] tel:[phone] [facility] No Information 4 Lanier Tono. [facility] [place], [address], [place], [place], [address] , [place]. tel:[phone] Office/Outpat ient Visit,Est, Mod [facility], [address], [place], [address], [place] tel:[phone] [facility] Low back pain 0 4 Luigi Silva. [facility] [place], [address], [place], [address], [place]. tel:[phone] Referring Provider: Tono Osborn, [facility] [address] [place], [address]. tel:[phone] Office/Outpat ient Visit,Est, Mod [facility], [address], [place], [place], [address], [place] tel:[phone] [facility] Other intervertebral disc degeneration, lumbar region 4 Yannick Tono. [facility] [place], [address], [facility], [id number] , [place]. tel:[phone] Referring Provider: Tono Osborn, [facility] [address] [place], [address]. tel:[phone] [facility], [address], [place], [place], [address], [place] tel:[phone] [facility] No Information 3 Luigi Silva. [facility] [place], [address], [place], [address], [place]. tel:[phone] [facility], [address], [place], [id number], [place] tel:[phone] [facility] Encounter for other specified surgical aftercare 3 Yannick Power. [facility], [address] [place] [address] [address], [place], [place], [id number] , [place]. tel:[phone] Referring Provider: Tono Osborn, [facility] [address] [place], [address]. tel:[phone] [facility], [address], [facility] [place], [address], [place] tel:[phone] [facility] No Information Jun- 3 Agnieszka Jacobs. [facility] [place], [address] [place] [address], [address], [place], [address], [place]. tel:[phone] Referring Provider: Tono Osborn, [facility] [address] [place], [address]. tel:[phone] [facility], [address], [facility] [place], [address], [place] tel:[phone] [facility] No Information 3 Luigi Silva. [facility] [place], [address] [place] [address] [address], [place], [address], [place]. tel:[phone] Referring Provider: Tono Osborn, [facility] [address] [place], [address]. tel:[phone] Office/Outpat ient Visit,New, Mod [facility], [address], [facility] [place], [id number], [place] tel:[phone] [facility] Other intervertebral disc displacement, lumbosacral regionRadiculop athy, lumbosacral region Jun-0 3 Antoni Higginbotham. [facility] [place], [address] [place] [address] [address], [place], [place], [id number] , [place]. tel:[phone] Referring Provider: Tono Osborn, [facility] [address] [place], [address]. tel:[phone] Family History Family Member Type Diagnosis Age At Onset No Information Payers Payer name Insurance type Covered alliance party ID Ren fiore(s) [facility] CI [id number] Social History Type Description Quantity Date Captured [...]
--- OUTSIDE RECORDS SUMMARY | 2023-09-28 04:28 | XMS_ITS | Patient Health Record ---
Author Organization [facility] Address [address] [place] [address] [address] [place] [address] Care Team Providers Care Wheel Filler Name Role Phone Tono Mccoy Primary Care Provider UnavailRoberto Stone Unavailable [phone] Luigi SOTO, PhD, Ricardo Unavailable Jeremy Singh Unavailable [phone] ALLERGIES Allergen (clinical drug ingredient) Drug/Non Drug Allergy documented on EMR Reaction Allergy Type Onset Date Status Latex Latex rash Allergy Active REASON FOR REFERRAL No Information MEDICATIONS Medication SIG (Take, Route, Fr equency, Duration) Notes Start Date End Date Status Medrol 4 MG as directed on Medro l package Orally 1 pack for 6 days 08/22/2023 Active Diclofenac Sodium 75 MG 1 tablet with fo od or milk Orally Twice a day for 30 days 08/22/2023 Active Meloxicam 15 MG 1 tablet Orally Once a day Active SOCIAL HISTORY Sex Assigned At : Social History Observation Description Sex Assigned At Unknown PROBLEMS Problem Type ICD Code Onset Dates Problem Status W/U Status Risk SNOMED Code Notes Problem Other chronic pain (G89.29) Active confirmed Chronic pain (73344917) Problem Radiculopathy, lumbosacral region (M54.17) Active confirmed Lumbosacral radiculopathy (6430936) VITAL SIGNS Blood pressure diastolic 78 mm Hg 08/22/2023 Height 5 ft 4 in in 08/22/2023 Blood pressure systolic 138 mm Hg 08/22/2023 Weight 153.2 lbs 08/22/2023 BMI 26.29 kg/m2 08/22/2023 PROCEDURES Procedure Date Ordered Date Performed Result Body Sit e Intervention: 08/22/2023 08/31/2023 Sched 09/05 Encounters Encounter Location Date Provider Diagnosis [facility] [address] [place] [address] [address] [place] [address] 07/25/2023 Roberto Rebolledo BV [address] [facility] [address] [place] [address] 08/16/2023 Jeremy Jiménez Other chronic pain G89.29 [facility] [address] [place] [address] [address] [place] [address] 08/22/2023 Roberto Rebolledo Other chronic pain G89.29 and Radiculopathy, lumbosacral region M54.17 [facility] [address] [place] [address] [address] [place] [address] 08/23/2023 Roberto Rebolledo [facility] [address] [place] [address] [address] [place] [address] 08/29/2023 Roberto [place]bolledo [place] [address] [facility] [address] [facility] [address] [place] [address] 08/31/2023 Jeremy Jiménez [facility] [address] [place] [address] [address] [place] [address] 09/02/2023 Roberto Rebolledo 104 [facility] [address] [place] [address] 09/06/2023 Roberto Rebolledo Radiculopathy, lumbosacral region M54.17 ASSESSMENTS Encounter Date Diagnosis Assessment Notes Treatment Notes Treatment Clinical Notes 08/16/2023 Other chronic pain (ICD-10 - G89.29) Lumbar MRI 04/12/23 (rayus)Impression:1. Interim microdiscectomy with excision of a large right-sided HNP at L5-S1. Residual central protrusion does not compromise neural structures.2. There are now type I marrow changes paralleling the endplates at the degenerated L5-S1 level. These may be associated with axial back pain.3. Unchanged appearance of a small caudally migrating HNP at L4-5 without neural impingement. 08/22/2023 Other chronic pain (ICD-10 - G89.29) Arlen presents to the clinic for an evaluation regarding her chronic low back pain. I have reviewed her symptoms and current medications. I checked the [facility] database and I did not find any inconsistencies. I have reviewed Arlen's lumbar MRI and have educated her on its findings. Based on the results of her imaging and symptoms, I recommended a lumbar TFE and explained this procedure in detail. Arlen voiced interest in proceeding and therefore I will order a bilateral L5-S1 TFE to provide relief of her ongoing painful symptoms. Pending her relief from a bilateral L5-S1 TFE, I will consider the Intracept procedure at L5-S1. I will start Arlen on Diclofenac 75MG and an MDP to provide further management of her pain. This treatment plan was reviewed with the patient, and she was agreeable. She will return as needed for further evaluation. I will continue to monitor her progress, adjusting her treatment plan as necessary. Plan:1. Reviewed lumbar MRI 2. Order bilateral L5-S1 TFE3. Consider L5-S1 Intracept pending TFE relief 4. Start Diclofenac 75MG BID5. Start MDP6. Follow up as needed Discharge instructions reviewed verbally. The patient was instructed to return to the office as scheduled and call with any questions, problems or concerns. 04/12/2023 MRI Lumbar SpineCONCLUSION:1. Interim microdiscectomy with excision of a large right-sided HNP at L5-S1. Residual central protrusion does not compromise neural structures.2. There are now type I marrow changes paralleling the endplates at the degenerated L5-S1 level. These may be associated with axial back pain.3. Unchanged appearance of a small caudally migrating HNP at L4-5 without neural impingement. 08/22/2023 Radiculopathy, lumbosacral region (ICD-10 - M54.17) 09/06/2023 Radiculopathy, lumbosacral region (ICD-10 - M54.17) 08/16/2023 Other I, Miguel Matthews , am serving as a scribe to document services personally performed by Jeremy Jiménez CNP, based upon my observations and the provider's statements to me. All documentation has been reviewed by the aforementioned POLYMER SCIENTIST as well as Roberto Rebolledo MD, prior to being entered into the official medical record. I, Roberto Rebolledo MD attest that the above named individual is acting in scribe capacity, has observed Jeremy Jiménez's performance of the services and has documented them in accordance with her direction. The documentation recorded by the scribe accurately reflects the service Jeremy Jiménez CNP and Roberto Rebolledo MD personally performed and the decisions made by them. 08/22/2023 Other Wilfrido Marin a m serving as a scribe to document services personally performed by Gabi Becerril PA-C, based upon my observations and the provider's statements to me. All documentation has been reviewed by the aforementioned ROSELYN as well as Roberto Rebolledo MD, prior to being entered into the official medical record. I, Roberto Rebolledo MD attest that the above named individual is acting in scribe capacity, has observed Gabi Becerril's performance of the services and has documented them in accordance with her direction. The documentation recorded by the scribe accurately reflects the service Gabi Becerril PA-C and Roberto Rebolledo MD, personally performed and the decisions made by them. PLAN OF TREATMENT No Information Insurance Providers Payer Name Payer Address Payer Phone Subscriber Number Group Number Insured Name Patient Relationship to Insured Coverage Start Date Coverage End Date [facility] Choice [address] [address] [place] [address] [id number] Sarah Valladares Spouse - patient is the spouse of the insured MEDICAL (GENERAL) HISTORY Medical History History ICD Code Depression abdominal aortic aneurysm headaches Anxiety Surgical History Surgery Date(Month/Year) L5-S1 microdiscectomy 06/2022 Rectal botox 2021 Hysterectomy 04/2019 gall bladder 10/2005
--- OUTSIDE RECORDS SUMMARY | 2023-09-28 04:28 | XMS_ITS | Encounter Summary ---
Author Organization [facility] Address [address] [place] [address] Care Team Providers Care Manager Document Control Name Role Phone None Reported, Pcp Primary Care Provider Unavail able Encounter Details Date Type Department Care Team (Latest Contact Info) Description 09/01/2023 9:53 AM CDT - 09/01/2023 11:59 PM CDT Hospital Encounter Department of Laboratory Medicine and Pathology, [facility] in [place], [place] [address] [place] [address] Suri Bedolla, P.A.-C. [address] [address] Fatigue; Fibromyalgia Discharge Disposition: Home or Self Care Social History Tobacco Use Types Packs/Day Years Used Date Smoking Tobacco: Never Passive Smoke Exposure: Past Smokeless Tobacco: Never Comments:Smoked in high sch ol Alcohol Use Standard Drinks/Week Comments Yes 1 (1 standard drink = 0.6 oz pure alcohol) Rarely consume alcohol, may have 1 or 2 drink occasionally [facility] Utilities Answer Date Recorded In the past 12 months has [employer], gas, oil, or water [employer] threatened to shut off services in your [...] 11/23/2021 How often do you attend chur or spiritism services? More than 4 times per year [...] Answer Date Recorded PHQ-2 Score 0 08/31/2023 [facility] Occupat ional Health - Occupational Stress [...] your living situation today? I have a [facility] place to live 08/25/2023 Education Answer [...] Sig Dispensed Refills Start Date End Date ascorbic acid/collagen hydr (COLLAGEN SKIN RENEWAL ORAL) Take 2 Scoops by mouth daily. cyclobenzaprine (FLEXERIL) 5 mg tablet Take by mouth 3 (three) times a day as needed for muscle spasms. diclofenac sodium (VOLTAREN) 75 mg EC tablet Take 75 mg by mouth 2 (two) times a day. with food or milk 08/22/2023 ferrous sulfate (IRON ORAL) Take 27 mg by mouth daily. meloxicam (MOBIC) 15 mg tablet Take 15 mg by mouth as needed for pain (back). 08/20/2023 methylPREDNISolone (MEDROL DOSEPAK) 4 mg tablet Take 4 mg by mouth See Admin Instructions. follow package directions 08/22/2023 tiZANidine (ZANAFLEX) 4 mg tablet Take 4 mg by mouth at bedtime as needed for muscle spasms. 04/19/2023 documented as of this encounter Plan of Treatment Upcoming Encounters Date Type Department Care Team (Latest Contact Info) Description 10/04/2023 2:30 PM CDT Clinical Communication Virtual Review in [place], [place] [address] [place] [address] 10/06/2023 9:45 AM CDT Comprehensive Visit Breast [facility] in [address] [address] Deana Javed APRN, CLIENT ENGAGEMENT MANAGER [address] [place] [phone] 10/06/2023 11:50 AM CDT Appointment Department of Radiology in [address] [address] Deana Javed APRN, CLIENT ENGAGEMENT MANAGER [address] [place] [phone] Discharge Disposition: Home or Self Care 10/07/2023 7:30 AM CDT Nurse Only [facility] in [address] [address] Keith Robles M.D. [address] [place] [phone] 10/07/2023 8:30 AM CDT Comprehensive Visit [facility] in [address] [address] Segundo Fox M.B.B.S., M.D. [address] [place] [phone] 10/07/2023 10:00 AM CDT Education [facility] in [place], [place] [address] [place] [address] Keith Robles M.D. [address] [place] [address] 10/07/2023 2:00 PM CDT Office Visit Division of General Internal Medicine in [place], [place] [address] [place] [address] Keith Robles M.D. [address] [place] [address] documented as of this encounter Procedures Procedure Name Priority Date/Time Associated Diagnosis Comments QUANTITATIVE M-PROTEIN STUDY , S Routine 09/01/2023 10:06 AM CDT Fibromyalgia THYROID FUNCTION CASCADE, S Routine 08/16 10:06 AM CDT Fibromyalgia CELIAC DISEASE SEROLOGY CASCADE, S Routine 09/01/2023 10:06 AM CDT Fibromyalgia TISSUE TRANSGLUTAMINASE (TTG ) AB, IGA, S Routine 09/01/2023 10:06 AM CDT CONNECTIVE TISSUE DISEASE CASCADE, TEE, S Routine 09/01/2023 10:06 AM CDT Fibromyalgia 25-HYDROXYVITAMIN D2 AND D3, S Routine 09/01/2023 10:06 AM CDT Fibromyalgia DEHYDROEPIANDROSTERONE SULFATE (DHEA-S) LEVEL, S Routine 09/01/2023 10:06 AM CDT Fibromyalgia SEDIMENTATION RATE, B Routine 09/01/2023 10:06 AM CDT Fibromyalgia CBC WITH DIFFERENTIAL, B Routine 024 10:06 AM CDT Fibromyalgia RHEUMATOID FACTOR, S/P Routine 4 10:06 AM CDT Fibromyalgia C-REACTIVE PROTEIN (CRP), S/P Routine 10:06 AM CDT Fibromyalgia FOLATE, S Routine 09/01/2023 10:06 AM CDT Fatigue FERRITIN, S Routine 09/01/2023 10:06 AM CDT Fibromyalgia VITAMIN B12 ASSAY, S Routine 09/01/2023 10:06 AM CDT Fatigue CREATINE KINASE (CK), S Routine 09/01/19 10:06 AM CDT Fibromyalgia CORTISOL, S Routine 09/01/2023 10:06 AM CDT Fibromyalgia COMPREHENSIVE METABOLIC PANEL, S/P Routine 09/01/2023 10:06 AM CDT Fibromyalgia documented in this encounter Results * tTG (Tissue Transglutaminase), Antibody, IgA (09/01/2023 10:06 AM CDT) Pathologist [facility] Tissue Transglutaminase Ab, IgA, S <1.2 <4.0 (Negative ) U/mL 09/01/2023 9:10 PM CDT [facility] Blood 09/01/2023 10:0 6 AM CDT 09/01/2023 3:14 PM CDT Keith Robles M.D. LAB BLOOD ADD- ON [facility] [address] [place] [address] [facility] [address] [place] [address] * Quantitative M-protein Study (09/01/2023 10:06 AM CDT) Pathologist [facility] Immunoglobulin A (IgA), S 133 61 - [...] developed and its performance characteristics determined by [facility] in a manner consistent with CLIA requirements. This test has not been cleared or approved by the U.S. Food and Drug Administration. Blood (Blood, Venous) 09/01/2023 10:06 AM CDT 09/01/2023 2:09 PM CDT Narrative [facility] - 09/02/2023 12:27 PM CDT Specimen Information: Specimen ID: [id number] Specimen Type: Blood Specimen Collection Start Date: 09/01/2023 10:06 AM Specimen Received Date: 09/01/2023 ??2:09 PM Specimen ID: [id number] Specimen Type: Blood Specimen Collection Start Date: 09/01/2023 10:06 AM Specimen Received Date: 09/01/2023 ??1:54 PM Keith Robles M.D. LAB BLOOD ADD- ON [facility] [address] [place] [address] [facility] [address] [place] [address] [facility] [address] [place] [address] [place] [address] * 25-Hydroxyvitamin D2 and D3 (09/01/2023 10:06 AM CDT) 25-Hydroxy D2 <4.0 ng/mL 09/02/2023 3:23 PM CDT SDS 25-Hydroxy D3 39 ng/mL 09/02/2023 3:23 PM CDT SDS 25-Hydroxy D Total 39 ng/mL 2023 3:23 PM CDT [facility] Comment: ----REFERENCE VALUE---- 25-HYDROXY D TOTAL (D2+D3) Optimum levels in the healthy population are 20-50. ----ADDITIONAL INFORMATION---- This test was developed and its performance characteristics determined by [facility] in a manner consistent with CLIA requirements. This test has not been cleared or approved by the U.S. Food and Drug Administration. Blood (Blood, Venous) 09/01/2023 10:06 AM CDT 09/01/2023 1:51 PM CDT Keith Robles M.D. LAB BLOOD ADD- ON [facility] [address] [place], [place] [address] [place] [address] [place] [address] [place] [address] * Celiac Disease Serology Phenix (09/01/2023 10:06 AM CDT) Immunoglobulin A (IgA), S 133 61 - 356 mg/dL 09/01/2023 3:11 PM CDT [facility] Celiac Disease Interpretation See Comment: Negative serology. Celiac disease unlikely. However, approximately 10% of patients with celiac disease are seronegative. Also, patients who are already adhering to a gluten-free diet may be seronegative. If celiac disease is highly clinically suspected, consider HLA-DQ typing. 09/01/2023 10:22 PM CDT [facility] Blood (Blood, Venous) 09/01/2023 10:06 AM CDT 09/01/2023 2:09 PM CDT Narrative [facility] - 09/01/2023 10:22 PM CDT Specimen Information: Specimen ID: [id number] Specimen Type: Blood Specimen Collection Start Date: 09/01/2023 10:06 AM Specimen Received Date: 09/01/2023 ??2:09 PM Specimen ID: [id number] Specimen Type: Blood Specimen Collection Start Date: 09/01/2023 10:06 AM Specimen Received Date: 09/01/2023 ??2:00 PM Keith Robles M.D. LAB BLOOD ADD- ON Performing Organization Address City/[facility] Co de Phone Number [facility] [address] [place] [address] [facility] [address] [place] [address] [facility] [address] [place] [address] [place] [address] * Cortisol (09/01/2023 10:06 AM CDT) Cortisol, Random, S 7.7 mcg/dL 09/01/2023 11:07 AM CDT DT Comment: ----REFERENCE VALUE---- AM ([id number]): 4.8-20 PM ([phone]): 2.5-12 Blood (Blood, Venous) 09/01/2023 10:06 AM CDT 09/01/2023 10:41 AM CDT Keith Robles M.D. LAB BLOOD ADD- ON Performing Organization Address [facility] Co de Phone Number [facility] [place] [address] [place] [address], [facility] DTL [facility] [address] [place] [address] * Rheumatoid Factor (09/01/2023 10:06 AM CDT) Rheumatoid Factor, S <15 <15 IU/mL 09/01/2023 3:10 PM CDT [facility] Blood (Blood, Venous) 09/01/2023 10:06 AM CDT 09/01/2023 2:28 PM CDT Keith Robles M.D. LAB BLOOD ADD- ON [facility] [address] [place] [address] [facility] [address] [place] [address] * CK (Creatine Kinase) (09/01/2023 10:06 AM CDT) Creatine Kinase (CK), S 39 26 - 192 U/L 09/01/2023 11:07 AM CDT DTL Blood (Blood, Venous) 09/01/2023 10:06 AM CDT 09/01/2023 10:41 AM CDT Keith Robles M.D. LAB BLOOD ADD- ON [facility] [place] [address] [place] [address] * Thyroid Function Phenix (09/01/2023 10:06 AM CDT) Pathologist [facility] TSH, Sensitive 1.1 0.3 - 4.2 mIU/L 09/01/2023 11:07 AM CDT DT Blood (Blood, Venous) 09/01/2023 10:06 AM CDT 09/01/2023 10:41 AM CDT Keith Robles M.D. LAB BLOOD ADD- ON [facility] [place] [address] [place] [address] * CRP (C-Reactive Protein) (09/01/2023 10:06 AM CDT) C-Reactive Protein (CRP), S <3.0 <5.0 mg/L 09/01/2023 11:07 AM CDT DTL Blood (Blood, Venous) 09/01/2023 10:06 AM CDT 09/01/2023 10:41 AM CDT Keith Robles M.D. LAB BLOOD ADD- ON [facility] [place] [address] [place] [address], [facility] [address] [place] [address] * Sedimentation Rate (09/01/2023 10:06 AM CDT) Sedimentation Rate, B 7 2 - 20 mm/h 09/01/2023 11:31 AM CDT [facility] Blood (Blood, Venous) 09/01/2023 10:06 AM CDT 09/01/2023 10:27 AM CDT Keith Robles M.D. LAB BLOOD ADD- ON Performing Organization Address City/[facility]/ZIP Co de Phone Number [facility] [place] [address] [place] [address], [facility] [address] [place] [address] * Dehydroepiandrosterone Sulfate (DHEA-S) (09/01/2023 10:06 AM CDT) Dehydroepiandrosterone Sulfate, S 181 45 - 295 mcg/dL 09/01/2023 3:49 PM CDT [facility] Blood (Blood, Venous) 09/01/2023 10:06 AM CDT 09/01/2023 2:26 PM CDT Keith Robles M.D. LAB BLOOD ADD- ON [facility] [address] [place] [address] [facility] [address] [place] [address] * Ferritin (09/01/2023 10:06 AM CDT) [facility] Ferritin, S 116 6 - 175 mcg/L 09/01/2023 11:07 AM CDT DT Blood (Blood, Venous) 09/01/2023 10:06 AM CDT 09/01/2023 10:41 AM CDT Keith Robles M.D. LAB BLOOD ADD- ON [facility] [place] [address] [place] [address], [facility] [address] [place] [address] * Connective Tissue Diseases Phenix (09/01/2023 10:06 AM CDT) [facility] Antinuclear Ab, S 0.4 <=1.0 (Negative ) U 09/01/2023 7:27 PM CDT [facility] Comment: ----ADDITIONAL INFORMATION---- Method: Enzyme-linked immunoassay using HEp-2 nuclear extract supplemented with purified antigens. Cyclic Citrullinated Peptide Ab, S <15.6 <20.0 (Negative ) U 09/01/2023 6:47 PM CDT [facility] Interpretation SEE COMMENT 7:27 PM CDT [facility] Comment: Tests for antibodies to dsDNA and YONI antigens are not performed automatically unless the ABILIO result is > or = 3.0 U. ??Studies performed at [facility] indicate that positive ABILIO results <3.0 U are rarely accompanied by positive second order tests. Blood (Blood, Venous) 09/01/2023 10:06 AM CDT 09/01/2023 2:00 PM CDT Keith Robles M.D. LAB BLOOD ADD- ON [facility] [address] [place] [address] [facility] [address] [place] [address] * Comprehensive Metabolic Panel (09/01/2023 10:06 AM CDT) Potassium, S 4.1 3.6 - 5.2 mmol/L [...] Keith Robles M.D. LAB BLOOD ADD- ON [facility] [address] [place] [address], [facility] DTL [facility] [address] [place] [address] * (ABNORMAL) CBC with Differential, Blood (09/01/2023 10:06 AM CDT) Hemoglobin 13.4 11.6 - 15.0 g/dL 09/01/2023 [...] LAB BLOOD ADD- ON Performing Organization Address City/[facility] Co de Phone Number [facility] [place] [address] [place], [place] [phone] [place] [address] [facility] [address] [place], [place] [address] [place] [address] 200 [place] [address] * Folate (09/01/2023 10:06 AM CDT) Folate, S 18.8 >=4.0 mcg/L 09/02/2023 9: 57 AM CDT DT Blood (Blood, Venous) 09/01/2023 10:06 AM CDT 09/01/2023 10:41 AM CDT Suri Bedolla P.A.-C. LAB BLOOD ADD-ON Performing Organization Address [facility] de Phone Number [facility] [address] [place], [place] [address] [place] [address] 200 [place] [address] * Vitamin B12 Assay (09/01/2023 10:06 AM CDT) [facility] Vitamin B12 Assay, S 651 180 - 914 ng/L 09/02/2023 10:00 AM CDT DTL Comment: ----ADDITIONAL INFORMATION---- In patients being evaluated [...] P.A.-C. LAB BLOOD ADD-ON Performing Organization Address City/[facility] Co de Phone Number [facility] [address] [place] [address], [facility] DTL [facility] [address] [place] [address] documented in this encounter Visit Diagnoses Diagnosis Fatigue Fibromyalgia documented in this encounter Care Teams Manager Document Control Relationship Specialty Start Date End Date None Reported, Pcp PCP - General Family Medicine 01/25/22 documented as of this encounter
--- OUTSIDE RECORDS SUMMARY | 2023-09-28 04:28 | XMS_ITS | Referral Summary ---
Author Organization [facility] Address [address] [place] [address] Care Team Providers Care Salesperson Furniture Name Role Phone None Reported, Pcp Primary Care Provider Unavail able Source Comments Patient records contain information from all sites at [facility]. For routine questions regarding patient records, call [phone] during business hours, M-F 8:00 AM - 5:00 PM Central Time. Record requests for emergency care only can be directed to [phone] at any time.[facility] Encounters Date Type Department Care Team Description 09/05/2023 Clinical Communication [facility] in [place], [place] [address] [place] [phone] Deana Javed, LIV, EXPRESSIVE THERAPIST Pre-visit Testing Orders 09/01/2023 9:53 AM CDT - 09/01/2023 11:59 PM CDT Hospital Encounter Department of Laboratory Medicine and Pathology, [facility], in [place], [place] [address] [place] [address] Suri Bedolla P.A.-C. Fatigue; Fibromyalgia Discharge Disposition: Home or Self Care 09/01/2023 4:30 PM CDT Diagnostic Division of Pulmonary Medicine in [place], [place] [address] [place] [phone] Keith Robles M.D. Fibromyalgia 09/01/2023 8:00 AM CDT Comprehensive Visit Division of General Internal Medicine in [place], [place] [address] [place] [phone] Keith Robles M.D. Fibromyalgia (Primary Dx); Paresthesia; Pain Breast; Overactive Bladder; Nephrolithiasis 08/25/2023 8:00 AM CDT Clinical Communication Virtual Review in [place], [place] [address] [place] [phone] Pre-visit Intake 07/29/2023 Clinical Communication Division of General Internal Medicine in [place], [place] [address] [place] [phone] Prescheduling, Provider Triage from Last 3 Months Allergies Active Allergy Reactions Criticality Noted Date [...] Site 09/01/2023 09/01/2023 Migraine Headache 01/24/2022 09/01/2023 Immunizations Name Administration Dates Next Due HepB, Unspecified 09/01/2023(Deferred: Patient decision - Pt. will receive later locally.) Influenza (IM) Preservative Free 02/05/2014,01/16,12/28/2011 Influenza, Injectable, Mdck, Preservative Free, Quadrivalent 09/01/2023(Deferred: Patient Refused - pt. will receive next season.) Influenza, Injectable, Quadrivalent 04/07/2019 Influenza, Seasonal, Injectable 01/29/2010 SARS-COV-2 (COVID-19) - PFIZ ER [id number] (12 YEARS OR OLDER) 09/01/2023(Deferred: Patient Refused [...] may have 1 or 2 drink occasionally [facility] Answer Date Recorded In the past 12 months has [employer], gas, oil, or water [employer] threatened to shut off services in your [...] often do you attend chur ch or hinduism services? More than 4 times per year [...] Answer Date Recorded PHQ-2 Score 0 08/31/2023 [facility] - Occupational Stress Questionnaire Answer Date Recorded [...] your living situation today? [facility] 08/25/2023 Education Answer [...] PM CDT Clinical Communication Virtual Review in [place], [place] [address] [place] [phone] 10/06/2023 9:45 AM CDT Comprehensive Visit [facility] in [place], [place] [address] [place] [phone] Deana Javed, CISO, EXPRESSIVE THERAPIST [address] [place] [phone] 10/06/2023 11:50 AM CDT Appointment Department of Radiology in [place], [place] [address] [place] [phone] Deana Javed APRN, EXPRESSIVE THERAPIST [address] [place] [phone] Discharge Disposition: Home or Self Care 10/07/2023 7:30 AM CDT Nurse Only [facility] in [place], [place] [address] [place] [phone] Keith Robles M.D. [address] [place] [phone] 10/07/2023 8:30 AM CDT Comprehensive Visit [facility] in [place], [place] [address] [place] [phone] Segundo Fox M.B.B.SKonrad Rogers [address] [place] [phone] 10/07/2023 10:00 AM CDT Education [facility] in [place], [place] [address] [place] [phone] Keith Robles M.D. [address] [place] [phone] 10/07/2023 2:00 PM CDT Office Visit Division of General Internal Medicine in [place], [place] [address] [place] [phone] Keith Robles M.D. [address] [place] [phone] Procedures Procedure Name Priority Date/Time Associated Diagnosis [...] Fibromyalgia CREATINE KINASE (CK), S Routine 09/01/19 10:06 AM CDT Fibromyalgia THYROID FUNCTION CASCADE, [...] developed and its performance characteristics determined by [facility] in a manner consistent with CLIA requirements. This test has not been cleared or approved by the U.S. Food and Drug Administration. Blood (Blood, Venous) 09/01/2023 10:06 AM CDT 09/01/2023 2:09 PM CDT Narrative [facility] - 09/02/2023 12:27 PM CDT Specimen Information: Specimen ID: [id number] Specimen Type: Blood Specimen Collection Start Date: 09/01/2023 10:06 AM Specimen Received Date: 09/01/2023 ??2:09 PM Specimen ID: [id number] Specimen Type: Blood Specimen Collection Start Date: 09/01/2023 10:06 AM Specimen Received Date: 09/01/2023 ??1:54 PM Keith Robles M.D. LAB BLOOD ADD- ON Performing Organization Address City/[facility]/ZIP Co de Phone Number [facility] [address] [place] [address] [facility] [address] [place] [address] [facility] [address] [place] [address] [place] [address] * Thyroid Function [place] (09/01/2023 10:06 AM CDT) Pathologist [facility] TSH, Sensitive 1.1 0.3 - 4.2 mIU/L 09/01/2023 11:07 AM CDT [facility] Blood (Blood, Venous) 09/01/2023 10:06 AM CDT 09/01/2023 10:41 AM CDT Keith Robles M.D. LAB BLOOD ADD- ON Performing Organization Address [facility] Co de Phone Number [facility] [address] [place] [address], [facility] [address] [place] [address] * Celiac Disease Serology [place] (09/01/2023 10:06 AM CDT) Pathologist [facility] Immunoglobulin A (IgA), S 133 61 - [...] AM CDT 09/01/2023 2:09 PM CDT Narrative [facility] - 09/01/2023 10:22 PM CDT Specimen Information: Specimen ID: [id number] Specimen Type: Blood Specimen Collection Start Date: 09/01/2023 10:06 AM Specimen Received Date: 09/01/2023 ??2:09 PM Specimen ID: [id number] Specimen Type: Blood Specimen Collection Start Date: 09/01/2023 10:06 AM Specimen Received Date: 09/01/2023 ??2:00 PM Keith Robles M.D. LAB BLOOD ADD- ON Performing Organization Address City/[facility]/ZIP Co de Phone Number [facility] [address] [place] [address] [facility] [address] [place] [address] [place] [address] [place] [address] * tTG (Tissue Transglutaminase), Antibody, IgA (09/01/2023 10:06 AM CDT) Pathologist [facility] Tissue Transglutaminase Ab, IgA, S <1.2 <4.0 (Negative ) U/mL 09/01/2023 9:10 PM CDT [facility] Blood 09/01/2023 10:0 6 AM CDT 09/01/2023 3:14 PM CDT Keith Robles M.D. LAB BLOOD ADD- ON Performing Organization Address [facility] Co de Phone Number [facility] [address] [place] [address] [facility] [address] [place] [address] * Connective Tissue Diseases [place] (09/01/2023 10:06 AM CDT) Antinuclear Ab, S [...] or = 3.0 U. ??Studies performed at [facility] indicate that positive ABILIO results <3.0 U are rarely accompanied by positive second order tests. Blood (Blood, Venous) 09/01/2023 10:06 AM CDT 09/01/2023 2:00 PM CDT Keith Robles M.D. LAB BLOOD ADD- ON Performing Organization Address [facility]/ZIP Co de Phone Number [facility] [address] [place] [address] [facility] [address] [place] [address] * 25-Hydroxyvitamin D2 and D3 (09/01/2023 10:06 AM CDT) Pathologist [facility] 25-Hydroxy D2 <4.0 ng/mL 09/02/2023 3:23 PM CDT [facility] 25-Hydroxy D3 39 ng/mL 09/02/2023 3:23 PM CDT [facility] 25-Hydroxy D Total 39 ng/mL 2023 3:23 PM CDT [facility] Comment: ----REFERENCE VALUE---- 25-HYDROXY D TOTAL (D2+D3) Optimum levels in the healthy population are 20-50. ----ADDITIONAL INFORMATION---- This test was developed and its performance characteristics determined by [facility] in a manner consistent with CLIA requirements. This test has not been cleared or approved by the U.S. Food and Drug Administration. Blood (Blood, Venous) 09/01/2023 10:06 AM CDT 09/01/2023 1:51 PM CDT Keith Robles M.D. LAB BLOOD ADD- ON Performing Organization Address [facility] Co de Phone Number [facility] [address] [address] [facility] [address] [place] [address] [address] [place] [address] [place] [address] * Dehydroepiandrosterone Sulfate (DHEA-S) (09/01/2023 10:06 AM CDT) Pathologist [facility] Dehydroepiandrosterone Sulfate, S 181 45 - 295 mcg/dL 09/01/2023 3:49 PM CDT [facility] Blood (Blood, Venous) 09/01/2023 10:06 AM CDT 09/01/2023 2:26 PM CDT Keith Robles M.D. LAB BLOOD ADD- ON Performing Organization Address City/[facility]/ZIP Co de Phone Number [facility] [address] [place] [address] [facility] [address] [place] [address] * Sedimentation Rate (09/01/2023 10:06 AM CDT) Pathologist [facility] Sedimentation Rate, B 7 2 - 20 mm/h 09/01/2023 11:31 AM CDT DT Blood (Blood, Venous) 09/01/2023 10:06 AM CDT 09/01/2023 10:27 AM CDT Keith Robles M.D. LAB BLOOD ADD- ON Performing Organization Address [facility]/ZIP Co de Phone Number [facility] [address] [place] [address], [facility] [address] [address] * (ABNORMAL) CBC with Differential, Blood (09/01/2023 [...] Keith Robles M.D. LAB BLOOD ADD- ON [facility] [address] [place] [address], [facility] DTL [facility] [address] [place] [address] DHPM [facility] [address] [place] [address] * Rheumatoid Factor (09/01/2023 10:06 AM CDT) Pathologist [facility] Rheumatoid Factor, S <15 <15 IU/mL 09/01/2023 3:10 PM CDT [facility] Blood (Blood, Venous) 09/01/2023 10:06 AM CDT 09/01/2023 2:28 PM CDT Keith Robles M.D. LAB BLOOD ADD- ON [facility] [address] [place] [address] [facility] [address] [place] [address] * CRP (C-Reactive Protein) (09/01/2023 10:06 AM CDT) C-Reactive Protein (CRP), S <3.0 <5.0 mg/L 09/01/2023 11:07 AM CDT DTL Blood (Blood, Venous) 09/01/2023 10:06 AM CDT 09/01/2023 10:41 AM CDT Keith Robles M.D. LAB BLOOD ADD- ON [facility] [address] [place] [address] * Folate (09/01/2023 10:06 AM CDT) Pathologist [facility] Folate, S 18.8 >=4.0 mcg/L 09/02/2023 9: 57 AM CDT [facility] Blood (Blood, Venous) 09/01/2023 10:06 AM CDT 09/01/2023 10:41 AM CDT Suri Bedolla P.A.-C. LAB BLOOD ADD-ON [facility] [address] [place] [address] * Ferritin (09/01/2023 10:06 AM CDT) Ferritin, S 116 6 - 175 mcg/L 09/01/2023 11:07 AM CDT DTL Blood (Blood, Venous) 09/01/2023 10:06 AM CDT 09/01/2023 10:41 AM CDT Keith Robles M.D. LAB BLOOD ADD- ON Performing Organization Address City/[facility]/ZIP Co de Phone Number [facility] [address] [place] [address], [facility] 200 [place] [address] * Vitamin B12 Assay (09/01/2023 10:06 AM CDT) Vitamin B12 Assay, S 651 180 - 914 ng/L 09/02/2023 10:00 AM CDT DT Comment: ----ADDITIONAL INFORMATION---- In patients being evaluated [...] P.A.-C. LAB BLOOD ADD-ON Performing Organization Address City/[facility]/ZIP Co de Phone Number [facility] [address] [place], [place] [address] [place] [address] [address] [place] [address] * CK (Creatine Kinase) (09/01/2023 10:06 AM CDT) Creatine Kinase (CK), S 39 26 - 192 U/L 09/01/2023 11:07 AM CDT DT Blood (Blood, Venous) 09/01/2023 10:06 AM CDT 09/01/2023 10:41 AM CDT Keith Robles M.D. LAB BLOOD ADD- ON Performing Organization Address City/[facility]/ZIP Co de Phone Number [facility] [address] [place] [address], [facility] [address] [place] [address] * Cortisol (09/01/2023 10:06 AM CDT) Cortisol, Random, S 7.7 mcg/dL 09/01/2023 11:07 AM CDT DTL Comment: ----REFERENCE VALUE---- AM ([id number]): 4.8-20 PM ([id number]): 2.5-12 Blood (Blood, Venous) 09/01/2023 10:06 AM CDT 09/01/2023 10:41 AM CDT Keith Robles M.D. LAB BLOOD ADD- ON [address] [address], [facility] [address] [address] * Comprehensive Metabolic Panel (09/01/2023 10:06 AM [...] Keith Robles M.D. LAB BLOOD ADD- ON [facility] [address] [place] [address], [facility] [address] [place] [address] * PUL Home Overnight Oximetry (09/01/2023) 09/01/2023 Impressions DOVER NVISION EAP - 09/02/2023 3:23 PM CDT Although there is variability in the baseline oximetry readings, the nocturnal overnight study is still within normal limits. Physician: Srinivasan Bowman M.D. [id number] Narrative Procedure Note Srinivasan Bowman M.D. - 09/02/2023 IMPRESSION: Although there is variability in the baseline oximetry readings, thenocturnal overnight study is still within normal limits. Physician: Srinivasan Bowman M.D. [id number] Keith Robles M.D. PFT ORDERABLES NATIVIDAD ZEE EAP from Last 3 Months Care Teams Salesperson Furniture Relationship Specialty Start Date End Date None Reported, Pcp PCP - General Family Medicine 01/25/22
--- OUTSIDE RECORDS SUMMARY | 2023-09-28 04:28 | XMS_ITS | Encounter Summary ---
Author Organization [facility] Address [address] [place] [address] Care Team Providers Care Director Of Operations For Therapy Name Role Phone None Reported, Pcp Primary Care Provider Unavail able Reason for Referral * Specialty Diagnoses / Procedures Referred By Contac t Referred To Contact [facility] [address] [place] [phone] [facility] Referral ID Status Reason Start Date Expiration Date Visits Re quested Visits Authorized Scheduling Instructions Schedule at the end of the itinerary. CM * Specialty Diagnoses / Procedures Referred By Contac t [facility] [address] [place] [phone] [facility] Referral ID Status Reason Start Date Expiration Date Visits Re quested Visits Authorized Scheduling Instructions Schedule after the provider consult and before the Healthy Living orders and session 2 education. CM * Outpatient (Routine) - Authorized Specialty Diagnoses / Procedures Referred By Contac t Referred To Contact [facility] Diagnoses Keith Dowell M.D. [address] [place] [phone] [facility] Referral ID Status Reason Start Date Expiration Date V isits Requested Visits Authorized [id number] Authorized 08/03/2023 02/01/2025 1 1 Scheduling Instructions Ideally schedule after RN Education Session 1 and before RN Education Session 2. If Stress schedules are full, okay to schedule after RN Education Session 2. CM * Specialty Diagnoses / Procedures Referred By Merry t Referred To Contact [facility] [address] [place] [phone] [facility] Referral ID Status Reason Start Date Expiration Date Visits Re quested Visits Authorized Scheduling Instructions Schedule after RN Education Session 1 and before RN Education Session 2. CM * Physical Therapy (Routine) - Authorized Specialty Diagnoses / Procedures Referred By Contac t Referred To Contact Diagnoses Fibromyalgia Procedures Healthy Living Program - Physical Therapy (Clinic) Keith Robles M.D. [address] [place] [phone] [facility] Referral ID Status Reason Start Date Expiration Date V isits Requested Visits Authorized [id number] Authorized 08/03/2023 08/02/2024 1 1 * Specialty Diagnoses / Procedures Referred By Contac t Referred To Contact [facility] [address] [place] [phone] [facility] Referral ID Status Reason Start Date Expiration Date Visits Re quested Visits Authorized Scheduling Instructions Schedule after RN Education Session 1 and before RN Education Session 2. CM * Specialty Diagnoses / Procedures Referred By Contmarlin t Referred To Contact [facility] [address] [place] [phone] Referral ID Status Reason Start Date Expiration Date Visits Re quested Visits Authorized Scheduling Instructions CM * Outpatient (Routine) - Authorized Specialty Diagnoses / Procedures Referred By Merry t Referred To Contact [facility] Diagnoses Fibromyalgia Keith Robles M.D. [address] [place] [phone] [facility] Referral ID Status Reason Start Date Expiration Date V isits Requested Visits Authorized [id number] Authorized 08/03/2023 02/01/2025 1 1 Scheduling Instructions CM Reason for Visit * Reason Onset Date Comments Triage 07/29/2023 Encounter Details Date Type Department Care Team (Late st Contact Info) Description 07/29/2023 Clinical Communication Division of General Internal Medicine in [place], [place] [address] [place] [phone] Prescheduling, Provider Triage Social History Tobacco Use Types Packs/Day Years [...] week 11/23/2021 How often do you attend [facility] or anabaptism services? More than 4 times per year [...] Answer Date Recorded PHQ-2 Score 1 11/25/2021 [facility] - Occupational Stress Questionnaire Answer Date Recorded [...] slept in a senior living (including now)? No 11/23/2021 Nutrition Answer Date [...] PM CDT documented as of this encounter Miscellaneous Notes * Telephone Encounter - Natasha Briggs Dileep - 07/29/2023 3:36 PM CDT Arlen Flaherty Martyconsuelo 1985 [id number] 38 years Height: 5'4'' Weight: 150 Gender: Female PCP: Who filled out ARF: Patient Request: I have medical symptoms without a clear diagnosis MAIN SYMPTOM Pain Description: I have significant back, arm, leg pain that radiates down my arms to my hands, down my legs to my feet and is central in my back. Duration: More than 12 months Previous Eval: Yes Location: Suri Bedolla P.A.-C. - [facility] Emergency Department [facility]. Tali Gannon [facility] Have had: Images (X-Rays, CT scan, MRI scan, etc.), Blood or urine tests Diagnosis: Outcome: There's nothing of concern in my bloodwork, so medications were offered as something to try to helpwith sleep etc. Expectations: To have someone actually look at my symptoms and try to help me find a way to live comfortably. ADDITIONAL - 1 Tingling and numbness Description: I have tingling and numbness that goes down my arms to my hands and is extremely uncomfortable. Tingling and numbness that goes down my legs and is the worst in my feet and occasionally is in my face. It isn't all the time but lasts for weeks at a time. Duration: More than 12 months Previous Eval: Yes Location: Suri Bedolla P.A.-C. [facility] - did MRI and it wasn't a stroke/MS so they weren't worried Dr[facility] - tried medications after bloodwork [facility]. Tali Gannon [facility] - referred me to [facility] and I was denied Have had: Images (X-Rays, CT scan, MRI scan, etc.), Blood or urine tests Diagnosis: Outcome: That the tingling wasn't from a stroke or M.S. and no further concerns. Expectations: To soothe the pain and discomfort and prevent it from happening. I'm greatly worried about permanent damage. ADDITIONAL - 2 Fatigue Description: I'm almost always tired. I have a hard time sleeping well and very little energy during the day. Myarms, legs, and everthing feels heavy and I have no energy or mental energy to do daily tasks. Duration: More than 12 months Previous Eval: Yes Location: Suri Bedolla P.A.-C. [facility] Dr[facility] Tali Ruiz [facility] Have had: Blood or urine tests Diagnosis: Outcome: That my bloodwork doesn't show anything of great concern so I was pretty much dismissed. Expectations: For someone to look at my health and symptoms as a whole and help me to be able to live again. I'vebeen referred to the [facility] 2 times and denied. My mom is diagnosed with Fibromyalgia and has similarsymptoms as mine. Please, help me. I feel like I'm slowly withering away and no one cares to look into why. ADDITIONAL - 3 Description: Duration: Previous Eval: Location: Have had: Diagnosis: Outcome: Expectations: ADDITIONAL - 4 Description: Duration: Previous Eval: Location: Have had: Diagnosis: Outcome: Expectations: ADDITIONAL CONCERNS: LIFESTYLE MEDICINE CONSULTATION: Yes CONDITIONS: Anxiety, Pain, Fatigue BOTHERED BY: Feeling nervous, anxious or on edge - Several days Not being able to control or stop worrying - Not at all Little interest or pleasure in doing things - Several days Feeling down, depressed, or helpless - Not at all Willing to speak to a mental health professional - PAIN LONGER THAN 3 MONTHS: Yes CARE PROVIDERS TO DATE: 5 or more LOWEST PAIN LAST 7 DAYS (0 to 10): 6 PAIN INTERFERENCE PAST 3 MONTHS (0 to 10): 10 - Severely Interfered PAIN AREAS: HEAD, Upper BACK, Lower BACK, Right SHOULDER, Right Upper ARM, Right Lower ARM, Right HIP, Right Upper LEG, Right Lower LEG, Left SHOULDER, Left Upper ARM, Left Lower ARM, Left HIP, Left Upper LEG, Left Lower LEG FATIGUE A MAIN REASON FOR VISIT: Yes FATIGUE/HOW LONG: More than 12 months PROBLEMS WITH SLEEP: Yes SLEEP PROBLEMS LAST 2 WEEKS: Moderate SLEEP APNEA DIAGNOSIS: No Willing to attend FCFC or PRC appointments - Definitely yes DAILY MEDS: 4 OPIOIDS: No CURRENT DIALYSIS: No CURRENT HEALTH/PAST YEAR: Very Good CONFIDENCE: Agree, Somewhat agree NOT AVAILABLE: I AM AVAILABLE ANY TIME PHONE: [phone] documented in this encounter Plan of Treatment Upcoming Encounters Date Type Department Care Team (Latest Contact Info) Description 10/04/2023 2:30 PM CDT Clinical Communication Virtual Review in [place], [place] [address] [place] [phone] 10/06/2023 9:45 AM CDT Comprehensive Visit Breast Diagnostic Clinic in [place], [place] [address] [place] [phone] Deana Javed, NURSE BEHAVIORAL HEALTH CARE, PHOTO MASK PATTERN GENERATOR [address] [place] [phone] 10/06/2023 11:50 AM CDT Appointment Department of Radiology in [place], [place] [address] [place] [phone] Deana Javed APRN, PHOTO MASK PATTERN GENERATOR [address] [place] [phone] Discharge Disposition: Home or Self Care 10/07/2023 7:30 AM CDT Nurse Only [facility] in [place], [place] [address] [place] [phone] Keith Robles M.D. [address] [place] [phone] 10/07/2023 8:30 AM CDT Comprehensive Visit [facility] in [place], [place] [address] [place] [phone] Segundo Fox M.B.BKenSKen, Konrad [address] [place] [phone] 10/07/2023 10:00 AM CDT Education [facility] in [place], [place] [address] [place] [phone] Keith Robles M.D. [address] [place] [phone] 10/07/2023 2:00 PM CDT Office Visit Division of General Internal Medicine in [place], [place] [address] [place] [phone] Keith Robles M.D. [address] [place] [phone] Scheduled Referrals Name Type Priority Associated Diagnoses Order Schedule [facility] - Fibromyalgia treatment program consult (clinic) Outpatient Referral Routine Fibromyalgia Expected: 09/01/2023, Expires: 08/31/2024 Fibromyalgia self-guided eLearning Outpatient Referral Routine Fibromyalgia Expected: 09/01/2023 (Approximate), Expires: 08/31/2024 Healthy Living Program - Initial wellness coaching (clinic) Outpatient Referral Routine Fibromyalgia Expected: 09/01/2023, Expires: 08/31/2024 Healthy Living Program - Sleep/Insomnia Management (Education Visit) Outpatient Referral Routine Fibromyalgia Expected: 09/01/2023, Expires: 08/31/2024 [facility] - Stress management consult (clinic) Outpatient Referral Routine Fibromyalgia Expected: 09/01/2023, Expires: 08/31/2024 [facility] - Fibromyalgia and Fatigue Group Education Outpatient Referral Routine Fibromyalgia Expected: 09/01/2023, Expires: 08/31/2024 [facility] - Fibromyalgia and Fatigue Group Education Outpatient Referral Routine Fibromyalgia Expected: 09/01/2023, Expires: 08/31/2024 documented as of this encounter Results * Quantitative M-protein Study (09/01/2023 10:06 AM CDT) Pathologist [facility] Immunoglobulin A (IgA), S 133 61 - [...] developed and its performance characteristics determined by [facility] in a manner consistent with CLIA requirements. This test has not been cleared or approved by the U.S. Food and Drug Administration. Blood (Blood, Venous) 09/01/2023 10:06 AM CDT 09/01/2023 2:09 PM CDT Narrative [facility] - 09/02/2023 12:27 PM CDT Specimen Information: Specimen ID: [id number] Specimen Type: Blood Specimen Collection Start Date: 09/01/2023 10:06 AM Specimen Received Date: 09/01/2023 ??2:09 PM Specimen ID: [id number] Specimen Type: Blood Specimen Collection Start Date: 09/01/2023 10:06 AM Specimen Received Date: 09/01/2023 ??1:54 PM Keith Robles M.D. LAB BLOOD ADD- ON Performing Organization Address City/[facility]/ZIP Co de Phone Number [facility] [address] [place] [address] [facility] [address] [place] [address] [place] [address] [place] [facility] [place] [address] * 25-Hydroxyvitamin D2 and D3 (09/01/2023 10:06 AM CDT) [facility] 25-Hydroxy D2 <4.0 ng/mL 09/02/2023 3:23 PM CDT [facility] 25-Hydroxy D3 39 ng/mL 09/02/2023 3:23 PM CDT [facility] 25-Hydroxy D Total 39 ng/mL 2023 3:23 PM CDT [facility] Comment: ----REFERENCE VALUE---- 25-HYDROXY D TOTAL (D2+D3) Optimum levels in the healthy population are 20-50. ----ADDITIONAL INFORMATION---- This test was developed and its performance characteristics determined by [facility] in a manner consistent with CLIA requirements. This test has not been cleared or approved by the U.S. Food and Drug Administration. Blood (Blood, Venous) 09/01/2023 10:06 AM CDT 09/01/2023 1:51 PM CDT Keith Robles M.D. LAB BLOOD ADD- ON Performing Organization Address City/[facility]/ZIP Co de Phone Number [facility] [address] [place] [phone] [facility] [address] [place] [address] [place] [phone] * Celiac Disease Serology Procious (09/01/2023 10:06 AM CDT) [facility] Immunoglobulin A (IgA), S 133 61 - 356 mg/dL 09/01/2023 3:11 PM CDT [facility] Celiac Disease Interpretation See Comment: Negative serology. Celiac disease unlikely. However, approximately 10% of patients with celiac disease are seronegative. Also, patients who are already adhering to a gluten-free diet may be seronegative. If celiac disease is highly clinically suspected, consider HLA-DQ typing. 09/01/2023 10:22 PM CDT [facility] Blood (Blood, Venous) 09/01/2023 10:06 AM CDT 09/01/2023 2:09 PM CDT Narrative [facility] - 09/01/2023 10:22 PM CDT Specimen Information: Specimen ID: [id number] Specimen Type: Blood Specimen Collection Start Date: 09/01/2023 10:06 AM Specimen Received Date: 09/01/2023 ??2:09 PM Specimen ID: [id number] Specimen Type: Blood Specimen Collection Start Date: 09/01/2023 10:06 AM Specimen Received Date: 09/01/2023 ??2:00 PM Keith Robles M.D. LAB BLOOD ADD- ON [facility] [address] [place] [address] [facility] [address] [place] [phone] [facility] [address] [place] [address] [phone] * Cortisol (09/01/2023 10:06 AM CDT) [facility] Cortisol, Random, S 7.7 mcg/dL 09/01/2023 11:07 AM CDT [facility] Comment: ----REFERENCE VALUE---- AM ([id number]): 4.8-20 PM ([phone]): 2.5-12 Blood (Blood, Venous) 09/01/2023 10:06 AM CDT 09/01/2023 10:41 AM CDT Keith Robles M.D. LAB BLOOD ADD- ON [facility] [address] [place] [address], [facility] [address] [place] [address] * Rheumatoid Factor (09/01/2023 10:06 AM CDT) Pathologist [facility] Rheumatoid Factor, S <15 <15 IU/mL 09/01/2023 3:10 PM CDT [facility] Blood (Blood, Venous) 09/01/2023 10:06 AM CDT 09/01/2023 2:28 PM CDT Keith Robles M.D. LAB BLOOD ADD- ON [facility] [address] [place] [address] [facility] [address] [place] [address] * CK (Creatine Kinase) (09/01/2023 10:06 AM CDT) Pathologist [facility] Creatine Kinase (CK), S 39 26 - 192 U/L 09/01/2023 11:07 AM CDT [facility] Blood (Blood, Venous) 09/01/2023 10:06 AM CDT 09/01/2023 10:41 AM CDT Keith Robles M.D. LAB BLOOD ADD- ON [facility] [address] [place] [address], [facility] [address] [place] [address] * Thyroid Function Procious (09/01/2023 10:06 AM CDT) [facility] TSH, Sensitive 1.1 0.3 - 4.2 mIU/L 09/01/2023 11:07 AM CDT DT Blood (Blood, Venous) 09/01/2023 10:06 AM CDT 09/01/2023 10:41 AM CDT Keith Robles M.D. LAB BLOOD ADD- ON [facility] [address] [place], [place] [phone] [place] [address] 200 [place] [address] * CRP (C-Reactive Protein) (09/01/2023 10:06 AM CDT) [facility] C-Reactive Protein (CRP), S <3.0 <5.0 mg/L 09/01/2023 11:07 AM CDT DT Blood (Blood, Venous) 09/01/2023 10:06 AM CDT 09/01/2023 10:41 AM CDT Keith Robles M.D. LAB BLOOD ADD- ON Performing Organization Address City/[facility]/ZIP Co de Phone Number [facility] [address] [place], [place] [phone] [place] [address] [address] [place] [address] * Sedimentation Rate (09/01/2023 10:06 AM CDT) [facility] Sedimentation Rate, B 7 2 - 20 mm/h 09/01/2023 11:31 AM CDT DT Blood (Blood, Venous) 09/01/2023 10:06 AM CDT 09/01/2023 10:27 AM CDT Keith Robles M.D. LAB BLOOD ADD- ON [facility] [address] [place] [address], [facility] [address] [place] [address] * Dehydroepiandrosterone Sulfate (DHEA-S) (09/01/2023 10:06 AM CDT) Pathologist [facility] Dehydroepiandrosterone Sulfate, S 181 45 - 295 mcg/dL 09/01/2023 3:49 PM CDT [facility] Blood (Blood, Venous) 09/01/2023 10:06 AM CDT 09/01/2023 2:26 PM CDT Keith Robles M.D. LAB BLOOD ADD- ON [facility] [address] [place] [address] [facility] [address] [place] [address] * Ferritin (09/01/2023 10:06 AM CDT) Pathologist [facility] Ferritin, S 116 6 - 175 mcg/L 09/01/2023 11:07 AM CDT [facility] Blood (Blood, Venous) 09/01/2023 10:06 AM CDT 09/01/2023 10:41 AM CDT Keith Robles M.D. LAB BLOOD ADD- ON [facility] [address] [place] [address], [facility] [address] [place] [address] * Connective Tissue Diseases Procious (09/01/2023 10:06 AM CDT) Pathologist [facility] Antinuclear Ab, S 0.4 <=1.0 (Negative ) U 09/01/2023 7:27 PM CDT [facility] Comment: ----ADDITIONAL INFORMATION---- Method: Enzyme-linked immunoassay using HEp-2 nuclear extract supplemented with purified antigens. Cyclic Citrullinated Peptide Ab, S <15.6 <20.0 (Negative ) U 09/01/2023 6:47 PM CDT [facility] Interpretation SEE COMMENT 7:27 PM CDT [facility] Comment: Tests for antibodies to dsDNA and YONI antigens are not performed automatically unless the ABILIO result is > or = 3.0 U. ??Studies performed at [facility] indicate that positive ABILIO results <3.0 U are rarely accompanied by positive second order tests. Blood (Blood, Venous) 09/01/2023 10:06 AM CDT 09/01/2023 2:00 PM CDT Keith Robles M.D. LAB BLOOD ADD- ON [facility] [address] [place] [address] [facility] [address] [place] [address] * Comprehensive Metabolic Panel (09/01/2023 10:06 AM CDT) [facility] Potassium, S 4.1 3.6 - 5.2 mmol/L [...] Keith Robles M.D. LAB BLOOD ADD- ON [address] [address], [facility] [address] [address] * (ABNORMAL) CBC with Differential, Blood (09/01/2023 [...] Keith Robles M.D. LAB BLOOD ADD- ON [facility] [address] [place] [address], [facility] DTL [facility] [address] [place] [address] DHPM [facility] [address] [place] [address] * PUL Home Overnight Oximetry (09/01/2023) 09/01/2023 Impressions [facility] - 09/02/2023 3:23 PM CDT Although there is variability in the baseline oximetry readings, the nocturnal overnight study is still within normal limits. Physician: Srinivasan Bowman M.D. [id number] Narrative Procedure Note Srinivasan Bowman M.D. - 09/02/2023 IMPRESSION: Although there is variability in the baseline oximetry readings, thenocturnal overnight study is still within normal limits. Physician: Srinivasan Bowman M.D. [id number] Keith Robles M.D. PFT ORDERABLES Performing Organization Address City/State/[facility] Co de Phone Number [facility] documented in this encounter Visit Diagnoses Diagnosis Fibromyalgia- Primary Fibromyalgia Fatigue Fibromyalgia documented in this encounter Care Teams Director Of Operations For Therapy Relationship Specialty Start Date End Date None Reported, Pcp PCP - General Family Medicine 01/25/22 documented as of this encounter
--- OUTSIDE RECORDS SUMMARY | 2023-09-28 04:28 | XMS_ITS | Encounter Summary ---
Author Organization [facility] Address [address] [place] [phone] Care Team Providers Care Mounter Saxophones Name Role Phone None Reported, Pcp Primary Care Provider Unavail able Reason for Visit * Reason Onset Date Comments Pre-visit Intake 08/25/2023 * Appointment Request (Routine) - Authorized Specialty Diagnoses / Procedures Referred By Merry munoz Referred To Contact General Internal Medicine Referral ID Status Reason Start Date Expiration Date V isits Requested Visits Authorized [id number] Authorized 08/03/2023 08/02/2024 1 1 Encounter Details Date Type Department Care Team (Latest Contact Info) Description 08/25/2023 8:00 AM CDT Clinical Communication Virtual Review in [address] [phone] Pre-visit Intake Social History Tobacco Use Types Packs/Day Years Used Date Smoking Tobacco: Never Smokeless Tobacco: Never Tobacco Cessation:Counseling Given: Not Answered Comments:Smoked in high school Alcohol Use Standard Drinks/Week Comments Yes 1 (1 standard drink = 0.6 oz pur e alcohol) [facility] Utilities Answer Date Recorded In the past 12 months has e [employer], gas, oil, or water [employer] threatened to shut off services in [...] often do you attend chur ch or yazidi services? More than 4 times per year [...] Answer Date Recorded PHQ-2 Score 1 11/25/2021 [facility] - Occupational [...] your living situation today? I have a [facility] place to live 08/25/2023 Education Answer [...] PM CDT Clinical Communication Virtual Review in [place], [place] [address] [place] [phone] 10/06/2023 9:45 AM CDT Comprehensive Visit [facility] in [place], [place] [address] [place] [phone] Deana Javed, LINE ORDERING CLINICIAN, SUPERVISOR PLATE FORMING [address] [place] [phone] 10/06/2023 11:50 AM CDT Appointment Department of Radiology in [place], [place] [address] [place] [phone] Deana Javed APRN, SUPERVISOR PLATE FORMING [address] [place] [phone] Discharge Disposition: Home or Self Care 10/07/2023 7:30 AM CDT Nurse Only [facility] [place], [place] [address] [place] [phone] Keith Robles M.D. [address] [place] [phone] 10/07/2023 8:30 AM CDT Comprehensive Visit [facility] [place], [place] [address] [place] [phone] Segundo Fox M.B.B.S., Konrad [address] [place] [phone] 10/07/2023 10:00 AM CDT Education [facility] in [place], [place] [address] [place] [phone] Keith Robles M.D. [address] [place] [phone] 10/07/2023 2:00 PM CDT Office Visit Division of General Internal Medicine in [place], [place] [address] [place] [phone] Keith Robles M.D. [address] [place] [phone] documented as of this encounter Visit Diagnoses Not on filedocumented in this encounter Care Teams Mounter Saxophones Relationship Specialty Start Date End Date None Reported, Pcp PCP - General Family Medicine 01/25/22 documented as of this encounter
--- OUTSIDE RECORDS SUMMARY | 2023-09-28 04:28 | XMS_ITS | Encounter Summary ---
Author Organization [facility] Address [address] [place] [address] Care Team Providers Care Bridal Stylist Sales Consultant Name Role Phone None Reported, Pcp Primary Care Provider Unavail able Reason for Referral * Outpatient (Routine) - Authorized Specialty Diagnoses / Procedures Referred By Antoninaac t Referred To Contact Diagnoses Pain Breast Procedures BI Breast Diagnostic Bilateral with Tomosynthesis BI Breast Diagnostic Right with Tomosynthesis Deana Javed APRN, CNS [address] [place] [phone] [facility] Referral ID Status Reason Start Date Expiration Date V isits Requested Visits Authorized [id number] Authorized 09/08/2023 09/07/2024 1 1 * Outpatient (Routine) - Authorized Specialty Diagnoses / Procedures Referred By Merry munoz Referred To Contact Diagnoses Pain Breast Procedures BI Ultrasound Breast Focused Right Deana Javed APRN, CNS [address] [place] [phone] [facility] Referral ID Status Reason Start Date Expiration Date V isits Requested Visits Authorized [id number] Authorized 09/08/2023 09/07/2024 1 1 Reason for Visit * Reason Onset Date Comments Pre-visit Testing Orders 09/05/2023 Encounter Details Date Type Department Care Team (Latest Contact Info) Description 09/05/2023 Clinical Communication Breast Diagnostic Clinic in [place], [place] [address] [place] [address] Deana Javed, MEMORIAL DESIGNER, MAIL WEIGHER [address] [place] [phone] Pre-visit Testing Orders Social History Tobacco Use Types Packs/Day Years Used Date Smoking Tobacco: Never Passive Smoke Exposure: Past Smokeless Tobacco: Never Comments:Smoked in high scho ol Alcohol Use Standard Drinks/Week Comments Yes 1 (1 standard drink = 0.6 oz pure alcohol) Rarely consume alcohol, may have 1 or 2 drink occasionally [facility] [employer] Answer Date Recorded In the past 12 months has e [employer], gas, oil, or water company threatened to shut off services in your [...] often do you attend chur ch or tenriism services? More than 4 times per year [...] Answer Date Recorded PHQ-2 Score 0 08/31/2023 [facility] - [...] your living situation today? I have a [facility] place to live 08/25/2023 Education Answer [...] encounter Miscellaneous Notes * Telephone Encounter - Jessy Muhammad - 09/05/2023 8:40 AM CDT Breast consult here is the note on it: T2: any provider, please pend right breast diagnostic imaging and ultrasound documented in this encounter Plan of Treatment Upcoming Encounters Date Type Department Care Team (Latest Contact Info) Description 10/04/2023 2:30 PM CDT Clinical Communication Virtual Review in [place], [place] 200 [place] [phone] 10/06/2023 9:45 AM CDT Comprehensive Visit [facility] in [place], [place] [address] [place] [phone] Deana Javed APRN, MAIL WEIGHER [address] [place] [phone] 10/06/2023 11:50 AM CDT Appointment Department of Radiology in [address] [phone] Deana Javed APRN, MAIL WEIGHER [address] [place] [phone] Discharge Disposition: Home or Self Care 10/07/2023 7:30 AM CDT Nurse Only [facility] in [place], [place] [address] [place] [phone] Keith Robles M.D. [address] [place] [phone] 10/07/2023 8:30 AM CDT Comprehensive Visit [facility] in [place], [place] [address] [place] [phone] Segundo Fox M.B.B.S., M.D. [address] [place] [phone] 10/07/2023 10:00 AM CDT Education [facility] in [place], [place] [address] [place] [phone] Keith Robles M.D. [address] [place] [phone] 10/07/2023 2:00 PM CDT Office Visit Division of General Internal Medicine in [place], [place] [address] [place] [phone] Keith Robles M.D. [address] [place] [phone] Scheduled Orders Name Type Priority Associated Diagnoses Order Schedule BI Ultrasound Breast Focused Right Imaging RAD - Routine (most inpatients and all outpatients) Pain Breast Expected: 10/06/2023, Expires: 12/05/2024 BI Breast Diagnostic Bilateral with Tomosynthesis Imaging RAD - Routine (most inpatients and all outpatients) Pain Breast Expected: 10/06/2023, Expires: 12/05/2024 documented as of this encounter Visit Diagnoses Diagnosis Pain Breast- Primary documented in this encounter Care Teams Bridal Stylist Sales Consultant Relationship Specialty Start Date End Date None Reported, Pcp PCP - General Family Medicine 01/25/22 documented as of this encounter
--- OUTSIDE RECORDS SUMMARY | 2023-09-28 04:28 | XMS_ITS | Encounter Summary ---
Author Organization [facility] Address [address] [place] [address] Care Team Providers Care Audit Clerks Supervisor Name Role Phone None Reported, Pcp Primary Care Provider Unavail able Reason for Referral * Outpatient (Routine) - Authorized Specialty Diagnoses / Procedures Referred By Merry munoz Referred To Contact Breast Clinic Diagnoses Pain Breast Keith Robles M.D. [address] [place] [address] [facility] Referral ID Status Reason Start Date Expiration Date V isits Requested Visits Authorized [id number] Authorized 09/01/2023 03/02/2025 1 1 Reason for Visit * Reason Comments Pain In Limb Significant central back, arm, and leg pain that radiates down my arms to my hands and down my legs to my feet that has been going on for greater than 12 months. Numbness and tingling 1. Down my arms to my hands that is extremely uncomfortable. 2. Down my legs going to my feet. 3. FaceAll intermittent, but lasts for weeks at a time. Fatigue Feels tired all the time with little energy during the day due to extremities feeling heavy. Low mental energy to complete daily tasks. Fibromyalgia Family history of Fi bromyalgia with similar symptoms. Visual changes See floating lights. Intermittent but often. Skin Problem Feels itching all th e time like bugs crawling on body. Intermittent and worst at night. Poor Appetite Feels hungry but eat s small amounts and feels full. Dizziness * Appointment Request (Routine) - Closed Specialty Diagnoses / Procedures Referred By Merry munoz Referred To Contact General Internal Medicine Diagnoses Fibromyalgia Referral ID Status Reason Start Date Expiration Date Visits Re quested Visits Authorized [id number] Closed 07/29/2023 07/28/2024 1 1 Encounter Details Date Type Department Care Team (Latest Contact Info) Description 09/01/2023 8:00 AM CDT Comprehensive Visit Division of General Internal Medicine in [place], [place] [address] [place] [address] Keith Robles M.D. [address] [place] [address] Fibromyalgia (Primary Dx); Paresthesia; Pain Breast; Overactive Bladder; Nephrolithiasis Social History Tobacco Use Types Packs/Day Years Used Date Smoking Tobacco: Never Passive Smoke Exposure: Past Smokeless Tobacco: Never Comments:Smoked in high scho ol Alcohol Use Standard Drinks/Week Comments Yes 1 (1 standard drink = 0.6 oz pure alcohol) Rarely consume alcohol, may have 1 or 2 drink occasionally [facility] Answer Date Recorded In the past 12 months has [employer], gas, oil, or water [employer] threatened to shut off services in your [...] Answer Date Recorded PHQ-2 Score 0 08/31/2023 [facility] - Occupational Stress Questionnaire Answer Date [...] Pulse 78 09/01/2023 7:42 AM CDT Temperature - - Respiratory Rate - - Oxygen Saturation - - Inhaled Oxygen Concentration - - Weight 69.9 kg (154 lb 1.6 oz) 09/01/2023 7:42 A M CDT Height 163 cm (5' 4.17) 09/01/2023 7:42 AM CDT Body Mass Index 26.31 09/01/2023 7:42 AM CDT documented in this encounter H&P Notes * Keith Robles M.D. - 09/01/2023 8:00 AM CDT REFERRAL SOURCE Self CHIEF COMPLAINT/REASON FOR VISIT Fibromyalgia SUBJECTIVE HISTORY OF PRESENT ILLNESS Arlen Valladares presents for fibromyalgia. Here with [place]. [place] like crap for 2 years. 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 Basically slept the entire month of Dec. Worried about permanent damage the pain may be causing. Tingling down arms and legs. Can last 3 weeks but afraid it will be permanent. Prior to all of this, very active- hiking, kayaking, camping and never wiped out because of it. Some of the symptoms started after the 4th born. Got worse after having Covid. Hysterectomy in 2019- tingling in legs started after that. Then couldn't sleep at night and painful; told it was RLS. After a few weeks, it got better. But comes back. Has taken magnesium. Covid April 2021. Severe back pain that she never had before. May CT for back pain. Would get randomly dizzywhenever standing up. Also went to the bathroom all the time. Lyme disease checked. Blood work has been unremarkable. Back pain worse in November. Dec - worse pain in abdomen. Hospital- fluid in abdomen noted. Told it might have been a ruptured ovarian cyst as the fluid resolved a week later. Very dizzy and then started sleeping all the time. Arm aching and tingling then started. Few weeks later, n umbness and tingling over bottom 2/3 of left face. Was also having some thinking issues. MRI was negative for a stroke. In January- parked into another car. Stopped driving. Abdominal pain still bad.Still having tingling in arms/face at this time. Told it might be endometriosis. Told it might be long-haul Covid. Tried a course of steroids and body just felt better. Things were good for a few months. Had 4-5 more courses of steroids since and they have been less effective. July 2022- woke up with pain and tingling in arms and legs. A month of not feeling well. Steroids barely helped. 08/23, started feeling functional but legs itched all night. Bones hurt in the cold. Started having vision changes. Arms are heavy and painful. When very tired- super hungry. Feels markedly weak. Seems cyclical. Spring and Fall have been more symptomatic. Breast pain Right breast started hurting all the time in May 2021. Throbs. Multiple mammograms. No specific pattern. Not sure when cycle is but seems more frequent. Has it 3/4 weeks. Goes away on own. Only a cupof coffee in the morning. Tried ibuprofen and ice and it didn't help. This pain doesn't keep her up. Breast fed in the past, last time about 5 years ago. No discharge. Nothing on the left side. Priorto this pain, the right breast was slight smaller and feels like it's grown out a bit and now same as left. Nothing about it has changed. No lumps. - told has fibrocystic. Eye- sees floating lights all the time. Told it looks good. Looks like it's snowing in peripheral vision. And sees glare of light bouncing off. If looks when sun out, evans seems like static. Not constant but happening now. Since hysterectomy, headaches are much less. They are not related to the vision issues. Has astigmatism but glasses caused headaches. No eye pain. Numbness and tingling- fall of 2021 it started becoming more frequent. Feels like pins and needles as iff fell asleep. Mostly in hands, some in arms. Feet also worse but has in calves and thighs. Very sensitive to touch. Any pressure hurts. No significant balance issues but feels less coordinated. Drops phone all the time. Has weakness in arms and legs. Before could lift 50lb bag of feed without issue. Now, struggles with 30lb. Struggles to pick youngest. Ok to nut picker a toddler. When the numbness is present, the intensity will fluctuate. Always bad at night. Maybe distracted during the day. Has tried muscle relaxers- sometimes just makes her sleepy which may help. Tried amitriptyline- but nothing helped significantly. Steroids seemed to help the most. Does yoga, goes outside. Grounding sheets. Started taking iron for about a year. Baths help temporarily. Sometime massage helps but has to be almost no pressure. Back issues Started in 2021. All the time, worse in the morning but better throughout the day. Evening it was better. Apr 2022- fell really bad on the ice. Needed surgery in June 2022- terrible tingling in armsand legs at that time. Needed IV steroid. After healed, felt great. July, tingling slowly came back but was on pain killers before. By November/Dec it was very bad. Did PT- didn't do anything. Scanned in Mar- told has DDD. Scheduled for 1st steroid injection next week. And when back is really mad- everything else is bad. Back pain is right at bottom of ribs and L4-S1- across top of hips. Sitting for long can make it worse. Bending makes it worse. Sometimes activity makes it better, sometimes wor se. Stretching helps. Laying in the wrong position also makes it worse. Sometimes Zero G helps but sometimes not. Tried acupuncture, chiro, heat, cold, yoga, PT, muscle relaxers, meloxicam (helped [facility]first), massage. Hasn't taken narcotics. Had been on gabapentin prior to surgery and shortly after.Thinks it helped but weaned off because doesn't want to be on anything supervisor intermediates. Hasn't tried duloxetine and lyrica. Has to void often when has the numbness and tingling. Not drinking a lot on those day. Had an EGD to be sure didn't have celiac disease. Did a sleep study. 2019- very stressful. Was misplaced from home because of mold. Well water was also positive for E coli. These have since dog a new well. PMHx: Problem list was reviewed and updated. Diarrhea in 2020 for the entire year. Diagnosed with IBS. Had nonhealing fissure that need botox. Healed and no more diarrhea. Very regular now. Normally was constipated. Seeing ENT for sinus issues. Medications: Reviewed and updated. Cyclobenzaprine works better than tizanidine. Only uses for occasionally. Tizanidine doesn't do anything. Allergies: All reviewed. Immunizations: All reviewed. Health Maintenance: Pap smear is It was normal. , It is no longer indicated. Surgical Hx: Reviewed. OBGYN Hx: , Concerns- hysterectomy for nonstop bleeding- tried a few different hormonal controls; Issues during : borderline gestational diabetes; boys had shoulder dystocia- both over 9lb and one broke tailbone; had a lot of swelling but no preeclampsia. Family Hx: Reviewed and updated; see below. Significant for fibromyalgia Social Hx: Ms. Valladares currently lives in [place] with and kids. The patient is non-smoker. The patient never has more than 1 drinks on a drinking occasion. Diet: healthy; grows own food. 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 The patient is currently sexually active. and They have no sexual health concerns; very tired. Care Everywhere results: C-arm X-ray 07/08/22 IMPRESSION: Intraoperative surgical devices localizing the L5 vertebral body and the L5-S1 disc space on intraoperative lateral views of the lumbosacral spine. ETT 07/08/22 IMPRESSION: Pharynx clear, atraumatic and dentition unchanged. MR Lumbar Spine w/w/o Contrast 06/13/22 IMPRESSION: 1. At L5-S1, a large right central/subarticular disc protrusion frankly impinges the traversing right S1 nerve root, contacts multiple additional right-sided cauda equina nerve roots and minimally contacts the traversing left S1 nerve root with overall moderate right-sided spinal canal stenosis. 2. At L4-5, a shallow right central protrusion minimally contacts the traversing right S1 nerve root. 3. No spinal canal/neural foraminal stenosis or impingement on neural structures elsewhere. 4. No intradural pathology. 06/12/22 BMP: Glucose 106 (H) BUN/Creat Ratio 24 (H) REVIEW OF SYSTEMS All systems were reviewed and negative or non-contributory outside of items mentioned in the HPI and below: OBJECTIVE PHYSICAL EXAMINATION Vitals reviewed. Constitutional General: She is not in acute distress. Appearance: She is not diaphoretic. HENT Head: Normocephalic and atraumatic. Right Ear: Tympanic membrane, ear canal and external ear normal. Left Ear: Tympanic membrane, ear canal and external ear normal. Nose: Nose normal. Mouth/Throat: Lips: No lesions. Mouth: Mucous membranes are moist. Tongue: No lesions. Pharynx: Oropharynx is clear. No oropharyngeal exudate or posterior oropharyngeal erythema. Eyes General: Lids are normal. Conjunctiva/sclera: Conjunctivae normal. Pupils: Pupils are equal, round, and reactive to light. Cardiovascular Rate and Rhythm: Normal rate and regular rhythm. Pulses: Normal pulses. Heart sounds: Normal heart sounds. No murmur heard. Pulmonary Effort: Pulmonary effort is normal. No respiratory distress. Breath sounds: Normal breath sounds. No wheezing. Abdominal General: There is no distension. Palpations: Abdomen is soft. There is no mass. Tenderness: There is no abdominal tenderness. There is no guarding or rebound. Musculoskeletal Cervical back: Normal range of motion and neck supple. No tenderness. Right lower leg: No edema. Left lower leg: No edema. Lymphadenopathy Comments: No lymphadenopathy of the head or neck area appreciated. Skin General: Skin is warm and dry. Neurological Mental Status: She is alert. Cranial Nerves: Cranial nerves 2-12 are intact. Motor: No weakness or abnormal muscle tone. Coordination: Coordination is intact. Deep Tendon Reflexes: Reflexes are normal and symmetric. Psychiatric Mood and Affect: Mood is anxious. Affect is not inappropriate. Speech: Speech normal. Behavior: Behavior is cooperative. ASSESSMENT / PLAN #1 Fibromyalgia Assessment & Plan: I believe she will meet criteria for fibromyalgia. There is a family history of fibromyalgia, trauma history, and she had a viral illness that made most of her symptoms worse and caused new symptoms.She would benefit from the non medication treatment as well as potentially some medications. She isset up to see the fibromyalgia/chronic fatigue Clinic. #2 Paresthesia #3 Pain Breast Assessment & Plan: Unilateral breast pain is a bit unusual for fibromyalgia. I recommend being seen in the breast Clinic for a full evaluation. Due to time, I was unable to perform a breast exam today. Orders: - Breast Clinic - General consult (clinic); Future; Expected date: 09/01/2023 #4 Overactive Bladder Assessment & Plan: During her paresthesia flares, she feels she has more urinary urgency and frequency however she is also drinking a lot less fluids on those days which can also cause these symptoms. I would recommendmore water on these days. Given her history of nephrolithiasis, she should be drinking more water in general. We discussed good bladder and drinking habits. #5 Nephrolithiasis Marcela Olson acted as documentation environmental emergencies assistant for this encounter. documented in this encounter Miscellaneous Notes * Assessment & Plan Note - Keith Robles M.D. - 09/02/2023 4:20 PM CDT Associated Problem(s): Overactive Bladder During her paresthesia flares, she feels she has more urinary urgency and frequency however she is also drinking a lot less fluids on those days which can also cause these symptoms. I would recommendmore water on these days. Given her history of nephrolithiasis, she should be drinking more water in general. We discussed good bladder and drinking habits. * Assessment & Plan Note - Keith Robles M.D. - 09/02/2023 4:19 PM CDT Associated Problem(s): Fibromyalgia I believe she will meet criteria for fibromyalgia. There is a family history of fibromyalgia, trauma history, and she had a viral illness that made most of her symptoms worse and caused new symptoms.She would benefit from the non medication treatment as well as potentially some medications. She isset up to see the fibromyalgia/chronic fatigue Clinic. * Assessment & Plan Note - Keith Robles M.D. - 09/02/2023 4:17 PM CDT Associated Problem(s): Pain Breast Unilateral breast pain is a bit unusual for fibromyalgia. I recommend being seen in the breast Clinic for a full evaluation. Due to time, I was unable to perform a breast exam today. documented in this encounter Plan of Treatment Upcoming Encounters Date Type Department Care Team (Latest Contact Info) Description 10/04/2023 2:30 PM CDT Clinical Communication Virtual Review in [place], [place] [address] [place] [address] 10/06/2023 9:45 AM CDT Comprehensive Visit Breast Diagnostic Clinic in [address] [phone] Deana Javed APRN, ELECTRIC MOTOR REPAIRING SUPERVISOR [address] [place] [phone] 10/06/2023 11:50 AM CDT Appointment Department of Radiology in [address] [phone] Deana Javed APRN, ELECTRIC MOTOR REPAIRING SUPERVISOR [address] [place] [phone] Discharge Disposition: Home or Self Care 10/07/2023 7:30 AM CDT Nurse Only [facility] in [place], [place] [address] [place] [phone] Keith Robles M.D. [address] [place] [phone] 10/07/2023 8:30 AM CDT Comprehensive Visit [facility] in [place], [place] [address] [place] [phone] Segundo Fox M.B.B.S., Konrad [address] [place] [phone] 10/07/2023 10:00 AM CDT Education [facility] in [place], [place] [address] [place] [phone] Keith Robles M.D. [address] [place] [phone] 10/07/2023 2:00 PM CDT Office Visit Division of General Internal Medicine in [place], [place] [address] [place] [phone] Keith Robles M.D. [address] [place] [phone] Scheduled Referrals Name Type Priority Associated Diagnoses Orde r Schedule Breast Clinic - General consult (clinic) Outpatient Referral Routine Pain Breast Expected: 09/01/2023, Expires: 12/01/2024 documented as of this encounter Visit Diagnoses Diagnosis Fibromyalgia- Primary Paresthesia Pain Breast Overactive Bladder Nephrolithiasis documented in this encounter Care Teams Audit Clerks Supervisor Relationship Specialty Start Date End Date None Reported, Pcp PCP - General Family Medicine 01/25/22 documented as of this encounter
[2023-09-28 04:34] LABS: Basophils Absolute Auto 0.01 K/uL (0.00-0.30); Basophils Percent Auto 0.1 % (0.0-3.0); Lymphocytes Percent Auto 16.8 % (20-44); Mean Corpuscular HGB Conc 34 gm/dL (32-36); Mean Corpuscular Hemoglobin 32 pg (26-34); Mean Corpuscular Volume 94 fL (80-100); Monocytes Percent Auto 9.9 % (0.0-11.0); Neutrophils Percent Auto 73.2 % (42.0-72.0); Platelet Count* 216 K/uL (140-440); RDW Coefficient of Variation % 12.4 % (11.5-15.5); Red Blood Count 4.05 m/uL (4.00-5.20)
[2023-09-28 04:36] LABS: Slide Review Reflex No
[2023-09-28] MEDS: 0.9 % SODIUM CHLORIDE 1000 ml 1,000 ML IV (04:40)
[2023-09-28] MEDS: ONDANSETRON 2 MG/ML inj 4 MG IVP (04:41)
[2023-09-28] MEDS: OMEPRAZOLE 20 MG CAPSULE DR PO (04:42)
[2023-09-28] MEDS: KETOROLAC 15 MG/ML inj IVP (04:45)
[2023-09-28 04:46] LABS: Chloride* 108 mmol/L (96-114)
[2023-09-28 04:47] LABS: Potassium* 3.6 mmol/L (3.6-5.1); Sodium* 138 mmol/L (135-149)
[2023-09-28 04:49] LABS: Creatinine* 0.8 mg/dL (0.5-1.5); Est. Creatinine Clearance* 76.89; Estimated Glomerular Filt Rate 98 ml/min
[2023-09-28 04:50] LABS: Anion Gap 6 mEq/L (7-15); Blood Urea Nitrogen* 14 mg/dL (5-24); Calcium* 9.2 mg/dL (8.4-10.6); Carbon Dioxide* 24 mmol/L (20-32); Glucose* 108 mg/dL (60-115)
[2023-09-28 04:56] LABS: C Reactive Protein* < 0.5 mg/dL (0.5-1.0)
[2023-09-28 04:58] LABS: Troponin, Point-of-Care* 0.01 ng/ml (0.01-0.04)
[2023-09-28 05:03] LABS: Troponin I* < 0.01 ng/mL (0.01-0.04)
[2023-09-28 05:06] LABS: D Dimer Quantitative* 0.12 ug/ml (0.00-0.50)
[2023-09-28 05:44] VITALS: BP 128/68; PULSE 74; RESP 16; TEMP 36.7; O2SAT 98
== END 2023-09-28 05:45 | disposition home or self-care (01) ==
PROVIDERS: Emergency Provider Family Medicine; PCP Family Medicine
DX: R07.89 Other chest pain (principal)
CPT/HCPCS: 36415; 80048; 84484; 85025; 85379; 86140; 93005; 96361; 96374; 96375; 99284; A9270; J1885; J2405; J7030

== ENCOUNTER 2023-11-25 09:16 | Day surgery (SDC) | payer OTHER, SELFPAY ==
[2023-11-25] VITALS (13 sets, daily range): BP systolic 107–126; BP diastolic 71–88; PULSE 59–84; RESP 12–18; TEMP 36.2–36.6; O2SAT 96–99; BMI 25.7
--- OUTSIDE RECORDS SUMMARY | 2023-11-25 09:18 | XMS_ITS ---
Author Organization [facility] Address [address] [place] [address] [address] [address] Care Team Providers Care Battery Recharger Name Role Phone Fabioroyer Tono Primary Care Provider Roberto Ellis [phone] Luigi SOTO, PhD, Ricardo Unavailable Unavai lable Allergies Allergen (clinical drug ingredient) Drug/Non Drug Allergy documented on EMR Reaction Allergy Type Onset Date Status Latex Latex rash Allergy Active REASON FOR VISIT pre/post-op call Encounters Encounter Location Date Provider Diagnosis [facility] [address] [place] [address] [address] [place] [phone] 09/02/2023 Roberto Rebolledo Plan Of Treatment No Information Progress Notes * Arlen VALLADARESDOB:[birth year] (38 yo F)Acc No.[id number]:09/02/2023 Patient:?Arlen Valladares :1985???Age:38 Y???Sex:Female Phone: Address:[address] [place] [address] Subjective: * Chief Complaints: * ???Pre/post-op call * Medical History:? * Surgical History:? * Hospitalization/Major Diagno stic Procedure:? * Medications:? * Allergies:?Latex: rashno[All ergies Verified] Objective: Assessment: Plan: * Treatment: * Procedure Codes:? * true * Date:? Generated for Printi ng/Faxing/eTransmitting on:?11/25/2023 09:18 AM CDT
--- OUTSIDE RECORDS SUMMARY | 2023-11-25 09:18 | XMS_ITS | Clinical Summary ---
Author Organization [email or web address] [facility] Address [place], [place] [address] Care Team Providers Care Precision Machine Operator Name Role Phone Jet Garcia MD Unavailable [phone] Tono Mccoy MD Primary Care Provider [phone] Allergies Active Allergy Reactions Criticality Noted Date [...] Active Active Problems No known active problems Social History Tobacco Use Types Packs/Day Years [...] Procedure Name Priority Date/Time Associated Diagnosis Comments SITE TECHNICIAN THIN PREP PAP SCREEN IMAGED Routine 12/14/2018 12:00 PM CDT from Last 3 Months or Most Recently Relevant to Health Maintenance Results * SITE TECHNICIAN THIN PREP PAP SCREEN IMAGED (12/14/2018 12:00 PM CDT) Case Report Gynecologic Cytology Report ? Case: [id number] ? Authorizing Provider: ??Alexandra Perez MD ?? Collected: ? 12/14/2018 1200 ? Ordering Location: ? [facility] ?Received: ?12/19/2018 0916 ? First Screen: ?Renzo Arrington ? Specimen: ?SITE TECHNICIAN ThinPrep Vial Screening, Cervical/Vaginal ? 12/26/2018 1:00 PM CDT [facility] INTERPRETATION/ RESULT NEGATIVE FOR INTRAEPITHELIAL LESION OR MALIGNANCY (NIL) (none) 12/26/2018 1:00 PM CDT [facility] IMEN ADEQUACY Satisfactory for evaluation Endocervical component present 12/26/2018 1:00 PM CDT [facility] HPV REQUEST HPV and PAP 12/26/2018 1:00 PM CDT [facility] Automated Review Successful 12/26/2018 1:00 PM CDT [facility] Comment:Specimen processed s uccessfully by automated professor of nursing device, Ampl[employer]Prep Imaging System, [employer] ANCILLARY TESTING SITE TECHNICIAN HPV Ordered, Please see separate report 12/26/2018 1:00 PM T [facility] Note The pap test is a [...] lesions. Cytology is screened and interpreted at [facility] - [address], [place] [address] and [facility] - [address]; [place] [address] and [facility] - [address]; [place] [address] and [facility] [address]; [place] [address] 12/26/2018 1:00 PM CDT [facility] Other (Cervical/Vagina l) 12/14/2018 12:00 PM CDT 12/19/2018 9:16 AM CDT Alexandra Perez MD PATHOLOGY/CYTOLOG Y [facility] [address] [place] [address], from Last 3 Months or Most Recently Relevant to Health Maintenance Advance Directives * Full Code (Latest Code Status on File) Date Activated Date Inactivated Comments 07/08/2022 12:24 PM 07/08/2022 5:48 PM Question Answer Comments Code Status Discussion: Per Existing Order Care Teams Precision Machine Operator Relationship Specialty Start Date End Date Tono Mccoy MD [address] [place] [address] PCP - General Family Practice 06/29/22 Jet Garcia MD Family Practice 12/16/15
--- OUTSIDE RECORDS SUMMARY | 2023-11-25 09:18 | XMS_ITS ---
Author Organization [facility] Address [address] [place] [address] [address] [place] [address] Care Team Providers Care Director Fundraising Name Role Phone Tono Mccoy Primary Care Provider Roberto Ellis Unavailable [phone] Luigi SOTO, PhD, Ricardo Unavailable Unavai lable REASON FOR VISIT * Local * Bilateral L5-S1 TFEs Problems Problem Type SNOMED Code ICD Code Onset Dates Problem Status W/U Status Risk Notes Problem Lumbosacral radiculopathy (9704719) Radiculopathy, lumbosacral region (M54.17) Active confirmed Encounters Encounter Location Date Provider Diagnosis [address] [facility] [address] [place] [address] 09/06/2023 Roberto Rebolledo Radiculopathy, lumbosacral region M54.17 Assessments Encounter Date Diagnosis (ICD Code) Assessment Notes Treat ment Notes Treatment Clinical Notes 09/06/2023 Radiculopathy, lumbosacral region (ICD-10 - M54.17) Plan Of Treatment No Information Progress Notes * Arlen VALLADARESDOB:[birth year] (38 yo F)Acc No.[id number]:09/06/2023 Patient:?Arlen Valladares Provider:?Roberto Rebolledo M.D. :1985???Age:38 Y???Sex:Female D ate:09/06/2023 Phone: Address[address] [place] Pcp:Tono Mccoy * Billing Information: * Visit Code:? * Procedure Codes:? 30852 Transforaminal L or S single. Modifiers: 50 A4209 5 cc - 19 cc gauge syringe. Units: 2.00. A4930 Gloves, size 8. A4215 [place] only Sterile any size each. Units: 2.00. A4550 Spinal Support Tray. S0020 Bupivicaine 0.5% mg/ml. Q9967 Omnipaque 300 mgl/mL. Units: 3.00. J3301 Kenalog 40 mg/ml. Units: 2.00. * Sign off status: Completed true * Provider:?Roberto Rebolledo M.D. Date:?0 09/06/2023 Generated for Abdelrahman harris/Renetta/Elvinitting on:?11/25/2023 09:18 AM CDT
--- OUTSIDE RECORDS SUMMARY | 2023-11-25 09:18 | XMS_ITS | Continuity of Care Document ---
Author Organization [facility] Address [address] [place] [address] Phone Care Team Providers Care Hands Hanger Name Role Phone Tono Foley Unavailable Unavailable [...] C, [address], [place], [place], [id number], [place] tel:[phone] [facility] No Information 4 Lanier Tono. [facility], [address], [place], [place], [id number] , [place]. tel:[phone] Office/Outpat ient Visit,Est, Mod [facility], [address], [place], [place], [id number], [place] tel:[phone] [facility] Low back pain 0 4 Luigi Silva. [facility], [address], [place], [address], [place]. tel:[phone] Referring Provider: Tono Osborn, [facility] [address] [place], [address]. tel:[phone] Office/Outpat ient Visit,Est, Mod [facility], [address], [place], [place], [id number], [place] tel:[phone] [facility] Other intervertebral disc degeneration, lumbar region 4 Yannick Tono. [facility], [address], [facility] [place], [id number] , [place]. tel:[phone] Referring Provider: Tono Osborn, [facility] [address] [place], [address]. tel:[phone] [facility], [address], [place], [place], [id number], [place] tel:[phone] [facility] No Information 3 Luigi Silva. [facility], [address], [place], [address], [place]. tel:[phone] [facility], [address], [place], [place], [id number], [place] tel:[phone] [facility] Encounter for other specified surgical aftercare 3 Yannick Power. [facility], [address] [place] [address] [address], [place], [place], [id number] , [place]. tel:[phone] Referring Provider: Tono Osborn, [facility] [address] [place], [address]. tel:[phone] [facility], [address], [facility] [place] [id number], [place] tel:[phone] [facility] No Information Jun- 3 Agnieszka Jacobs. [facility], [address] [place] [address], [address], [facility] [place], [address], [place]. tel:[phone] Referring Provider: Tono Osborn, [facility] [address] [place], [address]. tel:[phone] [facility], [address], [facility] [place], [id number], [place] tel:[phone] [facility] No Information 3 Luigi Silva. [facility], [address] [place] [address] [address], [place], [address], [place]. tel:[phone] Referring Provider: Tono Osborn, [facility] [address] [place], [address]. tel:[phone] Office/Outpat ient Visit,New, Mod [facility], [address], [facility] [place], [id number], [place] tel:[phone] [facility] Other intervertebral disc displacement, lumbosacral regionRadiculop athy, lumbosacral region Jun-0 3 Antoni Higginbotham. [facility], [address] [place] [address] [address], [place], [place], [id number] , [place]. tel:[phone] Referring Provider: Tono Osborn, [facility] [address] [place], [address]. tel:[phone] Family History Family Member Type Diagnosis Age At Onset No Information Payers Payer name Insurance type Covered alliance party ID Ren fiore(s) [facility] CI [id number] Social History Type Description Quantity Date Captured [...]
--- OUTSIDE RECORDS SUMMARY | 2023-11-25 09:19 | XMS_ITS ---
Author Organization [facility] Address [address] [place] [address] [address] [place] [address] Care Team Providers Care Shirt Marker Name Role Phone oTno Mccoy Primary Care Provider UnavailRoberto Stone Unavailable [phone] Luigi SOTO, PhD, Ricardo Unavailable Jeremy Singh Unavailable [phone] REASON FOR VISIT r/s to sooner date Encounters Encounter Location Date Provider Diagnosis [place] [address] [facility] [address] [place] [address] 08/31/2023 Jeremy Jiménez Plan Of Treatment No Information Progress Notes * Arlen VALLADARESDOB:[birth year] (38 yo F)Acc No.[id number]:08/31/2023 Progress Notes Patient:Arlen SCHAFFER Provider:?Jeremy Jiménez NP :1985???Age:38 Y???Sex:Female D ate:08/31/2023 Phone: Address:[address] [id number] Pcp:Tono Mccoy Subjective: * Chief Complaints: * ???1. R/s to sooner date. * Medical History:? Objective: * Vitals:? Assessment: Plan: * Treatment: * Billing Information: * Visit Code:? * Procedure Codes:? * Electronic signature of Logan Jiménez CNP on 11/25/2023 at 09:18 AM CDT Sign off status: Pending * Provider:?Jeremy Jiménez NP Date:?08/30 Generated for Printi ng/Renetta/Elvinitting on:?11/25/2023 09:18 AM CDT
--- OUTSIDE RECORDS SUMMARY | 2023-11-25 09:19 | XMS_ITS | Patient Health Record ---
Author Organization [facility] Address [address] [place] [address] [address] [place] [address] Care Team Providers Care Area Field Person Name Role Phone Tono Mccoy Primary Care Provider UnavailRoberto Stone Unavailable [phone] Luigi SOTO, PhD, Ricardo Unavailable Jeremy Singh Unavailable [phone] Allergies Allergen (clinical drug ingredient) Drug/Non Drug Allergy documented on EMR Reaction Allergy Type Onset Date Status Latex Latex rash Allergy Active Reason For Referral No Information Medications Medication SIG (Take, Route, Fr equency, Duration) Notes Start Date End Date Status Medrol 4 MG as directed on Medro l package Orally 1 pack for 6 days 08/22/2023 Active Diclofenac Sodium 75 MG 1 tablet with fo od or milk Orally Twice a day for 30 days 08/22/2023 Active Meloxicam 15 MG 1 tablet Orally Once a day Active Problems Problem Type SNOMED Code ICD Code Onset Dates Problem Status W/U Status Risk Notes Problem Chronic pain (04473349) Other chronic pain (G89.29) Active confirmed Problem Lumbosacral radiculopathy (3380707) Radiculopathy, lumbosacral region (M54.17) Active confirmed Vital Signs Blood pressure diastolic 78 mm Hg 08/22/2023 Height 5 ft 4 in in 08/22/2023 Blood pressure systolic 138 mm Hg 08/22/2023 Weight 153.2 lbs 08/22/2023 BMI 26.29 kg/m2 08/22/2023 Procedures Procedure Date Ordered Date Performed Result Body Sit e Intervention: 08/22/2023 08/31/2023 Sched 09/05 Encounters Encounter Location Date Provider Diagnosis [facility] [address] [place] [address] [address] [place] [address] 08/22/2023 Roberto Marce Other chronic pain G89.29 and Radiculopathy, lumbosacral region M54.17 [address] [facility] [address] [place] [address] 09/06/2023 Roberto Rebolledo Radiculopathy, lumbosacral region M54.17 [facility] [address] [place] [address] 07/25/2023 Roberto Rebolledo [facility] [address] [place] [address] 08/23/2023 Roberto Rebolledo [facility] [address] [place] [address] 08/29/2023 Roberto Rebolledo [facility] [address] [place] [address] [address] [place] [address] 09/02/2023 Roberto Rebolledo Assessments Encounter Date Diagnosis (ICD Code) Assessment Notes Treatment Notes Treatment Clinical Notes 08/22/2023 Other chronic pain (ICD-10 - G89.29) Arlen presents to the clinic for an evaluation regarding her chronic low back pain. I have reviewed her symptoms and current medications. I checked the [facility] database and I did not find any [...] M54.17) 08/16/2023 Other I, Miguel Matthews , radha serving as a scribe to document services personally performed by Jeremy Jiménez CNP, based upon my observations and the provider's statements to me. All documentation has been reviewed by the aforementioned AR as well as Roberto Rebolledo MD, prior to being entered into the official medical record. IRoberto MD attest that the above named individual is acting in scribe capacity, has observed Jeremy Jiménez's performance of the services and has documented them in accordance with her direction. The documentation recorded by the scribe accurately reflects the service Jeremy Jiménez CNP and Roberto Rebolledo MD personally performed and the decisions made by them. 08/22/2023 Other I, shalini St serving as a scribe to document services personally performed by Gabi Becerril PA-C, based upon my observations and the provider's statements to me. All documentation has been reviewed by the aforementioned ROSELYN as well as Roberto Rebolledo MD, prior to being entered into the official medical record. Roberto Marin MD attest that the above named individual is acting in scribe capacity, has observed Gaib Becerril's performance of the services and has documented them in accordance with her direction. The documentation recorded by the scribe accurately reflects the service Gabi Becerril PA-C and Roberto Rebolledo MD, personally performed and the decisions made by them. Plan Of Treatment No Information Insurance Providers Payer Name Payer Address Payer Phone Subscriber Number Group Number Insured Name Patient Relationship to Insured Coverage Start Date Coverage End Date [facility] [address] [address] [place] [address] [phone] [id number] Sarah Valladares Spouse - patient is the spouse of the insured Medical (General) History Medical History History ICD Code Depression abdominal aortic aneurysm headaches Anxiety Surgical History Surgery Date(Month/Year) L5-S1 microdiscectomy 06/2022 Rectal botox 2021 Hysterectomy 04/2019 gall bladder 10/2005
[2023-11-25] MEDS: LACTATED RINGERS 1000 ML 1,000 ML 100 ML IV (10:04)
[2023-11-25] MEDS: SODIUM CHLORIDE 0.9 % (FLUSH) 10 ML SYRINGE IVF (10:04)
[2023-11-25] MEDS: LACTATED RINGERS 1000 ML 1,000 ML 35 ML IV (10:25)
[2023-11-25] MEDS: COCAINE HCL 4 % 4 ML SOLUTION NOSTRIL-B (10:52)
[2023-11-25] MEDS: BUPIVACAINE 0.5%/EPINEPHRINE 0.9 MG (30.9 ML) INJECTION (10:56)
[2023-11-25] MEDS: AYR SALINE NASAL GEL 1 APPLIC NOSTRIL-B (11:03)
[2023-11-25] MEDS: MUPIROCIN 1 GM PACKET 1 APPLIC TOPICAL (11:07)
--- NOTE | 2023-11-25 11:31 | W.ANESCHARGE ---
Anesthesia Charges Start Date/Time Anesthesia Start Date: 11/25/23 Anesthesia Start Time: 10:39 Stop Date/Time Anesthesia Stop Date: 11/25/23 Anesthesia Stop Time: 11:27
[2023-11-25] MEDS: fentaNYL 100 MCG/2 ML inj 50 MCG IVP (11:38)
--- NOTE | 2023-11-25 11:38 | W.PM.ENTPROC ---
Procedure Note Date of procedure: 11/25/23 Procedure: Preop diagnosis deviated septum nasal obstruction right middle turbinate chris bullosa inferior turbinate hypertrophy nasal headache Postoperative diagnosis same Procedure nasal septoplasty, submucous partial resection right inferior turbinate, endoscopic partial resection right middle turbinate chris bullosa Under general endotracheal anesthesia patient was prepped draped usual fashion the nose was decongested and injected. A right hemitransfixion incision was made left anterior posterior tunnels were created a vertical incision was made through the cartilage and a right posterior tunnel created. The posterior deflected portions of septal bone and cartilage were resected a large piece was trimmed and returned to intraseptal space. Anteriorly there is a left premaxillary wing deformity that was removed with sharp dissection. The septum was now midline and the hemitransfixion closed with 2 4-0 chromic sutures A stab incision was made in the anterior of the right inferior turbinate a tunnel created with a [place] dissector. The chris bone was outfractured a conservative anterior submucous resection was performed. The Coblation Wand was used for hemostasis and to cauterize intramurally along the inferior 10%. The remainder the procedure was done with the assistance of an available 0 degree endoscope. The right middle turbinate chris bullosa was incised along its inferior aspect incision completed with a turbinate scissors. The turbinate was then crushed with the Marquez forceps. I also crushed the posterior aspect of the left middle turbinate. Silastic stents were secured with 3-0 nylon. Merocel packing was placed in the middle meatus on each side. This was 1st coated in Bactroban. The patient procedure was taken recovery in satisfactory condition. Blood loss was less than 10 mL. Surgeon: Alvaro Perkins MD
[2023-11-25] MEDS: ACETAMINOPHEN 325 MG TABLET PO (12:07)
[2023-11-25] MEDS: IBUPROFEN 200 MG TABLET PO (12:07)
--- NOTE | 2023-11-25 12:13 | W.ANESCHARGE ---
Anesthesia Charges Start Date/Time Anesthesia Start Date: 11/25/23 Anesthesia Start Time: 10:39 Stop Date/Time Anesthesia Stop Date: 11/25/23 Anesthesia Stop Time: 11:27
[2023-11-25] MEDS: LACTATED RINGERS 1000 ML 1,000 ML 50 ML IV (14:30)
== END 2023-11-25 14:38 | disposition home or self-care (01) ==
LOC: OR 09:17
PROVIDERS: PCP Family Medicine; Visit Provider Otolaryngology
PROC: (CPT 31231; principal; 2023-11-25 10:30)
DX: J34.2 Deviated nasal septum (principal); J34.3 Hypertrophy of nasal turbinates; R51.9 Headache, unspecified
CPT/HCPCS: 30520; 30140; 31240; 00160; 00170; A9270; J1100; J2250; J2405; J2704; J2710; J3010; J7120

== ENCOUNTER 2023-12-04 05:57 | Emergency (ER) | payer OTHER, SELFPAY ==
[2023-12-04] VITALS (35 sets, daily range): BP systolic 98–121; BP diastolic 64–79; PULSE 62–107; RESP 18–24; TEMP 36.6–37.1; O2SAT 92–100; BMI 24.9
--- NOTE | 2023-12-04 06:01 | ED_ITS ---
HPI - General Adult General Time Seen by Provider: 06:01 <Nicanor Montgomery MD - Last Filed: 12/06/23 07:31> Date Seen: 12/04/23 <Nicanor Montgomery MD - Last Filed: 12/06/23 07:31> Chief complaint: Post Op Complication <Nicanor Montgomery MD - Last Filed: 12/06/23 07:31> Stated complaint: Nose bleed <Nicanor Montgomery MD - Last Filed: 12/06/23 07:31> Time Seen by Provider: 12/04/23 06:01 <Nicanor Montgomery MD - Last Filed: 12/06/23 07:31> Source: patient and RN notes reviewed <Nicanor Montgomery MD - Last Filed: 12/06/23 07:31> Mode of arrival: ambulatory <Nicanor Montgomery MD - Last Filed: 12/06/23 07:31> Limitations: no limitations <Nicanor Montgomery MD - Last Filed: 12/06/23 07:31> History of Present Illness HPI narrative: 38-year-old female who comes in today with a nose bleed. Patient underwent septoplasty with turbinate resection on November 24, subsequently followed up November 28 with packing and stents removed. Patient developed nosebleed tonight, she has noted blood out of the nostrils and clot on the left, also some blood in the back of the throat. Denies chest pain or shortness of breath, does have some lightheadedness although she says she gets the symptoms when she sees blood. <Nicanor Montgomery MD - Last Filed: 12/06/23 07:31> Related Data Home medications: Home Medications ?Medication ?Instructions ?Recorded ?Confirmed ferrous fumarate 325 mg (106 mg 325 mg PO QDAY 11/22/23 11/29/23 iron) tablet Previous Rx's ?Medication ?Instructions ?Recorded acetaminophen 300 mg-codeine 30 mg 1 tab PO Q4H PRN pain #30 tabs 11/25/23 tablet doxycycline hyclate 100 mg capsule 100 mg PO BID #10 caps 11/25/23 ondansetron 4 mg disintegrating 4 mg PO Q8H #10 tabs 11/25/23 tablet hydromorphone 2 mg tablet 2 mg PO Q6H #10 tabs 12/04/23 (Dilaudid) ondansetron 4 mg disintegrating 4 mg PO Q6H #10 tabs 12/04/23 tablet <Nicanor Montgomery MD - Last Filed: 12/06/23 07:31> Allergies/adverse reactions: Allergies Allergy/AdvReac Type Severity Reaction Status Date / Time oxycodone Allergy Intermediate Blurry Verified 11/29/23 09:15 Vision penicillin V Allergy Mild Hives Verified 11/29/23 09:15 banana Allergy Unknown Verified 11/29/23 09:15 cat dander Allergy Unknown Verified 11/29/23 09:15 latex Allergy Unknown Verified 11/29/23 09:15 meperidine Allergy Unknown Unknown Verified 11/29/23 09:15 Penicillins Allergy Unknown Verified 11/29/23 09:15 <Nicanor Montgomery MD - Last Filed: 12/06/23 07:31> [facility] Medical History: Medical History Constipation ?K59.00 - Constipation, unspecified (ICD-10) Chronic diarrhea ?K52.9 - Noninfective gastroenteritis and colitis, unspecified (ICD-10) Chronic constipation ?K59.09 - Other constipation (ICD-10) Cervical radiculopathy ?M54.12 - Radiculopathy, cervical region (ICD-10) <Nicanor Montgomery MD - Last Filed: 12/06/23 07:31> Surgical History: Surgical History History of cholecystectomy (04/07/10) ?Z90.49 - Acquired absence of other specified parts of digestive tract (ICD- 10) S/P hemorrhoidectomy ?Z98.890 - Other specified postprocedural states (ICD-10) ?Z87.19 - Personal history of other diseases of the digestive system (ICD-10) S/P anal fissurectomy ?Z98.890 - Other specified postprocedural states (ICD-10) ?Z87.19 - Personal history of other diseases of the digestive system (ICD-10) S/P hysterectomy ?Z90.710 - Acquired absence of both cervix and uterus (ICD-10) <Nicanor Montgomery MD - Last Filed: 12/06/23 07:31> Family History: Family History Mother Depression Maternal Grandfather Depression Brother Depression <Nicanor Montgomery MD - Last Filed: 12/06/23 07:31> Social History: Social History Narrative: . 4 children. Not working. No alcohol. Non-smoker. No illicit drugs. Smoking Status: Never smoker Do you use any of these nicotine containing products: None Second hand tobacco smoke exposure: No How often do you have a drink containing alcohol: 2-4 times a month Alcohol type: wine and hard liquor How many standard drinks containing alcohol do you have on a typical day: 1 or 2 How often do you have six or more drinks on one occasion: Never AUDIT-C Alcohol total score: 2 Non-prescribed substance use: marijuana (any form) Caffeine: Yes Little interest or pleasure in doing things: several days Feeling down, depressed, or hopeless: not at all Are you using contraception or practicing any form of control: No service: No <Nicanor Montgomery MD - Last Filed: 12/06/23 07:31> Exam Narrative: Exam Narrative: General: well nourished , NAD Head: Atraumatic and normocephalic ENT: Large clot in the left nostril, with small amount of blood on the right n ostril, blood in posterior oropharynx Eyes: Conjunctiva clear, pupils are equal reactive, external ocular motions are intact Neck: Full spontaneous range of motion of the neck Lungs: No respiratory distress Musculoskeletal: No tenderness or deformity Neurologic: No gross focal neurologic deficits Skin: No rashes Psych: Mood and affect are appropriate <Nicanor Montgomery MD - Last Filed: 12/06/23 07:31> Const: Vital Signs, click to edit/add: Vital Signs - 24 hr 12/04/23 06:02 12/04/23 08:03 12/04/23 09:04 Temperature 97.8 F 98.6 F Pulse Rate Pulse Rate [Left P ulse Oximeter] 82 76 107 H Respiratory Rate 18 18 24 Blood Pressure Blood Pressure [Le ft Upper Arm] 98/68 99/65 109/77 Pulse Oximetry 96 98 100 Oxygen Delivery Me thod Room Air Room Air Room Air 12/04/23 09:12 12/04/23 09:15 12/04/23 09:30 Temperature Pulse Rate 76 87 92 Pulse Rate [Left P ulse Oximeter] Respiratory Rate Blood Pressure Blood Pressure [Le ft Upper Arm] Pulse Oximetry 96 92 95 Oxygen Delivery Me thod 12/04/23 09:31 12/04/23 09:45 12/04/23 10:00 Temperature Pulse Rate 87 87 72 Pulse Rate [Left P ulse Oximeter] Respiratory Rate Blood Pressure 98/65 Blood Pressure [Le ft Upper Arm] Pulse Oximetry 96 95 94 Oxygen Delivery Me thod 12/04/23 10:01 12/04/23 10:15 12/04/23 10:30 Temperature Pulse Rate 72 70 70 Pulse Rate [Left P ulse Oximeter] Respiratory Rate Blood Pressure 110/77 Blood Pressure [Le ft Upper Arm] Pulse Oximetry 95 95 95 Oxygen Delivery Me thod 12/04/23 10:32 12/04/23 10:45 12/04/23 11:00 Temperature Pulse Rate 68 75 70 Pulse Rate [Left P ulse Oximeter] Respiratory Rate Blood Pressure 101/65 Blood Pressure [Le ft Upper Arm] Pulse Oximetry 95 97 99 Oxygen Delivery Me thod 12/04/23 11:01 12/04/23 11:15 12/04/23 11:30 Temperature Pulse Rate 78 73 62 Pulse Rate [Left P ulse Oximeter] Respiratory Rate Blood Pressure 114/77 Blood Pressure [Le ft Upper Arm] Pulse Oximetry 98 96 100 Oxygen Delivery Me thod 12/04/23 11:31 12/04/23 11:45 12/04/23 12:00 Temperature Pulse Rate 66 69 69 Pulse Rate [Left P ulse Oximeter] Respiratory Rate Blood Pressure 121/78 Blood Pressure [Le ft Upper Arm] Pulse Oximetry 99 100 95 Oxygen Delivery Me thod 12/04/23 12:01 12/04/23 12:15 12/04/23 12:30 Temperature Pulse Rate 66 71 78 Pulse Rate [Left P ulse Oximeter] Respiratory Rate Blood Pressure 109/70 Blood Pressure [Le ft Upper Arm] Pulse Oximetry 96 95 97 Oxygen Delivery Me thod 12/04/23 12:31 12/04/23 12:45 12/04/23 13:00 Temperature Pulse Rate 74 85 88 Pulse Rate [Left P ulse Oximeter] Respiratory Rate Blood Pressure 105/64 Blood Pressure [Le ft Upper Arm] Pulse Oximetry 97 96 97 Oxygen Delivery Me thod 12/04/23 13:01 12/04/23 13:15 Temperature Pulse Rate 89 79 Pulse Rate [Left P ulse Oximeter] Respiratory Rate Blood Pressure 107/79 Blood Pressure [Le ft Upper Arm] Pulse Oximetry 98 96 Oxygen Delivery Me thod <Nicanor Montgomery MD - Last Filed: 12/06/23 07:31> Vital Signs, click to edit/add: Vital Signs - 24 hr 12/04/23 06:02 12/04/23 08:03 12/04/23 09:04 Temperature 97.8 F 98.6 F Pulse Rate Pulse Rate [Left P ulse Oximeter] 82 76 107 H Respiratory Rate 18 24 Blood Pressure Blood Pressure [Le ft Upper Arm] 98/68 99/65 109/77 Pulse Oximetry 96 98 100 Oxygen Delivery Me thod Room Air Room Air Room Air 12/04/23 09:12 12/04/23 09:15 12/04/23 09:30 Temperature Pulse Rate 76 87 92 Pulse Rate [Left P ulse Oximeter] Respiratory Rate Blood Pressure Blood Pressure [Le ft Upper Arm] Pulse Oximetry 96 92 95 Oxygen Delivery Me thod 12/04/23 09:31 12/04/23 09:45 12/04/23 10:00 Temperature Pulse Rate 87 87 72 Pulse Rate [Left P ulse Oximeter] Respiratory Rate Blood Pressure 98/65 Blood Pressure [Le ft Upper Arm] Pulse Oximetry 96 95 94 Oxygen Delivery Me thod 12/04/23 10:01 12/04/23 10:15 12/04/23 10:30 Temperature Pulse Rate 72 70 70 Pulse Rate [Left P ulse Oximeter] Respiratory Rate Blood Pressure 110/77 Blood Pressure [Le ft Upper Arm] Pulse Oximetry 95 95 95 Oxygen Delivery Me thod 12/04/23 10:32 12/04/23 10:45 12/04/23 11:00 Temperature Pulse Rate 68 75 70 Pulse Rate [Left P ulse Oximeter] Respiratory Rate Blood Pressure 101/65 Blood Pressure [Le ft Upper Arm] Pulse Oximetry 95 97 99 Oxygen Delivery Me thod 12/04/23 11:01 12/04/23 11:15 12/04/23 11:30 Temperature Pulse Rate 78 73 62 Pulse Rate [Left P ulse Oximeter] Respiratory Rate Blood Pressure 114/77 Blood Pressure [Le ft Upper Arm] Pulse Oximetry 98 96 100 Oxygen Delivery Me thod 12/04/23 11:31 12/04/23 11:45 12/04/23 12:00 Temperature Pulse Rate 66 69 69 Pulse Rate [Left P ulse Oximeter] Respiratory Rate Blood Pressure 121/78 Blood Pressure [Le ft Upper Arm] Pulse Oximetry 99 100 95 Oxygen Delivery Me thod 12/04/23 12:01 12/04/23 12:15 12/04/23 12:30 Temperature Pulse Rate 66 71 78 Pulse Rate [Left P ulse Oximeter] Respiratory Rate Blood Pressure 109/70 Blood Pressure [Le ft Upper Arm] Pulse Oximetry 96 95 97 Oxygen Delivery Me thod 12/04/23 12:31 12/04/23 12:45 12/04/23 13:00 Temperature Pulse Rate 74 85 88 Pulse Rate [Left P ulse Oximeter] Respiratory Rate Blood Pressure 105/64 Blood Pressure [Le ft Upper Arm] Pulse Oximetry 97 96 97 Oxygen Delivery Me thod 12/04/23 13:01 12/04/23 13:15 Temperature Pulse Rate 89 79 Pulse Rate [Left P ulse Oximeter] Respiratory Rate Blood Pressure 107/79 Blood Pressure [Le ft Upper Arm] Pulse Oximetry 98 96 Oxygen Delivery Me thod <Jet Brown MD - Last Filed: 12/04/23 14:10> Course Course ED Course: Patient seen and examined, reviewed prior operative note from November 24. Patient presents today with nose bleed after having septoplasty and turbinate resection. On exam here, awake and alert, large clot in the left nostril, no active bleeding on the right, some blood going down the posterior oropharynx. Patient is a little bit hypotensive for but no tachycardia. Care discussed with Dr. Perkins who recommends placement of Merocel or rhino rocket. <Nicanor Montgomery MD - Last Filed: 12/06/23 07:31> Reevaluation(s) Time of Reevaluation #1: 06:39 <Nicanor Montgomery MD - Last Filed: 12/06/23 07:31> Reevaluation #1: Merocel placed in left nostril. After having patient clear clots by blowing the nose, a slightly trimmed Merocel packing coated with bacitracin was placed in the left nostril. Patient tolerated this well. Will observe in the emergency department while the Merocel packing expands to make sure bleeding is improved and that she does not continued posterior oropharyngeal bleeding <Nicanor Montgomery MD - Last Filed: 12/06/23 07:31> Time of Reevaluation #2: 06:55 <Nicanor Montgomery MD - Last Filed: 12/06/23 07:31> Reevaluation #2: Labs independently interpreted by me with normal hemoglobin. <Nicanor Montgomery MD - Last Filed: 12/06/23 07:31> Time of Reevaluation #3: 07:16 <Nicanor Montgomery MD - Last Filed: 12/06/23 07:31> Reevaluation #3: Patient recheck, she was still perceiving bleeding down the back of the throat although nothing visible on exam, also some bleeding of the right ear. A trimmed Merocel packing was placed in the right nostril after having patient's below the nose to clear clot. <Nicanor Montgomery MD - Last Filed: 12/06/23 07:31> Additional Reevaluation(s): 7:40 a.m. bleeding has largely resolved now although still having a little bit of anterior bleeding. Patient is very anxious about going home and having more bleeding. Prior hysterectomy, not on hormones, no history of clotting disorder. We discussed risks and benefits of TXA and patient would like to try this prior to discharge. <Nicanor Montgomery MD - Last Filed: 12/06/23 07:31> Vital Signs Vital signs: Initial Vital Signs Temperature 97.8 F 12/04/23 06:02 Temperature Source Temporal Artery Scan 12/04/23 06:02 Pulse Rate 82 12/04/23 06:02 Pulse Rhythm Regular 12/04/23 06:02 Respiratory Rate 18 12/04/23 06:02 Blood Pressure 98/68 12/04/23 06:02 Blood Pressure Mean 78 12/04/23 06:02 Blood Pressure Position Sitting 12/04/23 06:02 Pulse Oximetry 96 12/04/23 06:02 Oxygen Delivery Method Room Air 12/04/23 06:02 Vital Signs Temperature 97.8 F 12/04/23 06:02 Pulse Rate 82 12/04/23 06:02 Respiratory Rate 18 12/04/23 06:02 Blood Pressure 98/68 12/04/23 06:02 Pulse Oximetry 96 12/04/23 06:02 Oxygen Delivery Method Room Air 12/04/23 06:02 Temperature 98.7 F 12/04/23 14:15 Pulse Rate 80 12/04/23 14:15 Respiratory Rate 24 12/04/23 09:04 Blood Pressure 112/73 12/04/23 14:01 Pulse Oximetry 95 12/04/23 14:15 Oxygen Delivery Method Room Air 12/04/23 09:04 <Nicanor Montgomery MD - Last Filed: 12/06/23 07:31> Initial Vital Signs Temperature 97.8 F 12/04/23 06:02 Temperature Source Temporal Artery Scan 12/04/23 06:02 Pulse Rate 82 12/04/23 06:02 Pulse Rhythm Regular 12/04/23 06:02 Respiratory Rate 18 12/04/23 06:02 Blood Pressure 98/68 12/04/23 06:02 Blood Pressure Mean 78 12/04/23 06:02 Blood Pressure Position Sitting 12/04/23 06:02 Pulse Oximetry 96 12/04/23 06:02 Oxygen Delivery Method Room Air 12/04/23 06:02 Vital Signs Temperature 97.8 F 12/04/23 06:02 Pulse Rate 82 12/04/23 06:02 Respiratory Rate 18 12/04/23 06:02 Blood Pressure 98/68 12/04/23 06:02 Pulse Oximetry 96 12/04/23 06:02 Oxygen Delivery Method Room Air 12/04/23 06:02 Temperature 98.7 F 12/04/23 14:15 Pulse Rate 80 12/04/23 14:15 Respiratory Rate 24 12/04/23 09:04 Blood Pressure 112/73 12/04/23 14:01 Pulse Oximetry 95 12/04/23 14:15 Oxygen Delivery Method Room Air 12/04/23 09:04 <Jet Brown MD - Last Filed: 12/04/23 14:10> Medications Administered Medications: Discontinued Medications Generic Name Dose Route Start Last Admin Trade Name Freq PRN Reason Stop Dose Admin Bacitracin Zinc 2 each 12/04/23 06:18 12/04/23 06:45 Bacitracin 0.9 Gm Packet TOPICAL 12/04/23 06:19 2 each ONCE ONE Administration Hydromorphone HCl 0.5 mg 12/04/23 08:44 12/04/23 09:00 Hydromorphone 0.5 Mg/0.5 Ml Inj IVP 12/04/23 08:45 0.5 mg ONCE ONE Administration Hydromorphone HCl 0.5 mg 12/04/23 13:03 12/04/23 13:25 Hydromorphone 0.5 Mg/0.5 Ml Inj IVP 12/04/23 13:04 0.5 mg ONCE ONE Administration Sodium Chloride 500 mls @ 500 mls/hr 12/04/23 06:38 12/04/23 07:47 0.9 % Sodium Chloride 500 Ml IV 12/04/23 07:37 Infused .Q1H ONE Infusion Tranexamic Acid 1,000 mg/ 110 mls @ 440 mls/hr 12/04/23 07:40 12/04/23 08:23 Sodium Chloride IVPB 12/04/23 07:41 Infused ONCE ONE Infusion Ketamine HCl 20 mg/ Sodium 100.2 mls @ 300.6 mls/hr 12/04/23 09:45 12/04/23 10:45 Chloride IVPB 12/04/23 09:46 Infused ONCE ONE Infusion Ketorolac Tromethamine 30 mg 12/04/23 11:22 12/04/23 11:48 Ketorolac 30 Mg/Ml Inj IVP 12/04/23 11:23 30 mg ONCE ONE Administration Methylprednisolone Sodium Succinate 125 mg 12/04/23 11:22 12/04/23 11:51 Methylprednisolone Sod Succ 62.5 Mg/Ml (125) IVP 12/04/23 11:23 125 mg ONCE ONE Administration Ondansetron HCl 4 mg 12/04/23 08:44 12/04/23 08:58 Ondansetron 2 Mg/Ml Inj IVP 12/04/23 08:45 4 mg ONCE ONE Administration <Nicanor Montgomery MD - Last Filed: 12/06/23 07:31> Discontinued Medications Generic Name Dose Route Start Last Admin Trade Name Alysa PRN Reason Stop Dose Admin Bacitracin Zinc 2 each 12/04/23 06:18 12/04/23 06:45 Bacitracin 0.9 Gm Packet TOPICAL 12/04/23 06:19 2 each ONCE ONE Administration Hydromorphone HCl 0.5 mg 12/04/23 08:44 12/04/23 09:00 Hydromorphone 0.5 Mg/0.5 Ml Inj IVP 12/04/23 08:45 0.5 mg ONCE ONE Administration Hydromorphone HCl 0.5 mg 12/04/23 13:03 12/04/23 13:25 Hydromorphone 0.5 Mg/0.5 Ml Inj IVP 12/04/23 13:04 0.5 mg ONCE ONE Administration Sodium Chloride 500 mls @ 500 mls/hr 12/04/23 06:38 12/04/23 07:47 0.9 % Sodium Chloride 500 Ml IV 12/04/23 07:37 Infused .Q1H ONE Infusion Tranexamic Acid 1,000 mg/ 110 mls @ 440 mls/hr 12/04/23 07:40 12/04/23 08:23 Sodium Chloride IVPB 12/04/23 07:41 Infused ONCE ONE Infusion Ketamine HCl 20 mg/ Sodium 100.2 mls @ 300.6 mls/hr 12/04/23 09:45 12/04/23 10:45 Chloride IVPB 12/04/23 09:46 Infused ONCE ONE Infusion Ketorolac Tromethamine 30 mg 12/04/23 11:22 12/04/23 11:48 Ketorolac 30 Mg/Ml Inj IVP 12/04/23 11:23 30 mg ONCE ONE Administration Methylprednisolone Sodium Succinate 125 mg 12/04/23 11:22 12/04/23 11:51 Methylprednisolone Sod Succ 62.5 Mg/Ml (125) IVP 12/04/23 11:23 125 mg ONCE ONE Administration Ondansetron HCl 4 mg 12/04/23 08:44 12/04/23 08:58 Ondansetron 2 Mg/Ml Inj IVP 12/04/23 08:45 4 mg ONCE ONE Administration <Jet Brown MD - Last Filed: 12/04/23 14:10> Medical Decision Making MDM Narrative Medical decision making narrative: This patient came in and care was established initially by the overnight physician. She had a septoplasty done of about 9 days ago and was having some bleeding from her nose. She received a Merocel in each nostril and now has developed significant migraine-type headache. The reason she had the septoplasty done was hopefully to help remove triggers for recurrent migraines. Her nasal bleeding has stopped with this treatment but she continued to have severe headache. She received an IV dose of Dilaudid 0.5 mg with temporary reli ef. She then received ketamine 20 mg over 20-30 minutes intravenously. This did not bring relief to her headache. Then a dose of Toradol 30 mg was given again for temporary relief. Finally another dose of Dilaudid was administered. The patient was quite miserable during some of these times but now feels she is okay to return home. I did speak with ear nose and throat physician on-call who will see her in 2 days. The Merocel should be kept in and the patient is discharged home with pain medicine and nausea medicine. She received prescriptions for Dilaudid and Zofran. <Jet Brown MD - Last Filed: 12/04/23 14:10> Lab Data Labs: Lab Results 12/04/23 Range/Units 06:30 WBC 5.49 (4.50-11.00) K/uL RBC 4.59 (4.00-5.20) m/uL Hgb 14.5 (12.0-16.0) gm/dL Hct 43.3 (33.0-51.0) % MCV 94 (80-100) fL MCH 32 (26-34) pg MCHC 34 (32-36) gm/dL RDW Coeff of Guillermina 11.0 L (11.5-15.5) % Plt Count 261 (140-440) K/uL Neut % (Auto) 57.4 (42.0-72.0) % Lymph % (Auto) 35.7 (20-44) % [place] % (Auto) 6.2 (0.0-11.0) % Eos % (Auto) 0.2 (0.0-7.0) % Baso % (Auto) 0.5 (0.0-3.0) % Neut # (Auto) 3.15 (1.7-7.0) K/uL Lymph # (Auto) 1.96 (0.90-2.90) K/uL [place] # (Auto) 0.30 (0.00-0.90) K/UL Eos # (Auto) 0.01 (0.00-0.50) K/uL Baso # (Auto) 0.03 (0.00-0.30) K/uL Abs Immat Gran (auto) 0.00 (0.00-0.30) K/uL Imm/Tot Granulo (auto) 0.0 % <Nicanor Montgomery MD - Last Filed: 12/06/23 07:31> Lab Results 12/04/23 Range/Units 06:30 WBC 5.49 (4.50-11.00) K/uL RBC 4.59 (4.00-5.20) m/uL Hgb 14.5 (12.0-16.0) gm/dL Hct 43.3 (33.0-51.0) % MCV 94 (80-100) fL MCH 32 (26-34) pg MCHC 34 (32-36) gm/dL RDW Coeff of Guillermina 11.0 L (11.5-15.5) % Plt Count 261 (140-440) K/uL Neut % (Auto) 57.4 (42.0-72.0) % Lymph % (Auto) 35.7 (20-44) % [place] % (Auto) 6.2 (0.0-11.0) % Eos % (Auto) 0.2 (0.0-7.0) % Baso % (Auto) 0.5 (0.0-3.0) % Neut # (Auto) 3.15 (1.7-7.0) K/uL Lymph # (Auto) 1.96 (0.90-2.90) K/uL [place] # (Auto) 0.30 (0.00-0.90) K/UL Eos # (Auto) 0.01 (0.00-0.50) K/uL Baso # (Auto) 0.03 (0.00-0.30) K/uL Abs Immat Gran (auto) 0.00 (0.00-0.30) K/uL Imm/Tot Granulo (auto) 0.0 % <Jet Brown MD - Last Filed: 12/04/23 14:10> Discharge Plan Discharge Clinical Impression: Epistaxis, Post-op bleeding <Nicanor Montgomery MD - Last Filed: 12/06/23 07:31> Patient Disposition: Home w/ Parent or Adult <Nicanor Montgomery MD - Last Filed: 12/06/23 07:31> Condition: Stable <Nicanor Montgomery MD - Last Filed: 12/06/23 07:31> Instructions: Nosebleed (ED) <Nicanor Montgomery MD - Last Filed: 12/06/23 07:31> Additional Instructions: Follow-up with Dr. Perkins Tuesday at 9:00 a.m. If you feel like you are not able to breathe well, take out the right packing by pulling gently on the strings coming out of the nose. Take antibiotics as prescribed to prevent infection <Nicanor Montgomery MD - Last Filed: 12/06/23 07:31> Activity Level: Activity as Tolerated <Nicanor Montgomery MD - Last Filed: 12/06/23 07:31> Activity as Tolerated <Jet Brown MD - Last Filed: 12/04/23 14:10> Discharge Diet: Regular <Nicanor Montgomery MD - Last Filed: 12/06/23 07:31> Regular <Jet Brown MD - Last Filed: 12/04/23 14:10> Prescriptions: New hydromorphone [Dilaudid] 2 mg tablet 2 mg PO Q6H Qty: 10 0RF ondansetron 4 mg tablet,disintegrating 4 mg PO Q6H Qty: 10 0RF No Action ferrous fumarate 325 mg (106 mg iron) tablet 325 mg PO QDAY Hold Instructions: per pt doxycycline hyclate 100 mg capsule 100 mg PO BID Qty: 10 0RF ondansetron 4 mg tablet,disintegrating 4 mg PO Q8H Qty: 10 0RF acetaminophen-codeine 300-30 mg tablet 1 tab PO Q4H PRN (Reason: pain) Qty: 30 0RF <MD Zay Lofton Last Filed: 12/06/23 07:31> Follow Up/Referrals: Tono Mccoy MD [Primary Care Provider] - <Nicanor Montgomery MD - Last Filed: 12/06/23 07:31> Stand Alone Forms: My[facility] Info Instructions <Nicanor Montgomery MD - Last Filed: 12/06/23 07:31>
--- OUTSIDE RECORDS SUMMARY | 2023-12-04 06:19 | XMS_ITS | Clinical Summary ---
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 Case: [id number] ? Authorizing Provider: ??Alexandra Perez MD ?? Collected: ? 12/14/2018 1200 ? Ordering Location: ? [facility] ?Received: ?12/19/2018 0916 ? First Screen: ?Renzo Arrington ? Specimen: ?METAL NUMERICAL CONTROL PROGRAMMER ThinPrep Vial Screening, Cervical/Vaginal ? 12/26/2018 1:00 PM CDT [facility] INTERPRETATION/ RESULT NEGATIVE FOR INTRAEPITHELIAL LESION OR MALIGNANCY (NIL) (none) 12/26/2018 1:[address] [facility] IMEN ADEQUACY Satisfactory for evaluation Endocervical component present 12/26/2018 1:[address] [facility] HPV REQUEST HPV and PAP 12/26/2018 1:[address] [facility] Automated Review Successful 12/26/2018 1:[address] [facility] Comment:Specimen processed s uccessfully by automated impregnating helper device, ObjectL[employer]Prep Imaging System, [employer] ANCILLARY TESTING METAL NUMERICAL CONTROL PROGRAMMER HPV Ordered, Please see separate report 12/26/2018 1:[address] [facility] Note The pap test is a [...] lesions. Cytology is screened and interpreted at [facility] - [address], [place] [address] [facility] - [address]; [place] [address] and [facility] - [address]; [place] [address] and [facility] [address]; [place] [address] 12/26/2018 1:[address] [facility] Other (Cervical/Vagina l) 12/14/2018 12:00 PM CDT 12/19/2018 9:16 AM CDT Alexandra Perez MD PATHOLOGY/CYTOLOG Y [facility] [address] [place] [address], from Last 3 Months or Most Recently Relevant to Health Maintenance Advance Directives * Full Code (Latest Code Status on File) Date Activated Date Inactivated Comments 07/08/2022 12:24 PM 07/08/2022 5:48 PM Question Answer Comments Code Status Discussion: Per Existing Order Care Teams Health Information Technician Relationship Specialty Start Date End Date Tono Mccoy MD [address] [place] [address] PCP - General Family Practice 06/29/22 Jet Garcia MD Family Practice 12/16/15
--- OUTSIDE RECORDS SUMMARY | 2023-12-04 06:19 | XMS_ITS ---
Author Organization [facility] Address [address] [place] [address] [address] [place] [address] Care Team Providers Care Lead Informatica Developer Name Role Phone Tono Mccoy Primary Care Provider Roberto Ellis Unavailable [phone] Luigi SOTO, PhD, Ricardo Unavailable Unavai lable REASON FOR VISIT * Local * Bilateral L5-S1 TFEs Problems Problem Type SNOMED Code ICD Code Onset Dates Problem Status W/U Status Risk Notes Problem Lumbosacral radiculopathy (5876976) Radiculopathy, lumbosacral region (M54.17) Active confirmed Encounters Encounter Location Date Provider Diagnosis [address] [facility] [address] [place] [address] 09/06/2023 Roberto Rebolledo Radiculopathy, lumbosacral region M54.17 Assessments Encounter Date Diagnosis (ICD Code) Assessment Notes Treat ment Notes Treatment Clinical Notes 09/06/2023 Radiculopathy, lumbosacral region (ICD-10 - M54.17) Plan Of Treatment No Information Progress Notes * Arlen VALLADARESDOB:[birth year] (38 yo F)Acc No.[id number]:09/06/2023 Patient:?Arlen Valladares Provider:?Roberto Rebolledo M.D. :1985???Age:38 Y???Sex:Female D ate:09/06/2023 Phone: Address:[address] [place] Pcp:Tono Mccoy * Billing Information: * Visit Code:? * Procedure Codes:? 21753 Transforaminal L or S single. Modifiers: 50 A4209 5 cc - 19 cc gauge syringe. Units: 2.00. A4930 Gloves, size 8. A4215 Hessmer only Sterile any size each. Units: 2.00. A4550 Spinal Support Tray. S0020 Bupivicaine 0.5% mg/ml. Q9967 Omnipaque 300 mgl/mL. Units: 3.00. J3301 Kenalog 40 mg/ml. Units: 2.00. * Sign off status: Completed true * Provider:?Roberto Rebolledo M.D. Date:?0 09/06/2023 Generated for Abdelrahman harris/Renetta/Elvinitting on:?12/04/2023 06:19 AM CDT
--- OUTSIDE RECORDS SUMMARY | 2023-12-04 06:19 | XMS_ITS | Continuity of Care Document ---
Author Organization [facility] Address [address] [place] [address] Phone Care Team Providers Care Industrial Safety And Health Manager Name Role Phone Tono Foley Unavailable Unavailable [...] C, [address], [place], [place], [id number], [place] tel:[phone] [facility] No Information 4 Lanier Tono. [facility], [address], [place], [place], [id number] , [place]. tel:[phone] Office/Outpat ient Visit,Est, Mod [facility], [address], [place], [place], [id number], [place] tel:[phone] [facility] Low back pain 0 4 Luigi Silva. [facility], [address], [place], [address], [place]. tel:[phone] Referring Provider: Tono Osborn, [facility] [address] [place], [address]. tel:[phone] Office/Outpat ient Visit,Est, Mod [facility], [address], [place], [id number], [place] tel:[phone] [facility] Other intervertebral disc degeneration, lumbar region 4 Yannick Tono. [facility], [address], [facility] [place], [id number] , [place]. tel:[phone] Referring Provider: Tono Osborn, [facility] [address] [place], [address]. tel:[phone] [facility], [address], [place], [place], [address], [place] tel:[phone] [facility] No Information 3 Luigi Silva. [facility], [address], [place], [address], [place]. tel:[phone] [facility], [address], [place], [id number], [place] tel:[phone] [facility] Encounter for other specified surgical aftercare 3 Yannick Power. [facility], [address] [place] [address] [address], [place], [place], [id number] , [place]. tel:[phone] Referring Provider: Tono Osborn, [facility] [address] [place], [address]. tel:[phone] [facility], [address], [facility] [place] [facility], [id number], [place] tel:[phone] [facility] No Information Jun- 3 Agnieszka Jacobs. [facility], [address] [place] [address], [address], [place] [place], [address], [place]. tel:[phone] Referring Provider: Tono Osborn, [facility] [address] [place], [address]. tel:[phone] [facility], [address], [facility] [place], [address], [place] tel:[phone] [facility] No Information 3 Luigi Silva. [facility], [address] [place] [address] [address], [place], [address], [place]. tel:[phone] Referring Provider: Tono Osborn, [facility] [address] [place], [address]. tel:[phone] Office/Outpat ient Visit,New, Mod [facility], [address], [facility] [place], [id number], [place] tel:[phone] [facility] Other intervertebral disc displacement, lumbosacral regionRadiculop athy, lumbosacral region Jun-0 3 Antoni Higginbotham. [facility], [address] [place] [address] [address], [place], [place], [address] , [place]. tel:[phone] Referring Provider: Tono Osborn, [facility] [address] [place], [address]. tel:[phone] Family History Family Member Type Diagnosis Age At Onset No Information Payers Payer name Insurance type Covered republican ID Ren fiore(s) [facility] CI [id number] Social History Type Description Quantity Date Captured [...]
--- OUTSIDE RECORDS SUMMARY | 2023-12-04 06:20 | XMS_ITS ---
Author Organization [facility] Address [address] [place] [address] [address] [place] [address] Care Team Providers Care Status Controller Name Role Phone Tono Mccoy Primary Care Provider UnavailRoberto Stone Unavailable [phone] Luigi SOTO, PhD, Ricardo Unavailable Jeremy Singh Unavailable [phone] REASON FOR VISIT r/s to sooner date Encounters Encounter Location Date Provider Diagnosis [place] [address] [facility] [address] [place] [address] 08/31/2023 Jeremy Jiménez Plan Of Treatment No Information Progress Notes * Arlen VALLADARESDOB:[birth year] (38 yo F)Acc No.[id number]:08/31/2023 Progress Notes Patient:Arlen SCHAFFER Provider:?Jeremy Jiménez NP :1985???Age:38 Y???Sex:Female D ate:08/31/2023 Phone: Address:[address] [place] Pcp:Tono Mccoy Subjective: * Chief Complaints: * ???1. R/s to sooner date. * Medical History:? Objective: * Vitals:? Assessment: Plan: * Treatment: * Billing Information: * Visit Code:? * Procedure Codes:? * Electronic signature of Logan Jiménez CNP on 12/04/2023 at 06:19 AM CDT Sign off status: Pending * Provider:?Jeremy Jiménez NP Date:?08/30 Generated for Printi ng/Renetta/Elvinitting on:?12/04/2023 06:19 AM CDT
--- OUTSIDE RECORDS SUMMARY | 2023-12-04 06:20 | XMS_ITS ---
Author Organization [facility] Address [address] [place] [address] [address] [place] [address] Care Team Providers Care Malt House Operator Name Role Phone Fabioroyer Tono Primary Care Provider Roberto Ellis [phone] Luigi SOTO, PhD, Ricardo Unavailable Unavai lable Allergies Allergen (clinical drug ingredient) Drug/Non Drug Allergy documented on EMR Reaction Allergy Type Onset Date Status Latex Latex rash Allergy Active REASON FOR VISIT pre/post-op call Encounters Encounter Location Date Provider Diagnosis [facility] [address] [place] [address] [address] [place] [address] 09/02/2023 Roberto Rebolledo Plan Of Treatment No Information Progress Notes * Arlen VALLADARESDOB:[birth year] (38 yo F)Acc No.[id number]:09/02/2023 Patient:?Arlen Valladares :1985???Age:38 Y???Sex:Female Phone: Address:[address] [place] [address] Subjective: * Chief Complaints: * ???Pre/post-op call * Medical History:? * Surgical History:? * Hospitalization/Major Diagno stic Procedure:? * Medications:? * Allergies:?Latex: rashno[All ergies Verified] Objective: Assessment: Plan: * Treatment: * Procedure Codes:? * true * Date:? Generated for Printi ng/Faxing/eTransmitting on:?12/04/2023 06:19 AM CDT
--- OUTSIDE RECORDS SUMMARY | 2023-12-04 06:20 | XMS_ITS | Patient Health Record ---
Author Organization [facility] Address [address] [place] [address] [address] [place] [place] [address] Care Team Providers Care Laborer Prestressed Concrete Name Role Phone Tono Mccoy Primary Care Provider UnavailRoberto Stone Unavailable [phone] Luigi SOTO, PhD, Ricardo Unavailable Jeremy Singh Unavailable [phone] Allergies Allergen (clinical drug ingredient) Drug/Non Drug [...] W/U Status Risk Notes Problem Chronic pain (27820563) Other chronic pain (G89.29) Active confirmed Problem Lumbosacral radiculopathy (3663336) Radiculopathy, lumbosacral region (M54.17) Active confirmed Vital Signs Blood pressure diastolic 78 mm Hg 08/22/2023 Height 5 ft 4 in in 08/22/2023 Blood pressure systolic 138 mm Hg 08/22/2023 Weight 153.2 lbs 08/22/2023 BMI 26.29 kg/m2 08/22/2023 Procedures Procedure Date Ordered Date Performed Result Body Sit e Intervention: 08/22/2023 08/31/2023 Sched 09/05 Encounters Encounter Location Date Provider Diagnosis [facility] [address] [place] [address] [address] [place] [address] 08/22/2023 Roberto Marce Other chronic pain G89.29 and Radiculopathy, lumbosacral region M54.17 [address] [facility] [address] [place] [address] 09/06/2023 Roberto Rebolledo Radiculopathy, lumbosacral region M54.17 [facility] [address] [address] 07/25/2023 Roberto Rebolledo [facility] [address] [place] [address] 08/23/2023 Roberto Rebolledo [facility] [address] [place] [address] 08/29/2023 Roberto Rebolledo [facility] [address] [place] [address] [address] [place] [address] 09/02/2023 Roberto Rebolledo Assessments Encounter Date Diagnosis (ICD Code) Assessment Notes Treatment Notes Treatment Clinical Notes 08/22/2023 Other chronic pain (ICD-10 - G89.29) Arlen presents to the clinic for an evaluation regarding her chronic low back pain. I have reviewed her symptoms and current medications. I checked the [facility] database and I did not find any [...] by the scribe accurately reflects the service Jereym Jiménez CNP and Roberto Rebolledo MD personally [...] Insured Coverage Start Date Coverage End Date [facility] [address] [address] [place] [address] [id number] Sarah Valladares Spouse - patient is the spouse of the insured Medical (General) History Medical History History ICD Code Depression abdominal aortic aneurysm headaches Anxiety Surgical History Surgery Date(Month/Year) L5-S1 microdiscectomy 06/2022 Rectal botox 2021 Hysterectomy 04/2019 gall bladder 10/2005
[2023-12-04 06:42] LABS: Basophils Absolute Auto 0.03 K/uL (0.00-0.30); Basophils Percent Auto 0.5 % (0.0-3.0); Eosinophils Absolute Auto 0.01 K/uL (0.00-0.50); Eosinophils Percent Auto 0.2 % (0.0-7.0); Hematocrit 43.3 % (33.0-51.0); Hemoglobin* 14.5 gm/dL (12.0-16.0); Lymphocytes Absolute Auto 1.96 K/uL (0.90-2.90); Lymphocytes Percent Auto 35.7 % (20-44); Mean Corpuscular HGB Conc 34 gm/dL (32-36); Mean Corpuscular Hemoglobin 32 pg (26-34); Mean Corpuscular Volume 94 fL (80-100); Monocytes Percent Auto 6.2 % (0.0-11.0); Neutrophils Absolute Auto 3.15 K/uL (1.7-7.0); Neutrophils Percent Auto 57.4 % (42.0-72.0); Platelet Count* 261 K/uL (140-440); Red Blood Count 4.59 m/uL (4.00-5.20); White Blood Count* 5.49 K/uL (4.50-11.00)
[2023-12-04 06:44] LABS: Slide Review Reflex No
[2023-12-04] MEDS: 0.9 % SODIUM CHLORIDE 500 ML 500 ML IV (06:45)
[2023-12-04] MEDS: BACITRACIN 0.9 GM PACKET 2 EACH TOPICAL (06:45)
[2023-12-04] MEDS: TRANEXAMIC ACID 1,000 MG in 0.9 % SODIUM CHLORIDE 100 ml 100 ML 440 MG IVPB (08:02)
[2023-12-04] MEDS: ONDANSETRON 2 MG/ML inj 4 MG IVP (08:58)
[2023-12-04] MEDS: HYDROmorphone 0.5 mg/0.5 ml inj IVP ×2 (09:00→13:25)
[2023-12-04] MEDS: KETAMINE HCL 20 MG in 0.9 % SODIUM CHLORIDE 100 ml 100 ML 300.6 MG IVPB (10:24)
[2023-12-04] MEDS: KETOROLAC 30 MG/ML inj IVP (11:48)
[2023-12-04] MEDS: METHYLPREDNISOLONE SOD SUCC 62.5 MG/ML (125) 125 MG IVP (11:51)
== END 2023-12-04 14:25 | disposition home or self-care (01) ==
PROVIDERS: Emergency Provider Family Medicine; PCP Family Medicine
DX: R04.0 Epistaxis (principal)
CPT/HCPCS: 36415; 85025; 96365; 96375; 99284; A9270; J1170; J1885; J2405; J2919; J3490; J7030

== ENCOUNTER 2023-12-05 20:05 | Emergency (ER) | payer OTHER, SELFPAY ==
[2023-12-05 20:12] VITALS: BP 137/87; PULSE 94; RESP 18; TEMP 36.7; O2SAT 98; BMI 24.9
--- NOTE | 2023-12-05 20:17 | ED_ITS ---
HPI - General Adult General Time Seen by Provider: 20:17 Date Seen: 12/05/23 Chief complaint: Post Op Complication Stated complaint: post op complication - sinus surgery Time Seen by Provider: 12/05/23 20:13 Source: patient, RN notes reviewed and old records reviewed Mode of arrival: ambulatory Limitations: no limitations History of Present Illness HPI narrative: This 38-year-old female was sent into the ER by her ENT physician Dr. Perkins. She was noted to start having bleeding through her nasal packing tonight, was getting retrograde bleeding through the nasolacrimal duct. She had a septoplasty and turbinate resection on November 24, had the stent and packing removal on November 28. She started having a nose bleed yesterday. I have reviewed those notes. She did get this secondary headache after the packing yesterday. She has noted no fevers. Over the last week she has felt a bit achy and flu-hermelinda but no specific symptoms. Dr. Perkins did call and discuss this patient with me prior to her arrival. Last ate at lunch today. Related Data Home Medications ?Medication ?Instructions ?Recorded ?Confirmed ferrous fumarate 325 mg (106 mg 325 mg PO QDAY 11/22/23 11/29/23 iron) tablet Previous Rx's ?Medication ?Instructions ?Recorded acetaminophen 300 mg-codeine 30 mg 1 tab PO Q4H PRN pain #30 tabs 11/25/23 tablet doxycycline hyclate 100 mg capsule 100 mg PO BID #10 caps 11/25/23 ondansetron 4 mg disintegrating 4 mg PO Q8H #10 tabs 11/25/23 tablet hydromorphone 2 mg tablet 2 mg PO Q6H #10 tabs 12/04/23 (Dilaudid) ondansetron 4 mg disintegrating 4 mg PO Q6H #10 tabs 12/04/23 tablet Allergies Allergy/AdvReac Type Severity Reaction Status Date / Time oxycodone Allergy Intermediate Blurry Verified 11/29/23 09:15 Vision penicillin V Allergy Mild Hives Verified 11/29/23 09:15 banana Allergy Unknown Verified 11/29/23 09:15 cat dander Allergy Unknown Verified 11/29/23 09:15 latex Allergy Unknown Verified 11/29/23 09:15 meperidine Allergy Unknown Unknown Verified 11/29/23 09:15 Penicillins Allergy Unknown Verified 11/29/23 09:15 Review of Systems Narrative: As per HPI. [facility] Medical History Constipation ?K59.00 - Constipation, unspecified (ICD-10) Chronic diarrhea ?K52.9 - Noninfective gastroenteritis and colitis, unspecified (ICD-10) Chronic constipation ?K59.09 - Other constipation (ICD-10) Cervical radiculopathy ?M54.12 - Radiculopathy, cervical region (ICD-10) Surgical History History of cholecystectomy (04/07/10) ?Z90.49 - Acquired absence of other specified parts of digestive tract (ICD- 10) S/P hemorrhoidectomy ?Z98.890 - Other specified postprocedural states (ICD-10) ?Z87.19 - Personal history of other diseases of the digestive system (ICD-10) S/P anal fissurectomy ?Z98.890 - Other specified postprocedural states (ICD-10) ?Z87.19 - Personal history of other diseases of the digestive system (ICD-10) S/P hysterectomy ?Z90.710 - Acquired absence of both cervix and uterus (ICD-10) Family History Mother Depression Maternal Grandfather Depression Brother Depression Social History Narrative: . 4 children. Not working. No alcohol. Non-smoker. No illicit drugs. Smoking Status: Never smoker Do you use any of these nicotine containing products: None Second hand tobacco smoke exposure: No How often do you have a drink containing alcohol: 2-4 times a month Alcohol type: wine and hard liquor How many standard drinks containing alcohol do you have on a typical day: 1 or 2 How often do you have six or more drinks on one occasion: Never AUDIT-C Alcohol total score: 2 Non-prescribed substance use: marijuana (any form) Caffeine: Yes Little interest or pleasure in doing things: several days Feeling down, depressed, or hopeless: not at all Are you using contraception or practicing any form of control: No service: No Exam Const: Vital Signs, click to edit/add: Vital Signs - 24 hr 12/05/23 20:12 12/05/23 21:25 Temperature 98.0 F Pulse Rate [Pulse Oximeter] 94 Respiratory Rate 18 Blood Pressure [Le ft Upper Arm] 137/87 Pulse Oximetry 98 96 Oxygen Delivery Me thod Room Air Arlen is a 38-year-old female with bilateral nose packing in place, the left is dripping some darker blood. She does have some serosanguineous dripping out of the right when gauze is touch to it. Pupils are equal round reactive, sclera clear. There is no backward bleeding out of the nasolacrimal ducts at this time. Can see a little bit of blood streaking along her uvula, she is spitting up some blood at times but see no active draining down the posterior pharynx. She is able speak in complete sentences. Lungs are clear, good air entry, no wheezing or crackles. CV regular rate and rhythm, no murmur. Documenting provider has reviewed patient's vital signs: yes Course Course ED Course: Patient will need basic labs drawn with CBC and INR, PTT. Will plan on changing out her current packing in try the Rapid rhino 5.5 cm anterior packing. I do not think that this patient will at all tolerate the anterior posterior balloon. She is already quite anxious, has already requested that she ?be knocked out? for me to even change the packing. Will plan on giving her some IV Dilaudid, she tolerated this yesterday. Reevaluation(s) Time of Reevaluation #1: 21:13 Reevaluation #1: After IV was placed and patient received the Dilaudid and Zofran, the left nasal packing was pulled. There was some clot which I tried to pull out, patient was gagging. I then used the benzocaine spray in the left anterior vestibule. The 5.5 cm rapid rhino was placed in without difficulty. Patient had no significant bleeding during that time. I let the patient rest for few minutes and then slowly inflated the balloon with 4 mL of air. She did have some gagging and some clot that she did spit out. I did visualize her posterior pharynx multiple times and saw no active bleeding. I was able to pull the right nasal packing and she had no further bleeding at this time into the right naris. We will continue to watch her. She feels like she passed all of the clot that was sitting in the back of the upper pharynx. We will make sure that she is not continuing to bleed. Time of Reevaluation #2: 21:46 Reevaluation #2: Patient is experiencing just occasional drip from the left nares, nothing from the right. She has no significant bleeding down her throat. Did place the last mL of air for total of 5 mL into the balloon. She is tolerating this fine. Reviewed her normal labs, hemoglobin is stable. Will plan on allowing her to discharge to home, she is comfortable with that. Some small drip being or drainage is okay but should she have increased bleeding like she did earlier, she understands to return. She will otherwise see Dr. Perkins tomorrow in follow up as planned. Vital Signs Vital signs: Initial Vital Signs Temperature 98.0 F 12/05/23 20:12 Temperature Source Temporal Artery Scan 12/05/23 20:12 Pulse Rate 94 12/05/23 20:12 Pulse Rhythm Regular 12/05/23 20:12 Respiratory Rate 18 12/05/23 20:12 Blood Pressure 137/87 12/05/23 20:12 Blood Pressure Mean 103 12/05/23 20:12 Blood Pressure Position Sitting 12/05/23 20:12 Pulse Oximetry 98 12/05/23 20:12 Oxygen Delivery Method Room Air 12/05/23 20:12 Vital Signs Temperature 98.0 F 12/05/23 20:12 Pulse Rate 94 12/05/23 20:12 Respiratory Rate 18 12/05/23 20:12 Blood Pressure 137/87 12/05/23 20:12 Pulse Oximetry 98 12/05/23 20:12 Oxygen Delivery Method Room Air 12/05/23 20:12 Temperature 98.0 F 12/05/23 20:12 Pulse Rate 94 12/05/23 20:12 Respiratory Rate 18 12/05/23 20:12 Blood Pressure 137/87 12/05/23 20:12 Pulse Oximetry 96 12/05/23 21:25 Oxygen Delivery Method Room Air 12/05/23 20:12 Medications Administered Medications: Generic Name Dose Route Start Last Admin Trade Name Freq PRN Reason Stop Dose Admin Benzocaine 1 each 12/05/23 20:52 12/05/23 21:00 Benzocaine 20 % [place] NOSTRIL-B 12/05/23 20:53 1 each ONCE ONE Administration Discontinued Medications Generic Name Dose Route Start Last Admin Trade Name Alysa PRN Reason Stop Dose Admin Hydromorphone HCl 0.5 mg 12/05/23 20:27 12/05/23 20:58 Hydromorphone 0.5 Mg/0.5 Ml Inj IVP 12/05/23 20:28 0.5 mg ONCE ONE Administration Ondansetron HCl 4 mg 12/05/23 20:27 12/05/23 20:58 Ondansetron 2 Mg/Ml Inj IVP 12/05/23 20:28 4 mg ONCE ONE Administration Medical Decision Making Lab Data Labs: Lab Results 12/05/23 Range/Units 20:50 WBC 6.21 (4.50-11.00) K/uL RBC 4.13 (4.00-5.20) m/uL Hgb 13.0 (12.0-16.0) gm/dL Hct 39.5 (33.0-51.0) % MCV 96 (80-100) fL MCH 32 (26-34) pg MCHC 33 (32-36) gm/dL RDW Coeff of Guillermina 11.1 L (11.5-15.5) % Plt Count 271 (140-440) K/uL Neut % (Auto) 43.5 (42.0-72.0) % Lymph % (Auto) 48.8 H (20-44) % [place] % (Auto) 6.8 (0.0-11.0) % Eos % (Auto) 0.2 (0.0-7.0) % Baso % (Auto) 0.5 (0.0-3.0) % Neut # (Auto) 2.71 (1.7-7.0) K/uL Lymph # (Auto) 3.00 H (0.90-2.90) K/uL [place] # (Auto) 0.40 (0.00-0.90) K/UL Eos # (Auto) 0.01 (0.00-0.50) K/uL Baso # (Auto) 0.03 (0.00-0.30) K/uL Abs Immat Gran (auto) 0.01 (0.00-0.30) K/uL Imm/Tot Granulo (auto) 0.2 % INR 0.88 L (0.91-1.10) APTT 29 (23-33) Seconds Discharge Plan Discharge Clinical Impression: Post-op bleeding Qualifiers: Procedure type: non-ophthalmic Laterality: left Patient Disposition: Home, Self-Care Condition: Improved Additional Instructions: Please leave the balloon in place. Small amount of dripping or leaking of bloody appearing fluid maybe normal coming from the left side. If you should have return of bleeding like your earlier, please return to the ER. If you remain stable overnight, keep your follow-up appointment with Dr. Perkins as planned for tomorrow. Activity Level: No strenuous activity Prescriptions: No Action ferrous fumarate 325 mg (106 mg iron) tablet 325 mg PO QDAY Hold Instructions: per pt hydromorphone [Dilaudid] 2 mg tablet 2 mg PO Q6H Qty: 10 0RF ondansetron 4 mg tablet,disintegrating 4 mg PO Q6H Qty: 10 0RF doxycycline hyclate 100 mg capsule 100 mg PO BID Qty: 10 0RF ondansetron 4 mg tablet,disintegrating 4 mg PO Q8H Qty: 10 0RF acetaminophen-codeine 300-30 mg tablet 1 tab PO Q4H PRN (Reason: pain) Qty: 30 0RF Follow Up/Referrals: Tono Mccoy MD [Primary Care Provider] - Stand Alone Forms: [employer] Info Instructions
--- OUTSIDE RECORDS SUMMARY | 2023-12-05 20:34 | XMS_ITS | Clinical Summary ---
Author Organization [facility] Address [place], [place] [address] Care Team Providers Care Electrical Electronics Technician Name Role Phone Jet Garcia MD Unavailable [phone] Tono Mccoy MD Primary Care Provider [phone] Allergies Active Allergy Reactions Criticality Noted Date [...] Procedure Name Priority Date/Time Associated Diagnosis Comments LINING FELLER BLINDSTITCH THIN PREP PAP SCREEN IMAGED Routine 12/14/2018 12:00 PM CDT from Last 3 Months or Most Recently Relevant to Health Maintenance Results * LINING FELLER BLINDSTITCH THIN PREP PAP SCREEN IMAGED (12/14/2018 12:00 PM CDT) Case Report Gynecologic Cytology Report ? Case: [id number] ? Authorizing Provider: ??Alexandra Perez MD ?? Collected: ? 12/14/2018 1200 ? Ordering Location: ? [facility] ?Received: ?12/19/2018 0916 ? First Screen: ?Renzo Arrington ? Specimen: ?LINING FELLER BLINDSTITCH ThinPrep Vial Screening, Cervical/Vaginal ? 12/26/2018 1:00 PM CDT [facility] INTERPRETATION/ RESULT NEGATIVE FOR INTRAEPITHELIAL LESION OR MALIGNANCY (NIL) (none) 12/26/2018 1:00 PM CDT [facility] IMEN ADEQUACY Satisfactory for evaluation Endocervical component present 12/26/2018 1:00 PM CDT [facility] HPV REQUEST HPV and PAP 12/26/2018 1:00 PM CDT [facility] Automated Review Successful 12/26/2018 1:00 PM CDT [facility] Comment:Specimen processed s uccessfully by automated life science technician device, dotloopPrep Imaging System, [employer] ANCILLARY TESTING LINING FELLER BLINDSTITCH HPV Ordered, Please see separate report 12/26/2018 1:00 PM T [facility] Note The pap test [...] lesions. Cytology is screened and interpreted at [facility] - [address], [place] [address] and [facility] - [address]; [place] [address] and [facility] - [address]; [place] [address] and [facility] [address]; [place] [address] 12/26/2018 1:00 PM CDT [facility] Other (Cervical/Vagina l) 12/14/2018 12:00 PM CDT 12/19/2018 9:16 AM CDT Alexandra Perez MD PATHOLOGY/CYTOLOG Y [facility] [address] [place] [address], from Last 3 Months or Most Recently Relevant to Health Maintenance Advance Directives * Full Code (Latest Code Status on File) Date Activated Date Inactivated Comments 07/08/2022 12:24 PM 07/08/2022 5:48 PM Question Answer Comments Code Status Discussion: Per Existing Order Care Teams Electrical Electronics Technician Relationship Specialty Start Date End Date Tono Mccoy MD [address] [place] [address] PCP - General Family Practice 06/29/22 Jet Garcia MD Family Practice 12/16/15
--- OUTSIDE RECORDS SUMMARY | 2023-12-05 20:34 | XMS_ITS | Continuity of Care Document ---
Author Organization [facility] Address [address] [place] [address] Phone Care Team Providers Care Gas Plant Worker Name Role Phone Tono Foley Unavailable Unavailable [...] C, [address], [place], [place], [id number], [place] tel:[phone] [facility] No Information 4 Lanier Tono. [facility] [place], [address], [place], [place], [id number] , [place]. tel:[phone] Office/Outpat ient Visit,Est, Mod [facility], [address], [place], [place], [id number], [place] tel:[phone] [facility] Low back pain 0 4 Luigi Silva. [facility] [place], [address], [place], [address], [place]. tel:[phone] Referring Provider: Tono Osborn, [facility] [address] [place], [address]. tel:[phone] Office/Outpat ient Visit,Est, Mod [facility], [address], [place], [place], [id number], [place] tel:[phone] [facility] Other intervertebral disc degeneration, lumbar region 4 Yannick Tono. [facility] [place], [address], [facility] [place], [place], [id number] , [place]. tel:[phone] Referring Provider: Tono Osborn, [facility] [address] [place], [address]. tel:[phone] [facility], [address], [place], [place], [id number], [place] tel:[phone] [facility] No Information 3 Luigi Silva. [facility] [place], [address], [place], [address], [place]. tel:[phone] [facility], [address], [place], [id number], [place] tel:[phone] [facility] Encounter for other specified surgical aftercare 3 Yannick Power. [facility], [address] [place] [address] [address], [place], [place], [id number] , [place]. tel:[phone] Referring Provider: Tono Osborn, [facility] [address] [place], [address]. tel:[phone] [facility], [address], [facility], [id number], [place] tel:[phone] [facility] No Information Jun- 3 Agnieszka Jacobs. [facility] [place], [address] [place] [address], [address], [place], [address], [place]. tel:[phone] Referring Provider: Tono Osborn, [facility] [address] [place], [address]. tel:[phone] [facility], [address], [facility] [place], [id number], [place] tel:[phone] [facility] No Information 3 Luigi Silva. [facility] [place], [address] [place] [address], [place], [address], [place]. tel:[phone] Referring Provider: Tono Osborn, [facility] [address] [place], [address]. tel:[phone] Office/Outpat ient Visit,New, Mod [facility], [address], [facility] [place], [id number], [place] tel:[phone] [facility] Other intervertebral disc displacement, lumbosacral regionRadiculop athy, lumbosacral region Jun-0 3 Antoni Higginbotham. [facility] [place], [address] [place] [address], [place], [place], [id number] , [place]. tel:[phone] Referring Provider: Tono Osborn, [facility] [address] [place], [address]. tel:[phone] Family History Family Member Type Diagnosis Age At Onset No Information Payers Payer name Insurance type Covered green party ID Authoriza tion(s) No Information Social History Type Description Quantity Date Captured [...]
--- OUTSIDE RECORDS SUMMARY | 2023-12-05 20:35 | XMS_ITS ---
Author Organization [facility] Address [address] [place] [address] [address] [place] [address] Care Team Providers Care Bill Distributor Name Role Phone Fabioroyer Tono Primary Care Provider Roberto Ellis [phone] Luigi SOTO, PhD, Ricardo Unavailable Unavai lable Allergies Allergen (clinical drug ingredient) Drug/Non Drug Allergy documented on EMR Reaction Allergy Type Onset Date Status Latex Latex rash Allergy Active REASON FOR VISIT pre/post-op call Encounters Encounter Location Date Provider Diagnosis [facility] [address] [place] [address] [address] [place] [address] 09/02/2023 Roberto Rebolledo Plan Of Treatment No Information Progress Notes * Arlen VALLADARESDOB:[birth year] (38 yo F)Acc No.[id number]:09/02/2023 Patient:?Arlen Valladares :1985???Age:38 Y???Sex:Female Phone: Address:[address] [place] [address] Subjective: * Chief Complaints: * ???Pre/post-op call * Medical History:? * Surgical History:? * Hospitalization/Major Diagno stic Procedure:? * Medications:? * Allergies:?Latex: rashno[All ergies Verified] Objective: Assessment: Plan: * Treatment: * Procedure Codes:? * true * Date:? Generated for Printi ng/Faxing/eTransmitting on:?12/05/2023 08:34 PM CDT
--- OUTSIDE RECORDS SUMMARY | 2023-12-05 20:35 | XMS_ITS ---
Author Organization [facility] Address [address] [place] [address] [address] [place] [address] Care Team Providers Care Design Engineering Intern Name Role Phone Tono Mccoy Primary Care Provider Roberto Ellis Unavailable [phone] Luigi SOTO, PhD, Ricardo Unavailable Unavai lable REASON FOR VISIT * Local * Bilateral L5-S1 TFEs Problems Problem Type SNOMED Code ICD Code Onset Dates Problem Status W/U Status Risk Notes Problem Lumbosacral radiculopathy (3443955) Radiculopathy, lumbosacral region (M54.17) Active confirmed Encounters Encounter Location Date Provider Diagnosis [address] [facility] [address] [place] [address] 09/06/2023 Roberto Rebolledo Radiculopathy, lumbosacral region M54.17 Assessments Encounter Date Diagnosis (ICD Code) Assessment Notes Treat ment Notes Treatment Clinical Notes 09/06/2023 Radiculopathy, lumbosacral region (ICD-10 - M54.17) Plan Of Treatment No Information Progress Notes * Arlen VALLADARESDOB:[birth year] (38 yo F)Acc No.[id number]:09/06/2023 Patient:?Arlen Valladares Provider:?Roberto Rebolledo M.D. :1985???Age:38 Y???Sex:Female D ate:09/06/2023 Phone: Address:[address] [id number] Pcp:Tono Mccoy * Billing Information: * Visit Code:? * Procedure Codes:? 63591 Transforaminal L or S single. Modifiers: 50 A4209 5 cc - 19 cc gauge syringe. Units: 2.00. A4930 Gloves, size 8. A4215 [place] only Sterile any size each. Units: 2.00. A4550 Spinal Support Tray. S0020 Bupivicaine 0.5% mg/ml. Q9967 Omnipaque 300 mgl/mL. Units: 3.00. J3301 Kenalog 40 mg/ml. Units: 2.00. * Sign off status: Completed true * Provider:?Roberto Rebolledo M.D. Date:?0 09/06/2023 Generated for Abdelrahman harris/Renetta/Elvinitting on:?12/05/2023 08:34 PM CDT
--- OUTSIDE RECORDS SUMMARY | 2023-12-05 20:35 | XMS_ITS | Patient Health Record ---
Author Organization [facility] Address [address] [place] [address] [address] [place] [address] Care Team Providers Care Waistband Setter Lockstitch Name Role Phone Tono Mccoy Primary Care Provider UnavailRoberto Stone Unavailable [phone] Luigi SOTO, PhD, Ricardo Unavailable Jeremy Singh Unavailable [phone] Allergies Allergen (clinical drug ingredient) Drug/Non Drug [...] W/U Status Risk Notes Problem Chronic pain (01153305) Other chronic pain (G89.29) Active confirmed Problem Lumbosacral radiculopathy (6077832) Radiculopathy, lumbosacral region (M54.17) Active confirmed Vital Signs Blood pressure diastolic 78 mm Hg 08/22/2023 Height 5 ft 4 in in 08/22/2023 Blood pressure systolic 138 mm Hg 08/22/2023 Weight 153.2 lbs 08/22/2023 BMI 26.29 kg/m2 08/22/2023 Procedures Procedure Date Ordered Date Performed Result Body Sit e Intervention: 08/22/2023 08/31/2023 Sched 09/05 Encounters Encounter Location Date Provider Diagnosis [facility] [address] [place] [address] [address] [place] [address] 08/22/2023 Roberto Marce Other chronic pain G89.29 and Radiculopathy, lumbosacral region M54.17 [address] [facility] [address] [place] [address] 09/06/2023 Roberto Rebolledo Radiculopathy, lumbosacral region M54.17 [facility] [address] [place] [address] 07/25/2023 Roberto Rebolledo [facility] [address] [place] [address] 08/23/2023 Roberto Rebolledo [facility] [address] [place] [address] 08/29/2023 Roberto Rebolledo [facility] [address] [place] [address] [address] [place] [address] 09/02/2023 Roberto Rebolledo Assessments Encounter Date Diagnosis (ICD Code) Assessment Notes Treatment Notes Treatment Clinical Notes 08/22/2023 Other chronic pain (ICD-10 - G89.29) Arlen presents to the clinic for an evaluation regarding her chronic low back pain. I have reviewed her symptoms and current medications. I checked the [facility] database and I did not find any [...] Insured Coverage Start Date Coverage End Date [facility] [address] [address] [place] [address] [phone] [id number] Sarah Valladares Spouse - patient is the spouse of the insured Medical (General) History Medical History History ICD Code Depression abdominal aortic aneurysm headaches Anxiety Surgical History Surgery Date(Month/Year) L5-S1 microdiscectomy 06/2022 Rectal botox 2021 Hysterectomy 04/2019 gall bladder 10/2005
--- OUTSIDE RECORDS SUMMARY | 2023-12-05 20:35 | XMS_ITS ---
Author Organization [facility] Address [address] [place] [address] [address] [place] [address] Care Team Providers Care Immunologist Name Role Phone Tono Mccoy Primary Care Provider UnavailRoberto Stone Unavailable [phone] Luigi SOTO, PhD, Ricardo Unavailable Jeremy Singh Unavailable [phone] REASON FOR VISIT r/s to sooner date Encounters Encounter Location Date Provider Diagnosis [place] [address] [facility] [address] [place] [id number] 08/31/2023 Jeremy Jiménez Plan Of Treatment No Information Progress Notes * Arlen VALLADARESDOB:[birth year] (38 yo F)Acc No.[id number]:08/31/2023 Progress Notes Patient:Arlen SCHAFFER Provider:?Jeremy Jiménez NP :1985???Age:38 Y???Sex:Female D ate:08/31/2023 Phone: Address:[address] [id number] Pcp:Tono Mccoy Subjective: * Chief Complaints: * ???1. R/s to sooner date. * Medical History:? Objective: * Vitals:? Assessment: Plan: * Treatment: * Billing Information: * Visit Code:? * Procedure Codes:? * Electronic signature of Logan Jiménez CNP on 12/05/2023 at 08:34 PM CDT Sign off status: Pending * Provider:?Jeremy Jiménez NP Date:?08/30 Generated for Printi ng/Renetta/Elvinitting on:?12/05/2023 08:34 PM CDT
[2023-12-05] MEDS: HYDROmorphone 0.5 mg/0.5 ml inj IVP (20:58)
[2023-12-05] MEDS: ONDANSETRON 2 MG/ML inj 4 MG IVP (20:58)
[2023-12-05] MEDS: BENZOCAINE 20 % SPRAY 1 EACH NOSTRIL-B (21:00)
[2023-12-05 21:02] LABS: Basophils Absolute Auto 0.03 K/uL (0.00-0.30); Basophils Percent Auto 0.5 % (0.0-3.0); Eosinophils Absolute Auto 0.01 K/uL (0.00-0.50); Eosinophils Percent Auto 0.2 % (0.0-7.0); Hematocrit 39.5 % (33.0-51.0); Immature Granulocytes Abs Auto 0.01 K/uL (0.00-0.30); Immature Granulocytes Pct Auto 0.2 %; Lymphocytes Percent Auto 48.8 % (20-44); Mean Corpuscular HGB Conc 33 gm/dL (32-36); Mean Corpuscular Hemoglobin 32 pg (26-34); Mean Corpuscular Volume 96 fL (80-100); Monocytes Percent Auto 6.8 % (0.0-11.0); Neutrophils Absolute Auto 2.71 K/uL (1.7-7.0); Neutrophils Percent Auto 43.5 % (42.0-72.0); Platelet Count* 271 K/uL (140-440); RDW Coefficient of Variation % 11.1 % (11.5-15.5); Red Blood Count 4.13 m/uL (4.00-5.20); White Blood Count* 6.21 K/uL (4.50-11.00)
[2023-12-05 21:14] LABS: Slide Review Reflex No
[2023-12-05 21:25] VITALS: O2SAT 96
[2023-12-05 21:29] LABS: INR 0.88 (0.91-1.10); Partial Thromboplastin Time* 29 Seconds (23-33); Prothrombin Time 12.4 Seconds
[2023-12-05 21:55] VITALS: BP 110/79; PULSE 82; O2SAT 96
== END 2023-12-05 22:11 | disposition home or self-care (01) ==
PROVIDERS: Emergency Provider Family Medicine; PCP Family Medicine
DX: J95.861 Postprocedural hematoma of a respiratory system organ or structure following other procedure (principal)
CPT/HCPCS: 30901; 36415; 85025; 85610; 85730; 94761; 96374; 96375; 99283; 99284; A9270; J1170; J2405

== ENCOUNTER 2024-01-29 13:45 | Emergency (ER) | payer OTHER, SELFPAY ==
[2024-01-29 13:51] VITALS: BP 133/84; PULSE 77; RESP 16; TEMP 36.6; O2SAT 100; BMI 25.1
[2024-01-29] MEDS: dexAMETHasone 10 MG/ML inj PO (14:37)
[2024-01-29] MEDS: LORazepam 0.5 MG TABLET PO (14:37)
--- NOTE | 2024-01-29 14:37 | ED.GENADULT ---
HPI - General Adult General Chief complaint: Unspecified Complaint, Adult Stated complaint: Nerve pain Time Seen by Provider: 01/29/24 13:51 History of Present Illness HPI narrative: This 38-year-old female comes in reporting paresthesias in bilateral feet and hands. She also reports some episodes of pain in these areas. She is feeling more fatigued eat but does not have any unilateral weakness. She does report some visual aura a but denies having headaches. She states that she has had symptoms like this in the past and improved at 1 time after taking a steroid. She does not take any street drugs or alcohol. She states that she has a and 4 kids at home but often feels that she needs to go to bed by about 730 at night because she is so fatigued. Related Data Home Medications ?Medication ?Instructions ?Recorded ?Confirmed ferrous fumarate 325 mg (106 mg 325 mg PO QDAY 11/22/23 12/09/23 iron) tablet naltrexone .ROUTE 01/29/24 Previous Rx's ?Medication ?Instructions ?Recorded acetaminophen 300 mg-codeine 30 mg 1 tab PO Q4H PRN pain #30 tabs 11/25/23 tablet doxycycline hyclate 100 mg capsule 100 mg PO BID #10 caps 11/25/23 ondansetron 4 mg disintegrating 4 mg PO Q8H #10 tabs 11/25/23 tablet hydromorphone 2 mg tablet 2 mg PO Q6H #10 tabs 12/04/23 (Dilaudid) ondansetron 4 mg disintegrating 4 mg PO Q6H #10 tabs 12/04/23 tablet lorazepam 0.5 mg tablet (Ativan) 0.5 mg PO BID PRN #14 tabs 01/29/24 methylprednisolone 4 mg tablets in See Rx Instructions PO .COMPLEX 01/29/24 a dose pack (Medrol (Reji)) #21 ea Allergies Allergy/AdvReac Type Severity Reaction Status Date / Time oxycodone Allergy Intermediate Blurry Verified 12/09/23 10:47 Vision penicillin V Allergy Mild Hives Verified 12/09/23 10:47 banana Allergy Unknown Verified 12/09/23 10:47 cat dander Allergy Unknown Verified 12/09/23 10:47 latex Allergy Unknown Verified 12/09/23 10:47 meperidine Allergy Unknown Unknown Verified 12/09/23 10:47 Penicillins Allergy Unknown Verified 12/09/23 10:47 Review of Systems Status of ROS: Reports: 10 or more systems reviewed and unremarkable except as noted in History and below Narrative: Constitutional: No fevers, no weight gain or loss. Generalized fatigue. Eyes: No discharge. HENT: No congestion, no sore throat, no ear pain. Cardiovascular: No chest pain, no palpitations. Respiratory: No shortness of breath, no wheezes, no cough. Gastrointestinal: No abdominal pain, no vomiting, no diarrhea. Genitourinary: No dysuria, no hematuria. Musculoskeletal: Normal range of motion. Skin: No rashes, no pruritis. Neurological: No dizziness, weakness, speech change. Tingling and pain sensations in her hands and feet bilaterally. Endo/Heme/Allergies: No bruising or bleeding. No polydipsia. Pysch: no suicidality, no anxiety, no insomnia. All other systems reviewed and are negative. [facility] Medical History Constipation ?K59.00 - Constipation, unspecified (ICD-10) Chronic diarrhea ?K52.9 - Noninfective gastroenteritis and colitis, unspecified (ICD-10) Chronic constipation ?K59.09 - Other constipation (ICD-10) Cervical radiculopathy ?M54.12 - Radiculopathy, cervical region (ICD-10) Surgical History History of cholecystectomy (04/07/10) ?Z90.49 - Acquired absence of other specified parts of digestive tract (ICD-10) S/P hemorrhoidectomy ?Z98.890 - Other specified postprocedural states (ICD-10) ?Z87.19 - Personal history of other diseases of the digestive system (ICD-10) S/P anal fissurectomy ?Z98.890 - Other specified postprocedural states (ICD-10) ?Z87.19 - Personal history of other diseases of the digestive system (ICD-10) S/P hysterectomy ?Z90.710 - Acquired absence of both cervix and uterus (ICD-10) Family History Mother Depression Maternal Grandfather Depression Brother Depression Social History Narrative: . 4 children. Not working. No alcohol. Non-smoker. No illicit drugs. Smoking Status: Never smoker Do you use any of these nicotine containing products: None Second hand tobacco smoke exposure: No How often do you have a drink containing alcohol: 2-4 times a month Alcohol type: wine and hard liquor How many standard drinks containing alcohol do you have on a typical day: 1 or 2 How often do you have six or more drinks on one occasion: Never AUDIT-C Alcohol total score: 2 Non-prescribed substance use: marijuana (any form) Caffeine: Yes Little interest or pleasure in doing things: several days Feeling down, depressed, or hopeless: not at all Are you using contraception or practicing any form of control: No service: No Exam Narrative: Exam Narrative: Constitutional: Well-developed, well-nourished, no acute distress. HEENT: Normocephalic, atraumatic. Neck: Normal range of motion. Nontender. Supple. Heart: Regular. No murmurs. Normal rate. Intact distal pulses. Lungs: Clear to auscultation. No chest discomfort. No wheezes, rhonchi, or rales. Abdomen: Normal bowel sounds. Nontender. No rebound tenderness. Genitalia: Deferred. Back: No midline tenderness. Normal range of motion. Extremities: Normal range of motion. No injury. Skin: Intact. No rash. Warm. No erythema or pallor. Neurologic: No altered sensation. No weakness. Alert and oriented. No facial asymmetry. Tongue is midline. [id number] is normal. No pronator drift. [employer] strength is equal bilaterally. Able to raise each leg from the bed. Psychiatric: No suicidality. No anxiety or depression. No insomnia. Nursing notes and vitals signs are reviewed. Const: Vital Signs, click to edit/add: Vital Signs - 24 hr 01/29/24 13:51 Temperature 97.9 F Pulse Rate [Pulse Oximeter] 77 Respiratory Rate 16 Blood Pressure [Ri ght Upper Arm] 133/84 Pulse Oximetry 100 Oxygen Delivery Me thod Room Air Course Vital Signs Vital signs: Initial Vital Signs Temperature 97.9 F 01/29/24 13:51 Temperature Source Temporal Artery Scan 01/29/24 13:51 Pulse Rate 77 01/29/24 13:51 Respiratory Rate 16 01/29/24 13:51 Blood Pressure 133/84 01/29/24 13:51 Blood Pressure Mean 100 01/29/24 13:51 Blood Pressure Position Sitting 01/29/24 13:51 Pulse Oximetry 100 01/29/24 13:51 Oxygen Delivery Method Room Air 01/29/24 13:51 Vital Signs Temperature 97.9 F 01/29/24 13:51 Pulse Rate 77 01/29/24 13:51 Respiratory Rate 16 01/29/24 13:51 Blood Pressure 133/84 01/29/24 13:51 Pulse Oximetry 100 01/29/24 13:51 Oxygen Delivery Method Room Air 01/29/24 13:51 Temperature 97.9 F 01/29/24 13:51 Pulse Rate 77 01/29/24 13:51 Respiratory Rate 16 01/29/24 13:51 Blood Pressure 133/84 01/29/24 13:51 Pulse Oximetry 100 01/29/24 13:51 Oxygen Delivery Method Room Air 01/29/24 13:51 Medications Administered Medications: Discontinued Medications Generic Name Dose Route Start Last Admin Trade Name Artq PRN Reason Stop Dose Admin Dexamethasone 10 mg 01/29/24 14:32 01/29/24 14:37 Dexamethasone 10 Mg/Ml Inj PO 01/29/24 14:33 10 mg ONCE ONE Administration Lorazepam 0.5 mg 01/29/24 14:32 01/29/24 14:37 Lorazepam 0.5 Mg Tablet PO 01/29/24 14:33 0.5 mg ONCE ONE Administration Medical Decision Making MDM Narrative Medical decision making narrative: This patient comes in with the above-stated concerns. She arrives with normal vital signs. She has had symptoms like this in the past and benefited from a steroid course. She does have some tears in feels like her body is kind of anxious. She states she is otherwise not really and anxious or depressed person in her mood. I did check labs today and these returned with reassuring results. Some rhabdo is also are pending and 1 is a send out. The patient prefers to return home and can be contacted if any of these return abnormal. She did receive an oral dose of dexamethasone 10 mg and Ativan 0.5 mg. She states that she is feeling much the same but feels a little better with regard to her tremulous feelings at times in her body. She is okay to be discharged home. I did provide a prescription for Medrol Dosepak and some tablets of Ativan. She understands that these medicines will need to be managed, if they are used in any kind of future ongoing way, with her primary physician. Lab Data Labs: Lab Results 01/29/24 Range/Units 14:55 WBC 6.27 (4.50-11.00) K/uL RBC 4.47 (4.00-5.20) m/uL Hgb 13.9 (12.0-16.0) gm/dL Hct 42.1 (33.0-51.0) % MCV 94 (80-100) fL MCH 31 (26-34) pg MCHC 33 (32-36) gm/dL RDW Coeff of Guillermina 11.8 (11.5-15.5) % Plt Count 234 (140-440) K/uL Neut % (Auto) 72.2 H (42.0-72.0) % Lymph % (Auto) 22.3 (20-44) % [place] % (Auto) 4.8 (0.0-11.0) % Eos % (Auto) 0.2 (0.0-7.0) % Baso % (Auto) 0.3 (0.0-3.0) % Neut # (Auto) 4.50 (1.7-7.0) K/uL Lymph # (Auto) 1.40 (0.90-2.90) K/uL [place] # (Auto) 0.30 (0.00-0.90) K/UL Eos # (Auto) 0.01 (0.00-0.50) K/uL Baso # (Auto) 0.02 (0.00-0.30) K/uL Abs Immat Gran (auto) 0.01 (0.00-0.30) K/uL Imm/Tot Granulo (auto) 0.2 % Sodium 139 (135-149) mmol/L Potassium 3.2 L (3.6-5.1) mmol/L Chloride 105 (96-114) mmol/L Carbon Dioxide 22 (20-32) mmol/L Anion Gap 12 (7-15) mEq/L BUN 14 (5-24) mg/dL Creatinine 0.5 (0.5-1.5) mg/dL Estimated Creat Clear 134.32 Estimated GFR 125 ml/min Glucose 104 (60-115) mg/dL Calcium 9.4 (8.4-10.6) mg/dL C-Reactive Protein < 0.5 L (0.5-1.0) mg/dL Discharge Plan Discharge Clinical Impression: Paresthesia, Fatigue Patient Disposition: Home w/ Parent or Adult Condition: Stable Additional Instructions: Take medications as needed and directed. Follow up with MD for ongoing management. Return if worsening. Prescriptions: New lorazepam [Ativan] 0.5 mg tablet 0.5 mg PO BID PRNQty: 14 0RF methylprednisolone [Medrol (Reji)] 4 mg tablets,dose pack See Rx Instructions .ROUTE .COMPLEX Qty: 21 0RF Rx Instructions: orally per package directions No Action ferrous fumarate 325 mg (106 mg iron) tablet 325 mg PO QDAY Hold Instructions: per pt hydromorphone [Dilaudid] 2 mg tablet 2 mg PO Q6H Qty: 10 0RF ondansetron 4 mg tablet,disintegrating 4 mg PO Q6H Qty: 10 0RF naltrexone .ROUTE doxycycline hyclate 100 mg capsule 100 mg PO BID Qty: 10 0RF ondansetron 4 mg tablet,disintegrating 4 mg PO Q8H Qty: 10 0RF acetaminophen-codeine 300-30 mg tablet 1 tab PO Q4H PRN (Reason: pain) Qty: 30 0RF Follow Up/Referrals: Tono Mccoy MD [Primary Care Provider] - Stand Alone Forms: [employer] Info Instructions
--- OUTSIDE RECORDS SUMMARY | 2024-01-29 14:39 | XMS_ITS | Clinical Summary ---
Author Organization [facility] Address [address] [place] [address] Care Team Providers Care Md Pediatric Allergist Name Role Phone None Reported, Pcp Primary Care Provider Unavail able Source Comments Patient records contain information from all sites at [facility]. For routine questions regarding patient records, call [phone] during business hours, M-F 8:00 AM - 5:00 PM Central Time. Record requests for emergency care only can be directed to [phone] at any time.[facility] Allergies Active Allergy Reactions Criticality Noted Date Comments Banana Hives (Reselect Reaction) Medium 01/11/2022 Cat Dander Hives (Reselect Reaction) Medium 01/11/2022 Latex Rash Low 03/09/2006 Meperidine Other (see comments) Low 12/17/2015 Family history Oxycodone-Acetaminophen Itching Low 12/17/2015 Penicillins Hives (Reselect Reaction) Low 03/24/2014 Medications * This document contains information received from the source organization and may not represent a complete record from that organization. meloxicam (MOBIC) 15 mg tablet Take 15 mg by mouth as needed for pain (back). 4 Active tiZANidine (ZANAFLEX) 4 mg tablet Take 4 mg by mouth at bedtime as needed for muscle spasms. 4 Active ascorbic acid/collagen hydr (COLLAGEN SKIN RENEWAL ORAL) Take 2 Scoops by mouth daily. Active ferrous sulfate (IRON ORAL) Take 27 mg by mouth daily. Active diclofenac sodium (VOLTAREN) 75 mg EC tablet Take 75 mg by mouth 2 (two) times a day. with food or milk 4 Active cyclobenzaprine (FLEXERIL) 5 mg tablet Take by mouth 3 (three) times a day as needed for muscle spasms. Active dextroamphetamin e-amphetamine (AdderalL) 10 mg tablet Take 10 mg by mouth daily. Hasn't been using for a month due to tingling legs. Active naltrexone HCl 1 mg/mL oral suspensionIndica tions:Fibromyalg ia,Postural Orthostatic Tachycardia Syndrome,Post COVID-19 Condition,Autono alena Disorder,Neuropa thy Fiber Small,Paresthesi a,Hypermobility Syndrome Take 0.5 mL (0.5 mg total) by mouth at bedtime. If 0.5mL results in reaction, restart at 0.1mL. Increase by 0.1 mL weekly or as tolerated. Can change to capsules at 1.5mg if desired. 15 mL 3 01/25/2024 11:31 AM CDT 04/28/19 25 Active midodrine (ProAmatine) 2.5 mg tabletIndication s:Postural Orthostatic Tachycardia Syndrome,Post COVID-19 Condition,Autono alena Disorder Take 1 tablet (2.5 mg total) by mouth 3 (three) times a day. Within 30 minutes of planned standing activity; do not take within 3 hours of going to bed. Can increase up by 2.5mg up to a total of 10mg three times per day if helpful. 90 tablet 12/09/19 25 Active propranoloL (InderaL) 10 mg tabletIndication s:Postural Orthostatic Tachycardia Syndrome,Post COVID-19 Condition,Autono alena Disorder Take 1 tablet (10 mg total) by mouth 3 (three) times a day. Within 30 minutes of planned upright activity or with high heart rates as needed. 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 Thermoregulatory sweat test and autonomic reflex screen ordered. Pain Breast 09/02/2023 Assessment & Plan (10/28/2023 4:07 PM CDT): Seen in Breast clinic. Bilateral diagnostic mammogram showed heterogeneously dense breast tissue with no mammographic evidence of malignancy. Targeted ultrasound of the right breast at the area of focal pain at 3-6 o'clock demonstrated normal dense fibroglandular tissue. Targeted ultrasound in the area of palpable concern at 1 o'clock on the left demonstrated only normal unremarkable tissue. Reviewed methods to help reduce breast pain. Should start yearly mammograms at 42yo with consideration for adding MBI due to her high breast density. Assessment & Plan (09/02/2023 4:17 PM CDT): Unilateral breast pain is a bit unusual for fibromyalgia. I recommend being seen in the breast Clinic for a full evaluation. Due to time, I was unable to perform a breast exam today. Fibromyalgia 09/02/2023 Assessment & Plan (10/28/2023 3:52 PM CDT): Meets criteria for fibromyalgia. She will be started on Cymbalta and then try low-dose naltrexone after her sinus surgery in two week. Please see full detailed recommendations in Dr. Calvillo's note. Assessment & Plan (09/02/2023 4:19 PM CDT): I believe she will meet criteria for [...] Abdominal 09/01/2023 Other Constipation 09/01/2023 Nephrolithiasis 09/01/2023 Assessment & Plan (10/28/2023 3:06 PM CDT): Had been encouraged to drink more water. Lumbar Disc Disorder 06/16/2022 Abdominal Pain 01/24/2022 Anxiety 01/24/2022 Overactive Bladder 01/24/2022 Assessment & Plan (10/28/2023 3:06 PM CDT): During her paresthesia flares, she feels she has more urinary urgency and frequency however she is also drinking a lot less fluids on those days which can also cause these symptoms. I would recommend more water on these days. Given her history of nephrolithiasis, she should be drinking more water in general. We discussed good bladder and drinking habits. Assessment & Plan (09/02/2023 4:20 PM CDT): During her paresthesia flares, she feels she [...] Encounters Date Type Department Care Team Description 12/13/2023 11:00 AM CDT Telemedicine Division of General Internal Medicine in [place], [place] [address] [place] [address] Vero Calvillo M.D., M.S. Fibromyalgia (Primary Dx); Postural Orthostatic Tachycardia Syndrome; Post COVID-19 Condition; Autonomic Disorder; Neuropathy Fiber Small; Paresthesia; Hypermobility Syndrome 11/18/2023 7:23 AM CDT - 11/18/2023 11:59 PM CDT Hospital Encounter Department of Neurology in [place], [place] [address] [place] [address] Vero Calvillo M.D., M.S. Paresthesia; Neuropathy Fiber Small; Autonomic Disorder Discharge Disposition: Home or Self Care 11/16/2023 1:36 PM CDT - 11/16/2023 11:59 PM CDT Hospital Encounter Department of Neurology in [place], [place] [address] [place] [address] Vero Calvillo M.D., M.S. Paresthesia; Neuropathy Fiber Small; Autonomic Disorder Discharge Disposition: Home or Self Care 11/07/2023 Clinical Communication Division of General Internal Medicine in [place], [place] [address] [place] [address] Vero Calvillo M.D., M.S. Rx Denial (Duloxetine HCl 20MG caps) 11/03/2023 Orders Only Division of General Internal Medicine in [place], [place] [address] [place] [address] Vero Calvillo M.D., M.S. from Last 3 Months Immunizations Name Administration Dates Next Due HepB, Unspecified 09/01/2023(Deferred: Patient decision - Pt. will receive later locally.) Influenza, Injectable, Mdck, Preservative Free, Quadrivalent 09/01/2023(Deferred: Patient Refused - pt. will receive next season.) Influenza, Injectable, Quadrivalent 04/07/2019 Influenza, Seasonal, Injectable 01/29/2010 SARS-COV-2 (COVID-19) - PFIZ ER [id number] (12 YEARS OR OLDER) 09/01/2023(Deferred: Patient Refused - Pt. will receive later locally.) Tdap 02/03/2016,02/05/2014,01/30/2013 influenza trivalent vaccine (6 months and older)(PF) 02/05/2014,01/30/2013,12/28/2011 influenza vaccine quad (FLUZONE/FLUARIX) (6 months and older)(PF) 01/17/2018,01/28/2017,01/20/2016,2014 Family History Medical History Relation Name Comments No Known Problems Daughter 1 Conchita No Known Problems Daughter 2 Sandi Anxiety depression Half-Brother x2 maternal half Fibromyalgia Half-Brother x2 maternal half No Known Problems Half-Sister x3 Alcohol abuse Mother Alanna Felix Anxiety disorder Mother Alanna Felix Asthma Mother Alanna Felix Colon polyps Mother Alanna Felix Depression Mother Alanna Felix Fibromyalgia Mother Alanna Felix ADD / ADHD Son 1 Lavelle Anxiety disorder Son 1 Lavelle Asthma Son 1 [place] Asthma - currently dormant Son 2 Santhosh Relation Name Status Comments Daughter 1 Conchita Alive Daughter 2 Sandi Alive Father no known info Alive Half-Brother x2 Alive Half-Sister x3 Alive Maternal Grandfather Alive Maternal Grandmother Alive Mother Alanna Felix Alive Paternal Grandfather no known info Alive Paternal Grandmother no known info Alive Son 1 [place] Alive Son 2 Santhosh Alive Social History Tobacco Use Types Packs/Day Years Used Date Smoking Tobacco: Never Passive Smoke Exposure: Past Smokeless Tobacco: Never Comments:Smoked in high scho ol Passive Exposure Comments:childhood Alcohol Use Standard Drinks/Week Comments Yes 1 (1 standard drink = 0.6 oz pure alcohol) Rarely consume alcohol, may have 1 or 2 drink occasionally [facility] Parrable Answer Date Recorded In the past 12 months has [facility] [employer], gas, oil, or water [employer] threatened to shut off services in your [...] often do you attend chur ch or methodist services? More than 4 times per year [...] 11/23/2021 PHQ-2 Answer Date Recorded PHQ-2 Score 2 10/27/2023 [facility] - Occupational Stress Questionnaire Answer Date Recorded [...] things needed for daily living? No 08/25/2023 Depression Answer Date Recor ded PHQ-9 Total Score (max 27) 5 10/26 Nutrition Answer Date Recorded On average, how [...] your living situation today? I have a [facility] place to live 08/25/2023 Education Answer Date Recorded What is the highest level of school you have completed or the highest degree you have received? Bachelor's degree (e.g., BA, AB, BS) 11/23/2021 Comments No Sex and Gender Information Value Date Recorded Sex Assigned at Female 11/21/2021 11:33 PM CDT Legal Sex Female 4:53 PM MANAGER GAS Gender Identity Female 11/21/2021 11:33 PM CDT [...] Care Team (Late st Contact Info) Description 03/07/2024 2:45 PM MANAGER GAS Comprehensive Visit Department of Neurology in [address] [place] [address] Jono Guerrero M.D. [address] [place] [address] Akbar Conway M.D. [address] [place] [address] Health Maintenance Due Date Last Done Comments HIV Screening 1987 Hepatitis C Screening 1987 Lipid (Cholesterol) Screening 1987 Hepatitis B Vaccines (1 of 3 - 19+ 3-dose series) 2006 COVID-19 Vaccine ( season) 2023 12/24/2020 Influenza Vaccine (#1) 2024 9, 01/17/2018, 01/28/2017, Additional history exists DTaP,Tdap,and [...] Procedure Name Priority Date/Time Associated Diagnosis Comments AUTONOMIC REFLEX SCREEN Routine 11/18/19 24 8:53 AM CDT Paresthesia Neuropathy Fiber Small Autonomic Disorder THERMOREGULATORY SWEAT TEST Routine 11/16/2023 3:28 PM CDT Paresthesia Neuropathy Fiber Small Autonomic Disorder from Last 3 Months Results * Autonomic reflex Screen (11/18/2023 8:53 AM CDT) 11/18/2023 7:45 AM CDT Narrative [facility] C[facility]Y AUTO - 11/18/2023 12:41 PM CDT FINAL ? REPORT ? AUTONOMIC REFLEX SCREEN ? [phone] ? Age: 38 ?Location: [place] ? Lab #: [id number] ARLEN VALLADARES ? Sex: F ? Order ID: [id number] ? Date: 11/18/2023 : 1985 Autonomic Extruder Operator Vertical: Wang Carrillo M.D. ([id number]) ?CONCLUSION There is evidence of distal postganglionic sympathetic sudomotor impairment with normal cardiovagal and cardiovascular adrenergic function. To tilt, there is evidence of symptomatic orthostatic tachycardia, which can be seen in deconditioning, dehydration, as a constitutional trait, in hyper-adrenergic states (including anxiety), and primary disorders of orthostatic tolerance (POTS). ?QUANTITATIVE AXON REFLEX SWEAT TEST (QSWEAT) ?Test ? Latency ??Sweat Output ??Sweat Output Normal Cutoff Side ?Site ? Current ?? Duration ? (min) ?(uL) ?5th (10th) Percentile ? (mA) ? (min) ? R ? Forearm ? 2 ?10 ? 2.6 ? 0.13 ? F: ?? 0.08 (0.13) R ? Proximal Leg ?2 ?10 ? 1.6 ? 0.45 ? F: ?? 0.19 (0.31) R ? Distal Leg ?2 ?10 ? 2.2 ? 0.51 ? F: ?? 0.14 (0.23) R ? Foot ?2 ?10 ? 5.3 ? 0.03 ? F: ?? 0.07 (0.14) Comments on Sudomotor Test: QSART responses were reduced at the foot site and normal at all other sites. ?DEEP BREATHING & VALSALVA MANEUVER RESPONSES ?Result ? Normal Cutoff Deep Breathing ?Heart Rate Range (bpm) ? 29.5 ? > 12 Valsalva Maneuver ? Valsalva Ratio ? 2.28 ? > 1.50 ?BP recovery time (sec) ? 1.4 ? < 2.68 Comments on Deep Breathing: ??Heart rate responses to deep breathing were normal. Comments on Valsalva maneuver: (A) Heart rate responses to the Valsalva maneuver were normal. (B) Goyq-ox-gdbu blood pressure responses to the Valsalva maneuver were normal. ?BLOOD PRESSURE AND HEART RATE RESPONSES TO TILT ? BP (mmHg) ?Heart Rate (BPM) ?Supine ? 106/68 ? 64 ?Tilt 1 min ? 110/74 ? 86 ?Tilt 2 min ? 102/70 ? 86 ?Tilt 3 min ? 112/76 ? 91 ?Tilt 5 min ? 116/70 ? 94 ?Tilt 10 min ?106/71 ? 98 Comments on Tilt: Patient was tilted for 10 minutes. Orthostatic hypotension was not detected. Heart rate response was excessive. The patient reported feeling dizzy and foot tingling during tilt. -99 = missing value ?? us Vero Calvillo M.D., M.S. NEUROLOGY ORDERABLE S Final Result [facility] * Thermoregulatory sweat test (11/16/2023 3:28 PM CDT) 11/16/2023 1:00 PM CDT Impressions N[facility] GUPTA AUTO - 11/17/2023 8:37 AM CDT Normal thermoregulatory sweat test. Sweating in purple shaded area ??RESULTS: Starting Oral Temp (??C): ?36.7 Ending Oral Temp (??C): ?38 Oral Temp Difference (??C): ?1.3 % Anhidrosis: ? 0.3 Distribution: ? Normal Hyperhidrosis: ?No Narrative NANI NORIEGA - 11/17/2023 8:37 AM CDT Table formatting from the original result was not included. Images from the original result were not included. AMENDED ?REPORT ?Thermoregulatory Sweat Test ?Age: 38 ??Location: [place] ??Lab #: [id number] ?? ARLEN VALLADARES ??Sex: F ??Order ID: [id number] ?? Date: 11/16/2023 ?? : 1985 ?? Autonomic Extruder Operator Vertical: Gayathri Gant M.D. ([id number]) ? Procedure Note Gayathri Gant M.D., Ph.D. - 11/17/2023 Images from the original note were not included. AMENDED REPORT Thermoregulatory Sweat Test Age: 38 Location: [place] Lab #: [id number] ARLEN VALLADARES Sex: F Order ID: [id number] Date: 11/16/2023 : 1985 Autonomic Extruder Operator Vertical: Gayathri Gant M.D. ([id number]) IMPRESSION: Normal thermoregulatory sweat test. Sweating in purple shaded area RESULTS: Starting Oral Temp (??C): 36.7 Ending Oral Temp (??C): 38 Oral Temp Difference (??C): 1.3 % Anhidrosis: 0.3 Distribution: Normal Hyperhidrosis: No us Vero Calvillo M.D., M.S. NEUROLOGY ORDERABLE S Edited Result - Final C[facility] AUTO from Last 3 Months Insurance [facility] Care Teams Md Pediatric Allergist Relationship Specialty Start Date End Date None Reported, Pcp PCP - General Family Medicine 01/25/22
--- OUTSIDE RECORDS SUMMARY | 2024-01-29 14:39 | XMS_ITS | Continuity of Care Document ---
Author Organization [facility] Address [address] [place] [address] Phone Care Team Providers Care Service Team Leader Name Role Phone Tono Foley Unavailable Unavailable [...] C, [address], [place], [place], [id number], [place] tel:[phone] [facility] No Information 4 Lanier Tono. [facility], [address], [place], [place], [id number] , [place]. tel:[phone] Office/Outpat ient Visit,Est, Mod [facility], [address], [place], [place], [id number], [place] tel:[phone] [facility] Low back pain 0 4 Luigi Silva. [facility], [address], [facility] [place], [address], [place]. tel:[phone] Referring Provider: Tono Osborn, [facility] [address] [place], [address]. tel:[phone] Office/Outpat ient Visit,Est, Mod [facility], [address], [place], [place], [id number], [place] tel:[phone] [facility] Other intervertebral disc degeneration, lumbar region 4 Yannick Tono. [facility], [address], [facility] [place], [id number] , [place]. tel:[phone] Referring Provider: Tono Osborn, [facility] [address] [place], [address]. tel:[phone] [facility], [address], [place], [id number], [place] tel:[phone] [facility] No Information 3 Luigi Silva. [facility], [address], [facility] [place], [address], [place]. tel:[phone] [facility], [address], [place], [place], [id number], [place] tel:[phone] [facility] Encounter for other specified surgical aftercare 3 Yannick Power. [facility], [address] [place] [address] [address], [place], [place], [id number] , [place]. tel:[phone] Referring Provider: Tono Osborn, [facility] [address] [place], [address]. tel:[phone] [facility], [address], [facility], [id number], [place] tel:[phone] [facility] No Information Jun- 3 Agnieszka Jacobs. [facility], [address] [place] [address], [address], [facility] [place], [address], [place]. tel:[phone] Referring Provider: Tono Osborn, [facility] [address] [place], [address]. tel:[phone] [facility], [address], [facility] [place], [id number], [place] tel:[phone] [facility] No Information 3 Luigi Silva. [facility], [address] [place] [address] [address], [place], [address], [place]. tel:[phone] Referring Provider: Tono Osborn, [facility] [address] [place], [address]. tel:[phone] Office/Outpat ient Visit,New, Mod [facility], [address], [facility] [place], [id number], [place] tel:[phone] [facility] Other intervertebral disc displacement, lumbosacral regionRadiculop athy, lumbosacral region Jun-0 3 Antoni Higginbotham. [facility], [address] [place] [address] [address], [place], [place], [id number] , [place]. tel:[phone] Referring Provider: Tono Osborn, [facility] [address] [place], [address]. tel:[phone] Family History Family Member Type Diagnosis Age At Onset No Information Payers Payer name Insurance type Covered libertarian ID Authoriza tion(s) No Information Social History [...]
--- OUTSIDE RECORDS SUMMARY | 2024-01-29 14:39 | XMS_ITS | Clinical Summary ---
Author Organization [facility] Address [place], [place] [address] Care Team Providers Care Expeller Operator Name Role Phone Jet Garcia MD Unavailable [phone] Tono Mccoy MD Primary Care Provider [phone] Allergies Active Allergy Reactions Criticality Noted Date [...] history exists COVID-19 vaccine series ( season) 2023 12/24/2020 Influenza for age 9-49 12/18/2023 Pneumococcal series for age 6-64 Aged Out No longer eligible based on patient's age to complete this topic Procedures Procedure Name Priority Date/Time Associated Diagnosis Comments MANAGER CARD THIN PREP PAP SCREEN IMAGED Routine 12/14/2018 12:00 PM CDT from Last 3 Months or Most Recently Relevant to Health Maintenance Results * MANAGER CARD THIN PREP PAP SCREEN IMAGED (12/14/2018 12:00 PM CDT) Case Report Gynecologic Cytology Report ? Case: [id number] ? Authorizing Provider: ??Alexandra Perez MD ?? Collected: ? 12/14/2018 1200 ? Ordering Location: ? [facility] ?Received: ?12/19/2018 0916 ? First Screen: ?Renzo Arrington ? Specimen: ?MANAGER CARD ThinPrep Vial Screening, Cervical/Vaginal ? 12/26/2018 1:00 PM CDT [facility] INTERPRETATION/ RESULT NEGATIVE FOR INTRAEPITHELIAL LESION OR MALIGNANCY (NIL) (none) 12/26/2018 1:00 PM CDT [facility] IMEN ADEQUACY Satisfactory for evaluation Endocervical component present 12/26/2018 1:00 PM CDT [facility] HPV REQUEST HPV and PAP 12/26/2018 1:00 PM CDT [facility] Automated Review Successful 12/26/2018 1:00 PM CDT [facility] Comment:Specimen processed s uccessfully by automated hot strip mill supervisor device, [employer] The[employer]Prep Imaging System, [employer] ANCILLARY TESTING MANAGER CARD HPV Ordered, Please see separate report 12/26/2018 1:00 PM T [facility] Note The pap test is [...] Cytology is screened and interpreted at [facility] - [address], [place] [address] and [facility] - [address]; [place] [address] and [facility] - [address]; [place] [address] and [facility] [address]; [place] [address] 12/26/2018 1:00 PM CDT [facility] Other (Cervical/Vagina l) 12/14/2018 12:00 PM CDT 12/19/2018 9:16 AM CDT Alexandra Perez MD PATHOLOGY/CYTOLOG Y [facility] [address] [place] [address], from Last 3 Months or Most Recently Relevant to Health Maintenance Advance Directives * Full Code (Latest Code Status on File) Date Activated Date Inactivated Comments 07/08/2022 12:24 PM 07/08/2022 5:48 PM Question Answer Comments Code Status Discussion: Per Existing Order Care Teams Expeller Operator Relationship Specialty Start Date End Date Tono Mccoy MD [address] [place] [address] PCP - General Family Practice 06/29/22 Jet Garcia MD Family Practice 12/16/15
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
--- OUTSIDE RECORDS SUMMARY | 2024-01-29 14:40 | XMS_ITS ---
Author Organization [facility] Address [address] [place] [address] [address] [place] [address] Care Team Providers Care Order Analyst Name Role Phone Tono Mccoy Primary Care Provider UnavailRoberto Stone Unavailable [phone] Luigi SOTO, PhD, Ricardo Unavailable Erin Landeros Unavailable [phone] Allergies Allergen (clinical drug ingredient) Drug/Non Drug Allergy documented on EMR Reaction Allergy Type Onset Date Status Latex Latex rash Allergy Active REASON FOR VISIT Low back pain Medications Medication SIG (Take, Route, Frequency, Duration) Notes Start Date End Date Status Medrol 4 MG as directed on Medro l package Orally 1 pack for 6 days Active Meloxicam 15 MG 1 tablet Orally Once a day Not-Taking Diclofenac Sodium 75 MG 1 tablet with fo od or milk Orally Twice a day for 30 days Active Social History Tobacco Use: Social History Observation Description Date Details (start date - stop date) Never Smoker NA - NA Tobacco Control (Standard) Question Answer Notes Tobacco use: Nonsmoker Additional Findings: Tobacco non-user Current no nsmoker AUDIT-C (Standard) Question Answer Notes Did you have a drink containing alcohol in the p ast year? No Points 0 Interpretation Negative Vital Signs Height 5 ft 4 in in 12/29/2023 Weight 148.8 lbs 12/29/2023 BMI 25.54 kg/m2 12/29/2023 Blood pressure systolic 118 mm Hg 12/29/19 24 Blood pressure diastolic 81 mm Hg 024 Procedures Procedure Date Ordered Date Performed Result Body Sit e Intervention: 12/29/2023 12/29/2023 Same day 12/28 - ok to schedule at any location Encounters Encounter Location Date Provider Diagnosis [facility] [address] [place] [address] [address] [place] [address] 12/29/2023 Erin Hector Other chronic pain G89.29 and Radiculopathy, lumbosacral region M54.17 Assessments Encounter Date Diagnosis (ICD Code) Assessment Notes Treatment Notes Treatment Clinical Notes 12/29/2023 Other chronic pain (ICD-10 - G89.29) Arlen presents to the clinic for an evaluation regarding her chronic low back pain. I have reviewed her symptoms and current medications. I checked the [facility] database and I did not find any inconsistencies. To further address her painful symptoms, I recommended completing a repeat bilateral L5-S1 TFE with steroid other than Kenalog. She expressed interest, so I placed the order. I will consider Intracept L5 and S1 pending relief from the injection. She completed the Intracept paperwork in clinic today. This treatment plan was reviewed with the patient, and she was agreeable. She will return as needed for further evaluation. I will continue to monitor her progress, adjusting her treatment plan as necessary. Plan: 1. Order repeat bilateral L5-S1 TFE with steroid other than Kenalog 2. Consider L5 and S1 Intracept, completed paperwork today 3. Follow up as needed Discharge instructions reviewed verbally. The patient was instructed to return to the office as scheduled and call with any questions, problems or concerns. 12/29/2023 Radiculopathy, lumbosacral region (ICD-10 - M54.17) 12/29/2023 Other Tania, Marline ruffin, am serving as a scribe to document services personally performed by Erin Young NP, based upon my observations and the provider's statements to me. All documentation has been reviewed by the aforementioned MONITORING AND EVALUATION ADVISOR as well as Akbar Nance DO, prior to being entered into the official medical record. I, Akbar Nance DO attest that the above named individual is acting in scribe capacity, has observed Erin Young's performance of the services and has documented them in accordance with her direction. The documentation recorded by the scribe accurately reflects the service Erin Young NP, and Akbar Nance DO, personally performed and the decisions made by them. Plan Of Treatment Medication Medication Name Sig Start Date Stop Date Notes Medrol 4 MG as directed on Medro l package Orally 1 pack for 6 days Diclofenac Sodium 75 MG 1 tablet with fo od or milk Orally Twice a day for 30 days Treatment Notes Assessment Notes Other chronic pain Arlen presents to the clinic for an evaluation regarding her chronic low back pain. I have reviewed her symptoms and current medications. I checked the [facility] database and I did not find any inconsistencies. To further address her painful symptoms, I recommended completing a repeat bilateral L5-S1 TFE with steroid other than Kenalog. She expressed interest, so I placed the order. I will consider Intracept L5 and S1 pending relief from the injection. She completed the Intracept paperwork in clinic today. This treatment plan was reviewed with the patient, and she was agreeable. She will return as needed for further evaluation. I will continue to monitor her progress, adjusting her treatment plan as necessary. Plan: 1. Order repeat bilateral L5-S1 TFE with steroid other than Kenalog 2. Consider L5 and S1 Intracept, completed paperwork today 3. Follow up as needed Discharge instructions reviewed verbally. The patient was instructed to return to the office as scheduled and call with any questions, problems or concerns. Other I, Marline Barnett, am serving as a scribe to document services personally performed by Erin Young NP, based upon my observations and the provider's statements to me. All documentation has been reviewed by the aforementioned MONITORING AND EVALUATION ADVISOR as well as Akbar Nance DO, prior to being entered into the official medical record. I, Akbar Nance DO attest that the above named individual is acting in scribe capacity, has observed Erin Young's performance of the services and has documented them in accordance with her direction. The documentation recorded by the scribe accurately reflects the service Erin Young NP, and Akbar Nance DO, personally performed and the decisions made by them. Next Appt Details Follow Up: prn, Reason: Procedure Notes * Category Sub-Category Detail Notes JAYLEN Repeat M Repeat JAYLEN Indications Injection Ordered: : repeat bilateral L5-S1 TFE Repeat JAYLEN within 12 months of last JAYLEN?:: Yes ?[Embedded Image Not Availab le]
--- OUTSIDE RECORDS SUMMARY | 2024-01-29 14:40 | XMS_ITS | Encounter Summary ---
Author Organization [facility] Address [address] [place] [address] Care Team Providers Care Tire Center Manager Name Role Phone None Reported, Pcp Primary Care Provider Unavail able Reason for Referral * Outpatient (Routine) - Closed Specialty Diagnoses / Procedures Referred By Merry munoz Referred To Contact Diagnoses Paresthesia Neuropathy Fiber Small Autonomic Disorder Procedures Autonomic reflex Screen Vero Calvillo M.D., M.S. [address] [place] [address] Phone: tel: fax: [facility] Referral ID Status Reason Start Date Expiration Date Visits Re quested Visits Authorized [id number] Closed 10/28/2023 10/27/2024 1 1 Reason for Visit * Outpatient (Routine) - Closed Specialty Diagnoses / Procedures Referred By Merry munoz Referred To Contact Diagnoses Paresthesia Neuropathy Fiber Small Autonomic Disorder Procedures Autonomic reflex Screen Vero Calvillo M.D., M.S. [address] [place] [phone] Phone: tel: fax: [facility] Referral ID Status Reason Start Date Expiration Date Visits Re quested Visits Authorized [id number] Closed 10/28/2023 10/27/2024 1 1 Encounter Details Date Type Department Care Team ([facility] st Contact Info) Description 11/18/2023 7:23 AM CDT - 11/18/2023 11:59 PM CDT Hospital Encounter Department of Neurology in [place], [place] [address] [place] [address] Vero Calvillo M.D., M.S. [address] [place] [address] Paresthesia; Neuropathy Fiber Small; Autonomic Disorder Discharge Disposition: Home or Self Care Social History Tobacco Use Types Packs/Day Years Used Date Smoking Tobacco: Never Passive Smoke Exposure: Past Smokeless Tobacco: Never Comments:Smoked in high scho ol Passive Exposure Comments:childhood Alcohol Use Standard Drinks/Week Comments Yes 1 (1 standard drink = 0.6 oz pure alcohol) Rarely consume alcohol, may have 1 or [address] [facility] [email or web address] Answer Date Recorded In the past 12 months has [employer], gas, oil, or water [employer] threatened to shut off services in your [...] often do you attend chur ch or sikh services? More than 4 times per year [...] Answer Date Recorded PHQ-2 Score 2 10/27/2023 [facility] - Occupational Stress Questionnaire Answer [...] your living situation today? I have a [facility] place to live 08/25/2023 Education Answer Date Recorded What is the highest level of school you have completed or the highest degree you have received? 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 cyclobenzaprine (FLEXERIL) 5 mg tablet Take by mouth 3 (three) times a day as needed for muscle spasms. dextroamphetamin e-amphetamine (AdderalL) 10 mg tablet Take 10 mg by mouth daily. Hasn't been using for a month due to tingling legs. diclofenac sodium (VOLTAREN) 75 mg EC tablet Take 75 mg by mouth 2 (two) times a day. with food or milk 08/22/2023 ferrous sulfate (IRON ORAL) Take 27 mg by mouth daily. meloxicam (MOBIC) 15 mg tablet Take 15 mg by mouth as needed for pain (back). 08/20/2023 tiZANidine (ZANAFLEX) 4 mg tablet Take 4 mg by mouth at bedtime as needed for muscle spasms. 04/19/2023 DULoxetine (Cymbalta) [address] Montes ns:Fibromyalgia Take 1 capsule (20 mg total) by mouth daily. 30 capsule 11 11/18/2023 methylPREDNISolo ne (MEDROL DOSEPAK) 4 mg tablet Take 4 mg by mouth See Admin Instructions. follow package directions 08/22/2023 documented as of this encounter Plan of Treatment Upcoming Encounters Date Type Department Care Team (Late st Contact Info) Description 03/07/2024 2:45 PM ELECTROENCEPHALOGRAPH TECHNICIAN Comprehensive Visit Department of Neurology in [place], [place] [address] [place] [phone] Jono Guerrero M.D. [address] [place] [address] Akbar Conway M.D. [address] [place] [phone] documented as of this encounter Procedures Procedure Name Priority Date/Time Associated Diagnosis Comments AUTONOMIC REFLEX SCREEN Routine 11/18/2023 8:53 AM CDT Paresthesia Neuropathy Fiber Small Autonomic Disorder documented in this encounter Results * Autonomic reflex Screen (11/18/2023 8:53 AM CDT) 11/18/2023 7:45 AM CDT Narrative [facility] - 11/18/2023 12:41 PM CDT FINAL ? REPORT ? AUTONOMIC REFLEX SCREEN ? [phone] ? Age: 38 ?Location: [facility] ? Lab #: [id number] ARLEN VALLADARES ? Sex: F ? Order ID: [id number] ? Date: 11/18/2023 : 1985 [employer] Account Manager: Wang Carrillo M.D. ([id number]) ?CONCLUSION There is evidence of distal postganglionic [...] to the Valsalva maneuver were normal. (B) [id number] blood pressure responses to the Valsalva maneuver [...] M.D., M.S. NEUROLOGY ORDERABLE S Final Result [facility] documented in this encounter Visit Diagnoses Diagnosis Paresthesia Neuropathy Fiber Small Autonomic Disorder documented in this encounter Additional Health Concerns Assessment Noted Time PHQ-9 Depression Total Score: 5 10/27/19 24 10:53 PM CDT documented as of this encounter Care Teams Tire Center Manager Relationship Specialty Start Date End Date None Reported, Pcp PCP - General Family Medicine 01/25/22 documented as of this encounter
--- OUTSIDE RECORDS SUMMARY | 2024-01-29 14:40 | XMS_ITS | Encounter Summary ---
Author Organization [facility] Address [address] [place] [phone] Care Team Providers Care Diamond Die Driller Name Role Phone None Reported, Pcp Primary Care Provider Unavail able Reason for Visit * Appointment Request (Routine) - Pending Review Specialty Diagnoses / Procedures Referred By Merry t Referred To Contact General Internal Medicine Referral ID Status Reason Start Date Expiration Date V isits Requested Visits Authorized [id number] Pending Review 10/07/2023 10/06/2024 1 1 Encounter Details Date Type Department Care Team (Late st Contact Info) Description 10/28/2023 4:30 PM CDT Office Visit Division of General Internal Medicine in [place], [place] [address] [place] [phone] Keith Robles M.D. [address] [place] [phone] Fibromyalgia (Primary Dx); Pain Breast; Post COVID-19 Condition; Overactive Bladder; Nephrolithiasis Social History Tobacco Use Types Packs/Day Years Used Date Smoking Tobacco: Never Passive Smoke Exposure: Past Smokeless Tobacco: Never Comments:Smoked in high scho ol Passive Exposure Comments:childhood Alcohol Use Standard Drinks/Week Comments Yes 1 (1 standard drink = 0.6 oz pure alcohol) Rarely consume alcohol, may have 1 or 2 drink occasionally [facility] Utilities Answer Date Recorded In the past 12 months has [employer], gas, oil, or water company threatened to [...] week 11/23/2021 How often do you attend [facility] or judaism services? More than 4 times per year [...] Answer Date Recorded PHQ-2 Score 2 10/27/2023 [facility] [place] of Occupat ional Health - Occupational Stress [...] PM CDT Legal Sex Female 4:53 PM CANDY FEEDER Gender Identity Female 11/21/2021 11:33 PM CDT Sexual Orientation Straight 11/21/2021 11 :33 PM CDT documented as of this encounter Progress Notes * Keith Robles M.D. - 10/28/2023 4:30 PM CDT #1 Fibromyalgia Assessment & Plan: Meets criteria for fibromyalgia. She will be started on Cymbalta and then try low-dose naltrexone after her sinus surgery in two week. Please see full detailed recommendations in Dr. Calvillo's note. #2 Pain Breast Assessment & Plan: Seen in Breast clinic. Bilateral diagnostic mammogram [...] MBI due to her high breast density. 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 Thermoregulatory sweat test and autonomic reflex screen ordered. #4 Overactive Bladder Assessment & Plan: During [...] good bladder and drinking habits. #5 Nephrolithiasis Assessment & Plan: Had been encouraged to drink more water. Please refer to my consult note from 09/01/23 for full H&P. Today, we reviewed the information outlined. Patient is accompanied by her . I answered questions to the best of my ability. Thank you for allowing us to take part in their care. Consults (please refer to their notes for full assessment): Breast Clinic: Deana Javed, INSTRUMENTATION CHEMIST, TRAIN BRAKE OPERATOR Fibromyalgia/Chronic Fatigue: Vero Calvillo M.D., M.S. Pertinent lab, imaging, and study results: BI Breast Diagnostic, BI Ultrasound Breast- No mammographic or sonographic findings of malignancy. Overnight Oximetry- Although there is variability in the baseline oximetry readings, the nocturnal overnight study is still within normal limits. Pending Evaluations/Future appointments (subject to change): 12/23/23: Thermoregulatory sweat test and autonomic reflex screen Follow up for local care team: Follow up pending evaluations listed above. Marcela Whitney acted as documentation temporary administrative assistant for this encounter. dysautonomia and in particular small fiber neuropathy workup based on her nerve- heavy symptomatology. She has hypermobility but I don't think it's playing as an active a role in her pain. documented in this encounter Miscellaneous Notes * Assessment & Plan Note - Keith Robles M.D. - 10/28/2023 3:50 PM CDT Associated Problem(s): Post COVID-19 Condition Believes to be playing a part of the dysautonomia and nerve related symptomatology. Thermoregulatory sweat test and autonomic reflex screen ordered. * Assessment & Plan Note - Keith Robles M.D. - 10/28/2023 3:06 PM CDT Associated Problem(s): Overactive Bladder During [...] Plan Note - Keith Robles M.D. - 10/28/2023 3:06 PM CDT Associated Problem(s): Nephrolithiasis Had been encouraged to drink more water. * Assessment & Plan Note - Keith Robles M.D. - 10/28/2023 3:05 PM CDT Associated Problem(s): Fibromyalgia Meets criteria for fibromyalgia. She will be started on Cymbalta and then try low-dose naltrexone after her sinus surgery in two week. Please see full detailed recommendations in Dr. Calvillo's note. * Assessment & Plan Note - Keith Robles M.D. - 10/28/2023 3:05 PM CDT Associated Problem(s): Pain Breast Seen in Breast clinic. Bilateral diagnostic mammogram [...] MBI due to her high breast density. documented in this encounter Plan of Treatment Upcoming Encounters Date Type Department Care Team (Late st Contact Info) Description 03/07/2024 2:45 PM CANDY FEEDER Comprehensive Visit Department of Neurology in [address] [phone] Jono Guerrero M.D. [address] [place] [address] Akbar Conway M.D. [address] [place] [address] documented as of this encounter Visit Diagnoses Diagnosis Fibromyalgia- Primary Pain Breast Post COVID-19 Condition Overactive Bladder Nephrolithiasis documented in this encounter Additional Health Concerns Assessment Noted Time PHQ-9 Depression Total Score: 5 10/27/19 24 10:53 PM CDT documented as of this encounter Care Teams Diamond Die Driller Relationship Specialty Start Date End Date None Reported, Pcp PCP - General Family Medicine 01/25/22 documented as of this encounter
--- OUTSIDE RECORDS SUMMARY | 2024-01-29 14:40 | XMS_ITS ---
Author Organization [facility] Address [address] [place] [address] Care Team Providers Care General Distillery Worker Name Role Phone Unavailable Unavailable Unavailable Surgery Details Not on file Complications Check Surgery Details section. Procedure Estimated Blood Loss Check Surgery Details section. Procedure Findings Check Surgery Details section. Procedure Specimens Taken Check Surgery Details section.
--- OUTSIDE RECORDS SUMMARY | 2024-01-29 14:40 | XMS_ITS | Encounter Summary ---
Author Organization [facility] Address [address] [place] [address] Care Team Providers Care Crematory Operator Name Role Phone None Reported, Pcp Primary Care Provider Unavail able Reason for Referral * Specialty Diagnoses / Procedures Referred By Merry t Referred To Contact Diagnoses Post COVID-19 Condition Vero Calvillo M.D., M.S. [address] [place] [phone] Phone: tel: fax: Referral ID Status Reason Start Date Expiration Date Visits Re quested Visits Authorized * Outpatient (Routine) - Closed Specialty Diagnoses / Procedures Referred By Contac t Referred To Contact Diagnoses Paresthesia Neuropathy Fiber Small Autonomic Disorder Procedures Autonomic reflex Screen Vero Calvillo M.D., M.S. 200 [place] [phone] Phone: tel: fax: [facility] Referral ID Status Reason Start Date Expiration Date Visits Re quested Visits Authorized [id number] Closed 10/28/2023 10/27/2024 1 1 * Outpatient (Routine) - Closed Specialty Diagnoses / Procedures Referred By Contac t Referred To Contact Diagnoses Paresthesia Neuropathy Fiber Small Autonomic Disorder Procedures Thermoregulatory sweat test Vero Calvillo M.D., M.S. [address] [place] [phone] Phone: tel: fax: [facility] Referral ID Status Reason Start Date Expiration Date Visits Re quested Visits Authorized [id number] Closed 10/28/2023 10/27/2024 1 1 Reason for Visit * Outpatient (Routine) - Closed Specialty Diagnoses / Procedures Referred By Merry munoz Referred To Contact [facility] Diagnoses Fibromyalgia Keith Robles M.D. [address] [place] [phone] Phone: tel: fax: [facility] Referral ID Status Reason Start Date Expiration Date Visits Re quested Visits Authorized [id number] Closed 08/03/2023 02/01/2025 1 1 Encounter Details Date Type Department Care Team (Late st Contact Info) Description 10/28/2023 1:30 PM CDT Comprehensive Visit [facility] in [place], [place] [address] [place] [id number] Vero Calvillo M.D., M.S. [address] [place] [phone] Post COVID-19 Condition (Primary Dx); Fibromyalgia; Paresthesia; Neuropathy Fiber Small; Autonomic Disorder; Hypermobility Syndrome Social History Tobacco Use Types Packs/Day Years Used Date Smoking Tobacco: Never Passive Smoke Exposure: Past Smokeless Tobacco: Never Comments:[facility] Pass[facility] Exposure Comments:childhood Alcohol Use Standard Drinks/Week Comments Yes 1 (1 standard drink = 0.6 oz pure alcohol) Rarely consume alcohol, may have 1 or 2 drink occasionally [facility] Utilities Answer Date Recorded In the past 12 months has [employer], gas, oil, or water [employer] threatened to shut off services in your [...] week 11/23/2021 [facility]? More than 4 times per year [...] Answer Date Recorded PHQ-2 Score 2 10/27/2023 [facility] of Occupat ional Health - Occupational Stress [...] your living situation today? I have a [facility] place to live 08/25/2023 Education Answer Date Recorded What is the highest level of school you have completed or the highest degree you have received? Bachelor's degree (e.g., BA, AB, BS) 11/23/2021 Comments No Sex and Gender Information Value Date Recorded Sex Assigned at Female 11/21/2021 11:33 PM CDT Legal Sex Female 4:53 PM OB SCRUB TECH Gender Identity Female 11/21/2021 11:33 PM CDT Sexual Orientation Straight 11/21/2021 11 :33 PM CDT documented as of this encounter Consult Notes * Vero Calvillo M.D., M.S. - 10/28/2023 1:30 PM CDT REFERRAL Reynold Regalado* REASON FOR CONSULT Fibromyalgia, Post-COVID HISTORY OF PRESENT ILLNESS Ms. Arlen Valladares is a 38 y.o. female who presents to [facility] for evaluation of chronic pain, fatigue, unrefreshing sleep, and sensory sensitivities. This note is in collaboration with Dalia Castro RN. Please see their note for additional intake history. Pain and fatigue first started noticeably after her 6th . First developed abdominal pain, soon after hysterectomy had numbness/tingling in the legs - worst at night, could be in tears from it - which waxed and waned until COVID-19, after which her painful paresthesias progressed significantly. She was essentially bedridden for the month afterwards. COVID-19 Infection: April 2021 Acute Symptoms: Severe headache, diarrhea, body pain like being eaten alive COVID Treatments: None, IV fluids COVID Vaccinations: Became extremely sick after the first one (vertigo) In the last two years, symptoms have waxed and waned. Steroids helped initially but not as much with subsequent uses. Amitriptyline may have helped. Tried cutting out gluten without a noticeable difference. Is working on drinking 40oz per day. Uses counter-maneuvers if feeling nauseous while standing. Fibromyalgia and Post-COVID Symptom Review: Alcohol Intolerance: Longstanding Allergies: Yes, facial pain, congestion, newer intolerance to milk (diarrhea) feels sensitive in general Brain Fog: Yes Chest Discomfort: Yes Depression/Anxiety: Yes Dizziness/Lightheadedness: Yes, usually lightheadedness with activity that seems to be improving, vertigo about 2x/month Dyspnea: No Fatigue: Yes Flares/PEM: Yes, paresthesias/pain, fatigue, brain shuts off GI Issues: Yes, nausea especially in the car, IBS-mixed Hair Loss/Thinning: No Headaches: Yes, 5+ days/week Hypermobility: Yes, 5+ [place] Lymphadenopathy: No Numbness/Tingling: Yes, painful, can have feeling of bugs crawling (Night) Sweats: Yes, hyperhidrosis even when cold since COVID but not at the feet Pain: Yes, paresthesia predominant but does have background muscle aching, bone- like pain less thanjoint pain Photosensitivity: Yes Phonosensitivity: When tired Rashes: Eyes may be itchy/darkened around, splotchy flushing on the chest after COVID especially when nauseous or dizzy, easy bruising and scarring longstanding Sore Throat: No Subjective Fever: No Tachycardia: Yes, has gone up to 128 today even with minimal activity Temperature Dysregulation: Gets cold easily, does worse in the winter and especially the transitions between seasons Tinnitus: Sometimes, can hear electrical signaling Unrefreshing Sleep: Yes Urinary Frequency: Yes Venous Pooling: Has had times in the past where legs were swollen, reddish- purple or splotchy but not consistent Vibrations/Spasms: Intermittent shivers Visual Disturbances: Yes, floating lights especially outside Xerosis/Xerostomia: Sometimes Has had two concussions, did have post-concussive symptoms temporarily. Has had mono/EBV but not sure when. Known mold exposure from prior house issues. Uses well water and did have to change the water last year due to E coli infection. Family history is notable for fibromyalgia in her mother, half-brother is double-jointed and has a number of unexplained health issues. Not clear of biologic father's history. Testing performed prior to the visit was reviewed. The following portions of the patient's history were reviewed and updated as appropriate: allergies, current medications, family history, medical history, social history, surgical history, and problem list. REVIEW OF SYSTEMS A complete review of systems was performed and negative or noncontributory except as mentioned in the HPI. PHYSICAL EXAM Gen: NAD; A&O x 3. Eyes: Extra-ocular movements intact. Anicteric. Lungs: Speaking comfortably on room air. Extremities: No active synovitis of hands or wrists. No cyanosis, clubbing, or edema. (+) joint hypermobility of the thumbs, pinky, bending. Neuro: Gait within normal limits. Able to transfer on/off bench independently. Psych: Normal mood with congruent affect; good eye contact. Skin: Not jaundiced. No stigmata of connective tissue disease noted. ASSESSMENT / PLAN #1 Post COVID-19 Condition #2 Fibromyalgia #3 Paresthesia #4 Neuropathy Fiber Small #5 Autonomic Disorder #6 Hypermobility Syndrome FINDINGS: Widespread Pain Index (WPI): 04/05 Symptom Severity (SS): 12/28 Pain Regions: 5/5 Tender Points: The following criteria for fibromyalgia are present: 1990 ACR and 2016 ACR PATIENT-SPECIFIC RECOMMENDATIONS: Ms. Valladares's presentation may be consistent with fibromyalgia, a predominantly sympathetic hyperactivity or central sensitization disorder, however based on the neuropathic nature of her symptoms I suspect that there is an underlying aspect of small fiber neuropathy, which has been associated both with fibromyalgia and Long COVID. She additionally demonstrates significant hypermobility whichwould place her at minimum in the category of hypermobility spectrum disorder (full assessment for hypermobile Avelina Danlos Syndrome not conducted). We had a detailed discussion about the biological concepts underlying central sensitization with regard to symptoms. Central sensitization syndrome is a central nervous system response to heightened stress (infection, autoimmune, trauma, or otherwise) that amplifies sensation markedly. This produces an augmentation of responsiveness of central neurons to input from unimodal and polymodal receptors, with altered sensory processing in the brain, and malfunctioning of antinociceptive mechanisms. I advised Ms. Valladares complete the Fibromyalgia and Chronic Fatigue Treatment Program, which is our 4 hour self-management program that focuses on cognitive behavioral approaches, stress management, sleep hygiene, balanced lifestyle, moderation, energy conservation and graded exercise/pacing. Sheagreed to proceed with the program. I additionally recommended that she go through our online module for Long COVID. She would also benefit from working with an HSD/hEDS- informed physical therapist for joint protection. We discussed different medication options for pain and other symptoms in the setting of fibromyalgia, small fiber neuropathy, hypermobility, and Long COVID. FDA-approved medications for fibromyalgia include duloxetine [Cymbalta], milnacipran [Savella], and pregabalin [Lyrica]. Gabapentin and TCAs including amitriptyline are not FDA-approved but commonly used. Low-dose naltrexone (LDN), which offers neuroimmune attenuating effects in comparison to neuromodulation only, is increasingly being usedin fibromyalgia, Long COVID, and hypermobility syndromes for pain, fatigue, and dysautonomia. Given that Ms. Valladares is anticipated to undergo surgery in a few weeks from now, suggested trialing a neuromodulator first, then adding LDN at some point after surgery to ensure that there are no temporary opioid needs that could interact with it. She expressed an interest in trying Cymbalta first. Pregabalin may be considered in the future especially if painful paresthesias persist. RegardingLDN, typical dosing is 1.5mg to 4.5mg compounded capsules, however compounding pharmacies generallyalso offer liquid formulations which can allow dosing as low as 0.1mg (0.02mL). If concern for sensitivity, would recommend starting 0.5mg (0.08mL) nightly - can decrease to 0.1mg if side effects are bothersome, and titrate every few days to weeks as tolerated to 1.5mg, at which point she can switch to capsules and increase every few weeks to a total of 4.5mg. Can switch to morning dosing if vivid dreams occur and are bothersome. Finally, she inquired about the use of stimulants such as Adderall. Our experience with stimulants is mixed as it can worsen sympathetic hyperactivity, which would aggravate her symptoms. Some patients find ER formulations or Vyvanse to be gentler and more tolerable. Modafinil seems to be comparatively better tolerated compared to Adderall, Vyvanse, and the like; more patients are trialing guanfacine (alpha 2A-adrenergic receptor agonist) and atomoxetine (norepinephrine uptake inhibitor, note moderate interaction with duloxetine). --- PHYSICAL AND OCCUPATIONAL THERAPY A graduated exercise program has been shown to be beneficial for both fibromyalgia and the symptom of chronic fatigue. The objective is not an immediate return to prior level of functioning, but a gradual, incremental increase in physical activity over a period of weeks to months. In some cases, especially those that overlap with ME/CFS or Long COVID, pacing may be a more appropriate form of activity management. Working with a physical therapist with expertise in chronic pain conditions can be helpful in implementing this. Additionally, occupational therapy can be helpful for relaxation, stress management, life skills, moderation and energy conservation. Referrals can be facilitated locallyby the primary care provider. Finding a local HSD/hEDS physical therapist: Sometimes finding clinicians who have experience in treating HSD/hEDS can be challenging. Here are a couple of resources and suggestions to assist you in your search. The Avelina-Danlos Society has a directory to find professionals in your state: https://www.[employer]/jqjhlhgfbe-bnjghyzsqhngn-zmevlwnuk-usa/ [employer] website has a directory: https://specialization.apta.org/xrcn-a-zaedtkscwl Web Search find a PT and search for your zip code Find a therapist who treats something specific, for example, headaches, hypermobility, EDS, dancers, gymnastics, performance arts, etc. The [place] Academy of Orthopaedic Manual Physical Therapists (AAOMPT) is a national organization committed to excellence in Orthopaedic Manual Physical Therapy practice, education and research. [place] of the AAOMPT provide the highest level of musculoskeletal care through advanced manual therapypractice: https://aaompt.org/Main/Member_Resources/Rpym-N-Xycnts.aspx Look for a therapist with advanced credentials/certification such as: OCS- Orthopaedic clinical specialist FAAOMPT - Fellow of the [employer] Academy of Orthopedic Manual Physical Therapists MTC - Manual Therapy Certification OMT - Osteopathic manipulative therapy Listed as residency or fellowship trained MEDICATIONS There is no evidence that pure opioids, such as morphine or oxycodone have any benefit in fibromyalgia. In addition, opioid-induced hyperalgesia is a serious concern, in which pain is worsened by opioid use. Although Tramadol has moderate evidence for efficacy, adverse events, drug cross-reactions,and opioid-induced hyperalgesia argue against its consistent use. Modest improvement of fibromyalgia has been observed with drugs targeting a diverse range of molecular mechanisms. However, no single drug has offered substantial efficacy. The heterogeneity of this disorder and widely varied responses to medications suggests existence of patient subgroups. As a result, therapies for fibromyalgia need to recognize the impact of central and peripheral aspects of the pathophysiology utilizing both medications and nonpharmacologic approaches. From a medication perspective, FDA-approved medications for fibromyalgia include duloxetine, milnacipran, and pregabalin. Additional options (non-FDA approved) include gabapentin and the older tricyclic agents (amitriptyline, nortriptyline). Ideally it is best to start with a single medication and slowly titrate upwards to a therapeutic dose, attempting to minimize adverse effects. A combined medication approach can also be undertaken. The advantage of this approach is the use of two different medications with different mechanisms at lower doses to minimize side effects with potential additive benefit from an overall symptom standpoint. A reasonable approach to medication initiation and titration is listed below. The rate of titrationshould be based on medication tolerability, presence of adverse effects, and the patient's sensitivity towards medications. Following medication initiation, a patient must be reevaluated by their local provider for efficacy and side effects. FDA approved: Duloxetine (SNRI): Best for pain + mood symptoms. Start at 20 mg daily, increase over several brbhc-po-hyskad to 60 mg Maximum dose: 60 mg daily Milnacipran (SNRI): Best for pain + mood symptoms. Start at 6.25-12.5 mg daily, increase over several fhjqk-wx-ppxbdk 25-50 mg Maximum dose: 100 mg twice daily Pregabalin (Irmvn-5-agsiw calcium channel ligand): Best for pain + sleep + paresthesia symptoms. Start at 25 mg daily, increase over several wsfpv-uo-uhtwju to 50-75 mg Maximum dose: 225 mg twice daily Non-FDA approved: Gabapentin: Best for pain + sleep + paresthesia symptoms. Start at 100-300 mg nightly, increase over several hmpsm-ga-sytxzu to 600 mg If efficacious, a morning or afternoon dose can be started with gradual uptitration Maximum dose: 2400 mg total per day Amitriptyline or Nortriptyline: Best for pain + sleep + paresthesia symptoms. Start at 10 mg nightly, and increase over several wijbv-ji-lpknig to 50 mg Maximum dose: 75 mg daily Consider monitoring drug levels at doses of 75 mg or higher COMBINED MEDICATION APPROACH A combination of low dose SNRI (Duloxetine 30 mg daily, or Milnacipran 12.5-25 mg daily) along witha low dose of pregabalin or gabapentin (pregabalin 50-75 mg or gabapentin 300 mg at night) could beconsidered. The advantage of this approach is use of two different medications with different mechanisms at lower doses to minimize side effects with potential additive benefit from an overall symptom standpoint. ALTERNATIVE MEDICATION Naltrexone, an orally semisynthetic opiate antagonist, is FDA-approved for treatment of heroin/alcohol addiction, but there have been observations that naltrexone in very low doses can also mitigate fatigue and stress in fibromyalgia and multiple sclerosis patients. It has been found to reduce infla mmatory cytokines which are elevated in chronic fatigue syndrome. It has also been used and chronicconstipation and irritable bowel syndrome. Low dose naltrexone has few side effects in most patients, though in patients with strong tendencies for medication reactivity a 1.5mg or lower version may be trialed before uptitration to 4.5mg. These can generally be compounded from grinding 50mg tablets(NOT slow-release form) with Avicel, lactose (if lactose intolerance is not a problem), or sucrose fillers to prepare 4.5 mg capsules. The proposed mechanisms of pain relief with low-dose naltrexone (LDN) are largely not understood, but may include: LDN is thought to work as a partial opioid agonist. LDN opioid receptor blockade causes compensatory release of endogenous opioids. Antagonism of Toll-like receptor-4 on microglia, which produces a variety of inflammatory factors such as pro-inflammatory cytokines, substance-P, nitric oxide, and excitatory amino acids. LDN may target astrocytes, NADPH oxidase-2, and opioid growth factor receptor. LDN may lead to transient increases in met-enkephalin and beta-endorphins, which in turn may improve energy and quality of life. LDN is noted to reduce/suppress the inflammatory cytokines TNF-alpha, IL-1-beta, IL-2, IL-6, IL-15,and IL-17, which are known to promote nociception, allodynia, and hyperalgesia, and are related to microglial activation. DIET AND SUPPLEMENTS Low inflammatory diets can be helpful, such as the Mediterranean diet. There has been recent evidence that low inflammatory diets could lead to direct effects on pain, fatigue, mood, and gastrointestinal symptoms. For patients with ongoing gastrointestinal symptoms, a trial of a low FODMAP diet hasbeen shown to be helpful. Supplements that may provide symptomatic benefit include: Ginseng 1000 mg twice daily Vitamin C 1000 mg twice daily Probiotics/Prebiotics INTEGRATIVE MEDICINE There are numerous non-medication treatment strategies that can be utilized to improve the symptomsassociated with central sensitization. Many of these strategies are grouped together into the category known as Integrative Medicine. Some of these techniques include: Massage therapy (not deep tissue) Acupuncture therapy Acupressure therapy Biofeedback therapy Meditative Movement therapy (yoga, regan chi, pilates) Sleep hygiene Aquatic therapy Stress management Mindfulness activities Paced breathing Nature therapy Meditation Muscle relaxation therapy (active and passive) Many research studies have demonstrated the beneficial effects of these strategies (reduction in pain, improvement in fatigue, decrease in symptoms, improvement in quality of life). Furthermore, manyof these strategies help to decrease the sympathetic nervous system (fight or flight response), increase the parasympathetic nervous system, and increase heart rate variability. Ultimately, this can improve the changes associated with central sensitization. The saravia is to learn and incorporate as many of these strategies into your daily life. Many of thesestrategies can be found in your local community or available online; some will require a referral from your primary provider. SLEEP Overnight oximetry was abnormal; formal sleep consultation is advised. Sleep Clinic consultation has been ordered. Given the sleep complaints and nonrestorative sleep, this likely represents sleep hyperarousal (an inappropriate increased sympathetic drive during sleep and hypersensitivity to environmental stimuli). Ultimately, retraining of nocturnal hypersensitivity is the goal; this can be achieved by implementing an appropriate sleep hygiene regimen. General sleep hygiene practices: Use the bedroom only for sleep and sex, not for reading or watching TV. Avoid using electronic devices for at least 1 hour before bedtime. Keep the room dark, cool, quite, and free of distractions. The optimal room temperature for sleep is around 60-68 degrees. Recommend bright light exposure for about 30 minutes at the patient's desired get up time every day. Outdoor light is always adequate, but some alarm clocks/lights will slowly increase ambient light to simulate sunrise. Consider a white noise generating device. Keep active during the day. Stick to a routine of going to bed and getting up at the same time each day. Avoid taking naps. If you must, limit daytime naps to no more than 1 hour per day. Avoid caffeine later in the day. If you eat late at night, keep it light. Keep a healthy weight. Excess weight can worsen pain, fatigue, and sleep quality. Avoid daily use of sleep medicines. You may become dependent on them or build up your tolerance to them so that they no longer work as well. Most sleeping pills should not be used for more than 2 weeks in a row. Consider taking melatonin (non-habit forming), 3 mg, about 2-4 hours prior to desired bedtime everyday. Do not focus on falling asleep. Do not keep checking the clock and worry about why you are not asleep yet. If you are awake for more than 30 minutes, leave the bed and do not go back to bed until youfeel ready to sleep. Meditation/Relaxation techniques: (http://mervin.[facility]/body.cfm?id=22) Consider looking into the [employer] online program for behavioral management of insomnia. It instructs in sleep hygiene, relaxation techniques, cognitive and stimulus control strategies to enhance sleep. As part of the online program, He will also be invited to submit electronic sleep logs, and receive individualized feedback and suggestions as to how to improve rest. Consider online free videos available on YouTube for breathing techniques for sleep. Adherence to proper sleep hygiene is important for the treatment of insomnia. Hayder Ramirez's book No More Sleepless Nights can offer some useful techniques to reduce insomnia. If additional insomnia treatment is needed, CBT-I is generally considered the first-line treatment and can be facilitated through local providers. It is also available through CBT-I head strength and conditioning coach josef (https://[employer]/josef/cbt-i-head strength and conditioning coach) that is available no cost. The Society of Behavioral Sleep Medicine offers a tool to search for providers by geographic area: (https://www.behavioralsleep.org/) Insomnia unresponsive to the above may require referral to a sleep specialist. This referral can beprovided by your primary provider. ORTHOSTATIC INTOLERANCE Orthostatic Intolerance Recommendations: A. General recommendations - The mainstay for improving orthostatic intolerance includes volume expansion (water and salt intake) and exercise - Transition slowly from sitting or lying to standing B. Increase daily intake of sodium and water. 1. Drink at least 1.5-2.5 liters of water or other liquids (five to eight 8- ounce glasses) - Fluid bolus: Drink rapidly two 8-ounce glasses (500 mL) of cold water up to 3 times per day. Do this: 1) Upon awakening in the morning 2) Before prolonged standing (for example, shopping) 3) Beforeany other circumstance that may produce symptoms (for example, before a walk, exercise, or taking ashower) - Take at least 1 glass of water or fluids with meals AND 2. Combine with electrolytes such as LMNT, Liquid IV, or Nuun as preferred, 1-2x daily. Alternatively, can drink Gatorade, Propel, Pedialyte, or other fluids already containing electrolytes C. Postural countermaneuvers Examples: Jone abdominal and buttock muscles for 30 seconds, Leg crossing, Bending at the waist, Toe raises, Contract the thigh muscles, Slow marching in pace, Squat D. Abdominal and leg compression 1. Put on before getting out of bed and take off when lying down - Use an abdominal binder (Spanx garments may work for women) or - Waist-high compression stockings or - Combination of an abdominal binder and leg stockings. - Spandex-type elastic exercise shorts sized to fit tightly. PHYSICAL COUNTER-MANEUVERS (PCM) Physical counter-pressure maneuvers can help to prevent or stop syncope or faints (e.g., neurocardiogenic syncope, vasovagal syncope, POTS, orthostatic intolerance) in patients who are aware of warning symptoms. Each of these maneuvers might boost blood pressure sufficiently to delay symptoms, buying time during which the individual can sit or lie down if needed, or wait until the symptoms pass. The Physical Counterpressure Maneuvers Trial showed that PCMs reduced the severity and number of syncopal events. PCMs counteract the pooling of blood in the legs that may occur in the upright position. These PCMs tense the muscles in the upper legs and abdomen which results in compression of venous blood vessels, causing an increase in venous return to the heart. Leg crossing, or crossing one leg in direct contact with the other while actively standing on both legs, tensing the lower body muscles. Bending forward at the waist. Placing one foot on a chair, which contracts the thigh muscles. Squatting or 'taking a knee' to enhance blood pressure. Other maneuvers: Arm-tensing Toe-raising Thigh muscle co-contraction Slow marching in place Below are additional recommendations from the for symptoms of orthostatic intolerance: Tilt bed so that the head of the bed is 4-6 inches higher than the feet. Use wooden blocks or phonebooks beneath the feet at the head of the bed. Using extra pillows will generally not work. Lower extremity strengthening (resistance training) exercises. Avoid situations that can trigger overheating such as very hot showers, saunas/Jacuzzis or exercising in very hot conditions. Smaller, more frequent meals. Reduced carbohydrate meals. PSYCHIATRY AND PSYCHOLOGY If interested, patients may consider working with a local psychologist for cognitive behavioral training (CBT) regarding the central sensitization disorder, including ongoing education on how to improve coping and adaptation skills. CBT has been found to reduce the pain response, decrease catastroph izing, improve mood, increase energy, improve sleep quality, and increase martinez matter of the brain in fibromyalgia and chronic fatigue. Important components of cognitive behavioral therapy are as follows: Education reassurance Focus on functional gains Realistic goal setting Lifelong self-management Pacing and increasing activities Managing sleep Addressing cognitive dysfunction: use of daily planners, to do lists, attention techniques Recognizing the role of stress in symptom development Counteracting maladaptive thinking Relapse and maintenance Improved communication with others Assertiveness training Use of medications The following websites provide information for finding a trained cognitive behavioral therapist: (http://www.findcbt.org/xFAT/) (https://therapists.psychologytoPatient [employer].com/betsy/) The following resources offer online CBT programs if a therapist is not available in your local area: (http://web.Resource Gurukiatri.se/en/treatment/) The Self-Authoring Suite workbook by Dr. Loi Capps (https://www.[employer]/) Often, the manifestations of central sensitization coexist with mood disorders such as depression and anxiety. When these conditions are present, they can amplify some of the debilitating symptoms and complicate recovery. Therefore, we strongly encourage our patients to work with their primary providers when mood symptoms are present. Psychiatry referrals can be facilitated by the primary provider if necessary. The following website provides information for finding a psychiatrist: (www.[employer]/psychiatry-directory) WORK ACCOMMODATIONS Many people with these conditions find themselves having difficulty maintaining work due to symptoms, despite having an interest in remaining working. For patients who are experiencing post-exertional malaise and symptoms of dysautonomia, work accommodations can be helpful in allowing improvement, as a reduction symptom flares allow more positive trajectories in these diseases. Accommodations mayinclude having a position that is remote or allows the worker to remain sitting with feet up for a majority of the shift, frequent breaks, and partial work hours or limited days (potentially startingeven with just a few hours every few days, depending on the person's energy capacity) with a gradual increase as the patient recovers over time. Please refer to the table at end of the article, Long Covid at Work: A [employer]???s Guide (hbr.org), for specific accommodation considerations by symptom. COEXISTING CONDITIONS ANOSMIA/DYSGEUSIA Anosmia/Dysgeusia, or alterations to smell and taste, may occur directly after infection with the COVID-19 virus and subsequently persist through the Post- COVID Syndrome. These symptoms are caused bydirect viral damage to the nerves in the nasal epithelium. Some patients may benefit from ENT referral for management. Patients can also access training instructions and kits through the following website: https://[employer]/learn-us/smell-training. MYALGIC ENCEPHALOMYELITIS/CHRONIC FATIGUE SYNDROME Myalgic encephalomyelitis/chronic fatigue syndrome (ME/CFS), also referred to as myalgic encephalomyelitis (ME), chronic fatigue syndrome (CFS), or previously Systemic Exertional Intolerance Disease (JEANETTE), is a debilitating multisystem illness. It is most commonly defined by the 2015 IOM/NAM criteria which stipulates the followin) A substantial reduction or impairment in the ability to engage in pre-illness levels of activity (occupational, educational, social, or personal life) lasts morethan 6 months and is not fully relieved by rest, 2) Post-exertional malaise (PEM)--worsening of symptoms after physical, mental, or emotional exertion that would not have caused a problem before the i llness, typically getting worse 12 to 48 hours after the activity or exposure and can last for daysor even weeks, 3) Unrefreshing sleep, even after a full night of sleep despite the absence of specific objective sleep alterations; and at least one of the two: 1) Cognitive impairment--problems withthinking, memory, executive function, and information processing, as well as attention deficit and impaired psychomotor functions, and/or 2) Orthostatic intolerance--a worsening of symptoms upon assuming and maintaining upright posture as measured by objective heart rate and blood pressure abnormalities during standing, bedside orthostatic vital signs, or head-up tilt testing. Orthostatic symptoms including lightheadedness, fainting, increased fatigue, cognitive worsening, headaches, or nausea are worsened with quiet upright posture (either standing or sitting) during day-to-day life and are improved (though not necessarily fully resolved) with lying down. The specific pathophysiology of ME/CFS has not yet been elucidated as of this time, however there is strong suspicion for a neurologic and/or immunologic contributor. Other proposed mechanisms include but are not limited to metabolic and mitochondrial dysfunction, autonomic dysregulation, hormonal dysregulation, chronic inflammatory changes, and alteration of the gut microbiota. Genetic susceptibility has been identified as well. Given that there are multiple possible triggers for the condition, it is possible that patients could have varying pathophysiology requiring specific treatment. Investigations regarding pathophysiology and treatment of ME/CFS is currently underway. FIBROMYALGIA Fibromyalgia is a pain amplification or central sensitization syndrome in which the central nervoussystem response to stimulating sensations increases markedly and/or signals inappropriately. Cells in the central nervous system become more responsive to multiple stimuli and antinociceptive (anti-pain) pathways malfunction. The net result is an increase in pain and sensitivity to a variety of peripheral stimuli, including physical exertion. Studies have demonstrated that slowly increasing physical activity and cognitive behavioral retraining are most effective at improving chronic fatigue in fibromyalgia especially when done in combination with pharmacologic therapies; however, in the case of ME/CFS, it is always recommended to only perform physical activity to the extent that the ME/CFS allows in order to minimize the risk of trigger post-exertional malaise crashes. SMALL FIBER POLYNEUROPATHY Small Fiber Polyneuropathy [SFPN] is abnormal activity of the small unmyelinated sensory afferent C-fibers, thinly myelinated A-delta fibers, and post- ganglionic sympathetic autonomic axons. Skin andmyovascular innervation loss affects the inputs of multiple systems through arteriovenous shunting,change of heart rate and blood pressure responses, propagation of migraines through trigeminovascular activation to CGRP, and altering gastrointestinal functions (GI motility, N/V, IBS-C/D). Neurologic examination most commonly involves decreased pinprick, thermal, or vibratory sensation and hyperalgesia, but may affect light tough or proprioception in some cases. The gold standard for diagnosingSFPN is a 3mm skin punch biopsy at the lower extremity (where all epidermal nerve fibers fall within the small fiber category) which has a sensitivity of 78-92% and specificity of 65-90%. Currently, 40% of fibromyalgia patients have been found to have positive SFPN biopsies, but it is estimated that 90% of cases are yet undiagnosed. Therapies for small fiber polyneuropathy are currently limited, with the main recommendation being to treat underlying or comorbid conditions except in certain autoimmune and post-infectious cases. Studies and patient reports suggest better response to gabapentin or TCA therapy. If migraines are also a frequent pain symptom despite standard migraine therapy, CGRP agents are theorized to have potential additional benefit in the population due to their effect onthe trigeminovascular system. POSTURAL ORTHOSTATIC TACHYCARDIA SYNDROME Postural Orthostatic Tachycardia Syndrome [POTS] is a specific form of orthostatic intolerance defined by an increase in heart rate of 30bpm or more, or over 120bpm, within the first ten minutes of standing. This does not consist of the more traditional orthostatic hypotension though some drops in blood pressure can be seen. 10%-30% of patients with POTS may experience syncope and so the presenceor lack of syncope is not a requirement for the diagnosis. In the event that a patient with Post-COVID Syndrome also meets criteria for POTS, POTS-directed therapy should be aggressively pursued as optimization of POTS can often lead to noticeable improvement. MAST CELL ACTIVATION SYNDROME Mast Cell Activation Disorder/Syndrome [MCAS] refers to a group of disorders thought to be characterized by episodic, multisystem symptoms thought to be related to excessive mast cell natural remedy consultant release, with anaphylaxis at the most extreme level. Clinical criteria for MCAS require involvement of twoor more organ systems: Skin (urticaria/hives, angioedema, pruritis, flushing, dermatographia), GI (N/V/D, abdominal cramping), Cardiovascular (hypotensive syncope, tachycardia), Respiratory (wheezing, shortness of breath), and/or Naso- ocular (conjunctival injection, nasal stuffiness). Potential triggers are extensive and include but are not limited to food, scents, temperature, stressors, infections, mechanical irritation, and sunlight. Symptoms should decrease in frequency or severity with anti-natural remedy consultant therapies such as H2- dena antihistamines (famotidine), anti-leukotriene therapies (montelukast), or mast cell stabilization therapies (ketotifen, quercetin, cromolyn sodium). For patients who notice reactions even to allergy medications, children's Benadryl (dye-free) is often well-tolerated. Sublingual or liquid forms of medications if available may also be considered in these cases. IRRITABLE BOWEL SYNDROME Irritable Bowel Syndrome (IBS) is a common but complex disorder that affects the large intestine and often coexists with Post-COVID Syndrome. The precise cause of IBS is unknown, but factors that appear to play a role can include abnormal muscle contraction of the intestine, dysregulation of the nervous system, inflammation, prior infection, and changes in gut microflora. Triggers can include butare not limited to food, stress, and hormonal changes. Signs and symptoms include cramping, abdominal pain, bloating, gas, and diarrhea or constipation, or both. Only a small number of people with IBS have severe signs and symptoms. Some can control their symptoms by managing diet, lifestyle and stress. More-severe symptoms can be treated with medication depending on the IBS subtype. HYPERMOBILITY SPECTRUM DISORDER Hypermobile Avelina-Danlos/Hypermobility Spectrum Disorder (hEDS/HSD), diagnosed with a score of 4-6+/9 on the Beighton Score depending on age and sex, is the presence of hypermobile joints suggestiveof a connective tissue disorder, likely caused by defects in collagen. hEDS, unlike other forms of Avelina-Danlos, does not have an associated genetic test. There is no specific management for hEDS/HSD but the condition may have an implication in how to manage certain patients with Post-COVID Syndrome. PERSISTENT POSTURAL-PERCEPTUAL DIZZINESS The disorder termed chronic subjective dizziness (CSD) has been more recently renamed Persistent Postural-Perceptual Dizziness. Chronic nonvestibular dizziness has features of persistent nonvertiginous dizziness and unsteadiness accompanied by sensitivity to motion of self and external motion cues. Habituation vestibular rehabilitation therapy, in which patients are exposed to provocative stimuliin a controlled fashion with the goal of desensitization, may have a treatment role in CSD if the therapist is sensitive to the severe anxiety response that may be engendered in this patient group. Cognitive behavioral therapy can also be effective in CSD. Vestibular rehabilitation is a primary therapeutic option for chronic subjective dizziness (CSD) with or without treatment using an SSRI or SNRI. However, successful treatment of patients with CSD using vestibular rehabilitation requires a gentler approach than typically used for treatment of individuals with acute vestibular deficits. Habituation exercises must be less intense at the beginning of therapy and must be increased more gradually, or they will exacerbate symptoms. If that happens, patients are likely to stop therapy prematurely and consider vestibular rehabilitation to be a failure. Maximum benefit may require 3 to 6 months of diligent treatment. Patients can be referred directly to Vestibular Rehabilitation for therapy training. A local referral will be needed. SECONDARY DEPRESSION/ANXIETY Some patients experience increased depression and/or anxiety also in the context of dealing with chronic illness. CBT will not cure the symptoms experienced by patients with myalgic encephalomyelitis/chronic fatigue syndrome, but can help with reducing the severity of depression, anxiety, and pain if it is present. In such cases, advise working with a local psychologist for cognitive behavioral training, including ongoing education on how to improve coping and adaptation skills. CBT has been found to reduce the pain response and increase martinez matter of the brain in fibromyalgia. Similar benefits are seen in the symptom of chronic fatigue. Important components of cognitive behavioral therapy are as follows * Education reassurance; * Focus on functional gains rather than fibromyalgia as a disease; * Realistic goal setting; * Lifelong self-management; * Pacing and increasing activities; * Managing sleep; * Addressing cognitive dysfunction: use of daily planners, to do lists, attention techniques; * Recognizing the role of stress in symptom development; * Counteracting maladaptive thinking; * Relapse and maintenance; * Improved communication with others; * Assertiveness training; and * Use of medications. The Association for Behavioral and Cognitive Therapies (ABCT) Find A Therapist Service: http://www.findcbt.org/xFAT/. The following resources offer online CBT programs if a therapist is not available in the local area: ONLINE CBT: http://web.Nokterpsykiatri.se/en/treatment/ The Self-Authoring Suite workbook by Dr. Loi Capps (https://www.[employer].[address]/) Total visit time greater than 90 minutes, with over 50% spent counseling with the patient and coordination of care activities described above. Following our consultation, I referred the patient for additional education with a [facility]romyalgia [facility] nurse. Vero Calvillo M.D., M.S. Division of General Internal Medicine documented in this encounter Plan of Treatment Upcoming Encounters Date Type Department Care Team (Late st Contact Info) Description 03/07/2024 2:45 PM OB SCRUB TECH Comprehensive Visit Department of Neurology in [place], [place] [address] [place] [phone] Jono Guerrero M.D. [address] [place] [address] Akbar Conway M.D. [address] [place] [address] Scheduled Referrals Name Type Priority Associated Diagnoses Orde r Schedule Long COVID: Self-Guided eLearning Outpatient Referral Routine Post COVID-19 Condition Ordered: 11/04/2023 documented as of this encounter Results * Autonomic reflex Screen (11/18/2023 8:53 AM CDT) 11/18/2023 7:45 AM CDT Narrative NANI GUPTA AUTO - 11/18/2023 12:41 PM CDT FINAL ? REPORT ? AUTONOMIC REFLEX SCREEN ? [phone] ? Age: 38 ?Location: [facility] ? Lab #: [id number] ARLEN VALLADARES ? Sex: F ? Order ID: [id number] ? Date: 11/18/2023 : 1985 Autonomic Associate Dean Of Students: Wang Carrillo M.D. ([id number]) ?CONCLUSION There is evidence of distal postganglionic [...] to the Valsalva maneuver were normal. (B) Bupv-yw-gwaj blood pressure responses to the Valsalva maneuver [...] M.D., M.S. NEUROLOGY ORDERABLE S Final Result CANDY AUTO * Thermoregulatory sweat test (11/16/2023 3:28 PM CDT) 11/16/2023 1:00 PM CDT Impressions CANDY AUTO - 11/17/2023 8:37 AM CDT Normal thermoregulatory sweat test. Sweating in purple shaded area ??RESULTS: Starting Oral Temp (??C): ?36.7 Ending Oral Temp (??C): ?38 Oral Temp Difference (??C): ?1.3 % Anhidrosis: ? 0.3 Distribution: ? Normal Hyperhidrosis: ?No Narrative CANDY AUTO - 11/17/2023 8:37 AM CDT Table formatting from the original result was not included. Images from the original result were not included. AMENDED ?REPORT ?Thermoregulatory Sweat Test ? [phone] ??Age: 38 ??Location: [facility] ??Lab #: [id number] ?? ARLEN VALLADARES ??Sex: F ??Order ID: [id number] ?? Date: 11/16/2023 ?? : 1985 ?? Autonomic Associate Dean Of Students: Gayathri Gant M.D. ([id number]) ? Procedure Note Gayathri Gant M.D., Ph.D. - 11/17/2023 Images from the original note were not included. AMENDED REPORT Thermoregulatory Sweat Test [phone] Age: 38 Location: [facility] Lab #: [id number] ARLEN VALLADARES Sex: F Order ID: [id number] Date: 11/16/2023 : 1985 Autonomic Associate Dean Of Students: Gayathri Gant M.D. ([id number]) IMPRESSION: Normal thermoregulatory sweat test. Sweating in purple shaded area RESULTS: Starting Oral Temp (??C): 36.7 Ending Oral Temp (??C): 38 Oral Temp Difference (??C): 1.3 % Anhidrosis: 0.3 Distribution: Normal Hyperhidrosis: No Vero Calvillo M.D., M.S. NEUROLOGY ORDERABLE S Edited Result - Final [facility]O documented in this encounter Visit Diagnoses Diagnosis Post COVID-19 Condition- Primary Fibromyalgia Paresthesia Neuropathy Fiber Small Autonomic Disorder Hypermobility Syndrome Paresthesia Neuropathy Fiber Small Autonomic Disorder Paresthesia Neuropathy Fiber Small Autonomic Disorder documented in this encounter Additional Health Concerns Assessment Noted Time PHQ-9 Depression Total Score: 5 10/27/19 24 10:53 PM CDT documented as of this encounter Care Teams Crematory Operator Relationship Specialty Start Date End Date None Reported, Pcp PCP - General Family Medicine 01/25/22 documented as of this encounter
--- OUTSIDE RECORDS SUMMARY | 2024-01-29 14:40 | XMS_ITS | Encounter Summary ---
Author Organization [facility] Address [address] [place] [address] Care Team Providers Care Whitewasher Name Role Phone None Reported, Pcp Primary Care Provider Unavail able Reason for Visit * Appointment Request (Routine) - Pending Review Specialty Diagnoses / Procedures Referred By Merry t Referred To Contact General Internal Medicine Referral ID Status Reason Start Date Expiration Date V isits Requested Visits Authorized [id number] Pending Review 12/09/2023 12/08/2024 1 1 Encounter Details Date Type Department Care Team (Late st Contact Info) Description 12/13/2023 11:00 AM CDT Telemedicine Division of General Internal Medicine in [place], [place] [address] [place] [phone] Vero Calvillo M.D., M.S. [address] [place] [phone] Fibromyalgia (Primary Dx); Postural Orthostatic Tachycardia Syndrome; Post COVID-19 Condition; Autonomic Disorder; Neuropathy Fiber Small; Paresthesia; Hypermobility Syndrome Social History Tobacco Use Types Packs/Day Years Used Date Smoking Tobacco: Never Passive Smoke Exposure: Past Smokeless Tobacco: Never Comments:Smoked in high [facility] [place] Passive Exposure Comments:childhood Alcohol Use Standard Drinks/Week Comments Yes 1 (1 standard drink = 0.6 oz pure alcohol) Rarely consume alcohol, may have 1 or 2 drink occasionally [facility] Utilities Answer Date Recorded In the past 12 months has [employer] gas, oil, or water [employer] threatened to shut off services in your [...] often do you attend chur ch or nondenominational services? More than 4 times per year [...] Answer Date Recorded PHQ-2 Score 2 10/27/2023 [facility] of Occupat ional Health - [...] PM CDT Legal Sex Female 4:53 PM OIL HEATERMAN Gender Identity Female 11/21/2021 11:33 PM CDT Sexual Orientation Straight 11/21/2021 11 :33 PM CDT documented as of this encounter Progress Notes * Vero Calvillo M.D., M.S. - 12/13/2023 11:00 AM CDT Fibromyalgia Progress Note Since our consultation, Ms. Valladares underwent sinus surgery which was successful from a sinus aspect (nasal breathing) but complicated by delayed- onset bleeding. No effect on headaches yet. Currently off of post-op pain medications and is overall nerve pain is under comparatively good control. Cymbalta ended up worsening the pain significantly and so discontinued. While in the hospital,trialed ketamine and wonders if this may have helped neuropathic pain. Started taking vitamin B12 for nerve pain. Has been drinking more water with liquid IV. ---- Autonomic reflex screen was suggestive of small fiber neuropathy (distal postganglionic sympatheticsudomotor impairment) with POTS. No overt small fiber abnormalities on the thermoregulatory sweat test, experienced significant nerve pain that persisted until her anesthesia exposure with surgery. There is evidence of distal postganglionic sympathetic sudomotor impairment with normal cardiovagal and cardiovascular adrenergic function. To tilt, there is evidence of symptomatic orthostatic tachycardia, which can be seen in deconditioning, dehydration, as a constitutional trait, in hyper-adrenergic states (including anxiety), and primary disorders of orthostatic tolerance (POTS). QUANTITATIVE AXON REFLEX SWEAT TEST (QSWEAT) Test Latency Sweat Output Sweat Output Normal Cutoff Side Site Current Duration (min) (uL) 5th (10th) Percentile (mA) (min) R Forearm 2 10 2.6 0.13 F: 0.08 (0.13) R Proximal Leg 2 10 1.6 0.45 F: 0.19 (0.31) R Distal Leg 2 10 2.2 0.51 F: 0.14 (0.23) R Foot 2 10 5.3 0.03 F: 0.07 (0.14) Comments on Sudomotor Test: QSART responses were reduced at the foot site and normal at all other sites. DEEP BREATHING & VALSALVA MANEUVER RESPONSES Result Normal Cutoff Deep Breathing Heart Rate Range (bpm) 29.5 > 12 Valsalva Maneuver Valsalva Ratio 2.28 > 1.50 BP recovery time (sec) 1.4 < 2.68 Comments on Deep Breathing: Heart rate responses to deep breathing were normal. Comments on Valsalva maneuver: (A) Heart rate responses to the Valsalva maneuver were normal. (B) Krpt-eg-oswp blood pressure responses to the Valsalva maneuver were normal. BLOOD PRESSURE AND HEART RATE RESPONSES TO TILT BP (mmHg) Heart Rate (BPM) Supine 106/68 64 Tilt 1 min 110/74 86 Tilt 2 min 102/70 86 Tilt 3 min 112/76 91 Tilt 5 min 116/70 94 Tilt 10 min 106/71 98 Comments on Tilt: Patient was tilted for 10 minutes. Orthostatic hypotension was not detected. Heart rate response was excessive. The patient reported feeling dizzy and foot tingling during tilt. ASSESSMENT/PLAN: As per our consult visit 10/28/23, Ms. Valladares had evidence of neuropathic changes and fibromyalgia compounded on hypermobile joints, aggravated by COVID- 19 infection in 2021 and qualifying her for the diagnosis of Long COVID (Post- COVID Syndrome). Her autonomic reflex screen demonstrated POTS. She also has symptoms suggestive of increased allergies or mast cell hyperactivity (not confirmed to meet Consensus I criteria of Mast Cell Activation Syndrome, and I suspect this would not the case based on her symptoms) which we see both in Long COVID and in people with POTS and hypermobility. We discussed both medication and supplement options based on her prior history of reactions with medications. For fibromyalgia and neuropathic pain, recommend: Low-dose naltrexone [prescribed today] Typical low-dose naltrexone dosing is 1.5mg to 4.5mg compounded capsules, however compounding pharmacies generally also offer liquid formulations which can allow dosing [...] a total of 4.5mg. Can switch to morningdosing if vivid dreams occur and are bothersome. Supplements: Magnesium 200-250mg 1-2x daily (may cause loose stools) Alpha-lipoic acid 800mg-1200mg total daily Adding folic acid to vitamin B12 supplementation For postural orthostatic tachycardia syndrome, recommend: Midodrine 2.5mg up to 10mg three times daily and propanolol 10mg up to three times daily, as neededfor orthostasis (both) and elevated heart rates (propanolol) [prescribed today] Consider Pyridostigmine 15mg up to 60mg three times daily in the setting of POTS with neuropathic features and and Long COVID Supplements: ParaSym Plus Devices: Vagal nerve stimulators for migraines can help regulate sympathetic overactivity in dysautonomia (POTS and Long COVID), transauricular forms have also been helpful in POTS q30 collar may assist in cerebral venous return, q30.com For symptoms of mast cell hyperactivity, recommend: Famotidine (Pepcid) 20-40mg twice daily with antihistamine of choice (Karen, Claritin, Zyrtec) 1-2x daily More directed compounded medications such as ketotifen and cromolyn sodium have been helpful in these populations but are harder to find and often expensive Supplements: KANCHAN with meals Quercetin 250mg-500mg daily Luteolin 50mg-200mg daily For hypermobile spectrum disorder, recommend establishing with a hypermobility- informed physical therapist who can help minimize joint impacts over time: The [employer] has a directory to find professionals by state: https://www.avelina-danlos.com/afwktunqbv-fqnywnybpgoes-ijccjxnlm-usa/ [employer] website has a directory: https://specialization.apta.org/pkku-y-nmjsdugmps Web Search find a PT and search for your zip code Find a therapist who treats something specific, for example, headaches, hypermobility, EDS, dancers, gymnastics, performance arts, etc. The [place] [employer] Manual Physical Therapists (AAOMPT) is a national organization committed to excellence in Orthopaedic Manual Physical Therapy practice, education and research. [place] of the AAOMPT provide the highest level of musculoskeletal care through advanced manual therapypractice: https://aaompt.org/Main/Member_Resources/Mdvg-K-Giqyvm.aspx Look for a therapist with advanced credentials/certification such as: OCS- Orthopaedic clinical specialist FAAOMPT - Fellow of the [place] [employer] Orth[employer] Manual Physical Therapists MTC - Manual Therapy Certification OMT - Osteopathic manipulative therapy Listed as residency or fellowship trained She will plan to follow-up with her local primary care provider, as well as establish with Autonomic Neurology through [facility] regarding her POTS and neuropathic pain. She will also proceed with the Fibromyalgia program for additional non-pharmacologic considerations. 75 minutes in face to face (video) and non-face to face care time spent for the encounter. Vero Calvillo M.D., M.S. Division of General Internal Medicine documented in this encounter Plan of Treatment Upcoming Encounters Date Type Department Care Team (Late st Contact Info) Description 03/07/2024 2:45 PM OIL HEATERMAN Comprehensive Visit Department of Neurology in [place], [place] [address] [place] [phone] Jono Guerrero M.D. [address] [phone] Akbar Conway M.D. [address] [place] [phone] documented as of this encounter Visit Diagnoses Diagnosis Fibromyalgia- Primary Postural Orthostatic Tachycardia Syndrome Post COVID-19 Condition Autonomic Disorder Neuropathy Fiber Small Paresthesia Hypermobility Syndrome documented in this encounter Additional Health Concerns Assessment Noted Time PHQ-9 Depression Total Score: 5 10/27/19 24 10:53 PM CDT documented as of this encounter Care Teams Whitewasher Relationship Specialty Start Date End Date None Reported, Pcp PCP - General Family Medicine 01/25/22 documented as of this encounter
--- OUTSIDE RECORDS SUMMARY | 2024-01-29 14:40 | XMS_ITS ---
Author Organization [facility] Address [address] [place] [address] [address] [place] [address] Care Team Providers Care Rivet Passer Name Role Phone Tono Mccoy Primary Care Provider Roberto Ellis Unavailable [phone] Luigi SOTO, PhD, Ricardo Unavailable Unavai lable Medications Medication SIG (Take, Route, Fr equency, Duration) Notes Start Date End Date Status Meloxicam 15 MG 1 tablet Orally Once a day Active Medrol 4 MG as directed on Medro l package Orally 1 pack for 6 days Active Diclofenac Sodium 75 MG 1 tablet with fo od or milk Orally Twice a day for 30 days Active Encounters Encounter Location Date Provider Diagnosis [address] [place] [address] 12/29/2023 Roberto Rebolledo Plan Of Treatment No Information Progress Notes * Arlen LOPEZDOB:[birth year] (38 yo F)Acc No.[id number]:12/29/2023 Patient:?Arlen LOPEZ Provider:?Roberto Rebolledo M.D. :1985???Age:38 Y???Sex:Female D ate:12/29/2023 Phone: Address:[address] [phone] Pcp:Tono Mccoy Subjective: * Chief Complaints: * HPI: ???Pre-op Call:?ARCHIVED--- Pre-op call completed??Pre-op call completed?No.?Post-op Call:?Post-Op Call?Post-Op Call completed, patient denies signs of infection, questions or concerns at this time..? * Medical History:? * Surgical History:? * Medications:?TakingDiclofena c Sodium 75 MG Tablet Delayed Release 1 tablet with food or milk Orally Twice a day Medrol 4 MG Tablet Therapy Pack as directed on Medrol package Orally 1 pack Meloxicam 15 MG Tablet 1 tablet Orally Once a day Taking Diclofenac Sodium 75 MG Tablet Delayed Release 1 tablet with food or milk Orally Twice a day Taking Medrol 4 MG Tablet Therapy Pack as directed on Medrol package Orally 1 pack Taking Meloxicam 15 MG Tablet 1 tablet Orally Once a day * Allergies:?Latex: rash Objective: * Vitals:? * Billing Information: * Visit Code:? * Procedure Codes:? * Sign off status: Completed true * Provider:?Roberto Rebolledo M.D. Date:?0 12/29/2023 Generated for Abdelrahman harris/Renetta/Courtney on:?01/29/2024 02:40 PM CDT History and Physical Notes * HPI (History of Present Illness) Category Sub-Category Detail Notes Post-op Call Post-Op Call Post-Op Call com pleted, patient denies signs of infection, questions or concerns at this time. Pre-op Call ARCHIVED--- Pre-op call completed? Pre-op call completed: No
--- OUTSIDE RECORDS SUMMARY | 2024-01-29 14:40 | XMS_ITS | Encounter Summary ---
Author Organization [facility] Address [address] [place] [address] Care Team Providers Care Shop Manager Name Role Phone None Reported, Pcp Primary Care Provider Unavail able Reason for Visit * Reason Onset Date Comments Rx Denial 11/07/2023 Duloxetine HCl 2 0MG caps Encounter Details Date Type Department Care Team (Late st Contact Info) Description 11/07/2023 Clinical Communication Division of General Internal Medicine in [place], [place] [address] [place] [phone] Vero Calvillo M.D., M.S. [address] [place] [phone] Rx Denial (Duloxetine HCl 20MG caps) Social History Tobacco Use Types Packs/Day Years Used Date Smoking Tobacco: Never Passive Smoke Exposure: Past Smokeless Tobacco: Never Comments:Smoked in high [facility] ol Passive Exposure Comments:childhood Alcohol Use Standard Drinks/Week Comments Yes 1 (1 standard drink = 0.6 oz pure alcohol) Rarely consume alcohol, may have 1 or 2 drink occasionally [facility] Utilities Answer Date Recorded In the past 12 months has e [employer], gas, oil, or water [employer] threatened to shut off services in your [...] week 11/23/2021 How often do you attend [facility] or sabianist services? More than 4 times per year [...] Answer Date Recorded PHQ-2 Score 2 10/27/2023 [facility] of Occupat ional Health - Occupational Stress [...] your living situation today? I have a [facility] place to live 08/25/2023 Education Answer Date Recorded What is the highest level of school you have completed or the highest degree you have received? 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 The patient's health insurer has denied prior authorization for the requested quantity of Duloxetine HCl 20MG caps The denial letter indicates the dose, amount, or day supply the payer will allow. A screen shot of the denial reason is at the bottom of this communication message. To view the complete denial letter, scroll down to the green Guidance section below and click on the appropriate medication in the Current Prescription Prior Authorizations display. As the prescriber, your options are: Adjust the Rx to the allowed daily quantity on the plan's formulary. Appeal the decision to the insurer directly (see denial letter for how to appeal). Write a new Rx for an alternative medication therapy. Release the Rx to the pharmacy so the patient has the option to pay out of pocket. To Release Rx: Open this encounter, go to [employer], and click on the medication. If the blue ???Release Rx?? button appears as an option, click to release the prescription. If the blue Release Rx button is not visible, the Rx has already been released to the pharmacy. If you have questions, please reply to [facility] ALLAN. Thank you, The OPPA Team documented in this encounter Plan of Treatment Upcoming Encounters Date Type Department Care Team (Late st Contact Info) Description 03/07/2024 2:45 PM SYSTEMS ANALYSIS MANAGER Comprehensive Visit Department of Neurology in [place], [place] [address] [place] [phone] Jono Guerrero M.D. [address] [phone] Akbar Conway M.D. [address] [place] [phone] documented as of this encounter Visit Diagnoses Not on filedocumented in this encounter Additional Health Concerns Assessment Noted Time PHQ-9 Depression Total Score: 5 10/27/19 24 10:53 PM CDT documented as of this encounter Care Teams Shop Manager Relationship Specialty Start Date End Date None Reported, Pcp PCP - General Family Medicine 01/25/22 documented as of this encounter
--- OUTSIDE RECORDS SUMMARY | 2024-01-29 14:40 | XMS_ITS | Encounter Summary ---
Author Organization [facility] Address [address] [place] [address] Care Team Providers Care Combiner Operator Name Role Phone None Reported, Pcp Primary Care Provider Unavail able Reason for Visit * Outpatient (Routine) - Closed Specialty Diagnoses / Procedures Referred By Merry t Referred To Contact Integrative Medicine Diagnoses Fibromyalgia Keith Robles M.D. [address] [place] [phone] Phone: tel: fax: [facility] Referral ID Status Reason Start Date Expiration Date Visits Re quested Visits Authorized [id number] Closed 08/03/2023 02/01/2025 1 1 Encounter Details Date Type Department Care Team (Late st Contact Info) Description 10/28/2023 3:00 PM CDT Education Integrative Medicine and Health in [place], [place] [address] [place] [phone] Keith Robles M.D. [address] [place] [phone] Dalia Castro M.S.N., R.N. [address] [place] [phone] Social History Tobacco Use Types Packs/Day Years Used Date Smoking Tobacco: Never Passive Smoke Exposure: Past Smokeless Tobacco: Never Comments:Smoked in high [facility] Passive Exposure Comments:childhood Alcohol Use Standard Drinks/Week Comments Yes 1 (1 standard drink = 0.6 oz pure alcohol) Rarely consume alcohol, may have 1 or 2 drink occasionally [facility] Utilities Answer Date Recorded In the past 12 months has e [employer], gas, oil, or water [facility] [employer] [facility] threatened to shut off services in your [...] week 11/23/2021 How often do you attend [facility] or holiness services? More than 4 times [...] Answer Date Recorded PHQ-2 Score 2 10/27/2023 [facility] of Occupat ional Health - Occupational Stress [...] PM CDT Legal Sex Female 4:53 PM TALENT MANAGER Gender Identity Female 11/21/2021 11:33 PM CDT Sexual Orientation Straight 11/21/2021 11 :33 PM CDT documented as of this encounter Progress Notes * Dalia Castro M.S.N., R.N. - 10/28/2023 3:00 PM CDT RN met with patient for education, questions, and any additional concerns following [facility] MD evaluation. Content addressed: FSMS description and Scheduling questions Materials given: Managing your Fibromyalgia ([id number]), Fibromyalgia and Chronic Fatigue Suggested Resources, Vitamin D and Chronic Pain, Self- Management Tool Wheel, Finding Reliable Health Information on the Internet ([id number]), How to get the Healthy sleep you need ([id number]), Exercise: Getting Started and Staying With It ([id number]), Using Relaxation Skills to Relieve Your Symptoms ([id number]), My Personal Plan (JG0542-51), Managing your time for a balanced life (LB2726-76), Central sensitization (MW4753-61), Understanding central sensitization (BX9220-54),and Suggested Resources for Fibromyalgia and Chronic Fatigue. [employer] was introduced. Patient accepted. Message was sent to [employer] for follow-up. Fibromyalgia Self-Learning modules were sent to the patient. All questions and concerns were addressed. Patient was given a business card with the phone number to the [facility] for any additional questions. documented in this encounter Plan of Treatment Upcoming Encounters Date Type Department Care Team (Late st Contact Info) Description 03/07/2024 2:45 PM TALENT MANAGER Comprehensive Visit Department of Neurology in [address] [phone] Jono Guerrero M.D. [address], [place] [address] Akbar Conway M.D. [address] [place] [phone] documented as of this encounter Visit Diagnoses Not on filedocumented in this encounter Additional Health Concerns Assessment Noted Time PHQ-9 Depression Total Score: 5 10/27/19 24 10:53 PM CDT documented as of this encounter Care Teams Combiner Operator Relationship Specialty Start Date End Date None Reported, Pcp PCP - General Family Medicine 01/25/22 documented as of this encounter
--- OUTSIDE RECORDS SUMMARY | 2024-01-29 14:40 | XMS_ITS | Encounter Summary ---
Author Organization [facility] Address [address] [place] [address] Care Team Providers Care Input Output Clerk Name Role Phone None Reported, Pcp Primary Care Provider Unavail able Reason for Referral * Outpatient (Routine) - Closed Specialty Diagnoses / Procedures Referred By Merry munoz Referred To Contact Diagnoses Paresthesia Neuropathy Fiber Small Autonomic Disorder Procedures Thermoregulatory sweat test Vero Calvillo M.D., M.S. [address] [place] [address] Phone: tel: fax: [facility] [place] Referral ID Status Reason Start Date Expiration Date Visits Re quested Visits Authorized [id number] Closed 10/28/2023 10/27/2024 1 1 Reason for Visit * Outpatient (Routine) - Closed Specialty Diagnoses / Procedures Referred By Merry munoz Referred To Contact Diagnoses Paresthesia Neuropathy Fiber Small Autonomic Disorder Procedures Thermoregulatory sweat test Vero Calvillo M.D., M.S. [address] [place] [phone] Phone: tel: fax: [facility] [place] Referral ID Status Reason Start Date Expiration Date Visits Re quested Visits Authorized [id number] Closed 10/28/2023 10/27/2024 1 1 Encounter Details Date Type Department Care Team ([facility] st Contact Info) Description 11/16/2023 1:36 PM CDT - 11/16/2023 11:59 PM CDT Hospital Encounter Department of Neurology in [place], [place] [address] [place] [address] Vero Calvillo M.D., M.S. [address] [place] [address] Paresthesia; Neuropathy Fiber Small; Autonomic Disorder Discharge [...] may have 1 or 2 drink occasionally [facility] Critical Diagnostics Answer Date Recorded In the past 12 months has [facility] [employer], gas, oil, or water [employer] threatened to shut off services in your [...] Answer Date Recorded PHQ-2 Score 2 10/27/2023 [facility] - Occupational Stress Questionnaire Answer Date [...] your living situation today? I have a [facility] place to live 08/25/2023 Education Answer Date Recorded What is the highest level of school you have completed or the highest degree you have received? 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 If doing well with 1 capsule, can increase to two capsules (40mg) at 2-4 weeks as tolerated. Maximum dose 60mg daily. 90 capsule 3 10/30/2023 4 DULoxetine (Cymbalta) [address] Montes ns:Fibromyalgia Take 1 capsule (20 mg total) by mouth daily. 30 capsule 11 11/18/2023 4 methylPREDNISolo ne (MEDROL DOSEPAK) 4 mg tablet Take 4 mg by mouth See Admin Instructions. follow package directions 08/22/2023 4 documented as of this encounter Plan of Treatment Upcoming Encounters Date Type Department Care Team (Late st Contact Info) Description 03/07/2024 2:45 PM JUNIOR GRAPHIC DESIGNER Comprehensive Visit Department of Neurology in [place], [place] [address] [place] [phone] Jono Guerrero M.D. [address] [place] [address] Akbar Conway M.D. [address] [place] [phone] documented as of this encounter Procedures Procedure Name Priority Date/Time Associated Diagnosis Comments THERMOREGULATORY SWEAT TEST Routine 11/16/2023 3:28 PM CDT Paresthesia Neuropathy Fiber Small Autonomic Disorder documented in this encounter Results * Thermoregulatory sweat test (11/16/2023 3:28 PM CDT) 11/16/2023 1:00 PM CDT Impressions [facility] - 11/17/2023 8:37 AM CDT Normal thermoregulatory sweat test. Sweating in purple shaded area ??RESULTS: Starting Oral Temp (??C): ?36.7 Ending Oral Temp (??C): ?38 Oral Temp Difference (??C): ?1.3 % Anhidrosis: ? 0.3 Distribution: ? Normal Hyperhidrosis: ?No Narrative [facility] - 11/17/2023 8:37 AM CDT Table formatting from the original result was not included. Images from the original result were not included. AMENDED ?REPORT ?Thermoregulatory Sweat Test ?Age: 38 ??Location: [facility] ??Lab #: [id number] ?? ARLEN VALLADARES ??Sex: F ??Order ID: [id number] ?? Date: 11/16/2023 ?? : 1985 ?? Autonomic Alarm Security Or Surveillance Monitor: Gayathri Gant M.D. ([id number]) ? Procedure Note Gayathri Gant M.D., Ph.D. - 11/17/2023 Images from the original note were not included. AMENDED REPORT Thermoregulatory Sweat Test Age: 38 Location: [facility] Lab #: [id number] ARLEN VALLADARES Sex: F Order ID: [id number] Date: 11/16/2023 : 1985 Autonomic Alarm Security Or Surveillance Monitor: Gayathri Gant M.D. ([id number]) IMPRESSION: Normal thermoregulatory sweat test. Sweating in [...] documented as of this encounter Care Teams Input Output Clerk Relationship Specialty Start Date End Date None Reported, Pcp PCP - General Family Medicine 01/25/22 documented as of this encounter
--- OUTSIDE RECORDS SUMMARY | 2024-01-29 14:40 | XMS_ITS | Referral Summary ---
Author Organization [facility] Address [address] [place] [address] Care Team Providers Care Bottom Bleacher Name Role Phone None Reported, Pcp Primary Care Provider Unavail able Source Comments Patient records contain information from all sites at [facility]. For routine questions regarding patient records, call [phone] during business hours, M-F 8:00 AM - 5:00 PM Central Time. Record requests for emergency care only can be directed to [phone] at any time.[facility] Encounters Date Type Department Care Team Description 12/13/2023 11:00 AM CDT Telemedicine Division of General Internal Medicine in [place], [place] [address] [place] [address] Vero Calvillo M.D., M.S. Fibromyalgia (Primary Dx); Postural Orthostatic Tachycardia Syndrome; Post COVID-19 Condition; Autonomic Disorder; Neuropathy Fiber Small; Paresthesia; Hypermobility Syndrome 11/18/2023 7:23 AM CDT - 11/18/2023 11:59 PM CDT Hospital Encounter Department of Neurology in [place], [place] [address] [place] [phone] Vero Calvillo M.D., M.S. Paresthesia; Neuropathy Fiber Small; Autonomic Disorder Discharge Disposition: Home or Self Care 11/16/2023 1:36 PM CDT - 11/16/2023 11:59 PM CDT Hospital Encounter Department of Neurology in [place], [place] [address] [place] [phone] Vero Calvillo M.D., M.S. Paresthesia; Neuropathy Fiber Small; Autonomic Disorder Discharge Disposition: Home or Self Care 11/07/2023 Clinical Communication Division of General Internal Medicine in [place], [place] [address] [place] [address] Vero Calvillo M.D., M.S. Rx Denial (Duloxetine HCl 20MG caps) 11/03/2023 Orders Only Division of General Internal Medicine in [place], [place] [address] [place] [address] Vero Calvillo M.D., M.S. from Last 3 Months Allergies Active Allergy [...] Injectable 01/29/2010 SARS-COV-2 (COVID-19) - PFIZ ER [id number] (12 YEARS OR OLDER) 09/01/2023(Deferred: Patient Refused [...] may have 1 or 2 drink occasionally [facility] Utilities Answer Date Recorded In the past 12 months has th e [employer], gas, oil, or water company threatened to [...] often do you attend chur ch or caodaism services? 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 [address] [place] [phone] Akbar Conway M.D. [address] [place] [address] Procedures Procedure Name Priority Date/Time Associated Diagnosis Comments AUTONOMIC REFLEX SCREEN Routine 11/18/19 8:53 AM CDT Paresthesia Neuropathy Fiber Small Autonomic Disorder THERMOREGULATORY SWEAT TEST Routine 11/16/2023 3:28 PM CDT Paresthesia Neuropathy Fiber Small Autonomic Disorder from Last 3 Months Results * Autonomic reflex Screen (11/18/2023 8:53 AM CDT) 11/18/2023 7:45 AM CDT Narrative [facility] - 11/18/2023 12:41 PM CDT FINAL ? REPORT ? AUTONOMIC REFLEX SCREEN ? [phone] ? Age: 38 ?Location: [facility] ? Lab #: [id number] ARLEN VALLADARES ? Sex: F ? Order ID: [id number] ? Date: 11/18/2023 : 1985 Autonomic Pad Cutter: Wang Carrillo M.D. ([id number]) ?CONCLUSION There is evidence of distal postganglionic [...] to the Valsalva maneuver were normal. (B) Cpjd-vk-xpts blood pressure responses to the Valsalva maneuver [...] Distribution: ? Normal Hyperhidrosis: ?No Narrative NANI GUPTA AUTO - 11/17/2023 8:37 AM CDT Table formatting from the original result was not included. Images from the original result were not included. AMENDED ?REPORT ?Thermoregulatory Sweat Test ? [phone] ??Age: 38 ??Location: [facility] ??Lab #: [id number] ?? ARLEN VALLADRAES ??Sex: F ??Order ID: [id number] ?? Date: 11/16/2023 ?? : 1985 ?? Autonomic Pad Cutter: Gayathri Gant M.D. ([id number]) ? Procedure Note Gayathri Gant M.D., Ph.D. - 11/17/2023 Images from the original note were not included. AMENDED REPORT Thermoregulatory Sweat Test [phone] Age: 38 Location: [facility] #: [id number] ELDERARLEN TOLENTINO Reynold Sex: F Order ID: [id number] Date: 11/16/2023 : 1985 Autonomic Pad Cutter: Gayathri Gant M.D. ([id number]) IMPRESSION: Normal thermoregulatory sweat test. Sweating in purple shaded area RESULTS: Starting Oral Temp (??C): 36.7 Ending Oral Temp (??C): 38 Oral Temp Difference (??C): 1.3 % Anhidrosis: 0.3 Distribution: Normal Hyperhidrosis: No Vero Calvillo M.D., M.S. NEUROLOGY ORDERABLE S Edited Result - Final [facility] from Last [address] [facility] Care Teams Bottom Bleacher Relationship Specialty Start Date End Date None Reported, Pcp PCP - General Family Medicine 01/25/22
--- OUTSIDE RECORDS SUMMARY | 2024-01-29 14:40 | XMS_ITS | Encounter Summary ---
Author Organization [facility] Address [address] [place] [address] Care Team Providers Care Unit Control Worker Name Role Phone None Reported, Pcp Primary Care Provider Unavail able Encounter Details Date Type Department Care Team (Late st Contact Info) Description 11/03/2023 Orders Only Division of General Internal Medicine in [place], [place] [address] [place] [phone] Vero Calvillo M.D., M.S. [address] [place] [phone] Social History Tobacco Use Types Packs/Day Years Used Date Smoking Tobacco: Never Passive Smoke Exposure: Past Smokeless Tobacco: Never Comments:Smoked in high scho ol Passive Exposure Comments:childhood Alcohol Use Standard Drinks/Week Comments Yes 1 (1 standard drink = 0.6 oz pure alcohol) Rarely consume alcohol, may have 1 or 2 drink occasionally [facility] Utilities Answer Date Recorded In the past 12 months has [employer], gas, oil, or water [employer] threatened to shut off services in your [...] often do you attend chur ch or restorationism services? More than 4 times per year [...] Answer Date Recorded PHQ-2 Score 2 10/27/2023 [facility] - Occupational [...] your living situation today? I have a [facility] place to live 08/25/2023 Education Answer Date Recorded What is the highest level of school you have completed or the highest degree you have received? 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 [address] [place] [address] Akbar Conway M.D. [address] [place] [phone] documented as of this encounter Visit Diagnoses Not on filedocumented in this encounter Additional Health Concerns Assessment Noted Time PHQ-9 Depression Total Score: 5 10/27/19 24 10:53 PM CDT documented as of this encounter Care Teams Unit Control Worker Relationship Specialty Start Date End Date None Reported, Pcp PCP - General Family Medicine 01/25/22 documented as of this encounter
--- OUTSIDE RECORDS SUMMARY | 2024-01-29 14:40 | XMS_ITS ---
Author Organization [facility] Address [address] [place] [address] [address] [place] [address] Care Team Providers Care Jackspooler Name Role Phone Tono Mccoy Primary Care Provider Roberto Ellis Unavailable [phone] Luigi SOTO, PhD, Ricardo Unavailable Unavai lable REASON FOR VISIT * Local Bilateral L5-S1 TFEs w/ Steroid Other Than Kenalog Encounters Encounter Location Date Provider Diagnosis [address] [place] [address] 12/29/2023 Roberto Rebolledo Plan Of Treatment No Information Progress Notes * Arlen VALLADARESDOB:[birth year] (38 yo F)Acc No.[id number]:12/29/2023 Patient:?Arlen VALLADARES Provider:?Roberto Rebolledo M.D. :1985???Age:38 Y???Sex:Female D ate:12/29/2023 Phone: Address:[address] [phone] Pcp:Tono Mccoy * Billing Information: * Visit Code:? * Procedure Codes:? * Sign off status: Completed true * Provider:?Roberto Rebolledo M.D. Date:?0 12/29/2023 Generated for Printi ng/Faxing/eTransmitting on:?01/29/2024 02:40 PM CDT
--- OUTSIDE RECORDS SUMMARY | 2024-01-29 14:41 | XMS_ITS | Patient Health Record ---
Author Organization [facility] Address [address] [place] [address] [address] [place] [address] Care Team Providers Care Java Analyst Name Role Phone JuniorkaylaTono Primary Care Provider UnavailRoberto Stone Unavailable [phone] Luigi SOTO, PhD, Ricardo Unavailable Erin Landeros Unavailable [phone] Jeremy Jiménez Unavailable [phone] Allergies Allergen (clinical drug ingredient) Drug/Non Drug [...] ast year? No Points 0 Interpretation Negative Problems Problem Type SNOMED Code ICD Code Onset Dates Problem Status W/U Status Risk Notes Problem Chronic pain (97392769) Other chronic pain (G89.29) Active confirmed Problem Lumbosacral radiculopathy (6019254) Radiculopathy, lumbosacral region (M54.17) Active confirmed Vital Signs Blood pressure diastolic 81 mm Hg 12/29/2023 Height 5 ft 4 in in 12/29/2023 Blood pressure systolic 118 mm Hg 12/29/2023 Weight 148.8 lbs 12/29/2023 BMI 25.54 kg/m2 12/29/2023 Encounters Encounter Location Date Provider Diagnosis [facility] [address] [place] [address] [address] [place] [address] 08/22/2023 Roberto Rebolledo Other chronic pain G89.29 and Radiculopathy, lumbosacral region M54.17 [address] [facility] [address] [place] [address] 09/06/2023 Roberto Rebolledo Radiculopathy, lumbosacral region M54.17 [facility] [address] [place] [address] [address] [place] [address] 12/29/2023 Erin Hector Other chronic pain G89.29 and Radiculopathy, lumbosacral region M54.[address] [place] [address] [place] [address] 12/29/2023 Roberto Rebolledo [address] [place] [address] [place] [address] 12/29/2023 Roberto Rebolledo [facility] [address] [place] [address] [address] [address] 07/25/2023 Roberto Rebolledo [facility] [address] [place] [address] [address] [place] [address] 08/23/2023 Roberto Rebolledo [facility] [address] [place] [address] [address] [address] 08/29/2023 Roberto Rebolledo [facility] [address] [place] [address] [address] [address] 09/02/2023 Roberto Rebolledo [facility] [address] [place] [address] [address] [place] [address] 12/24/2023 Roberto Rebolledo Assessments Encounter Date Diagnosis (ICD Code) Assessment Notes Treatment Notes Treatment Clinical Notes 08/22/2023 Other chronic pain (ICD-10 - G89.29) Arlen presents to the clinic for an evaluation regarding her chronic low back pain. I have reviewed her symptoms and current medications. I checked the [facility] database and I did not find any [...] 09/06/2023 Radiculopathy, lumbosacral region (ICD-10 - M54.17) 12/29/2023 Other chronic pain (ICD-10 - G89.29) Arlen presents to the clinic for an evaluation regarding her chronic low back pain. I have reviewed her symptoms and current medications. I checked the [facility] database and I did not find any [...] lumbosacral region (ICD-10 - M54.17) 12/29/2023 Other I, Marline ruffin am serving as a scribe to document services personally performed by Erin Young NP, based upon my observations and the provider's statements to me. All documentation has been reviewed by the aforementioned CASE MANAGER SPECIALIST as well as Akbar Nance DO, prior to being entered into the official medical record. IAkbar DO attest that the above named individual is acting in scribe capacity, has observed Erin Young's performance of the services and has documented them in accordance with her direction. The documentation recorded by the scribe accurately reflects the service Erin Young NP, and Akbar Nance DO, personally performed and the decisions made by them. 08/16/2023 Other I, Miguel Matthews am serving as a scribe to document services personally performed by Jeremy Jiménez CNP, based upon my observations and the provider's statements to me. All documentation has been reviewed by the aforementioned SUPERVISOR PORCELAIN DEPARTMENT as well as Roberto Rebolledo MD, prior [...] Insured Coverage Start Date Coverage End Date [facility] Choice [address] [address] [place] [address] [id number] Sarah Valladares Spouse - patient is the spouse of the insured Medical (General) History Medical History History ICD Code Depression headaches Anxiety Neuropathic POTS Surgical History Surgery Date(Month/Year) Sinus surgery 11/2023 gall bladder 10/2005 L5-S1 microdiscectomy 06/2022 Hysterectomy 04/2019 Rectal botox 2021
[2024-01-29 15:01] LABS: Basophils Absolute Auto 0.02 K/uL (0.00-0.30); Basophils Percent Auto 0.3 % (0.0-3.0); Eosinophils Absolute Auto 0.01 K/uL (0.00-0.50); Eosinophils Percent Auto 0.2 % (0.0-7.0); Hematocrit 42.1 % (33.0-51.0); Hemoglobin* 13.9 gm/dL (12.0-16.0); Immature Granulocytes Abs Auto 0.01 K/uL (0.00-0.30); Immature Granulocytes Pct Auto 0.2 %; Lymphocytes Percent Auto 22.3 % (20-44); Mean Corpuscular HGB Conc 33 gm/dL (32-36); Mean Corpuscular Hemoglobin 31 pg (26-34); Mean Corpuscular Volume 94 fL (80-100); Monocytes Percent Auto 4.8 % (0.0-11.0); Neutrophils Percent Auto 72.2 % (42.0-72.0); Platelet Count* 234 K/uL (140-440); RDW Coefficient of Variation % 11.8 % (11.5-15.5); Red Blood Count 4.47 m/uL (4.00-5.20); White Blood Count* 6.27 K/uL (4.50-11.00)
[2024-01-29 15:03] LABS: Slide Review Reflex No
[2024-01-29 15:20] LABS: Chloride* 105 mmol/L (96-114); Potassium* 3.2 mmol/L (3.6-5.1); Sodium* 139 mmol/L (135-149)
[2024-01-29 15:23] LABS: Creatinine* 0.5 mg/dL (0.5-1.5); Est. Creatinine Clearance* 134.32; Estimated Glomerular Filt Rate 125 ml/min
[2024-01-29 15:24] LABS: Anion Gap 12 mEq/L (7-15); Blood Urea Nitrogen* 14 mg/dL (5-24); Calcium* 9.4 mg/dL (8.4-10.6); Carbon Dioxide* 22 mmol/L (20-32); Glucose* 104 mg/dL (60-115)
[2024-01-29 15:36] LABS: C Reactive Protein* < 0.5 mg/dL (0.5-1.0)
[2024-01-29 16:02] VITALS: BP 118/84; PULSE 92; RESP 16; TEMP 37; O2SAT 97
[2024-01-29 16:08] LABS: Thyroid Stimulating Hormone* 0.946 uIU/mL (0.270-4.20)
[2024-01-29 16:13] LABS: Vitamin B12* > 1000 pg/mL (243-894)
[2024-02-01 18:08] LABS: Acetychloline Blocking Antibod 18 % (0-26)
[2024-02-09 11:35] LABS: Muscle Specific Kinase Antibod <1:10
== END 2024-01-29 16:07 | disposition home or self-care (01) ==
PROVIDERS: Emergency Provider Emergency Medicine Emergency Medical Services; PCP Family Medicine
DX: R53.83 Other fatigue (principal); R20.2 Paresthesia of skin
CPT/HCPCS: 36415; 80048; 82607; 84443; 85025; 86041; 86042; 86140; 86256; 86366; 99284; A9270; J1100

== ENCOUNTER 2024-08-19 07:49 | Emergency (ER) | payer OTHER, SELFPAY ==
[2024-08-19] VITALS (19 sets, daily range): BP systolic 101–128; BP diastolic 63–90; PULSE 66–97; RESP 18–20; TEMP 36.7; O2SAT 94–100; BMI 24.7
--- OUTSIDE RECORDS SUMMARY | 2024-08-19 07:51 | XMS_ITS | Clinical Summary ---
Author Organization [facility] Address [address] [place] [id number] Care Team Providers Care Color Specialist Name Role Phone Jet Garcia MD Unavailable [phone] Tono Mccoy MD Primary Care Provider [phone] Allergies Active Allergy Reactions Criticality Noted Date Comments Banana Hives 01/11/2022 Cat Dander Hives 01/11/2022 Meperidine *Unknown 12/17/2015 Family history Latex Rash 03/09/2006 Penicillins Hives 12/17/2015 Oxycodone-Acetaminophen Itching,Other - Describe In Comment Field 12/17/2015 Blurry vision Medications HYDROcodone-acetam inophen (NORCO) 5-325 mg per tabletIndications: Herniated nucleus pulposus, L5-S1 Take 1-2 Tablets by mouth every 4 hours if needed for Pain. Max acetaminophen dose: 4000 mg in 24 hrs. 15 Tablet 3 3:17 PM CDT 07/09/19 23 Active dextroamphetamine- amphetamine (ADDERALL) 10 mg tablet TAKE 1 TABLET BY MOUTH TWICE DAILY AT LEAST 4 TO 6 HOURS APART NEEDED FOR CONCENTRATION 04/28/19 23 Active traMADoL (ULTRAM) 50 mg tablet TAKE 1 TABLET BY MOUTH THREE TIMES DAILY NEEDED FOR PAIN 05/20/19 23 Active ondansetron (ZOFRAN ODT) 4 mg disintegrating tablet DISSOLVE 1 TABLET ON THE TONGUE EVERY 8 HOURS NEEDED FOR NAUSEA OR VOMITING 05/20/19 23 Active gabapentin (NEURONTIN) 300 mg capsule Take 300 mg by mouth three times daily. Active LORazepam (ATIVAN) 1 mg tablet Take 1 mg by mouth 2 times daily if needed. Active MULTIVITAMIN ORAL Take 1 tablet. by mouth once daily. Active acetaminophen (TYLENOL) 325 mg tabletIndications: Herniated nucleus pulposus, L5-S1 Take 1-2 Tablets (325-650 mg) by mouth every 6 hours if needed for Pain (For mild pain.). Max acetaminophen dose: 4000mg in 24 hrs. 30 Tablet 3:17 PM CDT 07/09/19 Active polyethylene glycol-electrolyte (GOLYTELY) 236-22.74-6.74 -5.86 gram suspensionIndicati ons:Encounter for screening colonoscopy Drink 2 liters the day before the procedure and 2 liters 6 hours prior to procedure. 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 Not on file Not on file Not on file Obstetrics History Last Filed Vital Signs Vital Sign Reading Time Taken Comments Blood Pressure 118/78 11/17/2022 3:34 PM CDT Pulse 94 11/17/2022 3:34 PM CDT Temperature 36.4 C (97.6 F) 07/08/2022 2:10 PM CDT Respiratory Rate 14 07/08/2022 2:29 PM CDT [...] vaccine series ( season) 2023 12/24/2020 Influenza Vaccine (Season Ended) 2024 Pneumococcal series for age 6-49 Aged Out No longer eligible based on patient's age to complete this topic Procedures Procedure Name Priority Date/Time Associated Diagnosis Comments SCRUM PROJECT MANAGER THIN PREP PAP SCREEN IMAGED Routine 12/14/2018 12:00 PM CDT from Last 3 Months or Most Recently Relevant to Health Maintenance Results * SCRUM PROJECT MANAGER THIN PREP PAP SCREEN IMAGED (12/14/2018 12:00 PM CDT) Case Report Gynecologic Cytology Report Case: [id number] Authorizing Provider: Alexandra Perez MD Collected: 12/14/2018 1200 Ordering Location: [facility] Received: 12/19/2018 0916 First Screen: Renzo Arrington Specimen: SCRUM PROJECT MANAGER ThinPrep Vial Screening, Cervical/Vaginal 12/26/2018 1:00 PM CDT [facility] INTERPRETATION/ RESULT NEGATIVE FOR INTRAEPITHELIAL LESION OR MALIGNANCY (NIL) (none) 12/26/2018 1:00 PM CDT [facility] at 1300 CDT SPECIMEN ADEQUACY Satisfactory for evaluation Endocervical component present 12/26/2018 1:00 PM CDT [facility] HPV REQUEST HPV and PAP 12/26/2018 1:00 PM CDT [facility] Automated Review Successful 12/26/2018 1:00 PM CDT [facility] Comment:Specimen processed s uccessfully by automated wood repatcher device, ThinPrep Imaging System, [employer] ANCILLARY TESTING SCRUM PROJECT MANAGER HPV Ordered, Please see separate report 12/26/2018 1:00 PM CDT [facility] Note The pap test is a screening technique, not a diagnostic procedure. It is used primarily to screen for squamous cancers and precursor lesions. Published studies have shown that it is subject to both false negative and false positive results. The pap test should not be used as the sole means to diagnose or exclude pre-malignant and malignant lesions. Cytology is screened and interpreted at [facility] - [address], [place] [address] and [facility] - [address]; [place] [address] and [facility] - [address]; [place] [address] and [facility] [address]; [place] [address] 12/26/2018 1:00 PM CDT [facility] Other (Cervical/Vagina l) 12/14/2018 12:00 PM CDT 12/19/2018 9:16 AM CDT Alexandra Perez MD PATHOLOGY/CYTOLOGY Final Result [facility] [address] [place] [address], from Last 3 Months or Most Recently Relevant to Health Maintenance Advance Directives * Full Code (Latest Code Status on File) Date Activated Date Inactivated Comments 07/08/2022 12:24 PM 07/08/2022 5:48 PM Question Answer Comments Code Status Discussion: Per Existing Order Care Teams Color Specialist Relationship Specialty Start Date End Date Tono Mccoy MD [address] [place] [address] PCP - General Family Practice 06/29/22 Jet Garcia MD Family Practice 12/16/15
--- OUTSIDE RECORDS SUMMARY | 2024-08-19 07:51 | XMS_ITS ---
Author Organization [facility] Address [address] [place] [address] [address] [place] [address] Care Team Providers Care Technical Program Manager Name Role Phone Tono Mccoy Primary Care Provider Roberto Ellis Unavailable [phone] Luigi SOTO, PhD, Ricardo Unavailable Unavai lable Allergies Allergen (clinical drug ingredient) Drug/Non Drug Allergy documented on EMR Reaction Allergy Type Onset Date Status Latex Latex rash Allergy Active Penicillin hives Drug Allergy Active REASON FOR VISIT post op call Encounters Encounter Location Date Provider Diagnosis [facility] [address] [place] [address] [address] [facility] [place] [address] 07/27/2024 Roberto Rebolledo Plan Of Treatment No Information Progress Notes * Arlen VALLADARES MDOB:1984 (39 yo F)Acc No.[id number]:07/27/2024 Patient: Agus MARTINES Arlen Reynold :1985 A ge:39 Y S ex:Female Phone: Address:[facility] [place] [address] Subjective: * Chief Complaints: * P ost op call * Medical History: * Surgical History: * Hospitalization/Major Diagno stic Procedure: * Medications: * Allergies: L atex: rashPenicillin: hives - Allergy - Criticality High Objective: * Vitals: * Physical Examination: Assessment: Plan: * Treatment: * Procedure Codes: * true * Date: Generated for Printi ng/Faxing/eTransmitting on: 0 08/19/2024 07:51 AM CDT
--- OUTSIDE RECORDS SUMMARY | 2024-08-19 07:51 | XMS_ITS ---
Author Organization [facility] Address [address] [place] [address] [address] [place] [address] Care Team Providers Care Municipal Maintenance Worker Name Role Phone Tono Mccoy Primary Care Provider UnavailRoberto Stone Unavailable [phone] Luigi SOTO, PhD, Ricardo Unavailable Jeremy Singh Unavailable [phone] Allergies Allergen (clinical drug ingredient) Drug/Non Drug Allergy documented on EMR Reaction Allergy Type Onset Date Status Latex Latex rash Allergy Active REASON FOR VISIT Low Back Pain Medications Medication SIG (Take, Route, Frequency, Duration) Notes Start Date End Date Status Meloxicam 15 MG 1 tablet Orally Once a day Active Zepbound 2.5 MG/0.5ML 0.5 mL Subcutaneous once a week (2MG) Active Lyrica 50 MG 1 capsule Orally twi ce daily for 30 days 07/27/2024 Active Cyclobenzaprine HCl 5 MG 1-2 tablet as n eeded Orally Once a day for 30 days Active Diclofenac Sodium 75 MG 1 [...] Problem Status W/U Status Risk Notes Problem Low back pain (311051309) Low back pain, unspecified (M54.50) Active confirmed Vital Signs Blood pressure systolic 118 mm Hg 07/28/19 25 Blood pressure diastolic 76 mm Hg 025 Height 64 in 07/27/2024 Weight 152.6 lbs 07/27/2024 BMI 26.19 kg/m2 07/27/2024 Procedures Procedure Date Ordered Date Performed Result Body Sit e Intervention: 07/27/2024 07/27/2024 Scheduled 07/27 Encounters Encounter Location Date Provider Diagnosis [facility] [address] [facility] [address] [place] [address] 07/27/2024 Jeremy Jiménez Other chronic pain G89.29 ; Radiculopathy, lumbosacral region M54.17 and Low back pain, unspecified M54.50 Assessments Encounter Date Diagnosis (ICD Code) Assessment Notes Treatment Notes Treatment Clinical Notes Section Notes 07/27/2024 Other chronic pain (ICD-10 - G89.29) Arlen returns to clinic today for a follow up evaluation regarding her chronic pain. We discussed her current symptoms and medications. She is requesting to repeat bilateral L5-S1 TFE. Given previous relief, I believe she is a good candidate. Regarding medications, I have reviewed the [facility] database and did not find any inconsistencies. I will refill her Lyrica as it continues to provide relief without side effects. This treatment plan was reviewed with Arlen, and she was agreeable. I will continue to monitor her progress and she will follow up as needed. Plan: 1. Order repeat bilateral L5-S1 TFE with Depo 2. Refill Lyrica 3. Follow up as needed Discharge instructions reviewed verbally. Discussed the risks/benefits of prescribed medication. The patient was instructed to return to the office as scheduled and call with any questions, problems or concerns. 07/27/2024 Radiculopathy, lumbosacral region (ICD-10 - M54.17) 07/27/2024 Low back pain, unspecified (ICD-10 - M54.50) 07/27/2024 Other Tania, Gera Gorman , am serving as a scribe to document services personally performed by Jeremy Jiménez CNP, based upon my observations and the provider's statements to me. All documentation has been reviewed by the aforementioned COUNTER HOP as well as Noel Robles MD, prior to being entered into the official medical record. I, Noel Robles MD attest that the above named individual is acting in scribe capacity, has observed Jeremy Jiménez's performance of the services and has documented them in accordance with her direction. The documentation recorded by the scribe accurately reflects the service Jeremy Jiménez CNP and Noel Robles MD personally performed and the decisions made by them. Plan Of Treatment Medication Medication Name Sig Start Date Stop Date Notes Lyrica 50 MG 1 capsule Orally twi ce daily for 30 days 07/27/2024 Cyclobenzaprine HCl 5 MG 1-2 tablet as n eeded Orally Once a day for 30 days Diclofenac Sodium 75 MG 1 tablet with fo od or milk Orally Twice a day for 30 days Treatment Notes Assessment Notes Other chronic pain Arlen returns to clinic today for a follow up evaluation regarding her chronic pain. We discussed her current symptoms and medications. She is requesting to repeat bilateral L5-S1 TFE. Given previous relief, I believe she is a good candidate. Regarding medications, I have reviewed the [place] [employer] database and did not find any inconsistencies. I will refill her Lyrica as it continues to provide relief without side effects. This treatment plan was reviewed with Arlen, and she was agreeable. I will continue to monitor her progress and she will follow up as needed. Plan: 1. Order repeat bilateral L5-S1 TFE with Depo 2. Refill Lyrica 3. Follow up as needed Discharge instructions reviewed verbally. Discussed the risks/benefits of prescribed medication. The patient was instructed to return to the office as scheduled and call with any questions, problems or concerns. Other I, Gera Gorman, am serving as a scribe to document services personally performed by Jeremy Jiménez CNP, based upon my observations and the provider's statements to me. All documentation has been reviewed by the aforementioned AR as well as Noel Robles MD, prior to being entered into the official medical record. I, Noel Robles MD attest that the above named individual is acting in scribe capacity, has observed Jeremy Jiménez's performance of the services and has documented them in accordance with her direction. The documentation recorded by the scribe accurately reflects the service Jeremy Jiménez CNP and Noel Robles MD personally performed and the decisions made by them. Next Appt Details Follow Up: prn, Reason: Procedure Notes * Category Sub-Category Detail Notes JAYLEN Repeat M Repeat JAYLEN Indications Repeat ES I within 12 months of last JAYLEN?:: Yes Patient Diagnosis:: Radiculopathy, Radicular Pain, Post-Laminectomy Syndrome Date of last JAYLEN to this region:: 12/29/2023 How many ESIs to this region were performed in the last 12 months:: 4 including this order Supporting imaging findings:: Additional details: L5-S1: Moderate disc degeneration with right laminotomy and improving previous posterior disc contour abnormality. No significant spinal canal and minimal foraminal narrowing evident. There is no neural compromise. Minimal right facet joint overgrowth. Clinical Severity: recurrence of pain impacts quality of life, recurrence of pain impacts function Did the last JAYLEN provide at least 50% relief of pain or function for 3 or more months?: Yes Baseline Scale Used:: VAS Have repeat ESIs continued f or more than 12 months?: No Progress Notes * Arlen VALLADARES MDOB:1984 (39 yo F)Acc No.[id number]:07/27/2024 Progress Notes Patient: Arlen KUMAR Provider: Bertrand Jiménez NP :1985 A ge:39 Y S ex:Female Date:07/27/2024 Phone: [facility] [id number] Pcp:Tono Mccoy Subjective: * Chief Complaints: * L ow Back Pain * HPI: C linic visit: Arlen returns regarding chronic low back pain. She previously had bilateral lower extremity pain which resolved with injection. She is not a candidate for further surgery per Dr. Meyers of [facility]. Intracept has been denied. Procedure history includes: - 05/17/2024 Bilateral L4-S1 MBBs: failed - 04/19/2024 Bilateral S1 TFE with Kenalog: (95% relief in lower extremities) - 12/29/2023 bilateral L5-S1 TFE with Depo: (80-90% relief for 2-3 months with improvements in walking and ADLs) - 09/06/2023 bilateral L5-S1 TFE with Kenalog: (90% relief for 6 weeks, 50-90% relief for 3 months) - 06/2022 L5-S1 microdiscectomy with Dr. Ricardo Meyers (right leg numbness resolved after surgery) Previous Therapy: PT was completed at [facility] from 04/2023 to 07/2023. She does have a HEP. Alternative therapies have included chiropractic and acupuncture. Previous Pain Medications: OTC NSAIDs, Meloxicam, Lyrica, oral s teroids. P QRS MEASURE: 154,155 Fall Risk H ave you had two or more falls in the past year? N o, H ave you had any falls with injury in the past year? N o, P dana of Care: D ocumented. D epression Screening: PHQ-9 L ittle interest or pleasure in doing things S everal days, F eeling down, depressed, or hopeless N ot at all, T rouble falling or staying asleep, or sleeping too much S everal days, F eeling tired or having little energy S everal days, P oor appetite or overeating N ot at all, F eeling bad about yourself or that you are a failure, or have let yourself or your family down N ot at all, T rouble concentrating on things, such as reading the newspaper or watching television N ot at all, M oving or speaking so slowly that other people could have noticed; or the opposite, being so fidgety or restless that you have been moving around a lot more than usual N ot at all, T houghts that you would be better off or of hurting yourself in some way N ot at all, T otal Score 3 , I nterpretation M inimal Depression. I ntervention D epression Screening Findings?Negative, N marek of the standardized tool used for adult depression screening: P atient Health Questionnaire (PHQ-9). * ROS: G eneral/Constitutional: Chills/Fevers N o. F atigue Y es. W eight gain?No. W eight loss Y es. E ndocrine: Dizziness N o. E xcessive sweating N o. W eakness Y es. R espiratory: Chest pain N o. C ough N o. S hortness of breath at rest N o. G astrointestinal: Abdominal pain N o. B lood in stool N o. C onstipation N o. D iarrhea N o. H ematology: Easy bruising N o. P rolonged bleeding N o. S wollen glands N o. M usculoskeletal: Painful joints Y es. S wollen joints N o. ? S kin: Skin lesion(s) N o. N eurologic: Balance difficulty N o. H eadache Y es. T ingling/Numbness N o. P sychiatric: Alcoholism N o. A nxiety Y es. S ubstance abuse?No. * Medical History: * Surgical History: L 5-S1 microdiscectomy 06/2022Rectal botox 2021Hysterectomy 04/2019gall bladder 10/2005Sinus surgery 11/2023 * Hospitalization/Major Diagno stic Procedure: S urgical reasons * Family History: F ather: alive. M other: alive, diagnosed with Unspecified nonpsychotic mental disorder following organic brain damage, Unspecified essential hypertension. * Social History: T obacco Use: T obacco Control (Standard) T obacco use: N onsmoker, Dileep dditional Findings: Tobacco non-user C urrent nonsmoker. M iscellaneous: M arital status: . D rug/Alcohol: A ANDRE-C (Standard) D id you have a drink containing alcohol in the past year? N o,?Points 0 , I nterpretation N egative. * Medications: T akingZepbound 2.5 MG/0.5ML Solution Auto-injector 0.5 mL Subcutaneous once a week (2MG)Diclofenac Sodium 75 MG Tablet Delayed Release 1 tablet with food or milk Orally Twice a day Cyclobenzaprine HCl 5 MG Tablet 1-2 tablet as needed Orally Once a day Lyrica 50 MG Capsule 1 capsule Orally twice daily Meloxicam 15 MG Tablet 1 tablet Orally Once a day Medication List reviewed and reconciled with the patientTaking Zepbound 2.5 MG/0.5ML Solution Auto-injector 0.5 mL Subcutaneous once a week (2MG)Taking Diclofenac Sodium 75 MG Tablet Delayed Release 1 tablet with food or milk Orally Twice a day Taking Cyclobenzaprine HCl 5 MG Tablet 1-2 tablet as needed Orally Once a day Taking Lyrica 50 MG Capsule 1 capsule Orally twice daily Taking Meloxicam 15 MG Tablet 1 tablet Orally Once a day Medication List reviewed and reconciled with the patient * Allergies: L atex: rashno[Allergies Verified] Objective: * Vitals: H t: 64 in, Wt:152.6lbs, BMI:26.19, BP:118/76mm Hg, VAS-Today:41-10, VAS-Av 1- 10, VAS-High: 8 1-10. * Examination: M usculoskeletal: Constitutional: O verweight body habitus, well groomed, in no acute distress. Musculoskeletal: s its comfortably. Skin: N o rashes, scars, or lesions on visible skin.. Neurological n ormal coordination upper extremities, normal coordination lower extremities, alert and oriented x3, normal mood and affect. ? Assessment: * Assessment: 1. O ther chronic pain - G89.29 2 . R adiculopathy, lumbosacral region - M54.17 (Primary) 3 . L ow back pain, unspecified - M54.50 Plan: * Treatment: 2.?Other chronic pain? Continue Diclofenac Sodium Tablet Delayed Release, 75 MG, 1 tablet with food or milk, Orally, Twicea day, 30 days, 60 Tablet, Refills 0;?Continue Cyclobenzaprine HCl Tablet, 5 MG, 1-2 tablet asneeded, Orally, Once a day, 30 days, 60, Refills 3;?Refill Lyrica Capsule, 50 MG, 1 capsule, Orally, twice daily, 30 days, 60, Refills 5.?? Notes: Arlen returns to clinic today for a follow up evaluation regarding her chronic pain. We discussed her current symptoms and medications. She is requesting to repeat bilateral L5-S1 TFE. Given previous relief, I believe she is a good candidate.Regarding medications, I have reviewed the [place] [employer] database and did not find any inconsistencies. I will refill her Lyrica as it continues to provide relief without side effects.This treatment plan was reviewed with Arlen, and she was agreeable. I will continue to monitor her zee cheatham and she will follow up as needed. Plan: 1. Order repeat bilateral L5-S1 TFE with Depo 2. Refill Lyrica 3. Follow up as needed Discharge instructions reviewed verbally. Discussed the risks/benefits of prescribed medication.The patient was instructed to return to the office as scheduled and call with any questions, problems or concerns.??3.?Others? Notes: I, Gera Gorman, am serving as a scribe to document services personally performed by Jeremy Jiménez CNP, based upon my observations and the provider's statements to me. All documentation has been reviewed by the aforementioned COUNTER HOP as well as Noel Robles MD, prior to being entered into the official medical record. I, Noel Robles MD attest that the above named individual is acting in scribe capacity, has observed Jeremy Jiménez's performance of the services and has documented them in accordance with her direction. The documentation recorded by the scribe accurately reflects the serviceJeremy Jiménez CNP and Noel Robles MD personally performed and the decisions made by them.? * Procedures: E SI Repeat M: Repeat JAYLEN Indications R epeat JAYLEN within 12 months of last JAYLEN?: Y es, P atient Diagnosis: R adiculopathy, Radicular Pain, Post-Laminectomy Syndrome, D ate of last JAYLEN to this region: 0 12/29/2023, H ow many ESIs to this region were performed in the last 12 months: 4 including this order, S upporting imaging findings: A dditional details: L5-S1: Moderate disc degeneration with right laminotomy and improving previousposterior disc contour abnormality. No significant spinal canal and minimalforaminal narrowing evident. There is no neural compromise. Minimal rightfacet joint overgrowth., C linical Severity r ecurrence of pain impacts quality of life, recurrence of pain impacts function, D id the last JAYLEN provide at least 50% relief of pain or function for 3 or more months? Y es, B aseline Scale Used: V , H ave repeat ESIs continued for more than 12 months? N o. * Procedure Codes: * Preventive Medicine: iSpine Inventory Forms: L ow Back Oswestry O swestry Score (0-100) 4 8,?SELENA Interpretation 4 0-59 (Severe Disability). Counseling: B CT Care goal follow-up plan: A michell Normal BMI Follow-up L ifestyle education regarding diet Patient declined. * Follow Up: p rn * Billing Information: * Visit Code: [id number] Established Patient level 4. * Procedure Codes: * Sign off status: Completed true * Provider: Bertrand Jmiénez NP Date: 0 07/27/2024 Generated for Abdelrahman harris/Renetta/eTransmitting on: 0 08/19/2024 07:51 AM CDT History and Physical Notes * HPI (History of Present Illness) Category Sub-Category Detail Notes Category Not es Depression Screening PHQ-9 Little inte rest or pleasure in doing things: Several days Feeling down, depressed, or hopeless: No t at all Trouble falling or staying asleep, or sl eeping too much: Several days Feeling tired or having little energy: S everal days Poor appetite or overeating: Not at all Feeling bad about yourself o r that you are a failure, or have let yourself or your family down: Not at all Trouble concentrating on thi ngs, such as reading the newspaper or watching television: Not at all Moving or speaking so slowly that other people could have noticed; or the opposite, being so fidgety or restless that you have been moving around a lot more than usual: Not at all Thoughts that you would be b naida off or of hurting yourself in some way: Not at all Total Score: 3 Interpretation: Minimal Depression Intervention Depression Screening Findings: N egative Name of the standardized too l used for adult depression screening:: Patient Health Questionnaire (PHQ-9) PQRS MEASURE 154,155 Fall Risk Have you had t wo or more falls in the past year?: No Have you had any falls with injury in th e past year?: No Plan of Care:: Documented Examination Category Sub-Category Detail Notes Category Not es Musculoskeletal Constitutional: Overweight body habitus, well groomed, in no acute distress Musculoskeletal: sits comfortably Skin: No rashes, scars, or lesions on visible skin. Neurological normal coordination upper extremities, normal coordination lower extremities, alert and oriented x3, normal mood and affect
--- OUTSIDE RECORDS SUMMARY | 2024-08-19 07:52 | XMS_ITS | Clinical Summary ---
Author Organization [facility] Address [address] [place] [address] Care Team Providers Care Steel Shot Header Operator Name Role Phone None Reported, Pcp Primary Care Provider Unavail able Source Comments Patient records contain information from all sites at [facility]. For routine questions regarding patient records, call [phone] during business hours, M-F 8:00 AM - 5:00 PM Central Time. Record requests for emergency care only can be directed to [phone] at any time.[facility] Allergies Active Allergy Reactions Criticality Noted Date Comments Banana Hives (Reselect Reaction) Medium 01/11/2022 Cat Dander Hives (Reselect Reaction) Medium 01/11/2022 Latex Rash Low 03/09/2006 Meperidine Other (see comments) Low 12/17/2015 Family history Oxycodone Other (see comments) High 12/09/2023 Oxycodone-Acetaminophen Itching Low 12/17/2015 Penicillins Hives (Reselect Reaction) Low 03/24/2014 Medications * This document contains information received from the source organization and may not represent a complete record from that organization. ascorbic acid/collagen hydr (COLLAGEN SKIN RENEWAL ORAL) Take 2 Scoops by mouth daily. Active LORazepam (Ativan) 0.5 mg tablet Take 1 tablet by mouth 2 (two) times a day. 4 Active ondansetron ODT (Zofran-ODT) 4 mg disintegrating tablet Dissolve 1 tablet (4 mg total) in the mouth every 8 (eight) hours as needed for nausea or vomiting. 27 tablet 4 Active cyclobenzaprine (FlexeriL) 5 mg tablet TAKE 1 TO 2 TABLETS BY MOUTH DAILY NEEDED 5 Active pregabalin (Lyrica) 50 mg capsule Take 1 capsule by mouth daily. 5 Active Active Problems Problem Noted Date Diagnosed [...] 09/01/2023 09/01/2023 Migraine Headache 01/24/2022 09/01/2023 Immunizations Immunization Administration Dates Next Due HepB, Unspecified 09/01/2023(Deferred: Patient decision - Pt. will receive later locally.) Influenza, Injectable, Mdck, Preservative Free, Quadrivalent 09/01/2023(Deferred: Patient Refused - pt. will receive next season.) Influenza, Injectable, Quadrivalent 04/07/2019 Influenza, Seasonal, Injectable 01/29/2010 SARS-COV-2 (COVID-19) - PFIZ ER Fall Seasonal (12 YEARS OR OLDER) 09/01/2023(Deferred: Patient Refused [...] polyps Mother Alanna Elvira Depression Mother Alanna Rodriguezjoyce Fibromyalgia Mother Alanna Rodriguezjoyce ADD / ADHD Son 1 Lavelle Anxiety disorder Son 1 Lavelle Asthma Son 1 Lavelle Asthma - currently dormant Son 2 Santhosh Relation Name Status Comments Daughter 1 Conchita Alive Daughter 2 Sandi Alive Father no known info Alive Half-Brother x2 Alive Half-Sister x3 Alive Maternal Grandfather Alive Maternal Grandmother Alive Mother Alanna [place] Alive Paternal Grandfather no known info Alive Paternal Grandmother no known info Alive Son 1 Lavelle Alive Son 2 [place] Alive Social History Tobacco Use Types Packs/Day Years Used Date Smoking Tobacco: Never Passive Smoke Exposure: Past Smokeless Tobacco: Never Comments:Smoked in high scho ol Passive Exposure Comments:childhood Alcohol Use Standard Drinks/Week Comments Yes 1 (1 standard drink = 0.6 oz pure alcohol) Rarely consume alcohol, may have 1 or 2 drink occasionally [facility] Utilities Answer Date Recorded In the past 12 months has th e electric, gas, oil, or water company threatened to [...] Answer Date Recorded PHQ-2 Score 2 10/27/2023 [facility]ational Stress Questionnaire Answer Date Recorded [...] PM CDT Legal Sex Female 4:53 PM EMERGENCY MEDICINE SPECIALIST Gender Identity Female 11/21/2021 11:33 PM CDT Sexual Orientation Straight 11/21/2021 11 :33 PM CDT Last Filed Vital Signs Vital Sign Reading Time Taken Comments Blood Pressure 135/84 05/14/2024 9:22 AM EMERGENCY MEDICINE SPECIALIST Pulse 81 05/14/2024 9:22 AM EMERGENCY MEDICINE SPECIALIST Temperature 35.9 C (96.6 F) 03/07/2024 2:52 PM EMERGENCY MEDICINE SPECIALIST Respiratory Rate 18 01/24/2022 10:18 PM CDT Oxygen Saturation 99% 05/14/2024 9:22 AM EMERGENCY MEDICINE SPECIALIST Inhaled Oxygen Concentration - - Weight 69.9 kg (154 lb 1.6 oz) 05/14/2024 9:22 A M EMERGENCY MEDICINE SPECIALIST Height 164.4 cm (5' 4.72) 05/14/2024 9:22 AM CS T Body Mass Index 25.86 05/14/2024 9:22 AM EMERGENCY MEDICINE SPECIALIST Plan of Treatment Health Maintenance Due Date Last Done Comments HIV Screening 1985 Hepatitis C Screening 1985 Lipid (Cholesterol) Screening 1985 Hepatitis B Vaccines (1 of 3 - 19+ 3-dose series) 2006 COVID-19 Vaccine (2 - season) 2023 12/24/2020 Influenza Vaccine (#1) 2024 9, 01/17/2018, 01/28/2017, Additional history exists Depression Screening (Annual PHQ-2) 04/18/2024 DTaP,Tdap,and Td Vaccines (4 - Td or Tdap) 02/02/2026 02/03/2016, 02/05/2014, 01/30/2013 Cervical/Vaginal Cancer Screening Discontinued 12/14/2018 HPV Vaccines Aged Out No longer eligi ble based on patient's age to complete this topic IPV Vaccines Aged Out No longer eligi ble based on patient's age to complete this topic Pneumococcal vaccine (0-49 years) Aged Out No longer eligible based on patient's age to complete this topic Insurance [facility] Care Teams Steel Shot Header Operator Relationship Specialty Start Date End Date None Reported, Pcp PCP - General Family Medicine 01/25/22
--- OUTSIDE RECORDS SUMMARY | 2024-08-19 07:52 | XMS_ITS ---
Author Organization [facility] Address [address] [place] [address] [address] [place] [address] Care Team Providers Care Skein Yard Drier Name Role Phone Tono Mccoy Primary Care Provider UnavailRoberto Stone Unavailable [phone] Luigi SOTO, PhD, Ricardo Unavailable Noel Cuellar Unavailable [phone] REASON FOR VISIT * Local * Repeat Bilateral L5-S1 TFEs w/ Depo Encounters Encounter Location Date Provider Diagnosis [address] [facility] [address] [place] [address] 07/27/2024 Noel Robles Radiculopathy, lumbosacral region M54.17 Assessments Encounter Date Diagnosis (ICD Code) Assessment Notes Treatment Notes Treatment Clinical Notes Section Notes 07/27/2024 Radiculopathy, lumbosacral region (ICD-10 - M54.17) Plan Of Treatment No Information Progress Notes * Arlen VALLADARES MDOB:1984 (39 yo F)Acc No.[id number]:07/27/2024 Patient: Arlen KUMAR Provider: Bertrand oRbles M.D. :1985 A ge:39 Y S ex:Female Date:07/27/2024 Phone: Address:[address] [phone] Pcp:Tono Mccoy * Billing Information: * Visit Code: * Procedure Codes: 61905 Transforaminal L or S single. Modifiers: 50 A4209 5 cc - 19 cc gauge syringe. A4930 Gloves, size 8. Units: 2.00. A4215 [place] only Sterile any size each. Units: 2.00. A4550 Spinal Support Tray. Q9967 Omnipaque 300 mgl/mL. Units: 3.00. J0665 Inj, bupivacaine, nos, 0.5mg. J1010 Inj, methylpred acetate 1 mg. Units: 80.00. * Sign off status: Completed true * Provider: Bertrand Robles M.D. Date: 0 07/27/2024 Generated for Abdelrahman harris/Renetta/Elvinitting on: 0 08/19/2024 07:52 AM CDT
--- OUTSIDE RECORDS SUMMARY | 2024-08-19 07:52 | XMS_ITS | Patient Health Record ---
Author Organization [facility] Address [address] [place] [address] [address] [place] [address] Care Team Providers Care Chimney Repairer Name Role Phone Tono Mccoy Primary Care Provider UnavailRoberto Stone Unavailable [phone] Luigi SOTO, PhD, Ricardo Unavailable Noel Cuellar Unavailable [phone] Jason Page Unavailable [phone] Erin Young Unavailable [phone] Jeremy Jiménez Unavailable [phone] Allergies Allergen (clinical drug ingredient) Drug/Non Drug Allergy documented on EMR Reaction Allergy Type Onset Date Status Latex Latex rash Allergy Active Penicillin hives Drug Allergy Active Results Component Value Reference Range Notes MRI : Lumbar Reviewed date:06/04/2024 09:34:09 PM Interpretation: Performing Lab: Notes/Report: Original Report EXAM: MRI LUMBAR SPINE WITHOUT CONTRAST CLINICAL INFORMATION: Persistent low back pain TECHNICAL INFORMATION: 1. Sagittal, coronal and axial T1. 2. Sagittal and axial T2. 3. Sagittal STIR. SEDATION: None. COMPARISON: Postoperative lumbar spine MRI 04/12/2023 INTERPRETATION: Segmentation, alignment and osseous structures: Maintained normal lordotic curvature, vertebral body heights diminished type I discogenic endplate edema at L5-S1. Stable mild L5-S1 retrolisthesis without other segmental subluxations. Remainder of endplates intact, marrow signal unremarkable. Sacrum and sacroiliac joints: Included sacrum intact and superior sacroiliac joints unremarkable. L5-S1: Moderate disc degeneration with right laminotomy and improving previous posterior disc contour abnormality. No significant spinal canal and minimal foraminal narrowing evident. There is no neural compromise. Minimal right facet joint overgrowth. L4-5: Stable mild disc degeneration with 3 x 5 mm caudally dissecting broad disc extrusion indenting the thecal sac. No transiting nerve root compression, and neural foramina adequately patent. Facet joints maintain normal alignment and show no significant degeneration. L3-4 through T11-12: Disc height and hydration preserved. No disc contour abnormality, spinal canal or foraminal stenosis identified. Facet joints are normal. Neurological structures: Conus maintains normal caliber and intrinsic signal. Termination is at L1. No spinal canal collections or masses. Cauda equina nerve roots thickness and distribution normal, no adhesive arachnoiditis. Paraspinous soft tissues: Unremarkable. CONCLUSION: 1. Stable 3 x 5 mm L4-5 disc extrusion without significant stenosis or neural impingement. 2. Improved L5-S1 posterior disc contour abnormality and discogenic endplate edema. No recurrent disc protrusion or neural impingement. Read by: Hayder Whalen M.D. Reviewed and Electronically Signed by: Hayder Whalen M.D. - Original Report EXAM: MRI LUMBAR SPI NE WITHOUT CONTRAST CLINICAL INFORMATION : Persistent low back pain TECHNICAL INFORMATION: 1. Sagittal, coronal and axial T1. 2. Sagittal and axial T2. 3. Sagittal STIR. SEDATION: None. COMPARISON: Postoper ative lumbar spine MRI 04/12/2023 INTERPRETATION: Segmentation, alignm ent and osseous structures: Maintained normal lordotic curvature, vertebral body heights diminished type I discogenic endplate edema at L5-S1. Stable mild L 5-S1 retrolisthesis without other segmental subluxations. Remainder of endplat es intact, marrow signal unremarkable. Sacrum and sacroilia c joints: Included sacrum intact and superior sacroiliac joints unremarkable. L5-S1: Moderate disc degeneration with right laminotomy and improving previous posterior disc conto ur abnormality. No significant spinal canal and minimal foraminal narrowing evident. There is no neural compromise. Minimal right facet joint overgrowth. L4-5: Stable mild di sc degeneration with 3 x 5 mm caudally dissecting broad disc extrusion inden ting the thecal sac. No transiting nerve root compression, and neural foramina adequately patent. Facet joints maintain normal alignment and show no signific ant degeneration. L3-4 through T11-12: Disc height and hydration preserved. No disc contour abnormality, spinal canal or foraminal stenosis identified. Facet joints are normal. Neurological structu res: Conus maintains normal caliber and intrinsic signal. Termination is at L1 . No spinal canal collections or masses. Cauda equina nerve roots thicknes s and distribution normal, no adhesive arachnoiditis. Paraspinous soft tis sues: Unremarkable. CONCLUSION: 1. Stable 3 x 5 mm L 4-5 disc extrusion without significant stenosis or neural impingement. 2. Improved L5-S1 po sterior disc contour abnormality and discogenic endplate edema. No recurrent disc protrusion or neural impingement. Read by: Hayder Whalen M.D. Reviewed and Electro nically Signed by: Hayder Whalen M.D. Reason For Referral No Information Medications Medication SIG (Take, Route, Frequency, Duration) [...] W/U Status Risk Notes Problem Chronic pain (55650909) Other chronic pain (G89.29) Active confirmed Problem Lumbosacral spondylosis without myelopathy (disorder) (41969191) Spondylosis without myelopathy or radiculopathy, lumbosacral region (M47.817) Active confirmed Problem Lumbosacral radiculopathy (2771113) Radiculopathy, lumbosacral region (M54.17) Active confirmed Problem Low back pain (134611821) Low back pain, unspecified (M54.50) Active confirmed Problem Vertebrogenic low back pain ([id number] 01) Vertebrogenic low back pain (M54.51) Active confirmed Vital Signs Blood pressure diastolic 76 mm Hg 07/27/2024 Height 64 in 07/27/2024 Blood pressure systolic 118 mm Hg 07/27/2024 Weight 152.6 lbs 07/27/2024 BMI 26.19 kg/m2 07/27/2024 Encounters Encounter Location Date Provider Diagnosis [facility] [address] [place] [address] [address] [place] [address] 08/23/2023 Roberto Rebolledo [facility] [address] [place] [address] [address] [place] [address] 08/29/2023 Roberto Rebolledo [facility] [address] [place] [address] [address] [place] [address] 09/02/[address] [place] [address] [place] [address] 03/16/2024 Roberto Rebolledo [facility] [address] [place] [address] [address] [place] [address] 04/19/2024 Roberto Rebolledo [facility] [address] [place] [address] [address] [place] [address] 04/25/2024 Roberto Rebolledo [facility] [address] [place] [address] [address] [place] [address] 05/02/2024 Jason Page Other chronic pain G89.29 [facility] [address] [place] [address] [address] [place] [address] 05/04/2024 Jason Page [facility] [address] [place] [address] [address] [place] [address] 05/14/2024 Roberto Rebolledo [facility] [address] [place] [address] [address] [place] [address] 06/18/2024 Roberto Rebolledo [facility] [address] [place] [address] 07/27/2024 Roberto Rebolledo [facility] [address] [place] [address] 12/24/2023 Roberto Rebolledo [facility] [address] [place] [address] 08/22/2023 Roberto Rebolledo Other chronic pain G89.29 and Radiculopathy, lumbosacral region M54.17 [facility] [address] [place] [address] 12/29/2023 Erin Young Other chronic pain G89.29 and Radiculopathy, lumbosacral region M54.17 [address] [facility] [address] [place] [address] 04/19/2024 Jason Page Low back pain, unspecified M54.50 ; Radiculopathy, lumbosacral region M54.17 ; Vertebrogenic low back pain M54.51 and Other chronic pain G89.29 [address] [facility] [address] [place] [address] 05/04/2024 Jasonandrea Page Other chronic pain G89.29 and Spondylosis without myelopathy or radiculopathy, lumbosacral region M47.817 [address] [facility] [address] [facility] [address] [place] [address] 06/14/2024 Jasonandrea Page Other chronic pain G89.29 and Vertebrogenic low back pain M54.51 [address] [facility] [address] [place] [address] 07/27/2024 Jeremy Jiménez Other chronic pain G89.29 ; Radiculopathy, lumbosacral region M54.17 and Low back pain, unspecified M54.50 [address] [facility] [address] [place] [address] 07/27/2024 Noel Robles Radiculopathy, lumbosacral region M54.17 [address] [facility] [address] [place] [address] 05/17/2024 Noel Robles Spondylosis without myelopathy or radiculopathy, lumbosacral region M47.817 [address] [facility] [address] [place] [address] 04/19/2024 Noel Robles Radiculopathy, lumbosacral region M54.[address] [place] [address] 12/29/2023 Roberto Rebolledo [address] [facility] [address] [place] [address] 09/06/2023 Roberto Rebolledo Radiculopathy, lumbosacral region M54.[address] [place] [address] 12/29/2023 Roberto Rebolledo Assessments Encounter Date Diagnosis (ICD Code) Assessment Notes Treatment Notes Treatment Clinical Notes Section Notes 05/17/2024 Spondylosis without myelopathy or radiculopathy, lumbosacral region (ICD-10 - M47.817) 05/02/2024 Other chronic pain (ICD-10 - G89.29) 06/14/2024 Other chronic pain (ICD-10 - G89.29) Arlen returns to clinic today for a follow-up evaluation regarding her chronic low back pain. We discussed her current symptoms and medications. I reviewed her lumbar MRI scan dated 05/28/2024. She continues to report axial low back pain, refractory to conservative care. She trialed bilateral L4-5, L5-S1 medial branch blocks, and reports that this procedure failed to provide any lasting relief of her low back pain. This helped rule out facet pathology as the source of her pain. On MRI, Arlen has Modic type I changes at the L5 vertebral levels. She has the absence of lumbar vertebral tumor, infection, significant deformity, and trauma. There is radiographic absence of a disc protrusion or extrusion >5mm, spondylolisthesis > 2mm at any level, metabolic bone disease, spine fragility fracture, trauma/compression fracture, spinal cancer; or previous lumbar/lumbosacral spine surgery at the intended treatment levels. There is not a presence of active implantable pulse generators, neurogenic claudication, lumbar radiculopathy, radicular pain due to neurocompression, severe cardiac or pulmonary compromise, systemic vulnerability to bleeding, or concern for further compromise of existing disease. She has had at least 6 months of continuous, professionally directed non-surgical medical care, including physical therapy, occupational therapy, care coordination manager, massage therapy, as well as provider directed home exercise. At this time, I recommend Intracept at the L5 vertebral levels. We discussed the risks/benefits of this procedure. Orders placed today. This treatment plan was reviewed with Arlen. I will continue to monitor her progress and she/he will follow up as needed. Plan: 1. Reviewed lumbar MRI 2. Order L5 Intracept 3. Follow up as needed Discharge instructions reviewed verbally. Discussed the risks/benefits of prescribed medication. The patient was instructed to return to the office as scheduled and call with any questions, problems or concerns. LUMBAR MRI Exam Date: 5CONCLUS ION:1. Stable 3 x 5 mm L4-5 disc extrusion without significant stenosis or neural impingement.2. Improved L5-S1 posterior disc contour abnormality and discogenic endplate edema. No recurrent disc protrusion or neural impingement. 06/14/2024 Vertebrogenic low back pain (ICD-10 - M54.51) 05/04/2024 Other chronic pain (ICD-10 - G89.29) Arlen returns to clinic today for a follow-up evaluation regarding her chronic low back pain and bilateral lower extremity pain. I have reviewed the [facility] database and did not find any inconsistencies. We discussed her current symptoms and medications. I will continue with a treatment plan consisting of conservative therapies at this time. Given Arlen's current symptoms, I have recommended bilateral L4-5, L5-S1 MBBs to address her painful symptoms in her lower back. Details of this procedure was discussed with patient, and she was agreeable with proceeding. Therefore, I have placed the order accordingly. I will consider a L5-S1 Intracept in the future, if the patient reports any worsened symptoms. I will also consider updating her Lumbar MRI to further evaluate any Modic changes and her dis herniation. Regarding medications, I have refilled and decreased her Lyrica 100mg 1 capsule at bedtime, due to side effects of blurry vision, to Lyrica 50mg QD titrating up to BID. This treatment plan was reviewed with Arlen, and she was agreeable. I will continue to monitor her progress and she will follow up two weeks. Plan: 1. Order bilateral L4-5, L5-S1 MBBs 2. Consider L5-S1 Intracept 3. Consider updating Lumbar MRI: Modic changes & disc herniation 4. Refilled and decrease Lyrica 100mg QD to 50mg: titrating up to BID 5. Follow up in one month (TE sent to scheduling) Discharge instructions reviewed verbally. Discussed the risks/benefits of prescribed medication. The patient was instructed to return to the office as scheduled and call with any questions, problems or concerns. MRI Lumbar Spine ([facility]) Exam date: 04/12/2023 IMPRESSION: 1. Interim microdiscectomy with excision of a large right-sided HNP at L5-S1. Residual central protrusion does not compromise neural structures. 2. There are now type I marrow changes paralleling the endplates at the degenerated L5-S1 level. These may be associated with axial back pain. 3. Unchanged appearance of a small caudally migrating HNP at L4-5 without neural impingement. 05/04/2024 Spondylosis without myelopathy or radiculopathy, lumbosacral region (ICD-10 - M47.817) 04/19/2024 Radiculopathy, lumbosacral region (ICD-10 - M54.17) 07/27/2024 Radiculopathy, lumbosacral region (ICD-10 - M54.17) 07/27/2024 Other chronic pain (ICD-10 - G89.29) Arlen returns to clinic today for a follow up evaluation regarding her chronic pain. We discussed her current symptoms and medications. She is requesting to repeat bilateral L5-S1 TFE. Given previous relief, I believe she is a good candidate. Regarding medications, I have reviewed the [facility] database and did not find any inconsistencies. [...] 07/27/2024 Radiculopathy, lumbosacral region (ICD-10 - M54.17) 04/19/2024 Low back pain, unspecified (ICD-10 - M54.50) 12/29/2023 Other chronic pain (ICD-10 - G89.29) Arlen presents to the clinic for an evaluation regarding her chronic low back pain. I have reviewed her symptoms and current medications. I checked the [facility] database and I did not find any [...] call with any questions, problems or concerns. 09/06/2023 Radiculopathy, lumbosacral region (ICD-10 - M54.17) 08/22/2023 Other chronic pain (ICD-10 - G89.29) Arlen presents to the clinic for an evaluation regarding her chronic low back pain. I have reviewed her symptoms and current medications. I checked the [facility] database and I did not find [...] questions, problems or concerns. 04/12/2023 MRI Lumbar SpineCONCLUSION:1 . Interim microdiscectomy with excision of a large right-sided HNP at L5-S1. Residual central protrusion does not compromise neural structures.2. There are now type I marrow changes paralleling the endplates at the degenerated L5-S1 level. These may be associated with axial back pain.3. Unchanged appearance of a small caudally migrating HNP at L4-5 without neural impingement. 08/22/2023 Radiculopathy, lumbosacral region (ICD-10 - M54.17) 04/19/2024 Radiculopathy, lumbosacral region (ICD-10 - M54.17) 12/29/2023 Radiculopathy, lumbosacral region (ICD-10 - M54.17) 04/19/2024 Vertebrogenic low back pain (ICD-10 - M54.51) 07/27/2024 Low back pain, unspecified (ICD-10 - M54.50) 04/19/2024 Other chronic pain (ICD-10 - G89.29) Arlen returns to clinic today for a follow-up evaluation regarding her chronic low back pain and bilateral lower extremity pain. I have reviewed the [facility] database and did not find any inconsistencies. We discussed her current symptoms and medications. I will continue with a treatment plan consisting of conservative therapies at this time. On 03/2024, Arlen underwent bilateral L5-S1 TFE, and reported 80-90% relief for 2-3 months. She requests to repeat this procedure, and I have placed an order accordingly at the S1 level. Details of this procedure was discussed with the patient, and they express interest with proceeding. Futhermore, I have ordered an updated lumbar MRI to further evaluate and treat her ongoing painful symptoms. I will consider a lumbar MBB/RFA workup in the future if patient reports worsening symptoms. Regarding medications, I have started her on Lyrica 100mg 1 capsule at bedtime to manage her neuropathic symptoms. I have also started her on a 14-day short script for Flexeril 10mg QD 1-2 tab as needed as she reports previously taking it in the past with moderate relief. This treatment plan was reviewed with Arlen, and she was agreeable. I will continue to monitor her progress and she will follow up two weeks. Plan: 1. Order updated lumbar MRI 2. Order bilateral S1 TFE with Kenalog 3. Consider lumbar MBB/RFA workup 4. Assume and refill Flexeril 5. Start Lyrica 6. Follow-up in two weeks Discharge instructions reviewed verbally. Discussed the risks/benefits of prescribed medication. The patient was instructed to return to the office as scheduled and call with any questions, problems or concerns. 04/19/2024 Other Nataliya Marin , am serving as a scribe to document services personally performed by Jason Page PA-C, based upon my observations and the provider's statements to me. All documentation has been reviewed by the aforementioned PAZayC as well as Noel Robles MD, prior to being entered into the official medical record. I, Noel Robles MD attest that the above named individual is acting in scribe capacity, has observed Jason Page's performance of the services and has documented them in accordance with her direction. The documentation recorded by the scribe accurately reflects the service Jason Page PA-C and Noel Robles MD personally performed and the decisions made by them. 06/14/2024 Other Tania, Maci Pereyra, am serving as a scribe to document services personally performed by Jason Page PA-C, based upon my observations and the provider's statements to me. All documentation has been reviewed by the aforementioned PAZayC. I, Jason Page PA-C, attest that the above named individual is acting in scribe capacity, has observed my performance of the services and has documented them in accordance with my direction. The documentation recorded by the scribe accurately reflects the service I personally performed and the decisions made during the clinic visit. 07/27/2024 Other Tania, Gera Gorman , am serving as a scribe to document services personally performed by Jeremy Jiménez CNP, based upon my observations and the provider's statements to me. All documentation has been reviewed by the aforementioned MONOGRAM MACHINE OPERATOR as well as Noel Robles MD, prior [...] performed and the decisions made by them. 12/29/2023 Other I, Marline ruffin, am serving as a scribe to document services personally performed by Erin Young NP, based upon my observations and the provider's statements to me. All documentation has been reviewed by the aforementioned DOUGH PANNER as well as Akbar Nance DO, prior [...] performed and the decisions made by them. 05/04/2024 Other I, Katheryn Colbert in, am serving as a scribe to document services personally performed by Jason Page PA-C, based upon my observations and the provider's statements to me. All documentation has been reviewed by the aforementioned ROSELYN prior to being entered into the official medical record. I, Jason Page PA-C, attest that the above named individual is acting in scribe capacity, has observed my performance of the services and has documented them in accordance with my direction. The documentation recorded by the scribe accurately reflects the service I personally performed and the decisions made during the clinic visit. Plan Of Treatment Pending Test Test Name Order Date Intervention: 06/14/2024 Insurance Providers Payer Name Payer Address Payer Phone Subscriber Number Group Number Insured Name Patient Relationship to Insured Coverage Start Date Coverage End Date [facility] [address] [address] [place] [address] [id number] Antonio Valladares Spouse - patient is the spouse of the insured Medical (General) History Medical History History ICD Code Depression headaches Anxiety Neuropathic POTS Surgical History Surgery Date(Month/Year) Sinus surgery 11/2023 gall bladder 10/2005 Hysterectomy 04/2019 Rectal botox 2021 L5-S1 microdiscectomy 06/2022 Hospitalization History Reason Date(Month/Year) Surgical reasons
[2024-08-19 08:48] LABS: Appearance Urine Clear (Clear); Bilirubin Urine Negative (Negative); Blood Urine Negative (Negative); Color Urine Yellow (Yellow); Glucose Urine Negative (Negative); Ketones Urine Negative (Negative); Leukocyte Esterase Urine Negative (Negative); Nitrite Urine Negative (Negative); Protein Urine Negative (Negative); Specific Gravity Urine 1.015 (1.000-1.030); Urobilinogen Urine 0.2 (0.2-1.0); pH Urine 8.5 (5.0-8.5)
--- NOTE | 2024-08-19 08:54 | ED.GENADULT ---
HPI - General Adult General Chief complaint: Abdominal Pain Stated complaint: abdminal pains, vomiting Time Seen by Provider: 08/19/24 07:56 Source: patient Mode of arrival: ambulatory Limitations: no limitations History of Present Illness HPI narrative: 39-year-old coming in today complaining of abdominal pain and nausea that started yesterday. Pain is diffuse and encompasses the entire area below her ribs to her hips. She states that she is making herself throw up by gagging herself today because she thought that would make her feel better but it has not. She denies fevers or chills. Nothing makes the pain better or worse. Last bowel movement was this morning and was unremarkable. She denies any dysuria, increased urgency or frequency. No changes in the scent or color of her urine. No blood in her vomitus or stools. Patient has had hysterectomy, denies . Past surgical history also includes a cholecystectomy. Patient did start taking tirzapetide approximately 5 weeks ago to ?stop putting on weight. Patient is asking for pain medication. Related Data Home Medications ?Medication ?Instructions ?Recorded ?Confirmed ferrous fumarate 325 mg (106 mg 325 mg PO QDAY 11/22/23 12/09/23 iron) tablet naltrexone .ROUTE 01/29/24 Previous Rx's ?Medication ?Instructions ?Recorded acetaminophen 300 mg-codeine 30 mg 1 tab PO Q4H PRN pain #30 tabs 11/25/23 tablet doxycycline hyclate 100 mg capsule 100 mg PO BID #10 caps 11/25/23 ondansetron 4 mg disintegrating 4 mg PO Q8H #10 tabs 11/25/23 tablet hydromorphone 2 mg tablet 2 mg PO Q6H #10 tabs 12/04/23 (Dilaudid) ondansetron 4 mg disintegrating 4 mg PO Q6H #10 tabs 12/04/23 tablet lorazepam 0.5 mg tablet (Ativan) 0.5 mg PO BID PRN #14 tabs 01/29/24 methylprednisolone 4 mg tablets in See Rx Instructions PO .COMPLEX 01/29/24 a dose pack (Medrol (Reji)) #21 ea Allergies Allergy/AdvReac Type Severity Reaction Status Date / Time oxycodone Allergy Intermediate Blurry Verified 12/09/23 10:47 Vision penicillin V Allergy Mild Hives Verified 12/09/23 10:47 banana Allergy Unknown Verified 12/09/23 10:47 cat dander Allergy Unknown Verified 12/09/23 10:47 latex Allergy Unknown Verified 12/09/23 10:47 meperidine Allergy Unknown Unknown Verified 12/09/23 10:47 Penicillins Allergy Unknown Verified 12/09/23 10:47 Review of Systems Status of ROS: Reports: 10 or more systems reviewed and unremarkable except as noted in History and below [facility] Medical History Constipation ?K59.00 - Constipation, unspecified (ICD-10) Chronic diarrhea ?K52.9 - Noninfective gastroenteritis and colitis, unspecified (ICD-10) Chronic constipation ?K59.09 - Other constipation (ICD-10) Cervical radiculopathy ?M54.12 - Radiculopathy, cervical region (ICD-10) Surgical History History of cholecystectomy (04/07/10) ?Z90.49 - Acquired absence of other specified parts of digestive tract (ICD-10) S/P hemorrhoidectomy ?Z98.890 - Other specified postprocedural states (ICD-10) ?Z87.19 - Personal history of other diseases of the digestive system (ICD-10) S/P anal fissurectomy ?Z98.890 - Other specified postprocedural states (ICD-10) ?Z87.19 - Personal history of other diseases of the digestive system (ICD-10) S/P hysterectomy ?Z90.710 - Acquired absence of both cervix and uterus (ICD-10) Family History Mother Depression Maternal Grandfather Depression Brother Depression Social History Narrative: . 4 children. Not working. No alcohol. Non-smoker. No illicit drugs. Smoking Status: Never smoker Do you use any of these nicotine containing products: None Second hand tobacco smoke exposure: No How often do you have a drink containing alcohol: 2-4 times a month Alcohol type: wine and hard liquor How many standard drinks containing alcohol do you have on a typical day: 1 or 2 How often do you have six or more drinks on one occasion: Never AUDIT-C Alcohol total score: 2 Non-prescribed substance use: marijuana (any form) Caffeine: Yes Are you using contraception or practicing any form of control: No service: No Exam Narrative: Exam Narrative: Well-nourished well-developed patient , tearful. Alert and oriented. Answers questions appropriately. Patient speaks in full sentences without needing to catch her breath. HEENT: Normocephalic atraumatic. Pupils are equally round reactive to light. Extraocular muscles are intact. Conjunctivae are moist without any icterus noted. Moist mucous membranes. Cardiovascular: Heart is regular rate and rhythm S1 and S2 are present without any murmurs. Lungs: Clear to auscultation bilaterally no wheezes rhonchi or rales are appreciated. Abdomen: Soft, nondistended with normal bowel sounds. Patient complains of diffuse tenderness throughout the entire abdomen. Extremities: Bilateral lower extremities are without edema. Skin: Well perfused without any obvious rashes. Const: Vital Signs, click to edit/add: Vital Signs - 24 hr 08/19/24 08:35 Temperature 98.1 F Pulse Rate [Pulse Oximeter] 94 Respiratory Rate 20 Blood Pressure [Ri ght Upper Arm] 127/88 Pulse Oximetry 98 Oxygen Delivery Me thod Room Air Course Course ED Course: IV established and patient received 500 mL of normal saline, IV Toradol and Zofran. She states that she felt relief very briefly and then all of her symptoms returned. Blood work and UA entirely unremarkable. I went to discuss results with the patient and upon hearing that everything looks normal in her workup, patient began crying more. I asked her why she stated that she was so uncomfortable. Another 500 mL of normal saline was ordered along with IV Ativan and Carafate. Given unremarkable physical examination and normal laboratory investigations, I do think that the risks of an abdominal CT would outweigh the benefits. We did proceed with a two view x-ray to rule out significant stool burden as a cause of her discomfort. This was unremarkable aside from moderate stool burden. After Ativan and Carafate patient felt calmer but stated that her pain was unchanged. She was able to localize more to the epigastric region. When we discussed her pain patient became shaky and started crying again. 4 mg of IV morphine was given at this time. Patient stated that she was feeling better after this. Vital Signs Vital signs: Initial Vital Signs Temperature 98.1 F 08/19/24 08:35 Temperature Source Temporal Artery Scan 08/19/24 08:35 Pulse Rate 94 08/19/24 08:35 Respiratory Rate 20 08/19/24 08:35 Blood Pressure 127/88 08/19/24 08:35 Blood Pressure Mean 101 08/19/24 08:35 Pulse Oximetry 98 08/19/24 08:35 Oxygen Delivery Method Room Air 08/19/24 08:35 Vital Signs Temperature 98.1 F 08/19/24 08:35 Pulse Rate 94 08/19/24 08:35 Respiratory Rate 20 08/19/24 08:35 Blood Pressure 127/88 08/19/24 08:35 Pulse Oximetry 98 08/19/24 08:35 Oxygen Delivery Method Room Air 08/19/24 08:35 Temperature 98.1 F 08/19/24 08:35 Pulse Rate 94 08/19/24 08:35 Respiratory Rate 20 08/19/24 08:35 Blood Pressure 127/88 08/19/24 08:35 Pulse Oximetry 98 08/19/24 08:35 Oxygen Delivery Method Room Air 08/19/24 08:35 Medications Administered Medications: Discontinued Medications Generic Name Dose Route Start Last Admin Trade Name Freq PRN Reason Stop Dose Admin Sodium Chloride 500 mls @ 500 mls/hr 08/19/24 08:52 08/19/24 09:41 0.9 % Sodium Chloride 500 Ml IV 08/19/24 09:51 500 mls/hr .Q1H ONE Administration Sodium Chloride 500 mls @ 500 mls/hr 08/19/24 10:32 08/19/24 10:54 0.9 % Sodium Chloride 500 Ml IV 08/19/24 11:31 500 mls/hr .Q1H ONE Administration Ketorolac Tromethamine 30 mg 08/19/24 08:52 08/19/24 09:41 Ketorolac 30 Mg/Ml Inj IVP 08/19/24 08:53 30 mg ONCE ONE Administration Lorazepam 0.5 mg 08/19/24 10:49 08/19/24 10:57 Lorazepam 0.5 Mg Tablet PO 08/19/24 10:50 0.5 mg ONCE ONE Administration Morphine Sulfate 4 mg 08/19/24 11:34 08/19/24 11:47 Morphine 4 Mg/Ml Inj IVP 08/19/24 11:35 4 mg ONCE ONE Administration Ondansetron HCl 4 mg 08/19/24 08:52 08/19/24 09:42 Ondansetron 2 Mg/Ml Inj IVP 08/19/24 08:53 4 mg ONCE ONE Administration Sucralfate 1 gm 08/19/24 10:32 08/19/24 10:55 Sucralfate 1 Gm Tablet PO 08/19/24 10:33 1 gm ONCE ONE Administration Medical Decision Making MDM Narrative Medical decision making narrative: 39-year-old female with abdominal pain, likely secondary to tirzepatide use. Lab Data Lab results reviewed: Yes I reviewed the patient's lab results Labs: Lab Results 08/19/24 08/19/24 Range/Units 08:42 09:25 WBC 5.31 (4.50-11.00) K/uL RBC 4.48 (4.00-5.20) m/uL Hgb 14.1 (12.0-16.0) gm/dL Hct 41.2 (33.0-51.0) % MCV 92 (80-100) fL MCH 32 (26-34) pg MCHC 34 (32-36) gm/dL RDW Coeff of Guillermina 11.6 (11.5-15.5) % Plt Count 256 (140-440) K/uL Neut % (Auto) 76.8 H (42.0-72.0) % Lymph % (Auto) 18.1 L (20-44) % [place] % (Auto) 4.7 (0.0-11.0) % Eos % (Auto) 0.0 (0.0-7.0) % Baso % (Auto) 0.4 (0.0-3.0) % Neut # (Auto) 4.10 (1.7-7.0) K/uL Lymph # (Auto) 1.00 (0.90-2.90) K/uL [place] # (Auto) 0.20 (0.00-0.90) K/UL Eos # (Auto) 0.00 (0.00-0.50) K/uL Baso # (Auto) 0.02 (0.00-0.30) K/uL Abs Immat Gran (auto) 0.00 (0.00-0.30) K/uL Imm/Tot Granulo (auto) 0.0 % Sodium 144 (135-149) mmol/L Potassium 3.8 (3.6-5.1) mmol/L Chloride 109 (96-114) mmol/L Carbon Dioxide 23 (20-32) mmol/L Anion Gap 12 (7-15) mEq/L BUN 9 (5-24) mg/dL Creatinine 0.6 (0.5-1.5) mg/dL Estimated Creat Clear 110.86 Estimated GFR 118 ml/min Glucose 95 (60-115) mg/dL Lactate 1.3 (0.5-1.9) mmol/L Calcium 10.2 (8.4-10.6) mg/dL Total Bilirubin 0.6 (0.1-1.5) mg/dL Direct Bilirubin 0.2 (0.0-0.5) mg/dL AST 25 (12-35) U/L ALT 18 (4-35) U/L Alkaline Phosphatase 61 (40-150) U/L C-Reactive Protein < 0.5 L (0.5-1.0) mg/dL Total Protein 8.0 (6.0-8.3) g/dL Albumin 5.0 (3.3-5.0) g/dL Lipase 75 (23-300) U/L Urine Color Yellow Cancelled (Yellow) Urine Appearance Clear Cancelled (Clear) Urine pH 8.5 Cancelled (5.0-8.5) Ur Specific [place] 1.015 Cancelled (1.000-1.030) Urine Protein Negative Cancelled (Negative) Urine Glucose (UA) Negative Cancelled (Negative) Urine Ketones Negative Cancelled (Negative) Urine Blood Negative Cancelled (Negative) Urine Nitrite Negative Cancelled (Negative) Urine Bilirubin Negative Cancelled (Negative) Urine Urobilinogen 0.2 Cancelled (0.2-1.0) Ur Leukocyte Esterase Negative Cancelled (Negative) Urine RBC 0-2 Cancelled (0-2) Urine WBC 0-2 Cancelled (0-5) Urine WBC Clumps Cancelled Ur Squamous Epith Cells Few Cancelled (None-Few) [place] Biurate Crystals Cancelled Calcium Carbonate Cryst Cancelled Calcium Phosphate Cryst Cancelled Calcium Oxalate Crystal Cancelled Cystine Crystals Cancelled Uric Acid Crystals Cancelled Triple Phos Crystals Cancelled Sulfur Crystals Cancelled Cholesterol Crystals Cancelled Tyrosine Crystals Cancelled Hippuric Acid Crystals Cancelled Amorphous Sediment Cancelled Other Sediment Cancelled Urine Bacteria None Cancelled (None) Fatty Casts Cancelled Hyaline Casts Cancelled Fine Granular Casts Cancelled Coarse Granular Casts Cancelled Waxy Casts Cancelled RBC Casts Cancelled WBC Casts Cancelled Other Casts Cancelled Urine Starch Cancelled Urine Mucus Cancelled Urine Trichomonas Cancelled Urine Yeast Cancelled Urine HCG, Qual Negative (Negative) Imaging Data Abdominal x-ray: Attestation: I have reviewed the pertinent imaging results. Radiologist's impression: TECHNIQUE: Abdomen 1 view. COMPARISON: None FINDINGS: Moderate amount of retained stool throughout the colon. Numerous tiny punctate densities within the stool. Nonobstructed bowel-gas pattern. No definite free air is visualized. Surgical clips within the right upper quadrant. Lung bases are clear. IMPRESSION: Nonobstructed bowel-gas pattern. Discharge Plan Discharge Clinical Impression: Abdominal pain Patient Disposition: Home, Self-Care Condition: Stable Additional Instructions: Recommend you stop using Tirzepatide. Recommend you return to the emergency department if you develop fever or worsening pain. Prescriptions: No Action ferrous fumarate 325 mg (106 mg iron) tablet 325 mg PO QDAY hydromorphone [Dilaudid] 2 mg tablet 2 mg PO Q6H Qty: 10 0RF ondansetron 4 mg tablet,disintegrating 4 mg PO Q6H Qty: 10 0RF naltrexone .ROUTE lorazepam [Ativan] 0.5 mg tablet 0.5 mg PO BID PRNQty: 14 0RF methylprednisolone [Medrol (Reji)] 4 mg tablets,dose pack See Rx Instructions .ROUTE .COMPLEX Qty: 21 0RF Rx Instructions: orally per package directions doxycycline hyclate 100 mg capsule 100 mg PO BID Qty: 10 0RF ondansetron 4 mg tablet,disintegrating 4 mg PO Q8H Qty: 10 0RF acetaminophen-codeine 300-30 mg tablet 1 tab PO Q4H PRN (Reason: pain) Qty: 30 0RF Follow Up/Referrals: Tono Mccoy MD [Primary Care Provider] - Stand Alone Forms: MyHealth Info Instructions
[2024-08-19 08:59] LABS: RBC Urine 0-2 (0-2); Squamous Epithelial Cell Urine Few (None-Few); WBC Urine 0-2 (0-5)
--- OUTSIDE RECORDS SUMMARY | 2024-08-19 09:02 | XMS_ITS | Clinical Summary ---
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 Gender Identity Not on file Sexual Orientation [...] Name Priority Date/Time Associated Diagnosis Comments MANAGER DATA THIN PREP PAP SCREEN IMAGED Routine 12/14/2018 12:00 PM CDT from Last 3 Months or Most Recently Relevant to Health Maintenance Results * MANAGER DATA THIN PREP PAP SCREEN IMAGED (12/14/2018 12:00 PM CDT) Case Report Gynecologic Cytology Report Case: [id number] Authorizing Provider: Alexandra Perez MD Collected: 12/14/2018 1200 Ordering Location: [facility] Received: 12/19/2018 0916 First Screen: Renzo Arrington Specimen: MANAGER DATA ThinPrep Vial Screening, Cervical/Vaginal 12/26/2018 1:00 PM CDT [facility] INTERPRETATION/ RESULT NEGATIVE FOR INTRAEPITHELIAL LESION OR MALIGNANCY (NIL) (none) 12/26/2018 1:00 PM CDT [facility] at 1300 CDT SPECIMEN ADEQUACY Satisfactory for evaluation Endocervical component present 12/26/2018 1:00 PM CDT [facility] HPV REQUEST HPV and PAP 12/26/2018 1:00 PM CDT [facility] Automated Review Successful 12/26/2018 1:00 PM CDT [facility] Comment:Specimen processed s uccessfully by automated painter tumbling barrel device, ThinPrep Imaging System, [employer] ANCILLARY TESTING MANAGER DATA HPV Ordered, Please see separate report 12/26/2018 1:00 PM CDT [facility] Note The pap test is [...] lesions. Cytology is screened and interpreted at [facility] - [address], [place] [address] and [facility] - [address]; [place] [address] and [facility] - [address]; [place] [address] and [facility] [address]; [place] [address] 12/26/2018 1:00 PM CDT [facility] Other (Cervical/Vagina l) 12/14/2018 12:00 PM CDT 12/19/2018 9:16 AM CDT Alexandra Perez MD PATHOLOGY/CYTOLOGY Final Result [facility] [address] [place] [address], from Last 3 Months or Most Recently Relevant to Health Maintenance Advance Directives * Full Code (Latest Code Status on File) Date Activated Date Inactivated Comments 07/08/2022 12:24 PM 07/08/2022 5:48 PM Question Answer Comments Code Status Discussion: Per Existing Order Care Teams Mill Set Up Relationship Specialty Start Date End Date Tono Mccoy MD [address] [place] [address] PCP - General Family Practice 06/29/22 Jet Garcia MD Family Practice 12/16/15
--- OUTSIDE RECORDS SUMMARY | 2024-08-19 09:02 | XMS_ITS | Clinical Summary ---
Author Organization [facility] Address [address] [place] [address] Care Team Providers Care Inspector Tool Name Role Phone None Reported, Pcp Primary Care Provider Unavail able Source Comments Patient records contain information from all sites at [facility]. For routine questions regarding patient records, call [phone] during business hours, M-F 8:00 AM - 5:00 PM Central Time. Record requests for emergency care only can be directed to [phone] at any time.[facility] Allergies Active Allergy Reactions Criticality Noted [...] Alive Son 1 [place] Alive Son 2 [place] Alive Social History Tobacco Use Types Packs/Day Years Used Date Smoking Tobacco: Never Passive Smoke Exposure: Past Smokeless Tobacco: Never Comments:Smoked in high scho ol Passive Exposure Comments:childhood Alcohol Use Standard Drinks/Week Comments Yes 1 (1 standard drink = 0.6 oz pure alcohol) Rarely consume alcohol, may have 1 or 2 drink occasionally [facility] Utilities Answer Date Recorded In the [...] often do you attend chur ch or shinto services? More than 4 times per year [...] Answer Date Recorded PHQ-2 Score 2 10/27/2023 [facility] Occupational Stress Questionnaire Answer [...] PM CDT Legal Sex Female 4:53 PM [facility] Gender Identity Female 11/21/2021 11:33 PM CDT Sexual Orientation Straight 11/21/2021 11 :33 PM CDT Last Filed Vital Signs Vital Sign Reading Time Taken Comments Blood Pressure 135/84 05/14/2024 9:22 AM [facility] Pulse 81 05/14/2024 9:22 AM [facility] Temperature 35.9 C (96.6 F) 03/07/2024 2:52 PM [facility] Respiratory Rate 18 01/24/2022 10:18 PM CDT Oxygen Saturation 99% 05/14/2024 9:22 AM [facility] Inhaled Oxygen Concentration - - Weight 69.9 kg (154 lb 1.6 oz) 05/14/2024 9:22 A M [facility] Height 164.4 cm (5' 4.72) 05/14/2024 9:22 AM CS T Body Mass Index 25.86 05/14/2024 9:22 AM [facility] Plan of Treatment Health Maintenance Due Date [...] patient's age to complete this topic Insurance [facility] Care Teams Inspector Tool Relationship Specialty Start Date End Date None Reported, Pcp PCP - General Family Medicine 01/25/22
[2024-08-19] MEDS: KETOROLAC 30 MG/ML inj IVP (09:41)
[2024-08-19] MEDS: 0.9 % SODIUM CHLORIDE 500 ML 500 ML IV ×2 (09:41→10:54)
[2024-08-19] MEDS: ONDANSETRON 2 MG/ML inj 4 MG IVP (09:42)
[2024-08-19 09:45] LABS: Lactate* 1.3 mmol/L (0.5-1.9)
[2024-08-19 09:47] LABS: Basophils Absolute Auto 0.02 K/uL (0.00-0.30); Basophils Percent Auto 0.4 % (0.0-3.0); Hematocrit 41.2 % (33.0-51.0); Hemoglobin* 14.1 gm/dL (12.0-16.0); Lymphocytes Percent Auto 18.1 % (20-44); Mean Corpuscular HGB Conc 34 gm/dL (32-36); Mean Corpuscular Hemoglobin 32 pg (26-34); Mean Corpuscular Volume 92 fL (80-100); Monocytes Percent Auto 4.7 % (0.0-11.0); Neutrophils Percent Auto 76.8 % (42.0-72.0); Platelet Count* 256 K/uL (140-440); RDW Coefficient of Variation % 11.6 % (11.5-15.5); Red Blood Count 4.48 m/uL (4.00-5.20); White Blood Count* 5.31 K/uL (4.50-11.00)
[2024-08-19 09:49] LABS: Slide Review Reflex No
[2024-08-19 09:54] LABS: Ur HCG Qualitative* Negative (Negative)
[2024-08-19 10:07] LABS: Chloride* 109 mmol/L (96-114); Potassium* 3.8 mmol/L (3.6-5.1); Sodium* 144 mmol/L (135-149)
[2024-08-19 10:10] LABS: Alanine Aminotransferase* 18 U/L (4-35); Alkaline Phosphatase* 61 U/L (40-150); Anion Gap 12 mEq/L (7-15); Aspartate Amino Transferase* 25 U/L (12-35); Bilirubin Direct* 0.2 mg/dL (0.0-0.5); Bilirubin Total* 0.6 mg/dL (0.1-1.5); Blood Urea Nitrogen* 9 mg/dL (5-24); Calcium* 10.2 mg/dL (8.4-10.6); Carbon Dioxide* 23 mmol/L (20-32); Creatinine* 0.6 mg/dL (0.5-1.5); Est. Creatinine Clearance* 110.86; Estimated Glomerular Filt Rate 118 ml/min; Glucose* 95 mg/dL (60-115); Lipase* 75 U/L (23-300)
--- NOTE | 2024-08-19 10:37 | CRLHL7_ITS ---
For Patients: As a result of the Century Cures Act, medical imaging exams and procedure reports are released immediately into your electronic medical record. You may view this report before your referring provider. If you have questions, please contact your health care provider. INDICATION: Generalized abdominal pain TECHNIQUE: Abdomen 1 view. COMPARISON: None FINDINGS: Moderate amount of retained stool throughout the colon. Numerous tiny punctate densities within the stool. Nonobstructed bowel-gas pattern. No definite free air is visualized. Surgical clips within the right upper quadrant. Lung bases are clear. IMPRESSION: Nonobstructed bowel-gas pattern. Dictated by Caron Dobbs MD @ 08/19/2024 11:53:30 AM Dictated by: Caron Dobbs MD @ 08/19/2024 11:53:33 (Electronically Signed)
[2024-08-19] MEDS: SUCRALFATE 1 GM TABLET PO (10:55)
[2024-08-19] MEDS: LORazepam 0.5 MG TABLET PO (10:57)
[2024-08-19 11:12] LABS: C Reactive Protein* < 0.5 mg/dL (0.5-1.0)
[2024-08-19] MEDS: MORPHINE 4 MG/ML INJ IVP (11:47)
== END 2024-08-19 12:33 | disposition home or self-care (01) ==
PROVIDERS: Emergency Provider Family Medicine; PCP Family Medicine
DX: R10.9 Unspecified abdominal pain (principal); R11.2 Nausea with vomiting, unspecified
CPT/HCPCS: 36415; 74019; 80048; 80076; 81001; 81025; 83605; 83690; 85025; 86140; 87086; 96361; 96365; 96375; 99284; A9270; J1885; J2270; J2405; J7030

== ENCOUNTER 2024-08-20 03:39 | Emergency (ER) | payer OTHER, SELFPAY ==
--- OUTSIDE RECORDS SUMMARY | 2024-08-20 03:41 | XMS_ITS | Clinical Summary ---
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 Gender Identity Not on file Sexual Orientation [...] Procedure Name Priority Date/Time Associated Diagnosis Comments TICKET TAKER FERRYBOAT THIN PREP PAP SCREEN IMAGED Routine 12/14/2018 12:00 PM CDT from Last 3 Months or Most Recently Relevant to Health Maintenance Results * TICKET TAKER FERRYBOAT THIN PREP PAP SCREEN IMAGED (12/14/2018 12:00 PM CDT) Case Report Gynecologic Cytology Report Case: [id number] Authorizing Provider: Alexandra Perez MD Collected: 12/14/2018 1200 Ordering Location: [facility] Received: 12/19/2018 0916 First Screen: Renzo Arrington Specimen: TICKET TAKER FERRYBOAT ThinPrep Vial Screening, Cervical/Vaginal 12/26/2018 1:00 PM CDT [facility] INTERPRETATION/ RESULT NEGATIVE FOR INTRAEPITHELIAL LESION OR MALIGNANCY (NIL) (none) 12/26/2018 1:00 PM CDT [facility] at 1300 CDT SPECIMEN ADEQUACY Satisfactory for evaluation Endocervical component present 12/26/2018 1:00 PM CDT [facility] HPV REQUEST HPV and PAP 12/26/2018 1:00 PM CDT [facility] Automated Review Successful 12/26/2018 1:00 PM CDT [facility] Comment:Specimen processed s uccessfully by automated aquatic instructor device, ThinPrep Imaging System, [employer] ANCILLARY TESTING TICKET TAKER FERRYBOAT HPV Ordered, Please see separate report 12/26/2018 1:00 PM CDT [facility] Note The pap test [...] lesions. Cytology is screened and interpreted at [facility] - [address], [place] [address] [address] [facility] - [address]; [place] [address] and [facility] - [address]; [place] [address] and [facility] [address]; [place] [address] 12/26/2018 1:00 PM CDT [facility] Other (Cervical/Vagina l) 12/14/2018 12:00 PM CDT 12/19/2018 9:16 AM CDT Alexandra Perez MD PATHOLOGY/CYTOLOGY Final Result [facility] [address] [place] [address], from Last 3 Months or Most Recently Relevant to Health Maintenance Advance Directives * Full Code (Latest Code Status on File) Date Activated Date Inactivated Comments 07/08/2022 12:24 PM 07/08/2022 5:48 PM Question Answer Comments Code Status Discussion: Per Existing Order Care Teams Manager Employee Relations Relationship Specialty Start Date End Date Tono Mccoy MD [address] [place] [address] PCP - General Family Practice 06/29/22 Jet Garcia MD Family Practice 12/16/15
--- OUTSIDE RECORDS SUMMARY | 2024-08-20 03:41 | XMS_ITS ---
Author Organization [facility] Address [address] [place] [address] [address] [place] [address] Care Team Providers Care Fast Food Cook Name Role Phone Tono Mccoy Primary Care Provider UnavailRoberto Stone Unavailable [phone] Luigi SOTO, PhD, Ricardo Unavailable Jeremy Singh Unavailable [phone] Allergies Allergen (clinical drug ingredient) Drug/Non Drug [...] Status Risk Notes Problem Low back pain (808258971) Low back pain, unspecified (M54.50) Active confirmed Vital Signs Height 64 in 07/27/2024 Weight 152.6 lbs 07/27/2024 BMI 26.19 kg/m2 07/27/2024 Blood pressure systolic 118 mm Hg 07/28/19 25 Blood pressure diastolic 76 mm Hg 025 Procedures Procedure Date Ordered Date Performed Result Body Sit e Intervention: 07/27/2024 07/27/2024 Scheduled 07/27 Encounters Encounter Location Date Provider Diagnosis [facility] [address] [facility] [address] [place] [address] 07/27/2024 Jeremy Jiménez Other chronic pain G89.29 [...] candidate. Regarding medications, I have reviewed the [place] [employer] database and did not find any inconsistencies. [...] documentation has been reviewed by the aforementioned RN ANESTHETIST as well as Noel Robles MD, prior [...] candidate. Regarding medications, I have reviewed the [place] [employer] database and did not find any inconsistencies. [...] * Arlen VALLADARES MDOB:1984 (39 yo F)Acc No.[id number]:07/27/2024 Progress Notes Patient: Arlen KUMAR Provider: Bertrand Jiménez NP :1985 A ge:39 Y S ex:Female Date:07/27/2024 Phone: [facility] [id number] Pcp:Tono Mccoy Subjective: * Chief Complaints: * L ow Back Pain * HPI: C linic visit: Arlen returns regarding chronic low back pain. She previously had bilateral lower extremity pain which resolved with injection. She is not a candidate for further surgery per Dr. Meyers of [facility]. Intracept has been denied. Procedure history [...] surgery) Previous Therapy: PT was completed at [facility] from 04/2023 to 07/2023. She [...] good candidate.Regarding medications, I have reviewed the [place] [employer] database and did not find any inconsistencies. [...] documentation has been reviewed by the aforementioned RN ANESTHETIST as well as Noel Robles MD, prior [...] Interpretation 4 0-59 (Severe Disability). Counseling: B TX Care goal follow-up plan: A michell Normal BMI Follow-up L ifestyle education regarding diet Patient declined. * Follow Up: p rn * Billing Information: * Visit Code: 51478 Established Patient level 4. * Procedure Codes: * Sign off status: Completed true * Provider: Bertrand Jiménez NP Date: 0 07/27/2024 Generated for Abdelrahman harris/Renetta/eTransmitting on: 0 08/20/2024 03:41 AM CDT History and Physical Notes * [...]
--- OUTSIDE RECORDS SUMMARY | 2024-08-20 03:41 | XMS_ITS ---
Author Organization [facility] Address [address] [place] [address] [address] [place] [address] Care Team Providers Care Fence Gate Assembler Name Role Phone Tono Mccoy Primary Care Provider Roberto Ellis Unavailable [phone] Luigi SOTO, PhD, Ricardo Unavailable Unavai lable Allergies Allergen (clinical drug ingredient) Drug/Non Drug Allergy documented on EMR Reaction Allergy Type Onset Date Status Latex Latex rash Allergy Active Penicillin hives Drug Allergy Active REASON FOR VISIT post op call Encounters Encounter Location Date Provider Diagnosis [facility] [address] [place] [address] [address] [facility] [place] [address] 07/27/2024 Roberto Rebolledo Plan Of Treatment No Information Progress Notes * Arlen VALLADARES MDOB:1984 (39 yo F)Acc No.[id number]:07/27/2024 Patient: Agus MARTINES Arlen Reynold :1985 A ge:39 Y S ex:Female Phone: Address:[facility] [place] [address] Subjective: * Chief Complaints: * P ost op call * Medical History: * Surgical History: * Hospitalization/Major Diagno stic Procedure: * Medications: * Allergies: L atex: rashPenicillin: hives - Allergy - Criticality High Objective: * Vitals: * Physical Examination: Assessment: Plan: * Treatment: * Procedure Codes: * true * Date: Generated for Printi ng/Faxing/eTransmitting on: 0 08/20/2024 03:41 AM CDT
--- OUTSIDE RECORDS SUMMARY | 2024-08-20 03:42 | XMS_ITS | Clinical Summary ---
Author Organization [facility] Address [address] [place] [address] Care Team Providers Care Director Equipment Name Role Phone None Reported, Pcp Primary Care Provider Unavail able Source Comments Patient records contain information from all sites at [facility]. For routine questions regarding patient records, call [phone] during business hours, M-F 8:00 AM - 5:00 PM Central Time. Record requests for emergency care only can be directed to [phone] at any time.[facility] Allergies Active Allergy Reactions Criticality Noted Date [...] Alive Son 1 Lavelle Alive Son 2 Somerset Alive Social History Tobacco Use Types Packs/Day Years Used Date Smoking Tobacco: Never Passive Smoke Exposure: Past Smokeless Tobacco: Never Comments:Smoked in high scho ol Passive Exposure Comments:childhood Alcohol Use Standard Drinks/Week Comments Yes 1 (1 standard drink = 0.6 oz pure alcohol) Rarely consume alcohol, may have 1 or 2 drink occasionally [facility] Utilities Answer Date Recorded In [...] often do you attend chur ch or episcopalian services? 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 SUPERVISOR Gender Identity Female 11/21/2021 11:33 PM CDT Sexual Orientation Straight 11/21/2021 11 :33 PM CDT Last Filed Vital Signs Vital Sign Reading Time Taken Comments Blood Pressure 135/84 05/14/2024 9:22 AM RETAIL DEPARTMENT SUPERVISOR Pulse 81 05/14/2024 9:22 AM RETAIL DEPARTMENT SUPERVISOR Temperature 35.9 C (96.6 F) 03/07/2024 2:52 PM RETAIL DEPARTMENT SUPERVISOR Respiratory Rate 18 01/24/2022 10:18 PM CDT Oxygen Saturation 99% 05/14/2024 9:22 AM RETAIL DEPARTMENT SUPERVISOR Inhaled Oxygen Concentration - - Weight 69.9 kg (154 lb 1.6 oz) 05/14/2024 9:22 A M RETAIL DEPARTMENT SUPERVISOR Height 164.4 cm (5' 4.72) 05/14/2024 9:22 AM CS T Body Mass Index 25.86 05/14/2024 9:22 AM RETAIL DEPARTMENT SUPERVISOR Plan of Treatment Health Maintenance Due Date [...] patient's age to complete this topic Insurance [facility] Care Teams Director Equipment Relationship Specialty Start Date End Date None Reported, Pcp PCP - General Family Medicine 01/25/22
--- OUTSIDE RECORDS SUMMARY | 2024-08-20 03:42 | XMS_ITS | Patient Health Record ---
Author Organization [facility] Address [address] [place] [address] [address] [place] [address] Care Team Providers Care Scenery Builder Name Role Phone Tono Mccoy Primary Care Provider UnavailRoberto Stone Unavailable [phone] Luigi SOTO, PhD, Ricardo Unavailable Noel Cuellar Unavailable [phone] Jason Page Unavailable [phone] Erin Young Unavailable [phone] Jeremy Jiménez Unavailable [phone] Allergies Allergen (clinical drug ingredient) Drug/Non Drug [...] W/U Status Risk Notes Problem Chronic pain (59064854) Other chronic pain (G89.29) Active confirmed Problem Lumbosacral spondylosis without myelopathy (disorder) (09674288) Spondylosis without myelopathy or radiculopathy, lumbosacral region (M47.817) Active confirmed Problem Lumbosacral radiculopathy (7852120) Radiculopathy, lumbosacral region (M54.17) Active confirmed Problem Low back pain (811952408) Low back pain, unspecified (M54.50) Active confirmed Problem Vertebrogenic low back pain ([id number] 01) Vertebrogenic low back pain (M54.51) Active confirmed Vital Signs Blood pressure diastolic 76 mm Hg 07/27/2024 Height 64 in 07/27/2024 Blood pressure systolic 118 mm Hg 07/27/2024 Weight 152.6 lbs 07/27/2024 BMI 26.19 kg/m2 07/27/2024 Encounters Encounter Location Date Provider Diagnosis [facility] [address] [place] [address] [address] [place] [address] 08/23/2023 Roberto Rebolledo [facility] [address] [place] [address] [address] [place] [address] 08/29/2023 Roberto Rebolledo [facility] [address] [place] [address] [address] [place] [address] 09/02/[address] [place] [address] [place] [address] 03/16/2024 Roberto Rebolledo [facility] [address] [place] [address] [address] [place] [address] 04/19/2024 Roberto Rebolledo [facility] [address] [place] [address] [address] [place] [address] 04/25/2024 Roberto Rebolledo [facility] [address] [place] [address] [address] [place] [address] 05/02/2024 Jason Page Other chronic pain G89.29 [facility] [address] [place] [address] [address] [place] [address] 05/04/2024 Jason Page [facility] [address] [place] [address] [address] [place] [address] 05/14/2024 Roberto Rebolledo [facility] [address] [place] [address] [address] [place] [address] 06/18/2024 Roberto Rebolledo [facility] [address] [place] [address] 07/27/2024 Roberto Rebolledo [facility] [address] [place] [address] 12/24/2023 Roberto Rebolledo [facility] [address] [place] [address] 12/29/2023 Erin Hector Other chronic pain G89.29 and Radiculopathy, lumbosacral region M54.17 [address] [facility] [address] [place] [address] 04/19/2024 Jason Page Low back pain, unspecified M54.50 ; Radiculopathy, lumbosacral region M54.17 ; Vertebrogenic low back pain M54.51 and Other chronic pain G89.29 [address] [facility] [address] [place] [address] 05/04/2024 Jason Page Other chronic pain G89.29 and Spondylosis without myelopathy or radiculopathy, lumbosacral region M47.817 [place] [address] [facility] [address] [facility] [address] [place] [address] 06/14/2024 Jason Page Other chronic pain G89.29 and Vertebrogenic low back pain M54.51 [address] [facility] [address] [place] [address] 07/27/2024 Jeremy Jiménez Other chronic pain G89.29 ; Radiculopathy, lumbosacral region M54.17 and Low back pain, unspecified M54.50 [address] [facility] [address] [place] [address] 07/27/2024 Noel Robles Radiculopathy, lumbosacral region M54.17 [address] [facility] [address] [place] [address] 05/17/2024 Noel Robles Spondylosis without myelopathy or radiculopathy, lumbosacral region M47.817 [address] [facility] [address] [place] [address] 04/19/2024 Noel Robles Radiculopathy, lumbosacral region M54.[address] [place] [address] 12/29/2023 Roberto Rebolledo [address] [facility] [address] [place] [address] 09/06/2023 Roberto Rebolledo Radiculopathy, lumbosacral region M54.17 [facility] [address] [place] [address] [address] [place] [address] 08/22/2023 Roberto Rebolledo Other chronic pain G89.29 and Radiculopathy, lumbosacral region M54.17 [facility] [address] [place] [address] [address] [place] [address] 12/29/2023 Roberto Rebolledo Assessments Encounter Date Diagnosis [...] candidate. Regarding medications, I have reviewed the [facility] database and did not find any inconsistencies. [...] 07/27/2024 Radiculopathy, lumbosacral region (ICD-10 - M54.17) 05/17/2024 Spondylosis without myelopathy or radiculopathy, lumbosacral region (ICD-10 - M47.817) 12/29/2023 Other chronic pain (ICD-10 - G89.29) Arlen presents to the clinic for an evaluation regarding her chronic low back pain. I have reviewed her symptoms and current medications. I checked the [place] [employer] database and I did not find any [...] symptoms and current medications. I checked the [place] [employer] database and I did not find any [...] 08/22/2023 Radiculopathy, lumbosacral region (ICD-10 - M54.17) 06/14/2024 Other chronic pain (ICD-10 - G89.29) [...] medical care, including physical therapy, occupational therapy, post acute care nurse, massage therapy, as well as provider directed [...] Vertebrogenic low back pain (ICD-10 - M54.51) 05/02/2024 Other chronic pain (ICD-10 - G89.29) 05/04/2024 Other chronic pain (ICD-10 - G89.29) Arlen returns to clinic today for a follow-up evaluation regarding her chronic low back pain and bilateral lower extremity pain. I have reviewed the [facility] database and did not find any inconsistencies. [...] 04/19/2024 Radiculopathy, lumbosacral region (ICD-10 - M54.17) 04/19/2024 Low back pain, unspecified (ICD-10 - M54.50) 04/19/2024 Vertebrogenic low back pain (ICD-10 - M54.51) 04/19/2024 Radiculopathy, lumbosacral region (ICD-10 - M54.17) 12/29/2023 Radiculopathy, lumbosacral region (ICD-10 - M54.17) 07/27/2024 Low back pain, unspecified (ICD-10 - M54.50) 04/19/2024 Other chronic pain (ICD-10 - G89.29) Arlen returns to clinic today for a follow-up evaluation regarding her chronic low back pain and bilateral lower extremity pain. I have reviewed the [place] [employer]AL [employer] database and did not find any inconsistencies. [...] documentation has been reviewed by the aforementioned LITERARY WRITER as well as Noel Robles MD, prior [...] documentation has been reviewed by the aforementioned TEACHING YOUNG as well as Akbar Nance DO, prior [...] Insured Coverage Start Date Coverage End Date [facility] [address] [address] [place] [address] [id number] Antonio Valladares Spouse - patient is the spouse of the insured Medical (General) History Medical History History ICD Code Depression headaches Anxiety Neuropathic POTS Surgical History Surgery Date(Month/Year) Sinus surgery 11/2023 gall bladder 10/2005 Hysterectomy 04/2019 Rectal botox 2021 L5-S1 microdiscectomy 06/2022 Hospitalization History Reason Date(Month/Year) Surgical reasons
--- OUTSIDE RECORDS SUMMARY | 2024-08-20 03:42 | XMS_ITS ---
Author Organization [facility] Address [address] [place] [address] [address] [place] [address] Care Team Providers Care Real Estate Assessor Name Role Phone Tono Mccoy Primary Care Provider UnavailRoberto Stone Unavailable [phone] Luigi SOTO, PhD, Ricardo Unavailable Noel Cuellar Unavailable [phone] REASON FOR VISIT * Local * Repeat Bilateral L5-S1 TFEs w/ Depo Encounters Encounter Location Date Provider Diagnosis [address] [facility] [address] [place] [address] 07/27/2024 Noel Robles Radiculopathy, lumbosacral region M54.17 Assessments Encounter Date Diagnosis (ICD Code) Assessment Notes Treatment Notes Treatment Clinical Notes Section Notes 07/27/2024 Radiculopathy, lumbosacral region (ICD-10 - M54.17) Plan Of Treatment No Information Progress Notes * Arlen VALLADARES MDOB:1984 (39 yo F)Acc No.[id number]:07/27/2024 Patient: Arlen KUMAR Provider: Bertrand Robles M.D. :1985 A ge:39 Y S ex:Female Date:07/27/2024 Phone: Address:[address] [phone] Pcp:Tono Mccoy * Billing Information: * Visit Code: * Procedure Codes: 23564 Transforaminal L or S single. Modifiers: 50 A4209 5 cc - 19 cc gauge syringe. A4930 Gloves, size 8. Units: 2.00. A4215 [place] only Sterile any size each. Units: 2.00. A4550 Spinal Support Tray. Q9967 Omnipaque 300 mgl/mL. Units: 3.00. J0665 Inj, bupivacaine, nos, 0.5mg. J1010 Inj, methylpred acetate 1 mg. Units: 80.00. * Sign off status: Completed true * Provider: Bertrand Robles M.D. Date: 0 07/27/2024 Generated for Abdelrahman harris/Renetta/Elvinitting on: 0 08/20/2024 03:42 AM CDT
[2024-08-20 03:45] VITALS: BP 106/81; PULSE 94; RESP 15; TEMP 36.4; O2SAT 100; BMI 24.7
[2024-08-20] MEDS: DOCUSATE SODIUM/BENZOCAINE 5 ML ENEMA PR (04:17)
--- NOTE | 2024-08-20 04:23 | ED_ITS ---
HPI - Abdominal Pain General Date Seen: 08/20/24 Chief Complaint: Abdominal Pain Stated Complaint: lower abdominal pain Time Seen by Provider: 08/20/24 04:02 Source: patient, family, RN notes reviewed and old records reviewed Mode of arrival: ambulatory Limitations: no limitations History of Present Illness HPI narrative: Patient is a 39-year-old female who was in the emergency room approximately 16 hours ago with abdominal pain she was given a diagnosis of constipation, and since then has tried some herbal supplements and MiraLax x1 she describes diffuse abdominal pain over her whole abdomen, ability to really take fluids, because she feels very nauseous she has not vomited. When I see her in the room, she is holding her abdomen, the thought is that she probably has constipation from her use of tirzepatide. He does have a history of irritable bowel syndrome, in the past. She has had previous cholecystectomy, hysterectomy, lumbar diskectomy. No history of fevers chills or sweats, dysuria frequency, her lab work was uneventful earlier today. She is here with her . Related Data Home Medications ?Medication ?Instructions ?Recorded ?Confirmed ferrous fumarate 325 mg (106 mg 325 mg PO QDAY 11/22/23 08/20/24 iron) tablet naltrexone .ROUTE 01/29/24 Previous Rx's ?Medication ?Instructions ?Recorded ondansetron 4 mg disintegrating 4 mg PO Q8H #10 tabs 11/25/23 tablet ondansetron 4 mg disintegrating 4 mg PO Q6H #10 tabs 12/04/23 tablet lorazepam 0.5 mg tablet (Ativan) 0.5 mg PO BID PRN #14 tabs 01/29/24 ondansetron 4 mg disintegrating 4 mg PO Q8H PRN nausea and 08/19/24 tablet vomiting #10 tabs Allergies Allergy/AdvReac Type Severity Reaction Status Date / Time oxycodone Allergy Intermediate Blurry Verified 08/20/24 05:21 Vision penicillin V Allergy Mild Hives Verified 08/20/24 05:21 banana Allergy Unknown Verified 08/20/24 05:21 cat dander Allergy Unknown Verified 08/20/24 05:21 latex Allergy Unknown Verified 08/20/24 05:21 meperidine Allergy Unknown Unknown Verified 08/20/24 05:21 Penicillins Allergy Unknown Verified 08/20/24 05:21 Review of Systems Status of ROS Reports: 10 or more systems reviewed and unremarkable except as noted in History and below [facility] Medical History Constipation ?K59.00 - Constipation, unspecified (ICD-10) Chronic diarrhea ?K52.9 - Noninfective gastroenteritis and colitis, unspecified (ICD-10) Chronic constipation ?K59.09 - Other constipation (ICD-10) Cervical radiculopathy ?M54.12 - Radiculopathy, cervical region (ICD-10) Surgical History History of cholecystectomy (04/07/10) ?Z90.49 - Acquired absence of other specified parts of digestive tract (ICD- 10) S/P hemorrhoidectomy ?Z98.890 - Other specified postprocedural states (ICD-10) ?Z87.19 - Personal history of other diseases of the digestive system (ICD-10) S/P anal fissurectomy ?Z98.890 - Other specified postprocedural states (ICD-10) ?Z87.19 - Personal history of other diseases of the digestive system (ICD-10) S/P hysterectomy ?Z90.710 - Acquired absence of both cervix and uterus (ICD-10) Family History Mother Depression Maternal Grandfather Depression Brother Depression Social History Narrative: . 4 children. Not working. No alcohol. Non-smoker. No illicit drugs. Smoking Status: Never smoker Do you use any of these nicotine containing products: None Second hand tobacco smoke exposure: No How often do you have a drink containing alcohol: 2-4 times a month Alcohol type: wine and hard liquor How many standard drinks containing alcohol do you have on a typical day: 1 or 2 How often do you have six or more drinks on one occasion: Never AUDIT-C Alcohol total score: 2 Non-prescribed substance use: marijuana (any form) Caffeine: Yes Are you using contraception or practicing any form of control: No service: No Exam Narrative: Exam Narrative: On examination I find her the room, she is curled up in a ball, with her Mcmahon hands on her abdomen, she appears nontoxic, with normal vital signs. Pupils equal round reactive to light there is no scleral icterus redness or TMs are normal oropharynx normal there is no adenopathy anterior posterior chains, her abdomen is otherwise soft. There is no tenderness in any of the quadrants, she has bowel sounds throughout. With nurse Sally present rectal exam is done, which shows an empty stool vault. Const: Vital Signs, click to edit/add: Vital Signs - 24 hr 08/20/24 03:45 Temperature 97.6 F Pulse Rate [Pulse Oximeter] 94 Respiratory Rate 15 Blood Pressure [Ri ght Upper Arm] 106/81 Pulse Oximetry 100 Oxygen Delivery Me thod Room Air Documenting provider has reviewed patient's vital signs: yes Course Reevaluation(s) Time of Reevaluation #1: 04:42 Reevaluation #1: Patient had a small bowel movement with the Enemeez. She reports that she does not feel any better and having the bowel movement was like acid coming through her rectum. I explained to her that we can do 1 of 2 things we can wait and see. And she can go home or we can do further diagnostic maneuvers such as laboratory tests and a CT scan, explained her she has had a fair number CT scans in the past. I think I would be ruling out here more than anything a bowel obstruction, if we find this negative, given her 2 ER visits. I think it would be reasonable to try expectant management for possible irritable bowel syndrome and the constipation. We will give her some fluids, along with some Toradol. Time of Reevaluation #2: 05:55 Reevaluation #2: I reviewed the findings with the patient and her . There was mild colitis the radiologist says of the colon this is likely from the fact that we gave her an enema, she did not have any diarrhea to suggest colitis or other issues. Her CRP white blood cell count among other things was all normal. The radiopaque fragments noted on the CT, were likely ferrous fumarate, which she is taking for her anemia. Moderate stool load was seen. Which is likely at least partially related to the chronic constipation but also the use of the monjauro. Unfortunately the medication can cause fairly severe abdominal pain, and the half-life of this medication last for 5 days. I do recommend she go off of it, her BMI it clearly does not support this, but everyone takes medications for different reasons. I will use a little bit of Ativan, as she does have fairly significant anxiety with this abdominal pain, 0.5 mg p.o. t.i.d. p.r.n. times 10 tablets via instymeds. I do recommend use of MiraLax plus or minus enemas, lots of fluids and also walking or some exercise, which will cause evacuation also. Went over warning signs when she should re-presented, she clearly does not have a surgical issue rate now, but increasing abdominal pain fevers chills nausea vomiting I would recommend she come back in. She did ask me why she is not hungry, I think this is from the medication as this is how it works. Vital Signs Vital signs: Initial Vital Signs Temperature 97.6 F 08/20/24 03:45 Temperature Source Temporal Artery Scan 08/20/24 03:45 Pulse Rate 94 08/20/24 03:45 Respiratory Rate 15 08/20/24 03:45 Blood Pressure 106/81 08/20/24 03:45 Blood Pressure Mean 89 08/20/24 03:45 Blood Pressure Position Right Lateral 08/20/24 03:45 Pulse Oximetry 100 08/20/24 03:45 Oxygen Delivery Method Room Air 08/20/24 03:45 Vital Signs Temperature 97.6 F 08/20/24 03:45 Pulse Rate 94 08/20/24 03:45 Respiratory Rate 15 08/20/24 03:45 Blood Pressure 106/81 08/20/24 03:45 Pulse Oximetry 100 08/20/24 03:45 Oxygen Delivery Method Room Air 08/20/24 03:45 Temperature 97.6 F 08/20/24 03:45 Pulse Rate 94 08/20/24 03:45 Respiratory Rate 15 08/20/24 03:45 Blood Pressure 106/81 08/20/24 03:45 Pulse Oximetry 100 08/20/24 03:45 Oxygen Delivery Method Room Air 08/20/24 03:45 Medications Administered Medications: Generic Name Dose Route Start Last Admin Trade Name Freq PRN Reason Stop Dose Admin Sodium Chloride 1,000 mls @ 1,000 mls/hr 08/20/24 04:45 08/20/24 05:46 0.9 % Sodium Chloride 1000 Ml IV 08/20/24 05:44 Infused .Q1H LINDEN Infusion Ketorolac Tromethamine 30 mg 08/20/24 04:39 08/20/24 04:53 Ketorolac 30 Mg/Ml Inj IVP 08/20/24 04:40 30 mg ONCE ONE Administration Discontinued Medications Generic Name Dose Route Start Last Admin Trade Name Freq PRN Reason Stop Dose Admin Docusate Sodium/Benzocaine 5 ml 08/20/24 04:11 08/20/24 04:17 Docusate Sodium/Benzocaine 5 Ml Enema FL 08/20/24 04:12 5 ml ONCE ONE Administration MDM - Abdominal Pain MDM Narrative Medical decision making narrative: During the evaluation of this patient I considered multiple differential diagnosis including life-threatening differentials which are appendicitis, aortic aneurysm, mesenteric ischemia, bowel perforation, ectopic , volvulus and bowel obstruction, other differential diagnosis include but are not limited to inflammatory bowel disease, cholecystitis, pancreatitis, hepatitis, gastritis, GERD, diverticulitis, peptic ulcer disease, pyelonephritis/UTI, renal colic/stone, pelvic inflammatory disease, cervicitis, endometritis, intrauterine , dysfunctional uterine bleeding, ovarian cyst/torsion, spontaneous as well as other etiologies We will try Enemeez x1 to see if we get any returns. Differential Diagnosis Differential diagnosis: Likely abdominal pain, acute appendicitis, calculus of kidney, constipation, diverticulitis, endometriosis, gastroenteritis, pancreatitis and small bowel obstruction Medical Records Attestation: I reviewed the patient's medical records. Medical records narrative: Reviewed her previous visit, along with her x-ray, and along her lab tests. Lab Data Attestation: I reviewed the patient's lab results. Labs: Lab Results 08/20/24 Range/Units 04:51 WBC 4.63 (4.50-11.00) K/uL RBC 4.06 (4.00-5.20) m/uL Hgb 12.8 (12.0-16.0) gm/dL Hct 37.6 (33.0-51.0) % MCV 93 (80-100) fL MCH 32 (26-34) pg MCHC 34 (32-36) gm/dL RDW Coeff of Guillermina 11.6 (11.5-15.5) % Plt Count 213 (140-440) K/uL Neut % (Auto) 57.5 (42.0-72.0) % Lymph % (Auto) 32.0 (20-44) % [place] % (Auto) 9.9 (0.0-11.0) % Eos % (Auto) 0.2 (0.0-7.0) % Baso % (Auto) 0.4 (0.0-3.0) % Neut # (Auto) 2.66 (1.7-7.0) K/uL Lymph # (Auto) 1.48 (0.90-2.90) K/uL [place] # (Auto) 0.50 (0.00-0.90) K/UL Eos # (Auto) 0.01 (0.00-0.50) K/uL Baso # (Auto) 0.02 (0.00-0.30) K/uL Abs Immat Gran (auto) 0.00 (0.00-0.30) K/uL Imm/Tot Granulo (auto) 0.0 % Sodium 141 (135-149) mmol/L Potassium 3.6 (3.6-5.1) mmol/L Chloride 108 (96-114) mmol/L Carbon Dioxide 25 (20-32) mmol/L Anion Gap 8 (7-15) mEq/L BUN 12 (5-24) mg/dL Creatinine 0.6 (0.5-1.5) mg/dL Estimated Creat Clear 110.86 Estimated GFR 118 ml/min Glucose 91 (60-115) mg/dL Lactate 0.7 (0.5-1.9) mmol/L Calcium 9.0 (8.4-10.6) mg/dL Total Bilirubin 0.7 (0.1-1.5) mg/dL Direct Bilirubin 0.2 (0.0-0.5) mg/dL AST 21 (12-35) U/L ALT 16 (4-35) U/L Alkaline Phosphatase 52 (40-150) U/L C-Reactive Protein < 0.5 L (0.5-1.0) mg/dL Total Protein 7.0 (6.0-8.3) g/dL Albumin 4.4 (3.3-5.0) g/dL Amylase 54 (18-89) U/L Lipase 71 (23-300) U/L Procalcitonin < 0.03 L (<0.50) ng/mL Imaging Data CT scan - abdomen: Attestation: I have reviewed the pertinent imaging results. My impression: No acute findings, Radiologist's impression: [place] [address] Diagnostic Imaging Report Patient: Arlen Valladares MR#: [id number] : 1985 Acct:[id number] Loc: ED Service Date: 08/20/[address]: Ordering Physician: Emery Horta M.D. Date of Service: 08/20/24 Procedure(s): CT abdomen pelvis w con Accession Number(s): [id number] cc: Tono Mccoy M.D.; Emery Horta M.D.~ For Patients: As a result of the Cures Act, medical imaging exams and procedure reports are released immediately into your electronic medical record. You may view this report before your referring provider. If you have questions, please contact your health care provider. INDICATION: Abdominal pain for 2 days, history of constipation. COMPARISON: 01/04/2022 TECHNIQUE: CT of the abdomen and pelvis with intravenous contrast. Multiplanar axial, coronal, and sagittal reformats were reconstructed. Contrast: 70 mL Isovue 370. FINDINGS: Lung bases: Normal. Liver: Normal. No mass. Gallbladder and bile ducts: Cholecystectomy clips. Mild biliary ductal dilatation pattern generally seen with reservoir effect is similar to the previous exam. Pancreas: Normal. Spleen: Normal. Adrenal glands: Normal. Kidneys: Normal parenchyma. No cyst or solid mass. There is some contrast being excreted into the kidneys. Possible 2 millimeter right renal calculus. No urinary tract dilation. Urinary bladder: Normal. Pelvis: Physiologic appearance of the ovaries. Vessels: Normal. Bowel: Hyperdense ingested material scattered throughout the bowel. Normal appendix. Mild mucosal hyperenhancement in the descending colon. No significant bowel wall thickening. No pneumatosis. Moderate stool burden. Lymph nodes: No adenopathy. Peritoneum: No ascites. Abdominal wall: No hernia. Bones: No fractures. No focal worrisome bone lesions. IMPRESSION: 1. Mild colitis of the descending colon. No findings of ischemia or obstruction. 2. Moderate stool burden with hyperdense ingested material throughout the enteric contents. Please note that all CT scans at this facility use dose modulation, iterative reconstruction, and/or weight-based dosing when appropriate to reduce radiation dose to as low as reasonably achievable. Dictated by Tatyana Scott MD @ 08/20/2024 5:34:19 AM (Electronically Signed) Discharge Plan Discharge Clinical Impression: Abdominal pain, Constipation, Adverse effects of medication Patient Disposition: Home w/ Parent or Adult Condition: Stable Instructions: Constipation (DC), Abdominal Pain (ED) Additional Instructions: Unfortunately I do believe a lot of this is to do with the Monjauro, and the half life of this does take some time, [address] The [address] scan look good, there is no evidence of any bowel obstruction or anything bad, there was evidence of some mild colitis likely secondary to the enema we gave you, in the descending colon. Moderate stool burden is again seen. The way the medication works as it slows down your bowel, and backs up and if there is a pre-existing problem with constipation and undoubtedly make it worse. He can also make fairly severe abdominal pain, I have seen multiple people with this situation here in the emergency room. Our recommendation is here stop this medication, lots of fluids and rest ibuprofen is a decent medication to use for pain for this, Tylenol likely will not help. I will give you a small supply of Ativan, this is a anti anxiety medication, and can help also somewhat. Usually doing M enemas from the bottom end, and also the MiraLax once daily can help. Unfortunately there will be a lot a cramping which I suspect that your noticing. Lots of fluids and activity also helps promote evacuation of stool. Overall I feel bad that she had diminished your vacation, I do recommend that you follow-up with your regular physician to discuss the above. Activity Level: Light activity Discharge Diet: Regular Prescriptions: No Action ferrous fumarate 325 mg (106 mg iron) tablet 325 mg PO QDAY ondansetron 4 mg tablet,disintegrating 4 mg PO Q6H Qty: 10 0RF naltrexone .ROUTE lorazepam [Ativan] 0.5 mg tablet 0.5 mg PO BID PRNQty: 14 0RF ondansetron 4 mg tablet,disintegrating 4 mg PO Q8H Qty: 10 0RF ondansetron 4 mg tablet,disintegrating 4 mg PO Q8H PRN (Reason: nausea and vomiting) Qty: 10 0RF Follow Up/Referrals: Tono Mccoy MD [Primary Care Provider] - Stand Alone Forms: [employer] Info Instructions
--- NOTE | 2024-08-20 04:40 | CRLHL7_ITS ---
For Patients: As a result of the Century Cures Act, medical imaging exams and procedure reports are released immediately into your electronic medical record. You may view this report before your referring provider. If you have questions, please contact your health care provider. INDICATION: Abdominal pain for 2 days, history of constipation. COMPARISON: 01/04/2022 TECHNIQUE: CT of the abdomen and pelvis with intravenous contrast. Multiplanar axial, coronal, and sagittal reformats were reconstructed. Contrast: 70 mL Isovue 370. FINDINGS: Lung bases: Normal. Liver: Normal. No mass. Gallbladder and bile ducts: Cholecystectomy clips. Mild biliary ductal dilatation pattern generally seen with reservoir effect is similar to the previous exam. Pancreas: Normal. Spleen: Normal. Adrenal glands: Normal. Kidneys: Normal parenchyma. No cyst or solid mass. There is some contrast being excreted into the kidneys. Possible 2 millimeter right renal calculus. No urinary tract dilation. Urinary bladder: Normal. Pelvis: Physiologic appearance of the ovaries. Vessels: Normal. Bowel: Hyperdense ingested material scattered throughout the bowel. Normal appendix. Mild mucosal hyperenhancement in the descending colon. No significant bowel wall thickening. No pneumatosis. Moderate stool burden. Lymph nodes: No adenopathy. Peritoneum: No ascites. Abdominal wall: No hernia. Bones: No fractures. No focal worrisome bone lesions. IMPRESSION: 1. Mild colitis of the descending colon. No findings of ischemia or obstruction. 2. Moderate stool burden with hyperdense ingested material throughout the enteric contents. Please note that all CT scans at this facility use dose modulation, iterative reconstruction, and/or weight-based dosing when appropriate to reduce radiation dose to as low as reasonably achievable. Dictated by Tatayna Scott MD @ 08/20/2024 5:34:19 AM (Electronically Signed)
[2024-08-20] MEDS: KETOROLAC 30 MG/ML inj IVP (04:53)
[2024-08-20] MEDS: 0.9 % SODIUM CHLORIDE 1000 ml 1,000 ML IV (04:53)
[2024-08-20 04:55] LABS: Lactate* 0.7 mmol/L (0.5-1.9)
[2024-08-20 04:57] LABS: Basophils Absolute Auto 0.02 K/uL (0.00-0.30); Basophils Percent Auto 0.4 % (0.0-3.0); Eosinophils Absolute Auto 0.01 K/uL (0.00-0.50); Eosinophils Percent Auto 0.2 % (0.0-7.0); Hematocrit 37.6 % (33.0-51.0); Hemoglobin* 12.8 gm/dL (12.0-16.0); Lymphocytes Absolute Auto 1.48 K/uL (0.90-2.90); Mean Corpuscular HGB Conc 34 gm/dL (32-36); Mean Corpuscular Hemoglobin 32 pg (26-34); Mean Corpuscular Volume 93 fL (80-100); Monocytes Percent Auto 9.9 % (0.0-11.0); Neutrophils Absolute Auto 2.66 K/uL (1.7-7.0); Neutrophils Percent Auto 57.5 % (42.0-72.0); Platelet Count* 213 K/uL (140-440); RDW Coefficient of Variation % 11.6 % (11.5-15.5); Red Blood Count 4.06 m/uL (4.00-5.20); Slide Review Reflex No; White Blood Count* 4.63 K/uL (4.50-11.00)
[2024-08-20 05:13] LABS: Albumin* 4.4 g/dL (3.3-5.0); Chloride* 108 mmol/L (96-114)
[2024-08-20 05:14] LABS: Potassium* 3.6 mmol/L (3.6-5.1); Sodium* 141 mmol/L (135-149)
[2024-08-20 05:16] LABS: Amylase* 54 U/L (18-89); Blood Urea Nitrogen* 12 mg/dL (5-24); Creatinine* 0.6 mg/dL (0.5-1.5); Est. Creatinine Clearance* 110.86; Estimated Glomerular Filt Rate 118 ml/min
[2024-08-20 05:17] LABS: Alanine Aminotransferase* 16 U/L (4-35); Alkaline Phosphatase* 52 U/L (40-150); Anion Gap 8 mEq/L (7-15); Aspartate Amino Transferase* 21 U/L (12-35); Bilirubin Direct* 0.2 mg/dL (0.0-0.5); Bilirubin Total* 0.7 mg/dL (0.1-1.5); Carbon Dioxide* 25 mmol/L (20-32); Glucose* 91 mg/dL (60-115); Lipase* 71 U/L (23-300)
--- OUTSIDE RECORDS SUMMARY | 2024-08-20 05:26 | XMS_ITS | Clinical Summary ---
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 Gender Identity Not on file Sexual Orientation [...] Procedure Name Priority Date/Time Associated Diagnosis Comments OIL FIELD OPERATOR THIN PREP PAP SCREEN IMAGED Routine 12/14/2018 12:00 PM CDT from Last 3 Months or Most Recently Relevant to Health Maintenance Results * OIL FIELD OPERATOR THIN PREP PAP SCREEN IMAGED (12/14/2018 12:00 PM CDT) Case Report Gynecologic Cytology Report Case: [id number] Authorizing Provider: Alexandra Perez MD Collected: 12/14/2018 1200 Ordering Location: [facility] Received: 12/19/2018 0916 First Screen: Renzo Arrington Specimen: OIL FIELD OPERATOR ThinPrep Vial Screening, Cervical/Vaginal 12/26/2018 1:00 PM CDT [facility] INTERPRETATION/ RESULT NEGATIVE FOR INTRAEPITHELIAL LESION OR MALIGNANCY (NIL) (none) 12/26/2018 1:00 PM CDT [facility] at 1300 CDT SPECIMEN ADEQUACY Satisfactory for evaluation Endocervical component present 12/26/2018 1:00 PM CDT [facility] HPV REQUEST HPV and PAP 12/26/2018 1:00 PM CDT [facility] Automated Review Successful 12/26/2018 1:00 PM CDT [facility] Comment:Specimen processed s uccessfully by automated chemist device, ThinPrep Imaging System, [employer] ANCILLARY TESTING OIL FIELD OPERATOR HPV Ordered, Please see separate report 12/26/2018 1:00 PM CDT [facility] Note The pap test is a [...] and interpreted at [facility] - [address], [place] [address] and [facility] - [address]; [place] [address] and [facility] - [address]; [place] [address] and [facility] [address]; [place] [address] 12/26/2018 1:00 PM CDT [facility] Other (Cervical/Vagina l) 12/14/2018 12:00 PM CDT 12/19/2018 9:16 AM CDT Alexandra Perez MD PATHOLOGY/CYTOLOGY Final Result [facility] [address] [place] [address], from Last 3 Months or Most Recently Relevant to Health Maintenance Advance Directives * Full Code (Latest Code Status on File) Date Activated Date Inactivated Comments 07/08/2022 12:24 PM 07/08/2022 5:48 PM Question Answer Comments Code Status Discussion: Per Existing Order Care Teams Cable Tool Operator Relationship Specialty Start Date End Date Tono Mccoy MD [address] [place] [address] PCP - General Family Practice 06/29/22 Jet Garcia MD Family Practice 12/16/15
--- OUTSIDE RECORDS SUMMARY | 2024-08-20 05:26 | XMS_ITS | Clinical Summary ---
Author Organization [facility] Address [address] [place] [address] Care Team Providers Care Teamcenter Solution Architect Name Role Phone None Reported, Pcp Primary Care Provider Unavail able Source Comments Patient records contain information from all sites at [facility]. For routine questions regarding patient records, call [phone] during business hours, M-F 8:00 AM - 5:00 PM Central Time. Record requests for emergency care only can be directed to [phone] at any time.[facility] Allergies Active Allergy Reactions Criticality Noted Date [...] Alive Son 1 Lavelle Alive Son 2 Ralston Alive Social History Tobacco Use Types Packs/Day Years Used Date Smoking Tobacco: Never Passive Smoke Exposure: Past Smokeless Tobacco: Never Comments:Smoked in high scho ol Passive Exposure Comments:childhood Alcohol Use Standard Drinks/Week Comments Yes 1 (1 standard drink = 0.6 oz pure alcohol) Rarely consume alcohol, may have 1 or 2 drink occasionally [facility] Utilities Answer Date Recorded In [...] Answer Date Recorded PHQ-2 Score 2 10/27/2023 [facility]ational Stress Questionnaire Answer Date [...] PM CDT Legal Sex Female 4:53 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 Gender Identity Female 11/21/2021 11:33 PM CDT Sexual Orientation Straight 11/21/2021 11 :33 PM CDT Last Filed Vital Signs Vital Sign Reading Time Taken Comments Blood Pressure 135/84 05/14/2024 9:22 AM COPING MACHINE ASSEMBLER Pulse 81 05/14/2024 9:22 AM COPING MACHINE ASSEMBLER Temperature 35.9 C (96.6 F) 03/07/2024 2:52 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 Respiratory Rate 18 01/24/2022 10:18 PM CDT Oxygen Saturation 99% 05/14/2024 9:22 AM COPING MACHINE ASSEMBLER Inhaled Oxygen Concentration - - Weight 69.9 kg (154 lb 1.6 oz) 05/14/2024 9:22 A M COPING MACHINE ASSEMBLER Height 164.4 cm (5' 4.72) 05/14/2024 9:22 AM CS T Body Mass Index 25.86 05/14/2024 9:22 AM COPING MACHINE ASSEMBLER Plan of Treatment Health Maintenance Due Date [...] patient's age to complete this topic Insurance [facility] Care Teams Teamcenter Solution Architect Relationship Specialty Start Date End Date None Reported, Pcp PCP - General Family Medicine 01/25/22
--- OUTSIDE RECORDS SUMMARY | 2024-08-20 05:26 | XMS_ITS | Continuity of Care Document ---
Author Organization [facility] Address [address] [address] [place] [address] Phone Care Team Providers Care Shellfish Bed Worker Name Role Phone Diomedes Baca MD Unavailable Unavailable Advance Directives Directive Yes / No Effective Date File Name No Information Encounters Encounter Description Practice Location Reason(s) For Visit Diagnoses Date Provider Providers Copied on Encounter [facility], [address] [address], [place], [place], [id number], [place] tel:[phone] [facility] No Information Keven Hercules. [address] [facility] [address], [place], [place], [id number], [place]. tel:[phone] Referring Provider: Africa Aparicio MD L, [address] [place], [address]. tel:[phone] Family History Family Member Type Diagnosis Age At Onset No Information Payers Payer name Insurance type Covered democrat ID Authoriza tion(s) [employer] [id number] Social History Type Description Quantity Date Captured [...]
[2024-08-20 05:27] LABS: C Reactive Protein* < 0.5 mg/dL (0.5-1.0)
[2024-08-20 05:34] LABS: Procalcitonin* < 0.03 ng/mL (<0.50)
== END 2024-08-20 06:06 | disposition home or self-care (01) ==
PROVIDERS: Emergency Provider Family Medicine; PCP Family Medicine
DX: K59.00 Constipation, unspecified (principal); R10.9 Unspecified abdominal pain; T50.905A Adverse effect of unspecified drugs, medicaments and biological substances, initial encounter
CPT/HCPCS: 36415; 74177; 80048; 80076; 81001; 82150; 83605; 83690; 84145; 85025; 86140; 96374; 99284; A9270; J1885; J7030; Q9967

== ENCOUNTER 2025-02-11 08:32 | Outpatient (CLI) | payer OTHER, SELFPAY | END 2025-02-11 08:33 | disposition home or self-care (01) | LOC: NFLDREF 02-12 18:06 | PROVIDERS: PCP Family Medicine; Referring Provider Family Medicine; Visit Provider Family Medicine | DX: L30.9 Dermatitis, unspecified (principal); G89.29 Other chronic pain; M79.10 Myalgia, unspecified site; Z00.00 Encounter for general adult medical examination without abnormal findings | CPT/HCPCS: 80048; 80061 ==

== ENCOUNTER 2025-02-13 12:44 | Outpatient (CLI) | payer OTHER, SELFPAY | END 2025-02-13 12:45 | disposition home or self-care (01) | PROVIDERS: PCP Family Medicine; Visit Provider Family Medicine | DX: Z00.00 Encounter for general adult medical examination without abnormal findings (principal); G89.29 Other chronic pain; L30.9 Dermatitis, unspecified; M79.10 Myalgia, unspecified site; Z11.59 Encounter for screening for other viral diseases | CPT/HCPCS: 82550; 82607; 82746; 84443; 86803; 86812 ==